=== PATIENT | female | born 1930 | race Caucasian/White ===

== ENCOUNTER 2017-05-19 11:09 | Inpatient (IN) ==
[2017-05-19] MEDS ORDERED: SALINE FLUSH 10ml SYRINGE IVF PRN (11:23)
--- NOTE | 2017-05-19 12:14 | Emergency Department Report ---
General Adult HPI - General Chief complaint: Medical Clearance Stated complaint: evaluation Time Seen by Provider: 05/19/17 11:16 Source: patient, family Mode of arrival: ambulatory Limitations: no limitations - History of Present Illness HPI narrative: 86-year-old female presents to the emergency department for evaluation for treatment by generations. Patient denies any pain or discomfort. Patient has been experiencing paranoia and intermittent episodes of confusion. Patient does not note any exacerbating or remitting factors. She no other complaints or associated symptoms. Patient was [place] healthcare facility here. Patient does not wish to harm herself or anyone else. She denies homicidal/suicidal ideation or plan. No self injury or self- harm. - Related Data Home Medications Medication Instructions Recorded Confirmed Tylenol Regular Strength 325 mg 650 mg PO Q6H PRN cap 05/18/17 05/19/17 capsule Zyloprim (Allopurinol) 100 mg 100 mg PO DAILY 05/18/17 05/19/17 tablet Amitriptyline [Elavil] 10 mg PO HS 05/19/17 05/19/17 Aspirin [Adult Low Dose Aspirin EC] 81 mg PO DAILY 05/19/17 05/19/17 Atorvastatin [Lipitor] 10 mg PO HS 05/19/17 05/19/17 Famotidine [Pepcid AC] 20 mg PO HS 05/19/17 05/19/17 LORazepam [Ativan] 0.5 mg PO BID PRN 05/19/17 05/19/17 Polyethylene Glycol 3350 1 pack PO DAILY PRN 05/19/17 05/19/17 [Polyethylene Glycol 3350] Previous Rx's Medication Instructions Recorded lisinopril 20 mg tablet 20 mg PO DAILY #90 tab 04/20/17 Allergies Allergy/AdvReac Type Severity Reaction Status Date / Time simvastatin [From Zocor] Allergy Intermediate rash Verified 05/19/17 11:30 Review of Systems Constitutional: Denies: fever, chills Eyes: Denies: eye pain, vision change ENT: Denies: ear pain, throat pain Cardiovascular: Denies: chest pain, palpitations Respiratory: Denies: cough, dyspnea Gastrointestinal: Denies: abdominal pain, nausea, vomiting, diarrhea Genitourinary: Denies: urgency, dysuria Musculoskeletal: Denies: back pain, arthralgia Integumentary: Denies: erythema, rash Neurological: Denies: headache, numbness Psychiatric: Denies: anxiety, depression Endocrine: Denies: fatigue, heat or cold intolerance Hematological/Lymphatic: Denies: easy bleeding, easy bruising Allergic/Immunologic: Denies: facial swelling, urticaria PFSH Patient Stated Medical History Post Menopausal Yes Clinic Medical History Alzheimer disease (Chronic Medical) Anxiety (Chronic Medical) CAD (coronary artery disease) (Chronic Medical) COPD (chronic obstructive pulmonary disease) (Chronic Medical) Cataracts, bilateral (Chronic Medical) Depression (Chronic Medical) Dyslipidemia (Chronic Medical) 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 Shoulder replacement and other shoulder surgeries as well. Colon surgery with removal of some of her intestinews. Growth removed from neck Family History: Family History Mother Stroke Father Diabetes - Social History Smoking status: Never smoker Substance use type: does not use Alcohol intake frequency: does not drink Physical Exam - Limitations Limitations: no limitations - General General appearance: alert, in no apparent distress - Normal Exams: Head:: Normocephalic without trauma Eyes:: Pupils are PERRLA w/ EOMI, No scleral icterus, irritation, or foreign bodies noted ENMT:: No facial trauma, nasal exudates, pharyngeal erythema, or exudates are noted Dental: No fractured, loose, or missing teeth noted Neck:: Full range of motion, without adenopathy, JVD, bruits or thyromegaly Chest/Respirations:: Clear all vivas, with good airflow, and symmetry bilaterally Cardiovascular:: Regular rate and rhythm, without murmur or gallop, Pulses 2+ all extremities, capillary refill, <2 seconds all extremities Abdomen:: Bowel sounds positive, soft, non-tender, non-distended, no hepatosplenomegaly, masses or bruits noted Course Vital Signs Temperature 98.7 F 05/19/17 11:10 Temperature 98.7 F 05/19/17 14:29 Pulse Rate 67 05/19/17 14:29 Respiratory Rate 18 05/19/17 14:29 Blood Pressure 141/95 H 05/19/17 14:29 Pulse Oximetry 97 05/19/17 14:29 Medical Decision Making - [facility] Narrative Medical decision making narrative: Labs / imaging were discussed in detail with the patient and family and questions are answered. Patient is screened by [facility]. Patient is accepted to [facility] by Dr. Rizvi. Patient was given 500 mL normal saline bolus intravenously times one. Patient is medically clear for transfer to [facility] at this time. Patient and family are in agreement with the current plan of management. No further orders from accepting physician who is in agreement with the current plan of management. - Differential Diagnosis Metabolic disorder, UTI, dementia, psychosis - Lab Data Result diagrams: 05/19/17 11:47 05/19/17 11:47 Lab Results 05/19/17 05/19/17 05/19/17 Range/Units 11:39 11:47 11:47 WBC 6.3 (4.5-11.0) T/MM3 RBC 4.90 (4.00-5.20) M/MM3 Hgb 14.9 (12-16) GM/DL Hct 45.6 (36-46) % MCV 93.1 (80-100) UM3 MCH 30.4 (26-34) UUG MCHC 32.7 (31-37) GM/DL RDW Std Deviation 45.0 (36.9-50.2) FL Plt Count 131 (130-400) T/MM3 MPV 10.9 (9.4-12.4) UM3 Immature Gran % (Auto) 0.2 (0.0-0.5) % Neut % (Auto) 80.9 H (33-66) % Lymph % (Auto) 12.2 L (23-45) % Banks % (Auto) 6.2 (0-9.0) % Eos % (Auto) 0.3 (0-4) % Baso % (Auto) 0.2 (0-2) % Neut # 5.1 (1.8-7.7) T/MM3 Lymph # 0.8 L (1-4.8) T/MM3 Banks # 0.4 (0-0.8) T/MM3 Eos # 0.0 (0-0.5) T/MM3 Baso # 0.0 (0-0.2) T/MM3 Abs Immat Gran (auto) 0.01 (0.00-0.03) T/MM3 Turbidity < 20 (0-20) Sodium 149 H (134-144) MEQ/L Potassium 3.7 (3.6-5) MEQ/L Chloride 108 H (98-107) MEQ/L Carbon Dioxide 28 (22-30) MEQ/L Anion Gap 13 (5-15) MEQ/L BUN 21.0 H (7-17) MG/DL Creatinine 0.8 (0.7-1.2) MG/DL GFR Calculation 68 BUN/Creatinine Ratio 26 (6-26) RATIO Glucose 97 (65-110) MG/DL Calculated Osmolality 289 H (261-280) MOSM/KG Calcium 9.8 (8.4-10.2) MG/DL Total Bilirubin 1.00 (0.20-1.30) MG/DL Icterus Index < 2 (0-7) AST 19 (14-36) U/L ALT 30 (9-52) U/L Alkaline Phosphatase 61 (38-126) U/L Troponin I 0.013 (0-0.12) ng/ml Total Protein 6.8 (6.3-8.2) G/DL Albumin 4.5 (3.5-5.0) G/DL Globulin 2.3 L (2.4-3.6) G/DL Albumin/Globulin Ratio 2.0 (1.1-2.2) RATIO Specimen Hemolysis < 15 (0-25) Ur Collection Type Urine, clean catch Urine Color Yellow (YELLOW) Urine Clarity Clear Urine pH 6.0 (5.0-8.0) Ur Specific [place] 1.025 (1.015-1.025) Urine Protein 1+ A (NEGATIVE) Urine Glucose (UA) Negative (NEGATIVE) Urine Ketones Negative (NEGATIVE) Urine Occult Blood Trace-lysed (NEGATIVE) Urine Nitrate Negative (NEGATIVE) Urine Bilirubin Negative (NEGATIVE) Urine Urobilinogen 2.0 (NORMAL) EU/DL Ur Leukocyte Esterase Trace A (NEGATIVE) Urine RBC 10-20 H (0-3) /HPF Urine WBC 3-5 (0-5) /HPF Ur Squamous Epith Cells 5-10 Calcium Oxalate Crystal Few Urine Bacteria 1+ H (NEGATIVE) Hyaline Casts 5-10 /LPF Granular Casts 0-1 RBC Casts 0-1 /LPF WBC Casts 0-1 /LPF Urine Mucus Present Ur Culture Indicated? Cult not indicated - Radiology Data CXR - No acute processes. CT Head - No acute processes. - EKG Data EKG #1 EKG results narrative: Sinus rhythm. Right bundle branch block. 62 bpm. No STEMI. Disposition Clinical Impression: Dementia Qualifiers: Dementia type: unspecified type Dementia behavioral disturbance: with behavioral disturbance Qualified Code(s): F03.91 - Unspecified dementia with behavioral disturbance Disposition: 02 To [facility] Acute Care Condition: Improved Prescriptions: No Action Atorvastatin [Lipitor] 10 mg PO HS Polyethylene Glycol 3350 [Polyethylene Glycol 3350] 1 pack PO DAILY PRN PRN Reason: Constipation LORazepam [Ativan] 0.5 mg PO BID PRN PRN Reason: Anxiety Amitriptyline [Elavil] 10 mg PO HS Aspirin [Adult Low Dose Aspirin EC] 81 mg PO DAILY Famotidine [Pepcid AC] 20 mg PO HS lisinopril 20 mg tablet 20 mg PO DAILY #90 tab Tylenol Regular Strength 325 mg capsule 650 mg PO Q6H PRN cap PRN Reason: Pain Zyloprim (Allopurinol) 100 mg tablet 100 mg PO DAILY Referrals: Gage Oquendo DO [Family Provider] - Time of Disposition: 13:40 - Seen By: physician
[2017-05-19] MEDS ORDERED: NS 1,000 ML IV ONE (12:27)
[2017-05-19] MEDS ORDERED: HALOPERIDOL 5 MG/ML INJECTION IM PRN (16:28)
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
--- NOTE | 2017-05-19 17:14 | CT Scan Report ---
Indication: Paranoia PROCEDURE: CT head/brain wo con: Encounter: Initial Comparison: None Findings: Axial noncontrasted images of the brain utilizing radiation dose reduction techniques. There is cerebral and cerebellar atrophy. Dural based partially calcified posterior left parietal convexity meningioma with a bilobed appearance. Hyperdensity in the left frontal deep white matter which is likely a focus of calcification. Chronic microvascular ischemic changes. IMPRESSION: 1. Cerebral and cerebellar atrophy. 2. Chronic microvascular ischemia. 3. Posterior left parietal partially calcified meningioma. .
--- NOTE | 2017-05-19 17:18 | XRay Report ---
Indication: Paranoia - MEd clearance PROCEDURE: XR chest 1V: Encounter: Initial Comparison: None Findings: Frontal chest radiograph is submitted. There is mild cardiomegaly no pulmonary vascular engorgement. Mild hypoventilation. No confluent infiltrate; pleural spaces clear. Degenerative changes of the bony elements including the spine and left shoulder and there is been reverse total shoulder arthroplasty on the right. IMPRESSION: Mild hypoventilation and cardiomegaly but no acute chest disease is identified. .
[2017-05-19 17:52] VITALS: BMI 27.8
[2017-05-19] MEDS: LORazepam 0.5 MG TABLET PO PRN (20:55)
[2017-05-19] MEDS: FAMOTIDINE 20 MG TABLET PO SCH ×2 (20:56→22:31)
[2017-05-19] MEDS: ATORVASTATIN 10 MG TABLET PO SCH ×2 (20:56→22:31)
[2017-05-20] MEDS: LISINOPRIL 20 MG TABLET PO SCH (08:12)
[2017-05-20] MEDS: ASPIRIN *EC* 81 MG TABLET PO SCH (08:12)
[2017-05-20] MEDS: ALLOPURINOL 100 MG TABLET PO SCH (08:12)
[2017-05-20] MEDS: POLYETHYL GLYCOL 3350 17gm PACKET PO PRN (08:12)
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
[2017-05-20] MEDS: DIVALPROEX 250 MG TABLET PO SCH (16:23)
[2017-05-20] MEDS: LORazepam 0.5 MG TABLET PO PRN (19:36)
[2017-05-20] MEDS: FAMOTIDINE 20 MG TABLET PO SCH (19:36)
[2017-05-20] MEDS: ATORVASTATIN 10 MG TABLET PO SCH (19:36)
[2017-05-21] MEDS: ATORVASTATIN 10 MG TABLET PO SCH ×2 (00:01→20:37)
[2017-05-21] MEDS: FAMOTIDINE 20 MG TABLET PO SCH ×2 (00:01→20:37)
[2017-05-21] MEDS: DIVALPROEX 250 MG TABLET PO SCH ×3 (00:03→20:37)
[2017-05-21] MEDS: LISINOPRIL 20 MG TABLET PO SCH (08:09)
[2017-05-21] MEDS: ASPIRIN *EC* 81 MG TABLET PO SCH (08:09)
[2017-05-21] MEDS: ALLOPURINOL 100 MG TABLET PO SCH (08:09)
[2017-05-21] MEDS ORDERED: BENZOCAINE 20% SPRAY 0.5 ML ONE (08:21)
--- NOTE | 2017-05-21 09:36 | Progress Note ---
Subjective: Patient is seen today in her room. She is pleasant and answers questions appropriately. Staff has no concerns with her at present. She has no complaints. She is eating well. Bowels are moving. Objective Vital signs: Temperature 97.8 F 05/20/17 19:26 Pulse Rate 75 05/20/17 19:26 Respiratory Rate 20 05/20/17 19:26 Blood Pressure 169/71 H 05/20/17 19:26 Pulse Oximetry 95 05/20/17 19:26 Oxygen Delivery Method Room Air Height: 1.65 m Weight: 75.7 kg Body Mass Index: 27.8 - Constitutional Present: no acute distress, well nourished, well developed - Routine HEENT Exam Eye: Present: EOMI - Routine Respiratory Exam Present: CTA bilaterally. Absent: wheezes - Routine Cardiovascular Exam Present: RRR, S1, S2, murmur (grade II) - Routine Abdominal Exam Present: soft, normoactive bowel sounds, non distended. Absent: tenderness - Routine Extremities Exam Present: no edema, normal capillary refill - Routine Skin Exam Present: dry, warm - Routine Neurological Exam Present: alert, tremors (resting tremor on right side most notable to the right leg at time of exam) - Routine Lymphatic Exam Lymphatic: Absent: adenopathy - Routine Psychiatric Exam Present: normal affect Results - Labs CBC & Chem 7: 05/19/17 11:47 05/20/17 06:57 Assessment and Plan (1) Dementia Current visit: Yes Status: Chronic (2) Cognitive and behavioral changes Current visit: Yes Status: Acute (3) History of recent fall Current visit: No Status: Acute (4) CAD (coronary artery disease) Current visit: No Status: Chronic (5) HTN (hypertension) Current visit: Yes Status: Chronic (6) Dehydration with hypernatremia Current visit: No Status: Acute Assessment and Plan: Assessment Hypokalemia Alzheimer disease (Chronic Medical) Anxiety (Chronic Medical) CAD (coronary artery disease) (Chronic Medical) COPD (chronic obstructive pulmonary disease) (Chronic Medical) Cataracts, bilateral (Chronic Medical) Depression (Chronic Medical) Dyslipidemia (Chronic Medical) 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 Her home potassium was held, and she was continued on lisinopril for hypertension. Most recent potassium level was slightly low at 3.2. Will check BMP tomorrow, if potassium continues to drop would resume home potassium dose. She has an appointment with Dr. Gamboa scheduled in a few weeks to evaluate her tremors. Blood pressures are running slightly high, but improved over the course of the day yesterday. Will continue to monitor. Sepsis Assessment - Evaluation Sepsis screening result: No Definite Risk Hospital Course Summary Disclaimer: The visit summary below is not to be considered part of the above Progress Note. Hospital Course: 05/19/17 17:00 She does appear a bit dry- she did receive IVF in the ED. Will follow up labs for stability. If she becomes more dry, may need to hold lisinopril due to risk of kidney injury. BP is fairly stable. We will continue to monitor. Safe environment, fall precautions in place. She does have a significant, right sided tremor. I don't see that she has any parkinson's meds in place. We may need to consider adding that in to help with gait stability once we have her stabilized from a mental health perspective. Thank you for the consult- we will follow. 05/21/17 09:47 Her potassium level was normal on admission. Her home potassium was held, and she was continued on lisinopril for hypertension. Most recent potassium level was slightly low at 3.2. Will check BMP tomorrow, if potassium continues to drop would resume home potassium dose. She has an appointment with Dr. Gamboa scheduled in a few weeks to evaluate her tremors. Blood pressures are running slightly high, but improved over the course of the day yesterday. Will continue to monitor.
--- NOTE | 2017-05-21 19:04 | Neuropsych Progress Note ---
[facility] Subjective Date: 05/21/17 - Sujective/Severity of Illness Medications: Allopurinol (Zyloprim) 100 mg PO DAILY [facility] Last Admin: 05/21/17 08:09 Dose: 100 mg Aspirin (Ecotrin) 81 mg PO DAILY [facility] Last Admin: 05/21/17 08:09 Dose: 81 mg Atorvastatin Calcium (Lipitor) 10 mg PO 2100 [facility] Divalproex Sodium (Depakote) 250 mg PO BID [facility] Last Admin: 05/21/17 08:08 Dose: 250 mg Famotidine (Pepcid) 20 mg PO 2100 [facility] Haloperidol (Haldol) 0.5 mg PO Q6H PRN PRN Reason: Extreme agitation Haloperidol Lactate (Haldol) 0.5 mg IM Q6H PRN PRN Reason: Extreme agitation Lisinopril (Prinivil) 20 mg PO DAILY [facility] Last Admin: 05/21/17 08:09 Dose: 20 mg Lorazepam (Ativan Inj) 0.5 mg IM Q6H PRN PRN Reason: Extreme agitation Lorazepam (Ativan) 0.5 mg PO Q6H PRN PRN Reason: Extreme agitation Last Admin: 05/20/17 19:36 Dose: 0.5 mg Polyethylene Glycol (Miralax) 17 gm PO DAILY PRN PRN Reason: Constipation Last Admin: 05/20/17 08:12 Dose: 17 gm Subjective: Pt seen and chart examined. Nursing reports pt is doing well today. Sleeping well and has a good appetite. No behaviors noted. On face to face the pt states she is doing well. She is pleasant but confused. Only oriented to self. Denies any pain. Some paranoia but states she feels safe here. Tolerating meds. Start Time: 17:45 Stop Time: 18:00 Mental Status Exam Vitals: Last Vital Signs Temp 97.8 F 05/21/17 17:00 Pulse 75 05/21/17 17:00 Resp 16 05/21/17 17:00 BP 150/88 H 05/21/17 17:04 Pulse Ox 97 05/21/17 17:00 Height: 1.65 m Weight: 75.7 kg - Mental Status Exam Muscle Strength/Tone: Normal Dressing: Casual Grooming: Good Attitude: Cooperative Motor Activity: Normal Eye Contact: Good Speech: Slowed Volume: Normal Rhythm: Appropriate Rhythm Orientation: Oriented to person Rate of Thoughts: Delayed Thought Organization: [place] Associations: Flight of Ideas Abstract Reasoning: Poor abstract reasoning Thought Content: Normal Perception/Psychotic: Perception Normal Language: Naming Impaired Memory: Poor-immediate, Poor-recent Suicidal Ideation: None Homicidal Ideation: None Insight: Poor Judgement: Poor Impulse Control: Poor - Laboratory Result Diagrams: 05/19/17 11:47 05/20/17 06:57 Assessment and Plan (1) 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 Hospital Course: 05/19/17 17:00 She does appear a bit dry- she did receive IVF in the ED. Will follow up labs for stability. If she becomes more dry, may need to hold lisinopril due to risk of kidney injury. BP is fairly stable. We will continue to monitor. Safe environment, fall precautions in place. She does have a significant, right sided tremor. I don't see that she has any parkinson's meds in place. We may need to consider adding that in to help with gait stability once we have her stabilized from a mental health perspective. Thank you for the consult- we will follow. 05/21/17 09:47 Her potassium level was normal on admission. Her home potassium was held, and she was continued on lisinopril for hypertension. Most recent potassium level was slightly low at 3.2. Will check BMP tomorrow, if potassium continues to drop would resume home potassium dose. She has an appointment with Dr. Gamboa scheduled in a few weeks to evaluate her tremors. Blood pressures are running slightly high, but improved over the course of the day yesterday. Will continue to monitor. 05/21/17 19:04 Continue current care
[2017-05-22] MEDS: DIVALPROEX 250 MG TABLET PO SCH ×2 (09:43→20:18)
[2017-05-22] MEDS: LISINOPRIL 20 MG TABLET PO SCH (09:43)
[2017-05-22] MEDS: ASPIRIN *EC* 81 MG TABLET PO SCH (09:44)
[2017-05-22] MEDS: ALLOPURINOL 100 MG TABLET PO SCH (09:44)
--- NOTE | 2017-05-22 11:34 | Progress Note ---
<Yuni Tesfaye - Last Filed: 05/22/17 11:31> Subjective: Patient was sleeping in the day room when I saw her today. She did awake briefly and reported that she had no complaints other than that she was drowsy. The nurse reported to me this morning that she gave another patient's meds to this patient today. These medications included Depakote 500 mg, Lasix 40 mg, Colace 100 mg, Culturelle, levothyroxine 175 g, Zoloft 100 mg and Seroquel 50 mg. The nurse has reported this med administration error to Dr. Post and the patient's family, and a variance report will be written. Objective Vital signs: Temperature 97.2 F 05/22/17 09:47 Pulse Rate 84 05/22/17 09:47 Respiratory Rate 14 05/22/17 09:47 Blood Pressure 123/62 05/22/17 09:47 Pulse Oximetry 92 05/22/17 09:47 Oxygen Delivery Method Room Air Height: 1.65 m Weight: 75.7 kg Body Mass Index: 27.8 - Constitutional Present: no acute distress, well nourished, well developed - Routine HEENT Exam Head: Present: normocephalic, atraumatic Eye: Present: EOMI - Routine Respiratory Exam Present: CTA bilaterally. Absent: wheezes - Routine Cardiovascular Exam Present: RRR, S1, S2. Absent: murmur - Routine Abdominal Exam Present: soft, normoactive bowel sounds, non distended. Absent: tenderness - Routine Extremities Exam Present: no edema, normal capillary refill - Routine Skin Exam Present: dry, warm - Routine Neurological Exam Sleepy, but on awakening she is oriented to person and place - Routine Lymphatic Exam Lymphatic: Absent: adenopathy - Routine Psychiatric Exam Present: normal affect Results - Labs CBC & Chem 7: 05/19/17 11:47 05/22/17 06:58 Assessment and Plan (1) Dementia Current visit: Yes Status: Chronic (2) Cognitive and behavioral changes Current visit: Yes Status: Acute (3) History of recent fall Current visit: No Status: Acute (4) CAD (coronary artery disease) Current visit: No Status: Chronic (5) HTN (hypertension) Current visit: Yes Status: Chronic (6) Dehydration with hypernatremia Current visit: No Status: Acute Assessment and Plan: Assessment Hypokalemia Alzheimer disease (Chronic Medical) Anxiety (Chronic Medical) CAD (coronary artery disease) (Chronic Medical) COPD (chronic obstructive pulmonary disease) (Chronic Medical) Cataracts, bilateral (Chronic Medical) Depression (Chronic Medical) Dyslipidemia (Chronic Medical) 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 Will monitor her closely today. Other than drowsiness, I don't expect any significant reactions/side effects from the medications she was given. She was given her allopurinol and her aspirin. Will check a BMP in the morning. Her home potassium is still on hold. Sepsis Assessment - Evaluation Sepsis screening result: No Definite Risk Hospital Course Summary Disclaimer: The visit summary below is not to be considered part of the above Progress Note. Hospital Course: 05/19/17 17:00 She does appear a bit dry- she did receive IVF in the ED. Will follow up labs for stability. If she becomes more dry, may need to hold lisinopril due to risk of kidney injury. BP is fairly stable. We will continue to monitor. Safe environment, fall precautions in place. She does have a significant, right sided tremor. I don't see that she has any parkinson's meds in place. We may need to consider adding that in to help with gait stability once we have her stabilized from a mental health perspective. Thank you for the consult- we will follow. 05/21/17 09:47 Her potassium level was normal on admission. Her home potassium was held, and she was continued on lisinopril for hypertension. Most recent potassium level was slightly low at 3.2. Will check BMP tomorrow, if potassium continues to drop would resume home potassium dose. She has an appointment with Dr. Gamboa scheduled in a few weeks to evaluate her tremors. Blood pressures are running slightly high, but improved over the course of the day yesterday. Will continue to monitor. 05/22/17 Patient given another patient's medications today. Patient's lisinopril was held this morning as her blood pressure was 123/62 after getting the Lasix. Will monitor her closely today. Other than drowsiness, I don't expect any significant reactions/side effects from the medications she was given. She was given her allopurinol and her aspirin. Will check a BMP in the morning. Her home potassium is still on hold. <Desirae Beatty - Last Filed: 05/22/17 18:26> Objective Vital signs: Temperature 97.8 F 05/22/17 16:42 Pulse Rate 74 05/22/17 16:42 Respiratory Rate 20 05/22/17 16:42 Blood Pressure 160/92 H 05/22/17 16:42 Pulse Oximetry 96 05/22/17 16:42 Oxygen Delivery Method Room Air Height/Weight/BMI: Height 1.65 m Weight 75.7 kg Body Mass Index 27.8 Results - Labs CBC & Chem 7: 05/19/17 11:47 05/22/17 06:58 Assessment and Plan (1) Dementia Current visit: Yes Status: Chronic (2) Cognitive and behavioral changes Current visit: Yes Status: Acute (3) History of recent fall Current visit: No Status: Acute (4) CAD (coronary artery disease) Current visit: No Status: Chronic (5) HTN (hypertension) Current visit: Yes Status: Chronic (6) Dehydration with hypernatremia Current visit: No Status: Acute Assessment and Plan: I have independently evaluated and examined this patient. I reviewed the chart, the patient's history, and the [employer]/PA's documented findings as above. We discussed and formulated the assessment and plan as above with additions as below: Praveen was reevaluated this evening after medication air this morning. She remains drowsy but is awake enough to eat dinner. Speech is slightly mumbled. She denies pain or dyspnea. When asked about her tremor she reports that sometimes they're on one side and sometimes on the other. Patient is drowsy but able to respond to questions. Respirations nonlabored, poor inspiratory effort. Breath sounds clear Rest tremors present, greatest in the left leg today, increased motor tone. Potassium 3.4-resume daily supplement of 20 mEq KCl and recheck in several days. Remains somnolent but improved from assessment earlier today. Hospital Course Summary Disclaimer: The visit summary below is not to be considered part of the above Progress Note.
[2017-05-22] MEDS: QUETIAPINE 25 MG TABLET PO SCH ×2 (16:42→22:09)
--- NOTE | 2017-05-22 16:59 | Neuropsych Progress Note ---
[facility] Subjective Date: 05/22/17 - Sujective/Severity of Illness Medications: Allopurinol (Zyloprim) 100 mg PO DAILY [facility] Last Admin: 05/22/17 09:44 Dose: 100 mg Aspirin (Ecotrin) 81 mg PO DAILY [facility] Last Admin: 05/22/17 09:44 Dose: 81 mg Atorvastatin Calcium (Lipitor) 10 mg PO 2100 [facility] Last Admin: 05/21/17 20:37 Dose: Not Given Divalproex Sodium (Depakote) 250 mg PO BID [facility] Last Admin: 05/22/17 09:43 Dose: Not Given Famotidine (Pepcid) 20 mg PO 2100 [facility] Last Admin: 05/21/17 20:37 Dose: Not Given Haloperidol (Haldol) 0.5 mg PO Q6H PRN PRN Reason: Extreme agitation Haloperidol Lactate (Haldol) 0.5 mg IM Q6H PRN PRN Reason: Extreme agitation Lisinopril (Prinivil) 20 mg PO DAILY [facility] Last Admin: 05/22/17 09:43 Dose: Not Given Lorazepam (Ativan Inj) 0.5 mg IM Q6H PRN PRN Reason: Extreme agitation Last Admin: 05/21/17 20:02 Dose: 0.5 mg Lorazepam (Ativan) 0.5 mg PO Q6H PRN PRN Reason: Extreme agitation Last Admin: 05/20/17 19:36 Dose: 0.5 mg Polyethylene Glycol (Miralax) 17 gm PO DAILY PRN PRN Reason: Constipation Last Admin: 05/20/17 08:12 Dose: 17 gm Quetiapine Fumarate (Seroquel) 25 mg PO BID [facility] Last Admin: 05/22/17 16:42 Dose: 25 mg Subjective: Pt seen and chart examined. Nursing reports pt remains paranoid at times. She is sleeping well and has a good appetite. Pt received Ativan at 2000 for restlessness and exit seeking. On face to face the pt is pleasant but confused. She is only oriented to self. She states she is worried that a couple of peers are trying to 'take over the unit". She reports her mood is stable. Denies pain. Start Time: 17:00 Stop Time: 17:15 Mental Status Exam Vitals: Last Vital Signs Temp 97.8 F 05/22/17 16:42 Pulse 74 05/22/17 16:42 Resp 20 08/15/17 16:42 BP 160/92 H 05/22/17 16:42 Pulse Ox 96 05/22/17 16:42 Height: 1.65 m Weight: 75.7 kg - Mental Status Exam Muscle Strength/Tone: Normal Dressing: Casual Grooming: Good Attitude: Cooperative Motor Activity: Normal Eye Contact: Good Speech: Slowed Volume: Normal Rhythm: Appropriate Rhythm Orientation: Oriented to person Rate of Thoughts: Delayed Thought Organization: [place] Associations: Flight [employer] Abstract Reasoning: Poor abstract reasoning Thought Content: Delusions Perception/Psychotic: Perception Normal Language: Naming Impaired Memory: Poor-immediate, Poor-recent Suicidal Ideation: None Homicidal Ideation: None Insight: Poor Judgement: Poor Impulse Control: Poor - Laboratory Result Diagrams: 05/19/17 11:47 05/22/17 06:58 Laboratory Results - last 24 hr 05/22/17 06:58 Turbidity < 20 Sodium 146 H Potassium 3.4 L Chloride 108 H Carbon Dioxide 28 Anion Gap 10 BUN 19.0 H Creatinine 0.6 L D GFR Calculation 95 BUN/Creatinine Ratio 32 H Glucose 100 Calculated Osmolality 283 H Calcium 9.4 Icterus Index < 2 Specimen Hemolysis < 15 Assessment and Plan (1) 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 Hospital Course: 05/19/17 17:00 She does appear a bit dry- she did receive IVF in the ED. Will follow up labs for stability. If she becomes more dry, may need to hold lisinopril due to risk of kidney injury. BP is fairly stable. We will continue to monitor. Safe environment, fall precautions in place. She does have a significant, right sided tremor. I don't see that she has any parkinson's meds in place. We may need to consider adding that in to help with gait stability once we have her stabilized from a mental health perspective. Thank you for the consult- we will follow. 05/21/17 09:47 Her potassium level was normal on admission. Her home potassium was held, and she was continued on lisinopril for hypertension. Most recent potassium level was slightly low at 3.2. Will check BMP tomorrow, if potassium continues to drop would resume home potassium dose. She has an appointment with Dr. Gamboa scheduled in a few weeks to evaluate her tremors. Blood pressures are running slightly high, but improved over the course of the day yesterday. Will continue to monitor. 05/22/17 Patient given another patient's medications today. Patient's lisinopril was held this morning as her blood pressure was 123/62 after getting the Lasix. Will monitor her closely today. Other than drowsiness, I don't expect any significant reactions/side effects from the medications she was given. She was given her allopurinol and her aspirin. Will check a BMP in the morning. Her home potassium is still on hold. 05/22/17 16:58 Seroquel 25mg at 0900 and 1800
[2017-05-22] MEDS: ATORVASTATIN 10 MG TABLET PO SCH (20:18)
[2017-05-22] MEDS: FAMOTIDINE 20 MG TABLET PO SCH (20:18)
[2017-05-22] MEDS: LORazepam 0.5 MG TABLET PO PRN (23:41)
[2017-05-23] MEDS: DIVALPROEX 250 MG TABLET PO SCH ×2 (08:59→19:50)
[2017-05-23] MEDS: ALLOPURINOL 100 MG TABLET PO SCH (09:00)
[2017-05-23] MEDS: QUETIAPINE 25 MG TABLET PO SCH ×2 (09:00→17:19)
[2017-05-23] MEDS: ASPIRIN *EC* 81 MG TABLET PO SCH (09:00)
[2017-05-23] MEDS: LISINOPRIL 20 MG TABLET PO SCH (09:00)
--- NOTE | 2017-05-23 18:38 | Neuropsych Progress Note ---
[facility] Subjective Date: 05/23/17 - Sujective/Severity of Illness Medications: Allopurinol (Zyloprim) 100 mg PO DAILY [facility] Last Admin: 05/23/17 09:00 Dose: 100 mg Aspirin (Ecotrin) 81 mg PO DAILY [facility] Last Admin: 05/23/17 09:00 Dose: 81 mg Atorvastatin Calcium (Lipitor) 10 mg PO 2100 [facility] Last Admin: 05/22/17 20:18 Dose: 10 mg Divalproex Sodium (Depakote) 250 mg PO BID [facility] Last Admin: 05/23/17 08:59 Dose: 250 mg Famotidine (Pepcid) 20 mg PO 2100 [facility] Last Admin: 05/22/17 20:18 Dose: 20 mg Haloperidol (Haldol) 0.5 mg PO Q6H PRN PRN Reason: Extreme agitation Haloperidol Lactate (Haldol) 0.5 mg IM Q6H PRN PRN Reason: Extreme agitation Lisinopril (Prinivil) 20 mg PO DAILY [facility] Last Admin: 05/23/17 09:00 Dose: 20 mg Lorazepam (Ativan Inj) 0.5 mg IM Q6H PRN PRN Reason: Extreme agitation Last Admin: 05/21/17 20:02 Dose: 0.5 mg Lorazepam (Ativan) 0.5 mg PO Q6H PRN PRN Reason: Extreme agitation Last Admin: 05/22/17 23:41 Dose: 0.5 mg Polyethylene Glycol (Miralax) 17 gm PO DAILY PRN PRN Reason: Constipation Last Admin: 05/20/17 08:12 Dose: 17 gm Potassium Chloride (K-Dur) 20 meq PO WB [facility] Last Admin: 05/23/17 08:59 Dose: 20 meq Quetiapine Fumarate (Seroquel) 25 mg PO [facility] Last Admin: 05/23/17 17:19 Dose: 25 mg Subjective: Pt seen and chart examined. Nursing reports pt doing a little better today. Remains paranoid at times which is worse at night. Pt received Ativan PRN at 2345. On face to face the pt is pleasant but confused. She is only oriented to self. She remains paranoid but it seems to concern her less. Tolerating meds Start Time: 17:30 Stop Time: 17:45 Mental Status Exam Vitals: Last Vital Signs Temp 97.9 F 05/23/17 16:00 Pulse 74 05/23/17 16:00 Resp 16 05/23/17 16:00 BP 160/88 H 05/23/17 16:00 Pulse Ox 96 05/23/17 16:00 Height: 1.65 m Weight: 75.7 kg - Mental Status Exam Muscle Strength/Tone: Normal Dressing: Casual Grooming: Good Attitude: Cooperative Motor Activity: Normal Eye Contact: Good Speech: Slowed Volume: Normal Rhythm: Appropriate Rhythm Orientation: Oriented to person Rate of Thoughts: Delayed Thought Organization: [employer]: Flight of Ideas Abstract Reasoning: Poor abstract reasoning Thought Content: Delusions Perception/Psychotic: Perception Normal Language: Naming Impaired Memory: Poor-immediate, Poor-recent Suicidal Ideation: None Homicidal Ideation: None Insight: Poor Judgement: Poor Impulse Control: Poor - Laboratory Result Diagrams: 05/19/17 11:47 05/23/17 07:01 Laboratory Results - last 24 hr 05/23/17 07:01 Turbidity < 20 Sodium 147 H Potassium 3.5 L Chloride 105 Carbon Dioxide 31 H Anion Gap 11 BUN 22.0 H Creatinine 0.7 GFR Calculation 80 BUN/Creatinine Ratio 31 H Glucose 87 Calculated Osmolality 284 H Calcium 9.8 Icterus Index < 2 Specimen Hemolysis < 15 Assessment and Plan (1) 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 Hospital Course: 05/19/17 17:00 She does appear a bit dry- she did receive IVF in the ED. Will follow up labs for stability. If she becomes more dry, may need to hold lisinopril due to risk of kidney injury. BP is fairly stable. We will continue to monitor. Safe environment, fall precautions in place. She does have a significant, right sided tremor. I don't see that she has any parkinson's meds in place. We may need to consider adding that in to help with gait stability once we have her stabilized from a mental health perspective. Thank you for the consult- we will follow. 05/21/17 09:47 Her potassium level was normal on admission. Her home potassium was held, and she was continued on lisinopril for hypertension. Most recent potassium level was slightly low at 3.2. Will check BMP tomorrow, if potassium continues to drop would resume home potassium dose. She has an appointment with Dr. Gamboa scheduled in a few weeks to evaluate her tremors. Blood pressures are running slightly high, but improved over the course of the day yesterday. Will continue to monitor. 05/22/17 Patient given another patient's medications today. Patient's lisinopril was held this morning as her blood pressure was 123/62 after getting the Lasix. Will monitor her closely today. Other than drowsiness, I don't expect any significant reactions/side effects from the medications she was given. She was given her allopurinol and her aspirin. Will check a BMP in the morning. Her home potassium is still on hold. 05/22/17 16:58 Seroquel 25mg at 0900 and 1800 05/23/17 18:38 Increase 1800 dose of Seroquel to 50mg to target increased agitation at night
[2017-05-23] MEDS: ATORVASTATIN 10 MG TABLET PO SCH (19:51)
[2017-05-23] MEDS: FAMOTIDINE 20 MG TABLET PO SCH (19:51)
[2017-05-24] MEDS: DIVALPROEX 250 MG TABLET PO SCH ×3 (05:11→21:05)
[2017-05-24] MEDS: ATORVASTATIN 10 MG TABLET PO SCH ×2 (05:11→21:05)
[2017-05-24] MEDS: FAMOTIDINE 20 MG TABLET PO SCH ×2 (05:12→21:05)
[2017-05-24] MEDS: ALLOPURINOL 100 MG TABLET PO SCH (08:48)
[2017-05-24] MEDS: LISINOPRIL 20 MG TABLET PO SCH (08:48)
[2017-05-24] MEDS: ASPIRIN *EC* 81 MG TABLET PO SCH (08:49)
[2017-05-24] MEDS ORDERED: QUETIAPINE 25 MG TABLET PO SCH ×2 (09:00→21:00)
[2017-05-24] MEDS: HALOPERIDOL 0.5 MG TABLET PO PRN (17:06)
[2017-05-24] MEDS: LORazepam 0.5 MG TABLET PO PRN (17:06)
[2017-05-24] MEDS ORDERED: QUETIAPINE 50 MG TABLET PO SCH (18:00)
--- NOTE | 2017-05-24 19:18 | Neuropsych Progress Note ---
[facility] Subjective Date: 05/24/17 - Sujective/Severity of Illness Medications: Allopurinol (Zyloprim) 100 mg PO DAILY [facility] Last Admin: 05/24/17 08:48 Dose: 100 mg Aspirin (Ecotrin) 81 mg PO DAILY [facility] Last Admin: 05/24/17 08:49 Dose: 81 mg Atorvastatin Calcium (Lipitor) 10 mg PO 2100 [facility] Last Admin: 05/24/17 05:11 Dose: Not Given Divalproex Sodium (Depakote) 250 mg PO BID [facility] Last Admin: 05/24/17 08:47 Dose: 250 mg Famotidine (Pepcid) 20 mg PO 2100 [facility] Last Admin: 05/24/17 05:12 Dose: Not Given Haloperidol (Haldol) 0.5 mg PO Q6H PRN PRN Reason: Extreme agitation Last Admin: 05/24/17 17:06 Dose: 0.5 mg Haloperidol Lactate (Haldol) 0.5 mg IM Q6H PRN PRN Reason: Extreme agitation Lisinopril (Prinivil) 20 mg PO DAILY [facility] Last Admin: 05/24/17 08:48 Dose: 20 mg Lorazepam (Ativan Inj) 0.5 mg IM Q6H PRN PRN Reason: Extreme agitation Last Admin: 05/21/17 20:02 Dose: 0.5 mg Lorazepam (Ativan) 0.5 mg PO Q6H PRN PRN Reason: Extreme agitation Last Admin: 05/24/17 17:06 Dose: 0.5 mg Polyethylene Glycol (Miralax) 17 gm PO DAILY PRN PRN Reason: Constipation Last Admin: 05/20/17 08:12 Dose: 17 gm Potassium Chloride (K-Dur) 20 meq PO WB [facility] Last Admin: 05/24/17 08:48 Dose: 20 meq Quetiapine Fumarate (Seroquel) 50 mg PO 1800 [facility] Last Admin: 05/24/17 17:06 Dose: 50 mg Quetiapine Fumarate (Seroquel) 25 mg PO DAILY [facility] Last Admin: 05/24/17 08:48 Dose: 25 mg Subjective: Pt seen and chart examined. Nursing reports pt did well until about 1700 and when she became very paranoid and began to yell out thinking patients were being harmed. Pt was given Haldol and Ativan which was helpful. On face to face the pt is resting quietly. She is sleepy and only oriented to self. She denies pain. Tolerating meds Start Time: 19:00 Stop Time: 19:15 Mental Status Exam Vitals: Last Vital Signs Temp 98.6 F 05/24/17 16:49 Pulse 74 05/24/17 16:49 Resp 18 05/24/17 16:49 BP 163/76 H 05/24/17 16:49 Pulse Ox 95 05/24/17 16:49 Height: 1.65 m Weight: 75.7 kg - Mental Status Exam Muscle Strength/Tone: Normal Dressing: Casual Grooming: Good Attitude: Cooperative Motor Activity: Normal Eye Contact: Good Speech: Slowed Volume: Normal Rhythm: Appropriate Rhythm Orientation: Oriented to person Rate of Thoughts: Delayed Thought Organization: [place] Associations: Flight of Ideas Abstract Reasoning: Poor abstract reasoning Thought Content: Delusions Perception/Psychotic: Perception Normal Language: Naming Impaired Memory: Poor-immediate, Poor-recent Suicidal Ideation: None Homicidal Ideation: None Insight: Poor Judgement: Poor Impulse Control: Poor - Laboratory Result Diagrams: 05/19/17 11:47 05/23/17 07:01 Assessment and Plan (1) 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 Hospital Course: 05/19/17 17:00 She does appear a bit dry- she did receive IVF in the ED. Will follow up labs for stability. If she becomes more dry, may need to hold lisinopril due to risk of kidney injury. BP is fairly stable. We will continue to monitor. Safe environment, fall precautions in place. She does have a significant, right sided tremor. I don't see that she has any parkinson's meds in place. We may need to consider adding that in to help with gait stability once we have her stabilized from a mental health perspective. Thank you for the consult- we will follow. 05/21/17 09:47 Her potassium level was normal on admission. Her home potassium was held, and she was continued on lisinopril for hypertension. Most recent potassium level was slightly low at 3.2. Will check BMP tomorrow, if potassium continues to drop would resume home potassium dose. She has an appointment with Dr. Gamboa scheduled in a few weeks to evaluate her tremors. Blood pressures are running slightly high, but improved over the course of the day yesterday. Will continue to monitor. 05/22/17 Patient given another patient's medications today. Patient's lisinopril was held this morning as her blood pressure was 123/62 after getting the Lasix. Will monitor her closely today. Other than drowsiness, I don't expect any significant reactions/side effects from the medications she was given. She was given her allopurinol and her aspirin. Will check a BMP in the morning. Her home potassium is still on hold. 05/22/17 16:58 Seroquel 25mg at 0900 and 1800 05/23/17 18:38 Increase 1800 dose of Seroquel to 50mg to target increased agitation at night 05/24/17 19:17 Pt had an episode today of some paranoia and anger outburst, Will increase Seroquel to TID dosing.
[2017-05-24] MEDS: QUETIAPINE 50 MG TABLET PO SCH (21:05)
[2017-05-25] MEDS: DIVALPROEX 250 MG TABLET PO SCH ×2 (09:54→20:35)
[2017-05-25] MEDS: ASPIRIN *EC* 81 MG TABLET PO SCH (09:55)
[2017-05-25] MEDS: LISINOPRIL 20 MG TABLET PO SCH (09:55)
[2017-05-25] MEDS: ALLOPURINOL 100 MG TABLET PO SCH (09:56)
[2017-05-25] MEDS: QUETIAPINE 25 MG TABLET PO SCH ×2 (09:56→15:28)
[2017-05-25] MEDS: POLYETHYL GLYCOL 3350 17gm PACKET PO PRN (09:56)
[2017-05-25] MEDS: ACETAMINOPHEN 325 MG TABLET PO PRN (11:04)
--- NOTE | 2017-05-25 11:55 | Progress Note ---
<Lanie Malik - Last Filed: 05/25/17 11:48> Subjective: Adria is seen today in follow up for her dementia with behaviors. She is seen while eating breakfast in the day room and reports that she is doing well. Her only complaint is of her chronic back pain which she states is identical to her bilateral, lower back pain that she has had for "years". She denies any fevers , chills, abdominal pain, dysuria. No chest pain, shortness of breath or diarrhea. Medical records were reviewed and indicate that she was given another patient's medications on 05/22 including Depakote, Lasix, Colace, Culturelle, Synthroid, Zoloft and Seroquel. without residual complications and incident report was reportedly reported. She continues to have episodes of paranoia in the evenings requiring PRN medications but has had improvement with the increase in her Seroquel to TID on 05/24. Her appetite remains stable and her bowels are moving. On exam, she is at the breakfast table and is alert and orientated to person only. Cardiac exam reveals regular rate and rhythm and lungs are clear to auscultation bilaterally, though poor inspiratory effort is noted. Abdomen is soft, nontender with active bowel sounds. Trace edema noted to bilateral lower extremities. Labs from today revealed thrombocytopenia with platelets at 121. Persistent hypernatremia noted with sodium at 147. Hypokalemia resolved with sodium at 3.9. Hyperglycemia noted at 180, though she had just had breakfast at time of blood draw. Objective Vital signs: Temperature 97.8 F 05/24/17 20:47 Pulse Rate 64 05/24/17 20:47 Respiratory Rate 18 05/24/17 20:47 Blood Pressure 158/72 H 05/24/17 20:47 Pulse Oximetry 92 05/24/17 20:47 Oxygen Delivery Method Room Air Height/Weight/BMI: Height 5 ft 5 in Weight 166 lb 14.239 oz Body Mass Index 27.8 - Constitutional Present: no acute distress, well nourished, well developed, cooperative - Routine HEENT Exam Head: Present: normocephalic, atraumatic Eye: Present: PERRL. Absent: conjunctival icterus, scleral injection ENT: Present: mucous membranes moist - Routine Respiratory Exam Present: CTA bilaterally - Routine Cardiovascular Exam Present: RRR, S1, S2 - Routine Abdominal Exam Present: soft, normoactive bowel sounds, non tender - Routine Extremities Exam Present: edema (trace), non tender, pulses intact. Absent: cyanosis, clubbing - Routine Back/Spine/Pelvis Exam Back/Spine: Present: full ROM, paraspinal tenderness (diffuse lower back). Absent: vertebral tenderness - Routine Musculoskeletal Exam Musculoskeletal: Present: no clubbing or cyanosis, moving extremities well - Routine Skin Exam Present: intact, dry, warm. Absent: jaundice - Routine Neurological Exam Present: alert, moving all extremities, normal speech. Absent: oriented X3 (x1 - self only) - Routine Lymphatic Exam Lymphatic: Absent: lymphedema - Routine Psychiatric Exam Present: cooperative Results - Labs CBC & Chem 7: 05/25/17 11:00 05/25/17 11:00 Assessment and Plan (1) Dementia Current visit: Yes Status: Chronic (2) Cognitive and behavioral changes Current visit: Yes Status: Acute (3) History of recent fall Current visit: No Status: Acute (4) CAD (coronary artery disease) Current visit: No Status: Chronic (5) HTN (hypertension) Current visit: Yes Status: Chronic (6) Dehydration with hypernatremia Current visit: No Status: Acute GI Prophylaxis: Pepcid Resuscitation Status: Do Not Resuscitate Assessment and Plan: 05/25 - [place]. Dementia with behavioral disturbance, acute. * Continues to have some paranoia and behaviors, especially in the evenings. Improved with increased Seroquel dosing TID as of 05/24. Continue care per psychiatric team. Continue to provide safe and supportive environment. * Patient incidentally received another patient's medications on 05/22. No apparent residual consequence. Will continue to monitor. Hypernatremia, acute. * Persistent hypernatremia noted with sodium at 147. Continue to encourage oral fluids and will monitor closely. Recheck BMP on 05/28 to monitor electrolytes and renal function. Hypokalemia, RESOLVED. * Potassium 3.5 on 05/23. Improved to 3.9 today. Continue home KCl for supplementation and continue to monitor. Will recheck on 05/28. Hypertension, chronic. * Blood pressure persistently elevated >150's systolic. Will add Norvasc 2.5mg daily for additional blood pressure control. Monitor closely for signs of hypotension and orthostasis. Will ensure patient's diet is sodium 2g. COPD, chronic. * Monitor respiratory function closely. Overall, stable. Fibromyalgia and chronic pain, chronic. * Tylenol as needed for pain control. Hyperlipidemia, chronic. * Continue home Lipitor. Monitor as outpatient. GERD, chronic. * Continue home Pepcid for GI protection and GERD. - Time spent with patient 25 - 35 minutes Sepsis Assessment - Evaluation Sepsis screening result: No Definite Risk Hospital Course Summary Disclaimer: The visit summary below is not to be considered part of the above Progress Note. Hospital Course: 05/19/17 17:00 She does appear a bit dry- she did receive IVF in the ED. Will follow up labs for stability. If she becomes more dry, may need to hold lisinopril due to risk of kidney injury. BP is fairly stable. We will continue to monitor. Safe environment, fall precautions in place. She does have a significant, right sided tremor. I don't see that she has any parkinson's meds in place. We may need to consider adding that in to help with gait stability once we have her stabilized from a mental health perspective. Thank you for the consult- we will follow. 05/21/17 09:47 Her potassium level was normal on admission. Her home potassium was held, and she was continued on lisinopril for hypertension. Most recent potassium level was slightly low at 3.2. Will check BMP tomorrow, if potassium continues to drop would resume home potassium dose. She has an appointment with Dr. Gamboa scheduled in a few weeks to evaluate her tremors. Blood pressures are running slightly high, but improved over the course of the day yesterday. Will continue to monitor. 05/22/17 Patient given another patient's medications today. Patient's lisinopril was held this morning as her blood pressure was 123/62 after getting the Lasix. Will monitor her closely today. Other than drowsiness, I don't expect any significant reactions/side effects from the medications she was given. She was given her allopurinol and her aspirin. Will check a BMP in the morning. Her home potassium is still on hold. 05/22/17 16:58 Seroquel 25mg at 0900 and 1800 05/23/17 18:38 Increase 1800 dose of Seroquel to 50mg to target increased agitation at night 05/24/17 19:17 Pt had an episode today of some paranoia and anger outburst, Will increase Seroquel to TID dosing. 05/25/17 12:09 Dementia with behavioral disturbance, acute. * Continues to have some paranoia and behaviors, especially in the evenings. Improved with increased Seroquel dosing TID as of 05/24. Continue care per psychiatric team. Continue to provide safe and supportive environment. * Patient incidentally received another patient's medications on 05/22. No apparent residual consequence. Will continue to monitor. Hypernatremia, acute. * Persistent hypernatremia noted with sodium at 147. Continue to encourage oral fluids and will monitor closely. Recheck BMP on 05/28 to monitor electrolytes and renal function. Hypokalemia, RESOLVED. * Potassium 3.5 on 05/23. Improved to 3.9 today. Continue home KCl for supplementation and continue to monitor. Will recheck on 05/28. Hypertension, chronic. * Blood pressure persistently elevated >150's systolic. Will add Norvasc 2.5mg daily for additional blood pressure control. Monitor closely for signs of hypotension and orthostasis. Will ensure patient's diet is sodium 2g. COPD, chronic. * Monitor respiratory function closely. Overall, stable. Fibromyalgia and chronic pain, chronic. * Tylenol as needed for pain control. Hyperlipidemia, chronic. * Continue home Lipitor. Monitor as outpatient. GERD, chronic. * Continue home Pepcid for GI protection and GERD. <Emily Jimenes - Last Filed: 05/26/17 16:33> Objective Vital signs: Temperature 97.9 F 05/26/17 16:00 Pulse Rate 70 05/26/17 16:00 Respiratory Rate 15 05/26/17 16:00 Blood Pressure 157/81 H 05/26/17 16:00 Pulse Oximetry 97 05/26/17 16:00 Oxygen Delivery Method Room Air Height/Weight/BMI: Height 1.65 m Weight 75.7 kg Body Mass Index 27.8 Results - Labs CBC & Chem 7: 05/25/17 11:00 05/26/17 07:33 Assessment and Plan (1) Dementia Current visit: Yes Status: Chronic (2) Cognitive and behavioral changes Current visit: Yes Status: Acute (3) History of recent fall Current visit: No Status: Acute (4) CAD (coronary artery disease) Current visit: No Status: Chronic (5) HTN (hypertension) Current visit: Yes Status: Chronic (6) Dehydration with hypernatremia Current visit: No Status: Acute Assessment and Plan: 05/26/2017-I reviewed this chart, the patient history, and the [employer]'s/PA's documented findings as above. We discussed and formulated the assessment and plan as above with the additions below.-Dr. Jimenes The patient was seen in the day room. She walked from her room to a chair in the day room with a walker and 1 person standby assist. She was very slow up walking and took very tiny steps but seemed stable. She did not seem short of breath during her walk. She states that she is feeling stronger today than yesterday. She also states that she was very achy when she would try to get up out of bed or out of a chair but that is much better now. She denies any pain currently. She states she is eating and drinking okay. She has no complaints. She is very pleasant and talkative. On exam she is alert, talkative and in no acute distress. Chest is clear to auscultation. Cardiovascular reveals a regular rate and rhythm. Abdomen is soft and nontender. Extremities are free of edema. Overall, the patient appears to be improving. Continue with current care. Hospital Course Summary Disclaimer: The visit summary below is not to be considered part of the above Progress Note.
[2017-05-25] MEDS: AMLODIPINE 2.5 MG TABLET PO SCH (15:28)
--- NOTE | 2017-05-25 17:45 | Neuropsych Progress Note ---
[facility] Subjective Date: 05/25/17 - Sujective/Severity of Illness Medications: Acetaminophen (Tylenol) 325 - 650 mg PO Q5H PRN PRN Reason: Discomfort Last Admin: 05/25/17 11:04 Dose: 650 mg Allopurinol (Zyloprim) 100 mg PO DAILY [facility] Last Admin: 05/25/17 09:56 Dose: 100 mg Amlodipine Besylate (Norvasc) 2.5 mg PO DAILY [facility] Last Admin: 05/25/17 15:28 Dose: 2.5 mg Aspirin (Ecotrin) 81 mg PO DAILY [facility] Last Admin: 05/25/17 09:55 Dose: 81 mg Atorvastatin Calcium (Lipitor) 10 mg PO 2100 [facility] Last Admin: 05/24/17 21:05 Dose: 10 mg Divalproex Sodium (Depakote) 250 mg PO BID [facility] Last Admin: 05/25/17 09:54 Dose: 250 mg Famotidine (Pepcid) 20 mg PO 2100 [facility] Last Admin: 05/24/17 21:05 Dose: 20 mg Haloperidol (Haldol) 0.5 mg PO Q6H PRN PRN Reason: Extreme agitation Last Admin: 05/24/17 17:06 Dose: 0.5 mg Haloperidol Lactate (Haldol) 0.5 mg IM Q6H PRN PRN Reason: Extreme agitation Lisinopril (Prinivil) 20 mg PO DAILY [facility] Last Admin: 05/25/17 09:55 Dose: 20 mg Lorazepam (Ativan Inj) 0.5 mg IM Q6H PRN PRN Reason: Extreme agitation Last Admin: 05/21/17 20:02 Dose: 0.5 mg Lorazepam (Ativan) 0.5 mg PO Q6H PRN PRN Reason: Extreme agitation Last Admin: 05/24/17 17:06 Dose: 0.5 mg Polyethylene Glycol (Miralax) 17 gm PO DAILY PRN PRN Reason: Constipation Last Admin: 05/25/17 09:56 Dose: 17 gm Potassium Chloride (K-Dur) 20 meq PO WB [facility] Last Admin: 05/25/17 09:54 Dose: 20 meq Quetiapine Fumarate (Seroquel) 50 mg PO HS [facility] Last Admin: 05/24/17 21:05 Dose: 50 mg Quetiapine Fumarate (Seroquel) 25 mg PO 0900,1500 [facility] Last Admin: 05/25/17 15:28 Dose: 25 mg Subjective: Pt seen and chart examined. Nursing reports pt did well today. Sleeping well and has a good appetite. PT continues to become upset with somethings on TV and feels it is real. On face to face the pt states she is doing well. She is pleasant but confused. She denies any pain. Does not appear anxious and denies paranoia. Tolerating meds Start Time: 17:30 Stop Time: 17:45 Mental Status Exam Vitals: Last Vital Signs Temp 98.6 F 05/25/17 16:00 Pulse 76 05/25/17 16:00 Resp 16 05/25/17 16:00 BP 114/50 05/25/17 17:07 Pulse Ox 95 05/25/17 16:00 Height: 1.65 m Weight: 75.7 kg - Mental Status Exam Muscle Strength/Tone: Normal Dressing: Casual Grooming: Good Attitude: Cooperative Motor Activity: Normal Eye Contact: Good Speech: Slowed Volume: Normal Rhythm: Appropriate Rhythm Orientation: Oriented to person Rate of Thoughts: Delayed Thought Organization: [place] Associations: Flight of Ideas Abstract Reasoning: Poor abstract reasoning Thought Content: Delusions Perception/Psychotic: Perception Normal Language: Naming Impaired Memory: Poor-immediate, Poor-recent Suicidal Ideation: None Homicidal Ideation: None Insight: Poor Judgement: Poor Impulse Control: Poor - Laboratory Result Diagrams: 05/25/17 11:00 05/25/17 11:00 Laboratory Results - last 24 hr 05/25/17 05/25/17 11:00 11:00 WBC 5.3 RBC 4.81 Hgb 14.7 Hct 45.4 MCV 94.4 MCH 30.6 MCHC 32.4 RDW Std Deviation 45.1 Plt Count 121 L MPV 11.1 Immature Gran % (Auto) 0.2 Neut % (Auto) 81.6 H Lymph % (Auto) 13.7 L [place] % (Auto) 3.4 Eos % (Auto) 0.9 Baso % (Auto) 0.2 Neut # 4.4 Lymph # 0.7 L [place] # 0.2 Eos # 0.1 Baso # 0.0 Abs Immat Gran (auto) 0.01 Turbidity < 20 Sodium 147 H Potassium 3.9 Chloride 107 Carbon Dioxide 27 Anion Gap 13 BUN 26.0 H Creatinine 0.8 GFR Calculation 68 BUN/Creatinine Ratio 33 H Glucose 180 H Calculated Osmolality 292 H Calcium 9.7 Icterus Index < 2 Specimen Hemolysis < 15 Assessment and Plan (1) 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 Hospital Course: 05/19/17 17:00 She does appear a bit dry- she did receive IVF in the ED. Will follow up labs for stability. If she becomes more dry, may need to hold lisinopril due to risk of kidney injury. BP is fairly stable. We will continue to monitor. Safe environment, fall precautions in place. She does have a significant, right sided tremor. I don't see that she has any parkinson's meds in place. We may need to consider adding that in to help with gait stability once we have her stabilized from a mental health perspective. Thank you for the consult- we will follow. 05/21/17 09:47 Her potassium level was normal on admission. Her home potassium was held, and she was continued on lisinopril for hypertension. Most recent potassium level was slightly low at 3.2. Will check BMP tomorrow, if potassium continues to drop would resume home potassium dose. She has an appointment with Dr. Gamboa scheduled in a few weeks to evaluate her tremors. Blood pressures are running slightly high, but improved over the course of the day yesterday. Will continue to monitor. 05/22/17 Patient given another patient's medications today. Patient's lisinopril was held this morning as her blood pressure was 123/62 after getting the Lasix. Will monitor her closely today. Other than drowsiness, I don't expect any significant reactions/side effects from the medications she was given. She was given her allopurinol and her aspirin. Will check a BMP in the morning. Her home potassium is still on hold. 05/22/17 16:58 Seroquel 25mg at 0900 and 1800 05/23/17 18:38 Increase 1800 dose of Seroquel to 50mg to target increased agitation at night 05/24/17 19:17 Pt had an episode today of some paranoia and anger outburst, Will increase Seroquel to TID dosing. 05/25/17 12:09 Dementia with behavioral disturbance, acute. * Continues to have some paranoia and behaviors, especially in the evenings. Improved with increased Seroquel dosing TID as of 05/24. Continue care per psychiatric team. Continue to provide safe and supportive environment. * Patient incidentally received another patient's medications on 05/22. No apparent residual consequence. Will continue to monitor. Hypernatremia, acute. * Persistent hypernatremia noted with sodium at 147. Continue to encourage oral fluids and will monitor closely. Recheck BMP on 05/28 to monitor electrolytes and renal function. Hypokalemia, RESOLVED. * Potassium 3.5 on 05/23. Improved to 3.9 today. Continue home KCl for supplementation and continue to monitor. Will recheck on 05/28. Hypertension, chronic. * Blood pressure persistently elevated >150's systolic. Will add Norvasc 2.5mg daily for additional blood pressure control. Monitor closely for signs of hypotension and orthostasis. Will ensure patient's diet is sodium 2g. COPD, chronic. * Monitor respiratory function closely. Overall, stable. Fibromyalgia and chronic pain, chronic. * Tylenol as needed for pain control. Hyperlipidemia, chronic. * Continue home Lipitor. Monitor as outpatient. GERD, chronic. * Continue home Pepcid for GI protection and GERD. 05/25/17 17:44 Pt is improving but continues to have some paranoia at times. Will consider increase of Seroquel over the weekend
[2017-05-25] MEDS: FAMOTIDINE 20 MG TABLET PO SCH (20:35)
[2017-05-25] MEDS: ATORVASTATIN 10 MG TABLET PO SCH (20:35)
[2017-05-25] MEDS: QUETIAPINE 50 MG TABLET PO SCH (20:35)
[2017-05-26] MEDS: AMLODIPINE 2.5 MG TABLET PO SCH (08:43)
[2017-05-26] MEDS: LISINOPRIL 20 MG TABLET PO SCH (08:43)
[2017-05-26] MEDS: ALLOPURINOL 100 MG TABLET PO SCH (08:43)
[2017-05-26] MEDS: QUETIAPINE 25 MG TABLET PO SCH ×2 (08:44→15:12)
[2017-05-26] MEDS: DIVALPROEX 250 MG TABLET PO SCH ×2 (08:44→20:41)
[2017-05-26] MEDS: ASPIRIN *EC* 81 MG TABLET PO SCH (08:52)
--- NOTE | 2017-05-26 13:57 | Neuropsych Progress Note ---
[facility] Subjective Date: 05/26/17 - Sujective/Severity of Illness Medications: Acetaminophen (Tylenol) 325 - 650 mg PO Q5H PRN PRN Reason: Discomfort Last Admin: 05/25/17 11:04 Dose: 650 mg Allopurinol (Zyloprim) 100 mg PO DAILY [facility] Last Admin: 05/26/17 08:43 Dose: 100 mg Amlodipine Besylate (Norvasc) 2.5 mg PO DAILY [facility] Last Admin: 05/26/17 08:43 Dose: 2.5 mg Aspirin (Ecotrin) 81 mg PO DAILY [facility] Last Admin: 05/26/17 08:52 Dose: 81 mg Atorvastatin Calcium (Lipitor) 10 mg PO 2100 [facility] Last Admin: 05/25/17 20:35 Dose: 10 mg Divalproex Sodium (Depakote) 250 mg PO BID [facility] Last Admin: 05/26/17 08:44 Dose: 250 mg Famotidine (Pepcid) 20 mg PO 2100 [facility] Last Admin: 05/25/17 20:35 Dose: 20 mg Haloperidol (Haldol) 0.5 mg PO Q6H PRN PRN Reason: Extreme agitation Last Admin: 05/24/17 17:06 Dose: 0.5 mg Haloperidol Lactate (Haldol) 0.5 mg IM Q6H PRN PRN Reason: Extreme agitation Lisinopril (Prinivil) 20 mg PO DAILY [facility] Last Admin: 05/26/17 08:43 Dose: 20 mg Lorazepam (Ativan Inj) 0.5 mg IM Q6H PRN PRN Reason: Extreme agitation Last Admin: 05/21/17 20:02 Dose: 0.5 mg Lorazepam (Ativan) 0.5 mg PO Q6H PRN PRN Reason: Extreme agitation Last Admin: 05/24/17 17:06 Dose: 0.5 mg Polyethylene Glycol (Miralax) 17 gm PO DAILY PRN PRN Reason: Constipation Last Admin: 05/25/17 09:56 Dose: 17 gm Potassium Chloride (K-Dur) 20 meq PO WB [facility] Last Admin: 05/26/17 08:43 Dose: 20 meq Quetiapine Fumarate (Seroquel) 50 mg PO HS [facility] Last Admin: 05/25/17 20:35 Dose: 50 mg Quetiapine Fumarate (Seroquel) 25 mg PO 0900,1500 [facility] Last Admin: 05/26/17 08:44 Dose: 25 mg Subjective: Pt seen and chart examined. Nursing reports pt is doing well. Sleeping well and has a good appetite. No behaviors noted. On face to face the pt states she is doing well. She reports her mood is stable. She is pleasant and cooperative but confused. She denies any paranoia. Tolerating meds Start Time: 11:45 Stop Time: 12:00 Mental Status Exam Vitals: Last Vital Signs Temp 97.2 F 05/26/17 08:18 Pulse 72 05/26/17 08:18 Resp 16 05/26/17 08:18 BP 145/71 H 05/26/17 08:18 Pulse Ox 99 05/26/17 08:18 Height: 1.65 m Weight: 75.7 kg - Mental Status Exam Muscle Strength/Tone: Normal Dressing: Casual Grooming: Good Attitude: Cooperative Motor Activity: Normal Eye Contact: Good Speech: Slowed Volume: Normal Rhythm: Appropriate Rhythm Orientation: Oriented to person Rate of Thoughts: Delayed Thought Organization: [place] Associations: Flight of Ideas Abstract Reasoning: Poor abstract reasoning Thought Content: Delusions Perception/Psychotic: Perception Normal Language: Naming Impaired Memory: Poor-immediate, Poor-recent Suicidal Ideation: None Homicidal Ideation: None Insight: Poor Judgement: Poor Impulse Control: Poor - Laboratory Result Diagrams: 05/25/17 11:00 05/26/17 07:33 Laboratory Results - last 24 hr 05/26/17 07:33 Turbidity < 20 Sodium 148 H Potassium 4.7 D Chloride 107 Carbon Dioxide 27 Anion Gap 14 BUN 22.0 H Creatinine 0.7 GFR Calculation 80 BUN/Creatinine Ratio 31 H Glucose 87 Calculated Osmolality 286 H Calcium 9.6 Icterus Index < 2 Specimen Hemolysis 98 H Assessment and Plan (1) 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 Hospital Course: 05/19/17 17:00 She does appear a bit dry- she did receive IVF in the ED. Will follow up labs for stability. If she becomes more dry, may need to hold lisinopril due to risk of kidney injury. BP is fairly stable. We will continue to monitor. Safe environment, fall precautions in place. She does have a significant, right sided tremor. I don't see that she has any parkinson's meds in place. We may need to consider adding that in to help with gait stability once we have her stabilized from a mental health perspective. Thank you for the consult- we will follow. 05/21/17 09:47 Her potassium level was normal on admission. Her home potassium was held, and she was continued on lisinopril for hypertension. Most recent potassium level was slightly low at 3.2. Will check BMP tomorrow, if potassium continues to drop would resume home potassium dose. She has an appointment with Dr. Gamboa scheduled in a few weeks to evaluate her tremors. Blood pressures are running slightly high, but improved over the course of the day yesterday. Will continue to monitor. 05/22/17 Patient given another patient's medications today. Patient's lisinopril was held this morning as her blood pressure was 123/62 after getting the Lasix. Will monitor her closely today. Other than drowsiness, I don't expect any significant reactions/side effects from the medications she was given. She was given her allopurinol and her aspirin. Will check a BMP in the morning. Her home potassium is still on hold. 05/22/17 16:58 Seroquel 25mg at 0900 and 1800 05/23/17 18:38 Increase 1800 dose of Seroquel to 50mg to target increased agitation at night 05/24/17 19:17 Pt had an episode today of some paranoia and anger outburst, Will increase Seroquel to TID dosing. 05/25/17 12:09 Dementia with behavioral disturbance, acute. * Continues to have some paranoia and behaviors, especially in the evenings. Improved with increased Seroquel dosing TID as of 05/24. Continue care per psychiatric team. Continue to provide safe and supportive environment. * Patient incidentally received another patient's medications on 05/22. No apparent residual consequence. Will continue to monitor. Hypernatremia, acute. * Persistent hypernatremia noted with sodium at 147. Continue to encourage oral fluids and will monitor closely. Recheck BMP on 05/28 to monitor electrolytes and renal function. Hypokalemia, RESOLVED. * Potassium 3.5 on 05/23. Improved to 3.9 today. Continue home KCl for supplementation and continue to monitor. Will recheck on 05/28. Hypertension, chronic. * Blood pressure persistently elevated >150's systolic. Will add Norvasc 2.5mg daily for additional blood pressure control. Monitor closely for signs of hypotension and orthostasis. Will ensure patient's diet is sodium 2g. COPD, chronic. * Monitor respiratory function closely. Overall, stable. Fibromyalgia and chronic pain, chronic. * Tylenol as needed for pain control. Hyperlipidemia, chronic. * Continue home Lipitor. Monitor as outpatient. GERD, chronic. * Continue home Pepcid for GI protection and GERD. 05/25/17 17:44 Pt is improving but continues to have some paranoia at times. Will consider increase of Seroquel over the weekend 05/26/17 13:57 Pt continues to improve. Continue current care
[2017-05-26] MEDS: FAMOTIDINE 20 MG TABLET PO SCH (20:41)
[2017-05-26] MEDS: ATORVASTATIN 10 MG TABLET PO SCH (20:41)
[2017-05-26] MEDS: QUETIAPINE 50 MG TABLET PO SCH (21:07)
[2017-05-27] MEDS: ASPIRIN *EC* 81 MG TABLET PO SCH (08:52)
[2017-05-27] MEDS: DIVALPROEX 250 MG TABLET PO SCH ×3 (08:52→23:28)
[2017-05-27] MEDS: QUETIAPINE 25 MG TABLET PO SCH ×2 (08:52→14:13)
[2017-05-27] MEDS: AMLODIPINE 2.5 MG TABLET PO SCH (08:53)
[2017-05-27] MEDS: LISINOPRIL 20 MG TABLET PO SCH (08:53)
[2017-05-27] MEDS: ALLOPURINOL 100 MG TABLET PO SCH (08:53)
[2017-05-27] MEDS: LORazepam 0.5 MG TABLET PO PRN (14:13)
--- NOTE | 2017-05-27 17:15 | Neuropsych Progress Note ---
[facility] Subjective Date: 05/27/17 - Sujective/Severity of Illness Medications: Acetaminophen (Tylenol) 325 - 650 mg PO Q5H PRN PRN Reason: Discomfort Last Admin: 05/25/17 11:04 Dose: 650 mg Allopurinol (Zyloprim) 100 mg PO DAILY [facility] Last Admin: 05/27/17 08:53 Dose: 100 mg Amlodipine Besylate (Norvasc) 2.5 mg PO DAILY [facility] Last Admin: 05/27/17 08:53 Dose: 2.5 mg Aspirin (Ecotrin) 81 mg PO DAILY [facility] Last Admin: 05/27/17 08:52 Dose: 81 mg Atorvastatin Calcium (Lipitor) 10 mg PO 2100 [facility] Last Admin: 05/26/17 20:41 Dose: 10 mg Divalproex Sodium (Depakote) 250 mg PO BID [facility] Last Admin: 05/27/17 08:52 Dose: 250 mg Famotidine (Pepcid) 20 mg PO 2100 [facility] Last Admin: 05/26/17 20:41 Dose: 20 mg Haloperidol (Haldol) 0.5 mg PO Q6H PRN PRN Reason: Extreme agitation Last Admin: 05/24/17 17:06 Dose: 0.5 mg Haloperidol Lactate (Haldol) 0.5 mg IM Q6H PRN PRN Reason: Extreme agitation Lisinopril (Prinivil) 20 mg PO DAILY [facility] Last Admin: 05/27/17 08:53 Dose: 20 mg Lorazepam (Ativan Inj) 0.5 mg IM Q6H PRN PRN Reason: Extreme agitation Last Admin: 05/21/17 20:02 Dose: 0.5 mg Lorazepam (Ativan) 0.5 mg PO Q6H PRN PRN Reason: Extreme agitation Last Admin: 05/27/17 14:13 Dose: 0.5 mg Polyethylene Glycol (Miralax) 17 gm PO DAILY PRN PRN Reason: Constipation Last Admin: 05/25/17 09:56 Dose: 17 gm Potassium Chloride (K-Dur) 20 meq PO WB [facility] Last Admin: 05/27/17 08:53 Dose: 20 meq Quetiapine Fumarate (Seroquel) 50 mg PO HS [facility] Last Admin: 05/26/17 21:07 Dose: 50 mg Quetiapine Fumarate (Seroquel) 25 mg PO 0900,1500 [facility] Last Admin: 05/27/17 14:13 Dose: 25 mg Subjective: Pt seen and chart examined. Nursing reports pt is doing well. Sleeping well and has a good appetite. Pt was confused last night and tried to kiss a male staff. On face to face the pt is pleasant. She reports her mood is stable. Denies any paranoia. Denies pain. Tolerating meds Start Time: 12:00 Stop Time: 12:15 Mental Status Exam Vitals: Last Vital Signs Temp 98.5 F 05/27/17 16:26 Pulse 75 05/27/17 16:26 Resp 18 05/27/17 16:26 BP 111/63 05/27/17 16:26 Pulse Ox 95 05/27/17 16:26 Height: 1.65 m Weight: 75.7 kg - Mental Status Exam Muscle Strength/Tone: Normal Dressing: Casual Grooming: Good Attitude: Cooperative Motor Activity: Normal Eye Contact: Good Speech: Slowed Volume: Normal Rhythm: Appropriate Rhythm Orientation: Oriented to person Rate of Thoughts: Delayed Thought Organization: [place] Associations: Flight of Ideas Abstract Reasoning: Poor abstract reasoning Thought Content: Delusions Perception/Psychotic: Perception Normal Language: Naming Impaired Memory: Poor-immediate, Poor-recent Suicidal Ideation: None Homicidal Ideation: None Insight: Poor Judgement: Poor Impulse Control: Poor - Laboratory Result Diagrams: 05/25/17 11:00 05/26/17 07:33 Assessment and Plan (1) 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 Hospital Course: 05/19/17 17:00 She does appear a bit dry- she did receive IVF in the ED. Will follow up labs for stability. If she becomes more dry, may need to hold lisinopril due to risk of kidney injury. BP is fairly stable. We will continue to monitor. Safe environment, fall precautions in place. She does have a significant, right sided tremor. I don't see that she has any parkinson's meds in place. We may need to consider adding that in to help with gait stability once we have her stabilized from a mental health perspective. Thank you for the consult- we will follow. 05/21/17 09:47 Her potassium level was normal on admission. Her home potassium was held, and she was continued on lisinopril for hypertension. Most recent potassium level was slightly low at 3.2. Will check BMP tomorrow, if potassium continues to drop would resume home potassium dose. She has an appointment with Dr. Gamboa scheduled in a few weeks to evaluate her tremors. Blood pressures are running slightly high, but improved over the course of the day yesterday. Will continue to monitor. 05/22/17 Patient given another patient's medications today. Patient's lisinopril was held this morning as her blood pressure was 123/62 after getting the Lasix. Will monitor her closely today. Other than drowsiness, I don't expect any significant reactions/side effects from the medications she was given. She was given her allopurinol and her aspirin. Will check a BMP in the morning. Her home potassium is still on hold. 05/22/17 16:58 Seroquel 25mg at 0900 and 1800 05/23/17 18:38 Increase 1800 dose of Seroquel to 50mg to target increased agitation at night 05/24/17 19:17 Pt had an episode today of some paranoia and anger outburst, Will increase Seroquel to TID dosing. 05/25/17 12:09 Dementia with behavioral disturbance, acute. * Continues to have some paranoia and behaviors, especially in the evenings. Improved with increased Seroquel dosing TID as of 05/24. Continue care per psychiatric team. Continue to provide safe and supportive environment. * Patient incidentally received another patient's medications on 05/22. No apparent residual consequence. Will continue to monitor. Hypernatremia, acute. * Persistent hypernatremia noted with sodium at 147. Continue to encourage oral fluids and will monitor closely. Recheck BMP on 05/28 to monitor electrolytes and renal function. Hypokalemia, RESOLVED. * Potassium 3.5 on 05/23. Improved to 3.9 today. Continue home KCl for supplementation and continue to monitor. Will recheck on 05/28. Hypertension, chronic. * Blood pressure persistently elevated >150's systolic. Will add Norvasc 2.5mg daily for additional blood pressure control. Monitor closely for signs of hypotension and orthostasis. Will ensure patient's diet is sodium 2g. COPD, chronic. * Monitor respiratory function closely. Overall, stable. Fibromyalgia and chronic pain, chronic. * Tylenol as needed for pain control. Hyperlipidemia, chronic. * Continue home Lipitor. Monitor as outpatient. GERD, chronic. * Continue home Pepcid for GI protection and GERD. 05/25/17 17:44 Pt is improving but continues to have some paranoia at times. Will consider increase of Seroquel over the weekend 05/26/17 13:57 Pt continues to improve. Continue current care 05/27/17 17:15 Pt improving. Continue current care
[2017-05-27] MEDS: ATORVASTATIN 10 MG TABLET PO SCH ×2 (19:52→23:28)
[2017-05-27] MEDS: QUETIAPINE 50 MG TABLET PO SCH ×2 (19:53→23:29)
[2017-05-27] MEDS: FAMOTIDINE 20 MG TABLET PO SCH ×2 (19:53→23:28)
[2017-05-28] MEDS: DIVALPROEX 250 MG TABLET PO SCH ×2 (09:44→20:01)
[2017-05-28] MEDS: QUETIAPINE 25 MG TABLET PO SCH (09:44)
[2017-05-28] MEDS: LISINOPRIL 20 MG TABLET PO SCH (09:44)
[2017-05-28] MEDS: AMLODIPINE 2.5 MG TABLET PO SCH (09:44)
[2017-05-28] MEDS: ASPIRIN *EC* 81 MG TABLET PO SCH (09:44)
[2017-05-28] MEDS: POLYETHYL GLYCOL 3350 17gm PACKET PO PRN (09:45)
[2017-05-28] MEDS: ALLOPURINOL 100 MG TABLET PO SCH (09:46)
--- NOTE | 2017-05-28 18:19 | Neuropsych Progress Note ---
[facility] Subjective Date: 05/28/17 - Sujective/Severity of Illness Medications: Acetaminophen (Tylenol) 325 - 650 mg PO Q5H PRN PRN Reason: Discomfort Last Admin: 05/25/17 11:04 Dose: 650 mg Allopurinol (Zyloprim) 100 mg PO DAILY [facility] Last Admin: 05/28/17 09:46 Dose: 100 mg Amlodipine Besylate (Norvasc) 2.5 mg PO DAILY [facility] Last Admin: 05/28/17 09:44 Dose: 2.5 mg Aspirin (Ecotrin) 81 mg PO DAILY [facility] Last Admin: 05/28/17 09:44 Dose: 81 mg Atorvastatin Calcium (Lipitor) 10 mg PO 2100 [facility] Last Admin: 05/27/17 23:28 Dose: Not Given Divalproex Sodium (Depakote) 250 mg PO BID [facility] Last Admin: 05/28/17 09:44 Dose: 250 mg Famotidine (Pepcid) 20 mg PO 2100 [facility] Last Admin: 05/27/17 23:28 Dose: Not Given Haloperidol (Haldol) 0.5 mg PO Q6H PRN PRN Reason: Extreme agitation Last Admin: 05/24/17 17:06 Dose: 0.5 mg Haloperidol Lactate (Haldol) 0.5 mg IM Q6H PRN PRN Reason: Extreme agitation Lisinopril (Prinivil) 20 mg PO DAILY [facility] Last Admin: 05/28/17 09:44 Dose: 20 mg Lorazepam (Ativan Inj) 0.5 mg IM Q6H PRN PRN Reason: Extreme agitation Last Admin: 05/21/17 20:02 Dose: 0.5 mg Lorazepam (Ativan) 0.5 mg PO Q6H PRN PRN Reason: Extreme agitation Last Admin: 05/27/17 14:13 Dose: 0.5 mg Polyethylene Glycol (Miralax) 17 gm PO DAILY PRN PRN Reason: Constipation Last Admin: 05/28/17 09:45 Dose: 17 gm Potassium Chloride (K-Dur) 20 meq PO WB [facility] Last Admin: 05/28/17 09:44 Dose: 20 meq Quetiapine Fumarate (Seroquel) 50 mg PO TID [facility] Subjective: Pt seen and chart examined. Nursing reports pt can be paranoid and delusional at times primarily regarding male staff. Sleeping well and has a good appetite. On face to face the pt states she is doing well. She does worry that someone is out to harm her but she can not elaborate. She is pleasant but confused. Only oriented to self. Denies pain. Tolerating meds Start Time: 17:30 Stop Time: 17:45 Mental Status Exam Vitals: Last Vital Signs Temp 96.3 F L 05/28/17 08:00 Pulse 68 05/28/17 08:00 Resp 16 05/27/17 22:18 BP 174/102 H 05/28/17 08:00 Pulse Ox 93 05/28/17 08:00 Height: 1.65 m Weight: 75.7 kg - Mental Status Exam Muscle Strength/Tone: Normal Dressing: Casual Grooming: Good Attitude: Cooperative Motor Activity: Normal Eye Contact: Good Speech: Slowed Volume: Normal Rhythm: Appropriate Rhythm Orientation: Oriented to person Rate of Thoughts: Delayed Thought Organization: [place] Associations: Flight of Ideas Abstract Reasoning: Poor abstract reasoning Thought Content: Delusions Perception/Psychotic: Perception Normal Language: Naming Impaired Memory: Poor-immediate, Poor-recent Suicidal Ideation: None Homicidal Ideation: None Insight: Poor Judgement: Poor Impulse Control: Poor - Laboratory Result Diagrams: 05/28/17 05:19 05/28/17 05:19 Laboratory Results - last 24 hr 05/28/17 05/28/17 05:19 05:19 WBC 4.3 L RBC 4.42 Hgb 13.3 Hct 41.5 MCV 93.9 MCH 30.1 MCHC 32.0 RDW Std Deviation 45.7 Plt Count 95 L MPV 11.5 Immature Gran % (Auto) 0.5 Neut % (Auto) 61.1 Lymph % (Auto) 26.5 Falls % (Auto) 9.6 H Eos % (Auto) 2.1 Baso % (Auto) 0.2 Neut # 2.6 Lymph # 1.1 Falls # 0.4 Eos # 0.1 Baso # 0.0 Abs Immat Gran (auto) 0.02 Turbidity < 20 Sodium 146 H Potassium 4.0 Chloride 106 Carbon Dioxide 30 Anion Gap 10 BUN 21.0 H Creatinine 0.8 GFR Calculation 68 BUN/Creatinine Ratio 26 Glucose 89 Calculated Osmolality 283 H Calcium 9.6 Icterus Index < 2 Specimen Hemolysis 55 H Assessment and Plan (1) 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 Hospital Course: 05/19/17 17:00 She does appear a bit dry- she did receive IVF in the ED. Will follow up labs for stability. If she becomes more dry, may need to hold lisinopril due to risk of kidney injury. BP is fairly stable. We will continue to monitor. Safe environment, fall precautions in place. She does have a significant, right sided tremor. I don't see that she has any parkinson's meds in place. We may need to consider adding that in to help with gait stability once we have her stabilized from a mental health perspective. Thank you for the consult- we will follow. 05/21/17 09:47 Her potassium level was normal on admission. Her home potassium was held, and she was continued on lisinopril for hypertension. Most recent potassium level was slightly low at 3.2. Will check BMP tomorrow, if potassium continues to drop would resume home potassium dose. She has an appointment with Dr. Gamboa scheduled in a few weeks to evaluate her tremors. Blood pressures are running slightly high, but improved over the course of the day yesterday. Will continue to monitor. 05/22/17 Patient given another patient's medications today. Patient's lisinopril was held this morning as her blood pressure was 123/62 after getting the Lasix. Will monitor her closely today. Other than drowsiness, I don't expect any significant reactions/side effects from the medications she was given. She was given her allopurinol and her aspirin. Will check a BMP in the morning. Her home potassium is still on hold. 05/22/17 16:58 Seroquel 25mg at 0900 and 1800 05/23/17 18:38 Increase 1800 dose of Seroquel to 50mg to target increased agitation at night 05/24/17 19:17 Pt had an episode today of some paranoia and anger outburst, Will increase Seroquel to TID dosing. 05/25/17 12:09 Dementia with behavioral disturbance, acute. * Continues to have some paranoia and behaviors, especially in the evenings. Improved with increased Seroquel dosing TID as of 05/24. Continue care per psychiatric team. Continue to provide safe and supportive environment. * Patient incidentally received another patient's medications on 05/22. No apparent residual consequence. Will continue to monitor. Hypernatremia, acute. * Persistent hypernatremia noted with sodium at 147. Continue to encourage oral fluids and will monitor closely. Recheck BMP on 05/28 to monitor electrolytes and renal function. Hypokalemia, RESOLVED. * Potassium 3.5 on 05/23. Improved to 3.9 today. Continue home KCl for supplementation and continue to monitor. Will recheck on 05/28. Hypertension, chronic. * Blood pressure persistently elevated >150's systolic. Will add Norvasc 2.5mg daily for additional blood pressure control. Monitor closely for signs of hypotension and orthostasis. Will ensure patient's diet is sodium 2g. COPD, chronic. * Monitor respiratory function closely. Overall, stable. Fibromyalgia and chronic pain, chronic. * Tylenol as needed for pain control. Hyperlipidemia, chronic. * Continue home Lipitor. Monitor as outpatient. GERD, chronic. * Continue home Pepcid for GI protection and GERD. 05/25/17 17:44 Pt is improving but continues to have some paranoia at times. Will consider increase of Seroquel over the weekend 05/26/17 13:57 Pt continues to improve. Continue current care 05/27/17 17:15 Pt improving. Continue current care 05/28/17 18:19 Increase Seroquel to 50mg PO TID
--- NOTE | 2017-05-28 18:30 | Progress Note ---
<Yuni Tesfaye - Last Filed: 05/28/17 18:27> Subjective: Patient seen sitting in the chair in the day room watching TV. She has no complaints. She is oriented to self. Nurses reported that she had an outburst earlier in the day when housekeeping was changing the trash and she thought they were stealing something. She reports that her bowels are moving and she is sleeping well. Objective Vital signs: Temperature 96.3 F L 05/28/17 08:00 Pulse Rate 68 05/28/17 08:00 Respiratory Rate 16 05/27/17 22:18 Blood Pressure 174/102 H 05/28/17 08:00 Pulse Oximetry 93 05/28/17 08:00 Oxygen Delivery Method Room Air Height/Weight/BMI: Height 1.65 m Weight 75.7 kg Body Mass Index 27.8 - Constitutional Present: no acute distress, well nourished, well developed - Routine Respiratory Exam Present: CTA bilaterally. Absent: wheezes - Routine Cardiovascular Exam Present: RRR, S1, S2. Absent: murmur - Routine Abdominal Exam Present: soft, normoactive bowel sounds, non distended. Absent: tenderness - Routine Extremities Exam Present: no edema, normal capillary refill - Routine Skin Exam Present: dry, warm - Routine Neurological Exam Present: alert Oriented to self and day. - Routine Lymphatic Exam Lymphatic: Absent: adenopathy - Routine Psychiatric Exam Present: normal affect Results - Labs CBC & Chem 7: 05/28/17 05:19 05/28/17 05:19 Labs: Platelets on 05/19/17 were 131. Today platelets are down to 95. Assessment and Plan (1) Dementia Current visit: Yes Status: Chronic (2) Cognitive and behavioral changes Current visit: Yes Status: Acute (3) History of recent fall Current visit: No Status: Acute (4) CAD (coronary artery disease) Current visit: No Status: Chronic (5) HTN (hypertension) Current visit: Yes Status: Chronic (6) Dehydration with hypernatremia Current visit: No Status: Acute Assessment and Plan: Assessment: Hypernatremia Thrombocytopenia Cognitive/behavioral changes Dementia CAD Hypertension COPD Fibromyalgia/chronic pain Hyperlipidemia GERD Plan: Repeat platelets on 05/30/17 to confirm they are not continuing to trend downward Repeat BMP on 05/30/17 to follow hypernatremia. Encourage fluids. Sepsis Assessment - Evaluation Sepsis screening result: No Definite Risk Hospital Course Summary Disclaimer: The visit summary below is not to be considered part of the above Progress Note. Hospital Course: 05/19/17 17:00 She does appear a bit dry- she did receive IVF in the ED. Will follow up labs for stability. If she becomes more dry, may need to hold lisinopril due to risk of kidney injury. BP is fairly stable. We will continue to monitor. Safe environment, fall precautions in place. She does have a significant, right sided tremor. I don't see that she has any parkinson's meds in place. We may need to consider adding that in to help with gait stability once we have her stabilized from a mental health perspective. Thank you for the consult- we will follow. 05/21/17 09:47 Her potassium level was normal on admission. Her home potassium was held, and she was continued on lisinopril for hypertension. Most recent potassium level was slightly low at 3.2. Will check BMP tomorrow, if potassium continues to drop would resume home potassium dose. She has an appointment with Dr. Gamboa scheduled in a few weeks to evaluate her tremors. Blood pressures are running slightly high, but improved over the course of the day yesterday. Will continue to monitor. 05/22/17 Patient given another patient's medications today. Patient's lisinopril was held this morning as her blood pressure was 123/62 after getting the Lasix. Will monitor her closely today. Other than drowsiness, I don't expect any significant reactions/side effects from the medications she was given. She was given her allopurinol and her aspirin. Will check a BMP in the morning. Her home potassium is still on hold. 05/22/17 16:58 Seroquel 25mg at 0900 and 1800 05/23/17 18:38 Increase 1800 dose of Seroquel to 50mg to target increased agitation at night 05/24/17 19:17 Pt had an episode today of some paranoia and anger outburst, Will increase Seroquel to TID dosing. 05/25/17 12:09 Dementia with behavioral disturbance, acute. * Continues to have some paranoia and behaviors, especially in the evenings. Improved with increased Seroquel dosing TID as of 05/24. Continue care per psychiatric team. Continue to provide safe and supportive environment. * Patient incidentally received another patient's medications on 05/22. No apparent residual consequence. Will continue to monitor. Hypernatremia, acute. * Persistent hypernatremia noted with sodium at 147. Continue to encourage oral fluids and will monitor closely. Recheck BMP on 05/28 to monitor electrolytes and renal function. Hypokalemia, RESOLVED. * Potassium 3.5 on 05/23. Improved to 3.9 today. Continue home KCl for supplementation and continue to monitor. Will recheck on 05/28. Hypertension, chronic. * Blood pressure persistently elevated >150's systolic. Will add Norvasc 2.5mg daily for additional blood pressure control. Monitor closely for signs of hypotension and orthostasis. Will ensure patient's diet is sodium 2g. COPD, chronic. * Monitor respiratory function closely. Overall, stable. Fibromyalgia and chronic pain, chronic. * Tylenol as needed for pain control. Hyperlipidemia, chronic. * Continue home Lipitor. Monitor as outpatient. GERD, chronic. * Continue home Pepcid for GI protection and GERD. 05/25/17 17:44 Pt is improving but continues to have some paranoia at times. Will consider increase of Seroquel over the weekend 05/26/17 13:57 Pt continues to improve. Continue current care 05/27/17 17:15 Pt improving. Continue current care 05/28/17 18:19 Increase Seroquel to 50mg PO TID 05/28/17 18:33 Repeat platelets on 05/30/17 to confirm they are not continuing to trend downward Repeat BMP on 05/30/17 to follow hypernatremia. Encourage fluids. <Emily Jimenes - Last Filed: 05/30/17 18:12> Objective Vital signs: Temperature 97.6 F 05/30/17 15:58 Pulse Rate 81 05/30/17 15:58 Respiratory Rate 20 05/30/17 15:58 Blood Pressure 103/61 05/30/17 15:58 Pulse Oximetry 94 05/30/17 15:58 Oxygen Delivery Method Room Air Height/Weight/BMI: Height 1.65 m Weight 74.1 kg Body Mass Index 27.8 Results - Labs CBC & Chem 7: 05/30/17 05:27 05/30/17 05:27 Assessment and Plan (1) Dementia Current visit: Yes Status: Chronic (2) Cognitive and behavioral changes Current visit: Yes Status: Acute (3) History of recent fall Current visit: No Status: Acute (4) CAD (coronary artery disease) Current visit: No Status: Chronic (5) HTN (hypertension) Current visit: Yes Status: Chronic (6) Dehydration with hypernatremia Current visit: No Status: Acute Hospital Course Summary Disclaimer: The visit summary below is not to be considered part of the above Progress Note.
[2017-05-28] MEDS: ATORVASTATIN 10 MG TABLET PO SCH ×2 (20:01→20:13)
[2017-05-28] MEDS: FAMOTIDINE 20 MG TABLET PO SCH ×2 (20:01→20:13)
[2017-05-28] MEDS: QUETIAPINE 50 MG TABLET PO SCH (20:02)
[2017-05-28] MEDS ORDERED: LORazepam INTENSOL 1mg/0.5ml ORAL LIQUID SL PRN (20:52)
[2017-05-29] MEDS: ASPIRIN *EC* 81 MG TABLET PO SCH (09:01)
[2017-05-29] MEDS: ALLOPURINOL 100 MG TABLET PO SCH (09:01)
[2017-05-29] MEDS: AMLODIPINE 2.5 MG TABLET PO SCH (09:02)
[2017-05-29] MEDS: LISINOPRIL 20 MG TABLET PO SCH (09:02)
[2017-05-29] MEDS: QUETIAPINE 50 MG TABLET PO SCH ×2 (09:02→18:27)
[2017-05-29] MEDS: DIVALPROEX 250 MG TABLET PO SCH ×2 (09:04→19:40)
[2017-05-29] MEDS: ACETAMINOPHEN 325 MG TABLET PO PRN (11:38)
[2017-05-29] MEDS: ATORVASTATIN 10 MG TABLET PO SCH (19:39)
[2017-05-29] MEDS: FAMOTIDINE 20 MG TABLET PO SCH (19:40)
--- NOTE | 2017-05-29 20:52 | Neuropsych Progress Note ---
[facility] Subjective Date: 05/29/17 - Sujective/Severity of Illness Medications: Acetaminophen (Tylenol) 325 - 650 mg PO Q5H PRN PRN Reason: Discomfort Last Admin: 05/29/17 11:38 Dose: 650 mg Allopurinol (Zyloprim) 100 mg PO DAILY [facility] Last Admin: 05/29/17 09:01 Dose: 100 mg Amlodipine Besylate (Norvasc) 2.5 mg PO DAILY [facility] Last Admin: 05/29/17 09:02 Dose: 2.5 mg Aspirin (Ecotrin) 81 mg PO DAILY [facility] Last Admin: 05/29/17 09:01 Dose: 81 mg Atorvastatin Calcium (Lipitor) 10 mg PO 2100 [facility] Last Admin: 05/29/17 19:39 Dose: 10 mg Divalproex Sodium (Depakote) 250 mg PO BID [facility] Last Admin: 05/29/17 19:40 Dose: 250 mg Famotidine (Pepcid) 20 mg PO 2100 [facility] Last Admin: 05/29/17 19:40 Dose: 20 mg Haloperidol (Haldol) 0.5 mg PO Q6H PRN PRN Reason: Extreme agitation Last Admin: 05/24/17 17:06 Dose: 0.5 mg Haloperidol Lactate (Haldol) 0.5 mg IM Q6H PRN PRN Reason: Extreme agitation Lisinopril (Prinivil) 20 mg PO DAILY [facility] Last Admin: 05/29/17 09:02 Dose: 20 mg Lorazepam (Ativan Inj) 0.5 mg IM Q6H PRN PRN Reason: Extreme agitation Last Admin: 05/21/17 20:02 Dose: 0.5 mg Lorazepam (Ativan) 0.5 mg PO Q6H PRN PRN Reason: Extreme agitation Last Admin: 05/27/17 14:13 Dose: 0.5 mg Lorazepam (Ativan Intensol) 0.5 mg SL Q6H PRN PRN Reason: Anxiety/Agitation Last Admin: 05/28/17 20:55 Dose: 0.5 mg Polyethylene Glycol (Miralax) 17 gm PO DAILY PRN PRN Reason: Constipation Last Admin: 05/28/17 09:45 Dose: 17 gm Potassium Chloride (K-Dur) 20 meq PO WB [facility] Last Admin: 05/29/17 09:01 Dose: 20 meq Quetiapine Fumarate (Seroquel) 50 mg PO TID [facility] Last Admin: 05/29/17 18:27 Dose: 50 mg Subjective: Pt seen and chart examined. Nursing reports pt continues to be paranoid at times but it seems to concern her less. On face to face the pt states she is doing well. She is pleasant but confused. She is only oriented to self. She denies any pain. Tolerating meds Start Time: 17:30 Stop Time: 17:45 Mental Status Exam Vitals: Last Vital Signs Temp 97.8 F 05/29/17 16:25 Pulse 71 05/29/17 16:25 Resp 16 05/29/17 16:25 BP 131/70 05/29/17 16:25 Pulse Ox 95 05/29/17 16:25 Height: 1.65 m Weight: 74.1 kg - Mental Status Exam Muscle Strength/Tone: Normal Dressing: Casual Grooming: Good Attitude: Cooperative Motor Activity: Normal Eye Contact: Good Speech: Slowed Volume: Normal Rhythm: Appropriate Rhythm Orientation: Oriented to person Rate of Thoughts: Delayed Thought Organization: [place] Associations: Flight of Ideas Abstract Reasoning: Poor abstract reasoning Thought Content: Delusions Perception/Psychotic: Perception Normal Language: Naming Impaired Memory: Poor-immediate, Poor-recent Suicidal Ideation: None Homicidal Ideation: None Insight: Poor Judgement: Poor Impulse Control: Poor - Laboratory Result Diagrams: 05/28/17 05:19 05/28/17 05:19 Assessment and Plan (1) 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 Hospital Course: 05/19/17 17:00 She does appear a bit dry- she did receive IVF in the ED. Will follow up labs for stability. If she becomes more dry, may need to hold lisinopril due to risk of kidney injury. BP is fairly stable. We will continue to monitor. Safe environment, fall precautions in place. She does have a significant, right sided tremor. I don't see that she has any parkinson's meds in place. We may need to consider adding that in to help with gait stability once we have her stabilized from a mental health perspective. Thank you for the consult- we will follow. 05/21/17 09:47 Her potassium level was normal on admission. Her home potassium was held, and she was continued on lisinopril for hypertension. Most recent potassium level was slightly low at 3.2. Will check BMP tomorrow, if potassium continues to drop would resume home potassium dose. She has an appointment with Dr. Gamboa scheduled in a few weeks to evaluate her tremors. Blood pressures are running slightly high, but improved over the course of the day yesterday. Will continue to monitor. 05/22/17 Patient given another patient's medications today. Patient's lisinopril was held this morning as her blood pressure was 123/62 after getting the Lasix. Will monitor her closely today. Other than drowsiness, I don't expect any significant reactions/side effects from the medications she was given. She was given her allopurinol and her aspirin. Will check a BMP in the morning. Her home potassium is still on hold. 05/22/17 16:58 Seroquel 25mg at 0900 and 1800 05/23/17 18:38 Increase 1800 dose of Seroquel to 50mg to target increased agitation at night 05/24/17 19:17 Pt had an episode today of some paranoia and anger outburst, Will increase Seroquel to TID dosing. 05/25/17 12:09 Dementia with behavioral disturbance, acute. * Continues to have some paranoia and behaviors, especially in the evenings. Improved with increased Seroquel dosing TID as of 05/24. Continue care per psychiatric team. Continue to provide safe and supportive environment. * Patient incidentally received another patient's medications on 05/22. No apparent residual consequence. Will continue to monitor. Hypernatremia, acute. * Persistent hypernatremia noted with sodium at 147. Continue to encourage oral fluids and will monitor closely. Recheck BMP on 05/28 to monitor electrolytes and renal function. Hypokalemia, RESOLVED. * Potassium 3.5 on 05/23. Improved to 3.9 today. Continue home KCl for supplementation and continue to monitor. Will recheck on 05/28. Hypertension, chronic. * Blood pressure persistently elevated >150's systolic. Will add Norvasc 2.5mg daily for additional blood pressure control. Monitor closely for signs of hypotension and orthostasis. Will ensure patient's diet is sodium 2g. COPD, chronic. * Monitor respiratory function closely. Overall, stable. Fibromyalgia and chronic pain, chronic. * Tylenol as needed for pain control. Hyperlipidemia, chronic. * Continue home Lipitor. Monitor as outpatient. GERD, chronic. * Continue home Pepcid for GI protection and GERD. 05/25/17 17:44 Pt is improving but continues to have some paranoia at times. Will consider increase of Seroquel over the weekend 05/26/17 13:57 Pt continues to improve. Continue current care 05/27/17 17:15 Pt improving. Continue current care 05/28/17 18:19 Increase Seroquel to 50mg PO TID 05/28/17 18:33 Repeat platelets on 05/30/17 to confirm they are not continuing to trend downward Repeat BMP on 05/30/17 to follow hypernatremia. Encourage fluids. 05/29/17 20:52 Paranoia improving. Continue current care
[2017-05-30] MEDS: QUETIAPINE 50 MG TABLET PO SCH ×5 (03:32→20:33)
[2017-05-30] MEDS: DIVALPROEX 250 MG TABLET PO SCH ×2 (09:18→20:29)
[2017-05-30] MEDS: ALLOPURINOL 100 MG TABLET PO SCH (09:18)
[2017-05-30] MEDS: AMLODIPINE 2.5 MG TABLET PO SCH (09:18)
[2017-05-30] MEDS: LISINOPRIL 20 MG TABLET PO SCH (09:18)
[2017-05-30] MEDS: ASPIRIN *EC* 81 MG TABLET PO SCH (09:19)
[2017-05-30] MEDS: ACETAMINOPHEN 325 MG TABLET PO PRN (17:01)
--- NOTE | 2017-05-30 20:27 | Neuropsych Progress Note ---
[facility] Subjective Date: 05/30/17 - Sujective/Severity of Illness Medications: Acetaminophen (Tylenol) 325 - 650 mg PO Q5H PRN PRN Reason: Discomfort Last Admin: 05/30/17 17:01 Dose: 650 mg Allopurinol (Zyloprim) 100 mg PO DAILY [facility] Last Admin: 05/30/17 09:18 Dose: 100 mg Amlodipine Besylate (Norvasc) 2.5 mg PO DAILY [facility] Last Admin: 05/30/17 09:18 Dose: 2.5 mg Aspirin (Ecotrin) 81 mg PO DAILY [facility] Last Admin: 05/30/17 09:19 Dose: 81 mg Atorvastatin Calcium (Lipitor) 10 mg PO 2100 [facility] Last Admin: 05/29/17 19:39 Dose: 10 mg Divalproex Sodium (Depakote) 250 mg PO BID [facility] Last Admin: 05/30/17 09:18 Dose: 250 mg Famotidine (Pepcid) 20 mg PO 2100 [facility] Last Admin: 05/29/17 19:40 Dose: 20 mg Haloperidol (Haldol) 0.5 mg PO Q6H PRN PRN Reason: Extreme agitation Last Admin: 05/24/17 17:06 Dose: 0.5 mg Haloperidol Lactate (Haldol) 0.5 mg IM Q6H PRN PRN Reason: Extreme agitation Lisinopril (Prinivil) 20 mg PO DAILY [facility] Last Admin: 05/30/17 09:18 Dose: 20 mg Lorazepam (Ativan Inj) 0.5 mg IM Q6H PRN PRN Reason: Extreme agitation Last Admin: 05/21/17 20:02 Dose: 0.5 mg Lorazepam (Ativan) 0.5 mg PO Q6H PRN PRN Reason: Extreme agitation Last Admin: 05/27/17 14:13 Dose: 0.5 mg Lorazepam (Ativan Intensol) 0.5 mg SL Q6H PRN PRN Reason: Anxiety/Agitation Last Admin: 05/28/17 20:55 Dose: 0.5 mg Polyethylene Glycol (Miralax) 17 gm PO DAILY PRN PRN Reason: Constipation Last Admin: 05/28/17 09:45 Dose: 17 gm Potassium Chloride (K-Dur) 20 meq PO WB [facility] Last Admin: 05/30/17 09:18 Dose: 20 meq Quetiapine Fumarate (Seroquel) 50 mg PO TID [facility] Last Admin: 05/30/17 14:29 Dose: 50 mg Subjective: Pt seen and chart examined. Nursing reports pt continues to be paranoid at times but it is not real bothersome to the pt. PT was some what irritable today. On face to face the pt states she is doing well. She is pleasant but confused. She is only oriented to self. She denies any pain. Tolerating meds Start Time: 18:00 Stop Time: 18:15 Mental Status Exam Vitals: Last Vital Signs Temp 97.6 F 05/30/17 15:58 Pulse 81 05/30/17 15:58 Resp 20 05/30/17 15:58 BP 103/61 05/30/17 15:58 Pulse Ox 94 05/30/17 15:58 Height: 1.65 m Weight: 74.1 kg - Mental Status Exam Muscle Strength/Tone: Normal Dressing: Casual Grooming: Good Attitude: Cooperative Motor Activity: Normal Eye Contact: Good Speech: Slowed Volume: Normal Rhythm: Appropriate Rhythm Orientation: Oriented to person Rate of Thoughts: Delayed Thought Organization: [place] Associations: Flight of Ideas Abstract Reasoning: Poor abstract reasoning Thought Content: Delusions Perception/Psychotic: Perception Normal Language: Naming Impaired Memory: Poor-immediate, Poor-recent Suicidal Ideation: None Homicidal Ideation: None Insight: Poor Judgement: Poor Impulse Control: Poor - Laboratory Result Diagrams: 05/30/17 05:27 05/30/17 05:27 Laboratory Results - last 24 hr 05/30/17 05/30/17 05:27 05:27 WBC 4.1 L RBC 4.39 Hgb 13.5 Hct 41.2 MCV 93.8 MCH 30.8 MCHC 32.8 RDW Std Deviation 45.2 Plt Count 110 L MPV 12.1 Immature Gran % (Auto) 0.2 Neut % (Auto) 63.5 Lymph % (Auto) 27.1 [place] % (Auto) 6.8 Eos % (Auto) 2.2 Baso % (Auto) 0.2 Neut # 2.6 Lymph # 1.1 [place] # 0.3 Eos # 0.1 Baso # 0.0 Abs Immat Gran (auto) 0.01 Turbidity < 20 Sodium 145 H Potassium 3.9 Chloride 107 Carbon Dioxide 29 Anion Gap 9 BUN 24.0 H Creatinine 0.7 GFR Calculation 80 BUN/Creatinine Ratio 34 H Glucose 93 Calculated Osmolality 283 H Calcium 9.8 Icterus Index < 2 Specimen Hemolysis 26 H Assessment and Plan (1) 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 Hospital Course: 05/19/17 17:00 She does appear a bit dry- she did receive IVF in the ED. Will follow up labs for stability. If she becomes more dry, may need to hold lisinopril due to risk of kidney injury. BP is fairly stable. We will continue to monitor. Safe environment, fall precautions in place. She does have a significant, right sided tremor. I don't see that she has any parkinson's meds in place. We may need to consider adding that in to help with gait stability once we have her stabilized from a mental health perspective. Thank you for the consult- we will follow. 05/21/17 09:47 Her potassium level was normal on admission. Her home potassium was held, and she was continued on lisinopril for hypertension. Most recent potassium level was slightly low at 3.2. Will check BMP tomorrow, if potassium continues to drop would resume home potassium dose. She has an appointment with Dr. Gamboa scheduled in a few weeks to evaluate her tremors. Blood pressures are running slightly high, but improved over the course of the day yesterday. Will continue to monitor. 05/22/17 Patient given another patient's medications today. Patient's lisinopril was held this morning as her blood pressure was 123/62 after getting the Lasix. Will monitor her closely today. Other than drowsiness, I don't expect any significant reactions/side effects from the medications she was given. She was given her allopurinol and her aspirin. Will check a BMP in the morning. Her home potassium is still on hold. 05/22/17 16:58 Seroquel 25mg at 0900 and 1800 05/23/17 18:38 Increase 1800 dose of Seroquel to 50mg to target increased agitation at night 05/24/17 19:17 Pt had an episode today of some paranoia and anger outburst, Will increase Seroquel to TID dosing. 05/25/17 12:09 Dementia with behavioral disturbance, acute. * Continues to have some paranoia and behaviors, especially in the evenings. Improved with increased Seroquel dosing TID as of 05/24. Continue care per psychiatric team. Continue to provide safe and supportive environment. * Patient incidentally received another patient's medications on 05/22. No apparent residual consequence. Will continue to monitor. Hypernatremia, acute. * Persistent hypernatremia noted with sodium at 147. Continue to encourage oral fluids and will monitor closely. Recheck BMP on 05/28 to monitor electrolytes and renal function. Hypokalemia, RESOLVED. * Potassium 3.5 on 05/23. Improved to 3.9 today. Continue home KCl for supplementation and continue to monitor. Will recheck on 05/28. Hypertension, chronic. * Blood pressure persistently elevated >150's systolic. Will add Norvasc 2.5mg daily for additional blood pressure control. Monitor closely for signs of hypotension and orthostasis. Will ensure patient's diet is sodium 2g. COPD, chronic. * Monitor respiratory function closely. Overall, stable. Fibromyalgia and chronic pain, chronic. * Tylenol as needed for pain control. Hyperlipidemia, chronic. * Continue home Lipitor. Monitor as outpatient. GERD, chronic. * Continue home Pepcid for GI protection and GERD. 05/25/17 17:44 Pt is improving but continues to have some paranoia at times. Will consider increase of Seroquel over the weekend 05/26/17 13:57 Pt continues to improve. Continue current care 05/27/17 17:15 Pt improving. Continue current care 05/28/17 18:19 Increase Seroquel to 50mg PO TID 05/28/17 18:33 Repeat platelets on 05/30/17 to confirm they are not continuing to trend downward Repeat BMP on 05/30/17 to follow hypernatremia. Encourage fluids. 05/29/17 20:52 Paranoia improving. Continue current care 05/30/17 20:26 Increase Seroquel to 75mg PO TID
[2017-05-30] MEDS: ATORVASTATIN 10 MG TABLET PO SCH (20:29)
[2017-05-30] MEDS: FAMOTIDINE 20 MG TABLET PO SCH (20:29)
[2017-05-31] MEDS: ASPIRIN *EC* 81 MG TABLET PO SCH (09:05)
[2017-05-31] MEDS: LISINOPRIL 20 MG TABLET PO SCH (09:05)
[2017-05-31] MEDS: QUETIAPINE 50 MG TABLET PO SCH ×3 (09:06→23:37)
[2017-05-31] MEDS: ALLOPURINOL 100 MG TABLET PO SCH (09:06)
[2017-05-31] MEDS: DIVALPROEX 250 MG TABLET PO SCH ×2 (09:06→23:36)
[2017-05-31] MEDS: AMLODIPINE 2.5 MG TABLET PO SCH (09:06)
[2017-05-31] MEDS: ACETAMINOPHEN 325 MG TABLET PO PRN (11:11)
[2017-05-31] MEDS ORDERED: TRAMADOL 50 MG TABLET PO PRN (14:21)
--- NOTE | 2017-05-31 19:59 | Neuropsych Progress Note ---
[facility] Subjective Date: 05/31/17 - Sujective/Severity of Illness Medications: Acetaminophen (Tylenol) 325 - 650 mg PO Q5H PRN PRN Reason: Discomfort Last Admin: 05/31/17 11:11 Dose: 650 mg Allopurinol (Zyloprim) 100 mg PO DAILY [facility] Last Admin: 05/31/17 09:06 Dose: 100 mg Amlodipine Besylate (Norvasc) 2.5 mg PO DAILY [facility] Last Admin: 05/31/17 09:06 Dose: 2.5 mg Aspirin (Ecotrin) 81 mg PO DAILY [facility] Last Admin: 05/31/17 09:05 Dose: 81 mg Atorvastatin Calcium (Lipitor) 10 mg PO 2100 [facility] Last Admin: 05/30/17 20:29 Dose: 10 mg Divalproex Sodium (Depakote) 250 mg PO BID [facility] Last Admin: 05/31/17 09:06 Dose: 250 mg Famotidine (Pepcid) 20 mg PO 2100 [facility] Last Admin: 05/30/17 20:29 Dose: 20 mg Haloperidol (Haldol) 0.5 mg PO Q6H PRN PRN Reason: Extreme agitation Last Admin: 05/24/17 17:06 Dose: 0.5 mg Haloperidol Lactate (Haldol) 0.5 mg IM Q6H PRN PRN Reason: Extreme agitation Lisinopril (Prinivil) 20 mg PO DAILY [facility] Last Admin: 05/31/17 09:05 Dose: 20 mg Polyethylene Glycol (Miralax) 17 gm PO DAILY PRN PRN Reason: Constipation Last Admin: 05/28/17 09:45 Dose: 17 gm Potassium Chloride (K-Dur) 20 meq PO WB [facility] Last Admin: 05/31/17 09:05 Dose: 20 meq Quetiapine Fumarate (Seroquel) 75 mg PO TID [facility] Last Admin: 05/31/17 14:35 Dose: 75 mg Tramadol HCl (Ultram) 50 mg PO Q6H PRN PRN Reason: Pain Last Admin: 05/31/17 14:34 Dose: 50 mg Subjective: Pt seen and chart examined. Nursing reports pt is doing well. She had some pain today and was given Ultram. This was sedating and the pt was resting quietly when seen. Nursing reports pt has been doing better. She has not voiced paranoia or VH. On face to face the pt states she is doing well. SHe is sleepy but voices no concerns. Start Time: 17:30 Stop Time: 17:45 Mental Status Exam Vitals: Last Vital Signs Temp 98.4 F 05/31/17 15:00 Pulse 64 05/31/17 18:42 Resp 16 05/31/17 18:00 BP 96/51 05/31/17 18:42 Pulse Ox 92 05/31/17 18:42 Height: 1.65 m Weight: 74.1 kg - Mental Status Exam Muscle Strength/Tone: Normal Dressing: Casual Grooming: Good Attitude: Cooperative Motor Activity: Normal Eye Contact: Good Speech: Slowed Volume: Normal Rhythm: Appropriate Rhythm Orientation: Oriented to person Rate of Thoughts: Delayed Thought Organization: [place] Associations: Flight of Ideas Abstract Reasoning: Poor abstract reasoning Thought Content: Delusions Perception/Psychotic: Perception Normal Language: Naming Impaired Memory: Poor-immediate, Poor-recent Suicidal Ideation: None Homicidal Ideation: None Insight: Poor Judgement: Poor Impulse Control: Poor - Laboratory Result Diagrams: 05/30/17 05:27 05/30/17 05:27 Assessment and Plan (1) 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 Hospital Course: 05/19/17 17:00 She does appear a bit dry- she did receive IVF in the ED. Will follow up labs for stability. If she becomes more dry, may need to hold lisinopril due to risk of kidney injury. BP is fairly stable. We will continue to monitor. Safe environment, fall precautions in place. She does have a significant, right sided tremor. I don't see that she has any parkinson's meds in place. We may need to consider adding that in to help with gait stability once we have her stabilized from a mental health perspective. Thank you for the consult- we will follow. 05/21/17 09:47 Her potassium level was normal on admission. Her home potassium was held, and she was continued on lisinopril for hypertension. Most recent potassium level was slightly low at 3.2. Will check BMP tomorrow, if potassium continues to drop would resume home potassium dose. She has an appointment with Dr. Gamboa scheduled in a few weeks to evaluate her tremors. Blood pressures are running slightly high, but improved over the course of the day yesterday. Will continue to monitor. 05/22/17 Patient given another patient's medications today. Patient's lisinopril was held this morning as her blood pressure was 123/62 after getting the Lasix. Will monitor her closely today. Other than drowsiness, I don't expect any significant reactions/side effects from the medications she was given. She was given her allopurinol and her aspirin. Will check a BMP in the morning. Her home potassium is still on hold. 05/22/17 16:58 Seroquel 25mg at 0900 and 1800 05/23/17 18:38 Increase 1800 dose of Seroquel to 50mg to target increased agitation at night 05/24/17 19:17 Pt had an episode today of some paranoia and anger outburst, Will increase Seroquel to TID dosing. 05/25/17 12:09 Dementia with behavioral disturbance, acute. * Continues to have some paranoia and behaviors, especially in the evenings. Improved with increased Seroquel dosing TID as of 05/24. Continue care per psychiatric team. Continue to provide safe and supportive environment. * Patient incidentally received another patient's medications on 05/22. No apparent residual consequence. Will continue to monitor. Hypernatremia, acute. * Persistent hypernatremia noted with sodium at 147. Continue to encourage oral fluids and will monitor closely. Recheck BMP on 05/28 to monitor electrolytes and renal function. Hypokalemia, RESOLVED. * Potassium 3.5 on 05/23. Improved to 3.9 today. Continue home KCl for supplementation and continue to monitor. Will recheck on 05/28. Hypertension, chronic. * Blood pressure persistently elevated >150's systolic. Will add Norvasc 2.5mg daily for additional blood pressure control. Monitor closely for signs of hypotension and orthostasis. Will ensure patient's diet is sodium 2g. COPD, chronic. * Monitor respiratory function closely. Overall, stable. Fibromyalgia and chronic pain, chronic. * Tylenol as needed for pain control. Hyperlipidemia, chronic. * Continue home Lipitor. Monitor as outpatient. GERD, chronic. * Continue home Pepcid for GI protection and GERD. 05/25/17 17:44 Pt is improving but continues to have some paranoia at times. Will consider increase of Seroquel over the weekend 05/26/17 13:57 Pt continues to improve. Continue current care 05/27/17 17:15 Pt improving. Continue current care 05/28/17 18:19 Increase Seroquel to 50mg PO TID 05/28/17 18:33 Repeat platelets on 05/30/17 to confirm they are not continuing to trend downward Repeat BMP on 05/30/17 to follow hypernatremia. Encourage fluids. 05/29/17 20:52 Paranoia improving. Continue current care 05/30/17 20:26 Increase Seroquel to 75mg PO TID 05/31/17 19:59 Improving. Continue current care
[2017-05-31] MEDS: ATORVASTATIN 10 MG TABLET PO SCH (23:36)
[2017-05-31] MEDS: FAMOTIDINE 20 MG TABLET PO SCH (23:37)
[2017-06-01] MEDS: ASPIRIN *EC* 81 MG TABLET PO SCH (08:10)
[2017-06-01] MEDS: LISINOPRIL 20 MG TABLET PO SCH (08:10)
[2017-06-01] MEDS: DIVALPROEX 250 MG TABLET PO SCH ×2 (08:10→21:21)
[2017-06-01] MEDS: AMLODIPINE 2.5 MG TABLET PO SCH (08:10)
[2017-06-01] MEDS: QUETIAPINE 50 MG TABLET PO SCH ×3 (08:11→21:23)
[2017-06-01] MEDS: ALLOPURINOL 100 MG TABLET PO SCH (08:11)
--- NOTE | 2017-06-01 08:35 | Progress Note ---
Subjective: "Cristina" was sitting at the dining table. She stated that she wasn't feeling well earlier, but now is feeling a little better. She reports that she fell the last time she eats, but denies any injury (this was not confirmed by staff - they hadn't heard about a fall in report). She denies any SOA or chest pain. No abdominal pain or nausea. Her abdomen was distended on exam - she had 3 bowel movements on the and then had 1 this am. Objective Vital signs: Temperature 97.7 F 06/01/17 07:49 Pulse Rate 72 06/01/17 07:49 Respiratory Rate 20 06/01/17 07:49 Blood Pressure 147/67 H 06/01/17 07:49 Pulse Oximetry 97 06/01/17 07:49 Oxygen Delivery Method Room Air Height/Weight/BMI: Height 1.65 m Weight 74.1 kg Body Mass Index 27.8 - Constitutional Present: no acute distress, well nourished, well developed - Routine HEENT Exam ENT: Present: mucous membranes moist - Routine Respiratory Exam Present: CTA bilaterally - Routine Cardiovascular Exam Present: RRR, S1, S2 - Routine Abdominal Exam Present: normoactive bowel sounds, non tender, distended - Routine Extremities Exam Present: no edema, pulses intact, normal capillary refill - Routine Musculoskeletal Exam Musculoskeletal: Present: no clubbing or cyanosis - Routine Skin Exam Present: intact, dry, warm - Routine Neurological Exam Present: alert - Routine Psychiatric Exam Present: normal affect, cooperative Results - Labs CBC & Chem 7: 05/30/17 05:27 05/30/17 05:27 Assessment and Plan (1) Dementia Current visit: Yes Status: Chronic (2) Cognitive and behavioral changes Current visit: Yes Status: Acute (3) History of recent fall Current visit: No Status: Acute (4) CAD (coronary artery disease) Current visit: No Status: Chronic (5) HTN (hypertension) Current visit: Yes Status: Chronic (6) Dehydration with hypernatremia Current visit: No Status: Acute Resuscitation Status: Do Not Resuscitate Assessment and Plan: Assessment: Hypernatremia Thrombocytopenia and leukopenia Cognitive/behavioral changes Dementia CAD Hypertension COPD Fibromyalgia/chronic pain Hyperlipidemia GERD Plan: Labs reviewed - platelet count increased to 110. She again has mild leukopenia. Hgb stable at 13.5. Recommend outpt f/u. Mild hypernatremia at 145 which is improving, otherwise chemistry profile is stable. Abdominal distention today - she had a bowel movement this am. Will start MiraLAX daily and add other PRNs. Review of VS show she had hypotension yesterday afternoon with MAPs 60-66. Currently, she is hypertensive. Will hold Norvasc (which was started on 05/25) and add hold parameter to lisinopril to hold if SBP <110. Sepsis Assessment - Evaluation Sepsis screening result: No Definite Risk Hospital Course Summary Disclaimer: The visit summary below is not to be considered part of the above Progress Note. Hospital Course: 05/19/17 17:00 She does appear a bit dry- she did receive IVF in the ED. Will follow up labs for stability. If she becomes more dry, may need to hold lisinopril due to risk of kidney injury. BP is fairly stable. We will continue to monitor. Safe environment, fall precautions in place. She does have a significant, right sided tremor. I don't see that she has any parkinson's meds in place. We may need to consider adding that in to help with gait stability once we have her stabilized from a mental health perspective. Thank you for the consult- we will follow. 05/21/17 09:47 Her potassium level was normal on admission. Her home potassium was held, and she was continued on lisinopril for hypertension. Most recent potassium level was slightly low at 3.2. Will check BMP tomorrow, if potassium continues to drop would resume home potassium dose. She has an appointment with Dr. Gamboa scheduled in a few weeks to evaluate her tremors. Blood pressures are running slightly high, but improved over the course of the day yesterday. Will continue to monitor. 05/22/17 Patient given another patient's medications today. Patient's lisinopril was held this morning as her blood pressure was 123/62 after getting the Lasix. Will monitor her closely today. Other than drowsiness, I don't expect any significant reactions/side effects from the medications she was given. She was given her allopurinol and her aspirin. Will check a BMP in the morning. Her home potassium is still on hold. 05/22/17 16:58 Seroquel 25mg at 0900 and 1800 05/23/17 18:38 Increase 1800 dose of Seroquel to 50mg to target increased agitation at night 05/24/17 19:17 Pt had an episode today of some paranoia and anger outburst, Will increase Seroquel to TID dosing. 05/25/17 12:09 Dementia with behavioral disturbance, acute. * Continues to have some paranoia and behaviors, especially in the evenings. Improved with increased Seroquel dosing TID as of 05/24. Continue care per psychiatric team. Continue to provide safe and supportive environment. * Patient incidentally received another patient's medications on 05/22. No apparent residual consequence. Will continue to monitor. Hypernatremia, acute. * Persistent hypernatremia noted with sodium at 147. Continue to encourage oral fluids and will monitor closely. Recheck BMP on 05/28 to monitor electrolytes and renal function. Hypokalemia, RESOLVED. * Potassium 3.5 on 05/23. Improved to 3.9 today. Continue home KCl for supplementation and continue to monitor. Will recheck on 05/28. Hypertension, chronic. * Blood pressure persistently elevated >150's systolic. Will add Norvasc 2.5mg daily for additional blood pressure control. Monitor closely for signs of hypotension and orthostasis. Will ensure patient's diet is sodium 2g. COPD, chronic. * Monitor respiratory function closely. Overall, stable. Fibromyalgia and chronic pain, chronic. * Tylenol as needed for pain control. Hyperlipidemia, chronic. * Continue home Lipitor. Monitor as outpatient. GERD, chronic. * Continue home Pepcid for GI protection and GERD. 05/25/17 17:44 Pt is improving but continues to have some paranoia at times. Will consider increase of Seroquel over the weekend 05/26/17 13:57 Pt continues to improve. Continue current care 05/27/17 17:15 Pt improving. Continue current care 05/28/17 18:19 Increase Seroquel to 50mg PO TID 05/28/17 18:33 Repeat platelets on 05/30/17 to confirm they are not continuing to trend downward Repeat BMP on 05/30/17 to follow hypernatremia. Encourage fluids. 05/29/17 20:52 Paranoia improving. Continue current care 05/30/17 20:26 Increase Seroquel to 75mg PO TID 05/31/17 19:59 Improving. Continue current care 06/01/17 Labs reviewed - platelet count increased to 110. She again has mild leukopenia. Hgb stable at 13.5. Recommend outpt f/u. Mild hypernatremia at 145 which is improving, otherwise chemistry profile is stable. Abdominal distention today - she had a bowel movement this am. Will start MiraLAX daily and add other PRNs. Review of VS show she had hypotension yesterday afternoon with MAPs 60-66. Currently, she is hypertensive. Will hold Norvasc (which was started on 05/25) and add hold parameter to lisinopril to hold if SBP <110.
[2017-06-01] MEDS ORDERED: SENNA + DOCUSATE TABLET PO PRN (08:38)
[2017-06-01] MEDS ORDERED: BISACODYL 10 MG SUPPOSITORY RECTALLY PRN (08:39)
[2017-06-01] MEDS: POLYETHYL GLYCOL 3350 17gm PACKET PO SCH (10:24)
[2017-06-01] MEDS: ACETAMINOPHEN 325 MG TABLET PO PRN (10:27)
[2017-06-01] MEDS: TRAMADOL 50 MG TABLET PO PRN (14:13)
--- NOTE | 2017-06-01 14:22 | Neuropsych Progress Note ---
[facility] Subjective Date: 06/01/17 - Sujective/Severity of Illness Medications: Acetaminophen (Tylenol) 325 - 650 mg PO Q5H PRN PRN Reason: Discomfort Last Admin: 06/01/17 10:27 Dose: 325 mg Allopurinol (Zyloprim) 100 mg PO DAILY [facility] Last Admin: 06/01/17 08:11 Dose: 100 mg Amlodipine Besylate (Norvasc) 2.5 mg PO DAILY [facility] Last Admin: 06/01/17 08:10 Dose: 2.5 mg Aspirin (Ecotrin) 81 mg PO DAILY [facility] Last Admin: 06/01/17 08:10 Dose: 81 mg Atorvastatin Calcium (Lipitor) 10 mg PO 2100 [facility] Last Admin: 05/31/17 23:36 Dose: Not Given Bisacodyl (Dulcolax) 10 mg RECTALLY DAILY PRN PRN Reason: Constipation Divalproex Sodium (Depakote) 250 mg PO BID [facility] Last Admin: 06/01/17 08:10 Dose: 250 mg Famotidine (Pepcid) 20 mg PO 2100 [facility] Last Admin: 05/31/17 23:37 Dose: Not Given Haloperidol (Haldol) 0.5 mg PO Q6H PRN PRN Reason: Extreme agitation Last Admin: 05/24/17 17:06 Dose: 0.5 mg Haloperidol Lactate (Haldol) 0.5 mg IM Q6H PRN PRN Reason: Extreme agitation Lisinopril (Prinivil) 20 mg PO DAILY [facility] Last Admin: 06/01/17 08:10 Dose: 20 mg Polyethylene Glycol (Miralax) 17 gm PO DAILY [facility] Last Admin: 06/01/17 10:24 Dose: 17 gm Potassium Chloride (K-Dur) 20 meq PO WB [facility] Last Admin: 06/01/17 08:10 Dose: 20 meq Quetiapine Fumarate (Seroquel) 75 mg PO TID [facility] Last Admin: 06/01/17 14:12 Dose: 75 mg Senna/Docusate Sodium (Senna Plus Tablet) 1 tab PO BID PRN PRN Reason: Constipation /Stool softening Tramadol HCl (Ultram) 25 mg PO Q6H PRN PRN Reason: Pain Last Admin: 06/01/17 14:13 Dose: 25 mg Subjective: Pt seen and chart examined. Nursing reports pt is doing well. She had some pain today and was given Ultram. This was sedating and the pt was resting quietly when seen. Nursing reports pt has been doing better. She has not voiced paranoia or VH. On face to face the pt states she is doing well. SHe is sleepy but voices no concerns. Patient seen and chart reviewed. Case discussed with treatment team. On interview, patient says she has felt scared at times due to VH, but nursing staff reported patient did not seem to be experiencing VH last evening. She continues to complain of pain. She received Ultram 50mg yesterday which was effective but significantly decreased BP - will decrease to 25mg today. Patient reports that her mood varies by day, sometimes good and sometimes depressed. She admits to SI in the recent past but is not actively suicidal currently while on the unit. Patient denies any adverse side effects related to psychotropic medications. Nursing staff report patient has been pleasant and cooperative overall. Patient slept well overnight. VSS at this time. Patient is eating well. Psychotropic PRNs required in the past 24 hours: none. Start Time: 11:20 Stop Time: 11:40 Mental Status Exam Vitals: Last Vital Signs Temp 97.7 F 06/01/17 07:49 Pulse 72 06/01/17 07:49 Resp 20 06/01/17 07:49 BP 147/67 H 06/01/17 07:49 Pulse Ox 97 06/01/17 07:49 Height: 1.65 m Weight: 74.1 kg - Mental Status Exam Muscle Strength/Tone: Normal Dressing: Casual Grooming: Good Attitude: Cooperative Motor Activity: Normal Eye Contact: Good Speech: Slowed Volume: Normal Rhythm: Appropriate Rhythm Orientation: Oriented to person Mood: Other ("Scared", Affect restricted) Rate of Thoughts: Delayed Thought Organization: [place] Associations: Flight [employer] Abstract Reasoning: Poor abstract reasoning Thought Content: Delusions Perception/Psychotic: Perception Normal Current Hallucinations: Visual (Intermittent) Language: Naming Impaired Memory: Poor-immediate, Poor-recent Suicidal Ideation: None Homicidal Ideation: None Insight: Poor Judgement: Poor Impulse Control: Poor - Laboratory Result Diagrams: 05/30/17 05:27 05/30/17 05:27 Assessment and Plan (1) Dehydration Current visit: Yes Status: Acute (2) Major neurocognitive disorder Problem details: with behavioral disturbance Current visit: Yes Status: Acute (3) Parkinsons Current visit: Yes Status: Acute Decrease Ultram dose to 25mg; continue to monitor effectiveness for pain control , objective charting of VH to see if patient is currently experiencing them. Continue current care otherwise. Hospital Course Summary Disclaimer: The visit summary below is not to be considered part of the above Progress Note. Hospital Course: 05/19/17 17:00 She does appear a bit dry- she did receive IVF in the ED. Will follow up labs for stability. If she becomes more dry, may need to hold lisinopril due to risk of kidney injury. BP is fairly stable. We will continue to monitor. Safe environment, fall precautions in place. She does have a significant, right sided tremor. I don't see that she has any parkinson's meds in place. We may need to consider adding that in to help with gait stability once we have her stabilized from a mental health perspective. Thank you for the consult- we will follow. 05/21/17 09:47 Her potassium level was normal on admission. Her home potassium was held, and she was continued on lisinopril for hypertension. Most recent potassium level was slightly low at 3.2. Will check BMP tomorrow, if potassium continues to drop would resume home potassium dose. She has an appointment with Dr. Gamboa scheduled in a few weeks to evaluate her tremors. Blood pressures are running slightly high, but improved over the course of the day yesterday. Will continue to monitor. 05/22/17 Patient given another patient's medications today. Patient's lisinopril was held this morning as her blood pressure was 123/62 after getting the Lasix. Will monitor her closely today. Other than drowsiness, I don't expect any significant reactions/side effects from the medications she was given. She was given her allopurinol and her aspirin. Will check a BMP in the morning. Her home potassium is still on hold. 05/22/17 16:58 Seroquel 25mg at 0900 and 1800 05/23/17 18:38 Increase 1800 dose of Seroquel to 50mg to target increased agitation at night 05/24/17 19:17 Pt had an episode today of some paranoia and anger outburst, Will increase Seroquel to TID dosing. 05/25/17 12:09 Dementia with behavioral disturbance, acute. * Continues to have some paranoia and behaviors, especially in the evenings. Improved with increased Seroquel dosing TID as of 05/24. Continue care per psychiatric team. Continue to provide safe and supportive environment. * Patient incidentally received another patient's medications on 05/22. No apparent residual consequence. Will continue to monitor. Hypernatremia, acute. * Persistent hypernatremia noted with sodium at 147. Continue to encourage oral fluids and will monitor closely. Recheck BMP on 05/28 to monitor electrolytes and renal function. Hypokalemia, RESOLVED. * Potassium 3.5 on 05/23. Improved to 3.9 today. Continue home KCl for supplementation and continue to monitor. Will recheck on 05/28. Hypertension, chronic. * Blood pressure persistently elevated >150's systolic. Will add Norvasc 2.5mg daily for additional blood pressure control. Monitor closely for signs of hypotension and orthostasis. Will ensure patient's diet is sodium 2g. COPD, chronic. * Monitor respiratory function closely. Overall, stable. Fibromyalgia and chronic pain, chronic. * Tylenol as needed for pain control. Hyperlipidemia, chronic. * Continue home Lipitor. Monitor as outpatient. GERD, chronic. * Continue home Pepcid for GI protection and GERD. 05/25/17 17:44 Pt is improving but continues to have some paranoia at times. Will consider increase of Seroquel over the weekend 05/26/17 13:57 Pt continues to improve. Continue current care 05/27/17 17:15 Pt improving. Continue current care 05/28/17 18:19 Increase Seroquel to 50mg PO TID 05/28/17 18:33 Repeat platelets on 05/30/17 to confirm they are not continuing to trend downward Repeat BMP on 05/30/17 to follow hypernatremia. Encourage fluids. 05/29/17 20:52 Paranoia improving. Continue current care 05/30/17 20:26 Increase Seroquel to 75mg PO TID 05/31/17 19:59 Improving. Continue current care 06/01/17 Labs reviewed - platelet count increased to 110. She again has mild leukopenia. Hgb stable at 13.5. Recommend outpt f/u. Mild hypernatremia at 145 which is improving, otherwise chemistry profile is stable. Abdominal distention today - she had a bowel movement this am. Will start MiraLAX daily and add other PRNs. Review of VS show she had hypotension yesterday afternoon with MAPs 60-66. Currently, she is hypertensive. Will hold Norvasc (which was started on 05/25) and add hold parameter to lisinopril to hold if SBP <110.
[2017-06-01] MEDS: SILVER SULFADIAZINE 1% CREAM 25 GM TOP SCH ×2 (17:46→21:23)
[2017-06-01] MEDS: FAMOTIDINE 20 MG TABLET PO SCH (21:22)
[2017-06-01] MEDS: ATORVASTATIN 10 MG TABLET PO SCH (21:22)
--- NOTE | 2017-06-02 06:29 | Neuropsych Progress Note ---
[facility] Subjective Date: 06/02/17 - Sujective/Severity of Illness Medications: Acetaminophen (Tylenol) 325 - 650 mg PO Q5H PRN PRN Reason: Discomfort Last Admin: 06/01/17 10:27 Dose: 325 mg Allopurinol (Zyloprim) 100 mg PO DAILY [facility] Last Admin: 06/01/17 08:11 Dose: 100 mg Amlodipine Besylate (Norvasc) 2.5 mg PO DAILY [facility] Last Admin: 06/01/17 08:10 Dose: 2.5 mg Aspirin (Ecotrin) 81 mg PO DAILY [facility] Last Admin: 06/01/17 08:10 Dose: 81 mg Atorvastatin Calcium (Lipitor) 10 mg PO 2100 [facility] Last Admin: 06/01/17 21:22 Dose: 10 mg Bisacodyl (Dulcolax) 10 mg RECTALLY DAILY PRN PRN Reason: Constipation Divalproex Sodium (Depakote) 250 mg PO BID [facility] Last Admin: 06/01/17 21:21 Dose: 250 mg Famotidine (Pepcid) 20 mg PO 2100 [facility] Last Admin: 06/01/17 21:22 Dose: 20 mg Haloperidol (Haldol) 0.5 mg PO Q6H PRN PRN Reason: Extreme agitation Last Admin: 05/24/17 17:06 Dose: 0.5 mg Haloperidol Lactate (Haldol) 0.5 mg IM Q6H PRN PRN Reason: Extreme agitation Lisinopril (Prinivil) 20 mg PO DAILY [facility] Last Admin: 06/01/17 08:10 Dose: 20 mg Polyethylene Glycol (Miralax) 17 gm PO DAILY [facility] Last Admin: 06/01/17 10:24 Dose: 17 gm Potassium Chloride (K-Dur) 20 meq PO WB [facility] Last Admin: 06/01/17 08:10 Dose: 20 meq Quetiapine Fumarate (Seroquel) 75 mg PO TID [facility] Last Admin: 06/01/17 21:23 Dose: 75 mg Senna/Docusate Sodium (Senna Plus Tablet) 1 tab PO BID PRN PRN Reason: Constipation /Stool softening Silver Sulfadiazine (Silvadene) 1 applic TOP BID [facility] Last Admin: 06/01/17 21:23 Dose: 1 applic Tramadol HCl (Ultram) 25 mg PO Q6H PRN PRN Reason: Pain Last Admin: 06/01/17 14:13 Dose: 25 mg Subjective: Patient seen and chart reviewed. Case discussed with treatment team. Patient sleeping at time of AM rounds. Nursing staff report patient has been pleasant and cooperative overall, without voicing any paranoia or SI since previous note. Patient slept well overnight. VSS at this time. Patient is eating well. Psychotropic PRNs required in the past 24 hours: Patient did receive Tramadol 25mg PO yesterday and did not have hypotensive response afterwards as she did with higher dose. Start Time: 06:15 Stop Time: 06:30 Mental Status Exam Vitals: Last Vital Signs Temp 97.0 F 06/01/17 19:35 Pulse 72 06/01/17 19:35 Resp 18 06/01/17 19:35 BP 119/63 06/01/17 19:35 Pulse Ox 91 06/01/17 19:35 Height: 1.65 m Weight: 74.1 kg - Mental Status Exam Muscle Strength/Tone: Normal Dressing: Casual Grooming: Good Attitude: Cooperative Motor Activity: Normal Eye Contact: Good Speech: Slowed Volume: Normal Rhythm: Appropriate Rhythm Orientation: Oriented to person Mood: Other (Patient sleeping during AM rounds) Rate of Thoughts: Delayed Thought Organization: [place] Associations: [employer] Abstract Reasoning: Poor abstract reasoning Thought Content: Delusions Perception/Psychotic: Perception Normal Current Hallucinations: Visual (Intermittent) Language: Naming Impaired Memory: Poor-immediate, Poor-recent Suicidal Ideation: None Homicidal Ideation: None Insight: Poor Judgement: Poor Impulse Control: Poor - Laboratory Result Diagrams: 05/30/17 05:27 05/30/17 05:27 Assessment and Plan (1) Dehydration Current visit: Yes Status: Acute (2) Major neurocognitive disorder Problem details: with behavioral disturbance Current visit: Yes Status: Acute (3) Parkinsons Current visit: Yes Status: Acute Continue current care - monitor pain control, VS, whether effective pain control helps with mood. Hospital Course Summary Disclaimer: The visit summary below is not to be considered part of the above Progress Note. Hospital Course: 05/19/17 17:00 She does appear a bit dry- she did receive IVF in the ED. Will follow up labs for stability. If she becomes more dry, may need to hold lisinopril due to risk of kidney injury. BP is fairly stable. We will continue to monitor. Safe environment, fall precautions in place. She does have a significant, right sided tremor. I don't see that she has any parkinson's meds in place. We may need to consider adding that in to help with gait stability once we have her stabilized from a mental health perspective. Thank you for the consult- we will follow. 05/21/17 09:47 Her potassium level was normal on admission. Her home potassium was held, and she was continued on lisinopril for hypertension. Most recent potassium level was slightly low at 3.2. Will check BMP tomorrow, if potassium continues to drop would resume home potassium dose. She has an appointment with Dr. Gamboa scheduled in a few weeks to evaluate her tremors. Blood pressures are running slightly high, but improved over the course of the day yesterday. Will continue to monitor. 05/22/17 Patient given another patient's medications today. Patient's lisinopril was held this morning as her blood pressure was 123/62 after getting the Lasix. Will monitor her closely today. Other than drowsiness, I don't expect any significant reactions/side effects from the medications she was given. She was given her allopurinol and her aspirin. Will check a BMP in the morning. Her home potassium is still on hold. 05/22/17 16:58 Seroquel 25mg at 0900 and 1800 05/23/17 18:38 Increase 1800 dose of Seroquel to 50mg to target increased agitation at night 05/24/17 19:17 Pt had an episode today of some paranoia and anger outburst, Will increase Seroquel to TID dosing. 05/25/17 12:09 Dementia with behavioral disturbance, acute. * Continues to have some paranoia and behaviors, especially in the evenings. Improved with increased Seroquel dosing TID as of 05/24. Continue care per psychiatric team. Continue to provide safe and supportive environment. * Patient incidentally received another patient's medications on 05/22. No apparent residual consequence. Will continue to monitor. Hypernatremia, acute. * Persistent hypernatremia noted with sodium at 147. Continue to encourage oral fluids and will monitor closely. Recheck BMP on 05/28 to monitor electrolytes and renal function. Hypokalemia, RESOLVED. * Potassium 3.5 on 05/23. Improved to 3.9 today. Continue home KCl for supplementation and continue to monitor. Will recheck on 05/28. Hypertension, chronic. * Blood pressure persistently elevated >150's systolic. Will add Norvasc 2.5mg daily for additional blood pressure control. Monitor closely for signs of hypotension and orthostasis. Will ensure patient's diet is sodium 2g. COPD, chronic. * Monitor respiratory function closely. Overall, stable. Fibromyalgia and chronic pain, chronic. * Tylenol as needed for pain control. Hyperlipidemia, chronic. * Continue home Lipitor. Monitor as outpatient. GERD, chronic. * Continue home Pepcid for GI protection and GERD. 05/25/17 17:44 Pt is improving but continues to have some paranoia at times. Will consider increase of Seroquel over the weekend 05/26/17 13:57 Pt continues to improve. Continue current care 05/27/17 17:15 Pt improving. Continue current care 05/28/17 18:19 Increase Seroquel to 50mg PO TID 05/28/17 18:33 Repeat platelets on 05/30/17 to confirm they are not continuing to trend downward Repeat BMP on 05/30/17 to follow hypernatremia. Encourage fluids. 05/29/17 20:52 Paranoia improving. Continue current care 05/30/17 20:26 Increase Seroquel to 75mg PO TID 05/31/17 19:59 Improving. Continue current care 06/01/17 Labs reviewed - platelet count increased to 110. She again has mild leukopenia. Hgb stable at 13.5. Recommend outpt f/u. Mild hypernatremia at 145 which is improving, otherwise chemistry profile is stable. Abdominal distention today - she had a bowel movement this am. Will start MiraLAX daily and add other PRNs. Review of VS show she had hypotension yesterday afternoon with MAPs 60-66. Currently, she is hypertensive. Will hold Norvasc (which was started on 05/25) and add hold parameter to lisinopril to hold if SBP <110.
[2017-06-02] MEDS: DIVALPROEX 250 MG TABLET PO SCH ×2 (08:01→20:25)
[2017-06-02] MEDS: LISINOPRIL 20 MG TABLET PO SCH (08:02)
[2017-06-02] MEDS: POLYETHYL GLYCOL 3350 17gm PACKET PO SCH (08:02)
[2017-06-02] MEDS: ASPIRIN *EC* 81 MG TABLET PO SCH (08:02)
[2017-06-02] MEDS: ALLOPURINOL 100 MG TABLET PO SCH (08:03)
[2017-06-02] MEDS: QUETIAPINE 50 MG TABLET PO SCH ×3 (08:06→20:25)
[2017-06-02] MEDS: SILVER SULFADIAZINE 1% CREAM 25 GM TOP SCH ×2 (08:07→20:26)
[2017-06-02] MEDS: ACETAMINOPHEN 325 MG TABLET PO PRN (19:57)
[2017-06-02] MEDS: ATORVASTATIN 10 MG TABLET PO SCH (20:25)
[2017-06-02] MEDS: FAMOTIDINE 20 MG TABLET PO SCH (20:26)
[2017-06-03] MEDS: ASPIRIN *EC* 81 MG TABLET PO SCH (08:32)
[2017-06-03] MEDS: QUETIAPINE 50 MG TABLET PO SCH ×4 (08:32→23:19)
[2017-06-03] MEDS: POLYETHYL GLYCOL 3350 17gm PACKET PO SCH (08:33)
[2017-06-03] MEDS: DIVALPROEX 250 MG TABLET PO SCH ×3 (08:33→23:17)
[2017-06-03] MEDS: LISINOPRIL 20 MG TABLET PO SCH (08:33)
[2017-06-03] MEDS: SILVER SULFADIAZINE 1% CREAM 25 GM TOP SCH ×2 (08:34→23:19)
[2017-06-03] MEDS: ALLOPURINOL 100 MG TABLET PO SCH (08:35)
--- NOTE | 2017-06-03 15:11 | Neuropsych Progress Note ---
[facility] Subjective Date: 06/03/17 - Sujective/Severity of Illness Medications: Acetaminophen (Tylenol) 325 - 650 mg PO Q5H PRN PRN Reason: Discomfort Last Admin: 06/02/17 19:57 Dose: 650 mg Allopurinol (Zyloprim) 100 mg PO DAILY [facility] Last Admin: 06/03/17 08:35 Dose: 100 mg Amlodipine Besylate (Norvasc) 2.5 mg PO DAILY [facility] Last Admin: 06/01/17 08:10 Dose: 2.5 mg Aspirin (Ecotrin) 81 mg PO DAILY [facility] Last Admin: 06/03/17 08:32 Dose: 81 mg Atorvastatin Calcium (Lipitor) 10 mg PO 2100 [facility] Last Admin: 06/02/17 20:25 Dose: 10 mg Bisacodyl (Dulcolax) 10 mg RECTALLY DAILY PRN PRN Reason: Constipation Divalproex Sodium (Depakote) 250 mg PO BID [facility] Last Admin: 06/03/17 08:33 Dose: 250 mg Famotidine (Pepcid) 20 mg PO 2100 [facility] Last Admin: 06/02/17 20:26 Dose: 20 mg Haloperidol (Haldol) 0.5 mg PO Q6H PRN PRN Reason: Extreme agitation Last Admin: 05/24/17 17:06 Dose: 0.5 mg Haloperidol Lactate (Haldol) 0.5 mg IM Q6H PRN PRN Reason: Extreme agitation Lisinopril (Prinivil) 20 mg PO DAILY [facility] Last Admin: 06/03/17 08:33 Dose: 20 mg Polyethylene Glycol (Miralax) 17 gm PO DAILY [facility] Last Admin: 06/03/17 08:33 Dose: 17 gm Potassium Chloride (K-Dur) 20 meq PO WB [facility] Last Admin: 06/03/17 08:33 Dose: 20 meq Quetiapine Fumarate (Seroquel) 75 mg PO TID [facility] Last Admin: 06/03/17 08:32 Dose: 75 mg Senna/Docusate Sodium (Senna Plus Tablet) 1 tab PO BID PRN PRN Reason: Constipation /Stool softening Silver Sulfadiazine (Silvadene) 1 applic TOP BID [facility] Last Admin: 06/03/17 08:34 Dose: 1 applic Tramadol HCl (Ultram) 25 mg PO Q6H PRN PRN Reason: Pain Last Admin: 06/01/17 14:13 Dose: 25 mg Subjective: Patient seen and chart reviewed. Case discussed with treatment team. Patient calm and cooperative during interview, but continues to be paranoid in regards to someone wanting to harm her. She seems fairly redirectable and is not particularly distressed when talking about this. Nursing staff report patient was suspicious of male nursing staff overnight but was redirectable, and was observed to be having some VH which were not particularly distressing either. Patient slept well overnight. VSS at this time. Patient is eating well. Psychotropic PRNs required in the past 24 hours: None. Tolerating PRN Tramadol 25mg well for pain. Start Time: 10:20 Stop Time: 10:40 Mental Status Exam Vitals: Last Vital Signs Temp 97.2 F 06/03/17 08:00 Pulse 59 L 06/03/17 08:00 Resp 18 06/03/17 08:00 BP 164/72 H 06/03/17 08:00 Pulse Ox 92 06/03/17 08:00 Height: 1.65 m Weight: 74.1 kg - Mental Status Exam Muscle Strength/Tone: Normal Dressing: Casual Grooming: Good Attitude: Cooperative Motor Activity: Normal Eye Contact: Good Speech: Slowed Volume: Normal Rhythm: Appropriate Rhythm Orientation: Oriented to person Mood: Neutral (Affect calm, appropriate) Rate of Thoughts: Delayed Thought Organization: [place] Associations: Flight [employer] Abstract Reasoning: Poor abstract reasoning Thought Content: Delusions, Paranoia Perception/Psychotic: Perception Normal Current Hallucinations: Visual (Intermittent) Language: Naming Impaired Memory: Poor-immediate, Poor-recent Suicidal Ideation: None Homicidal Ideation: None Insight: Poor Judgement: Poor Impulse Control: Fair - Laboratory Result Diagrams: 05/30/17 05:27 05/30/17 05:27 Assessment and Plan (1) Dehydration Current visit: Yes Status: Acute (2) Major neurocognitive disorder Problem details: with behavioral disturbance Current visit: Yes Status: Acute (3) Parkinsons Current visit: Yes Status: Acute Continue current care after weighing risks/benefits of possible reduction in paranoia/VH with increasing dose vs. risk of AE. Patient fairly redirectable in paranoia at this time, VH not distressing in nature recently. Hospital Course Summary Disclaimer: The visit summary below is not to be considered part of the above Progress Note. Hospital Course: 05/19/17 17:00 She does appear a bit dry- she did receive IVF in the ED. Will follow up labs for stability. If she becomes more dry, may need to hold lisinopril due to risk of kidney injury. BP is fairly stable. We will continue to monitor. Safe environment, fall precautions in place. She does have a significant, right sided tremor. I don't see that she has any parkinson's meds in place. We may need to consider adding that in to help with gait stability once we have her stabilized from a mental health perspective. Thank you for the consult- we will follow. 05/21/17 09:47 Her potassium level was normal on admission. Her home potassium was held, and she was continued on lisinopril for hypertension. Most recent potassium level was slightly low at 3.2. Will check BMP tomorrow, if potassium continues to drop would resume home potassium dose. She has an appointment with Dr. Gamboa scheduled in a few weeks to evaluate her tremors. Blood pressures are running slightly high, but improved over the course of the day yesterday. Will continue to monitor. 05/22/17 Patient given another patient's medications today. Patient's lisinopril was held this morning as her blood pressure was 123/62 after getting the Lasix. Will monitor her closely today. Other than drowsiness, I don't expect any significant reactions/side effects from the medications she was given. She was given her allopurinol and her aspirin. Will check a BMP in the morning. Her home potassium is still on hold. 05/22/17 16:58 Seroquel 25mg at 0900 and 1800 05/23/17 18:38 Increase 1800 dose of Seroquel to 50mg to target increased agitation at night 05/24/17 19:17 Pt had an episode today of some paranoia and anger outburst, Will increase Seroquel to TID dosing. 05/25/17 12:09 Dementia with behavioral disturbance, acute. * Continues to have some paranoia and behaviors, especially in the evenings. Improved with increased Seroquel dosing TID as of 05/24. Continue care per psychiatric team. Continue to provide safe and supportive environment. * Patient incidentally received another patient's medications on 05/22. No apparent residual consequence. Will continue to monitor. Hypernatremia, acute. * Persistent hypernatremia noted with sodium at 147. Continue to encourage oral fluids and will monitor closely. Recheck BMP on 05/28 to monitor electrolytes and renal function. Hypokalemia, RESOLVED. * Potassium 3.5 on 05/23. Improved to 3.9 today. Continue home KCl for supplementation and continue to monitor. Will recheck on 05/28. Hypertension, chronic. * Blood pressure persistently elevated >150's systolic. Will add Norvasc 2.5mg daily for additional blood pressure control. Monitor closely for signs of hypotension and orthostasis. Will ensure patient's diet is sodium 2g. COPD, chronic. * Monitor respiratory function closely. Overall, stable. Fibromyalgia and chronic pain, chronic. * Tylenol as needed for pain control. Hyperlipidemia, chronic. * Continue home Lipitor. Monitor as outpatient. GERD, chronic. * Continue home Pepcid for GI protection and GERD. 05/25/17 17:44 Pt is improving but continues to have some paranoia at times. Will consider increase of Seroquel over the weekend 05/26/17 13:57 Pt continues to improve. Continue current care 05/27/17 17:15 Pt improving. Continue current care 05/28/17 18:19 Increase Seroquel to 50mg PO TID 05/28/17 18:33 Repeat platelets on 05/30/17 to confirm they are not continuing to trend downward Repeat BMP on 05/30/17 to follow hypernatremia. Encourage fluids. 05/29/17 20:52 Paranoia improving. Continue current care 05/30/17 20:26 Increase Seroquel to 75mg PO TID 05/31/17 19:59 Improving. Continue current care 06/01/17 Labs reviewed - platelet count increased to 110. She again has mild leukopenia. Hgb stable at 13.5. Recommend outpt f/u. Mild hypernatremia at 145 which is improving, otherwise chemistry profile is stable. Abdominal distention today - she had a bowel movement this am. Will start MiraLAX daily and add other PRNs. Review of VS show she had hypotension yesterday afternoon with MAPs 60-66. Currently, she is hypertensive. Will hold Norvasc (which was started on 05/25) and add hold parameter to lisinopril to hold if SBP <110.
[2017-06-03] MEDS: FAMOTIDINE 20 MG TABLET PO SCH ×2 (19:33→23:18)
[2017-06-03] MEDS: ATORVASTATIN 10 MG TABLET PO SCH ×2 (19:33→23:18)
[2017-06-03] MEDS: HALOPERIDOL 0.5 MG TABLET PO PRN (19:33)
[2017-06-04] MEDS: DIVALPROEX 250 MG TABLET PO SCH ×2 (08:17→19:38)
[2017-06-04] MEDS: POLYETHYL GLYCOL 3350 17gm PACKET PO SCH (08:18)
[2017-06-04] MEDS: QUETIAPINE 50 MG TABLET PO SCH ×3 (08:18→19:37)
[2017-06-04] MEDS: ALLOPURINOL 100 MG TABLET PO SCH (08:18)
[2017-06-04] MEDS: LISINOPRIL 20 MG TABLET PO SCH (08:18)
[2017-06-04] MEDS: ASPIRIN *EC* 81 MG TABLET PO SCH (08:18)
[2017-06-04] MEDS: SILVER SULFADIAZINE 1% CREAM 25 GM TOP SCH ×2 (08:19→19:41)
[2017-06-04] MEDS: HALOPERIDOL 0.5 MG TABLET PO PRN (10:19)
[2017-06-04] MEDS ORDERED: QUETIAPINE 50 MG TABLET PO SCH (11:30)
[2017-06-04] MEDS: TRAMADOL 50 MG TABLET PO PRN ×2 (11:43→19:37)
[2017-06-04] MEDS: FAMOTIDINE 20 MG TABLET PO SCH (19:38)
[2017-06-04] MEDS: ATORVASTATIN 10 MG TABLET PO SCH (19:39)
--- NOTE | 2017-06-04 20:23 | Neuropsych Progress Note ---
[facility] Subjective Date: 06/04/17 - Sujective/Severity of Illness Medications: Acetaminophen (Tylenol) 325 - 650 mg PO Q5H PRN PRN Reason: Discomfort Last Admin: 06/02/17 19:57 Dose: 650 mg Allopurinol (Zyloprim) 100 mg PO DAILY [facility] Last Admin: 06/04/17 08:18 Dose: 100 mg Amlodipine Besylate (Norvasc) 2.5 mg PO DAILY [facility] Last Admin: 06/01/17 08:10 Dose: 2.5 mg Aspirin (Ecotrin) 81 mg PO DAILY [facility] Last Admin: 06/04/17 08:18 Dose: 81 mg Atorvastatin Calcium (Lipitor) 10 mg PO 2100 [facility] Last Admin: 06/04/17 19:39 Dose: 10 mg Bisacodyl (Dulcolax) 10 mg RECTALLY DAILY PRN PRN Reason: Constipation Divalproex Sodium (Depakote) 250 mg PO BID [facility] Last Admin: 06/04/17 19:38 Dose: 250 mg Famotidine (Pepcid) 20 mg PO 2100 [facility] Last Admin: 06/04/17 19:38 Dose: 20 mg Haloperidol (Haldol) 0.5 mg PO Q6H PRN PRN Reason: Extreme agitation Last Admin: 06/04/17 10:19 Dose: 0.5 mg Haloperidol Lactate (Haldol) 0.5 mg IM Q6H PRN PRN Reason: Extreme agitation Lisinopril (Prinivil) 20 mg PO DAILY [facility] Last Admin: 06/04/17 08:18 Dose: 20 mg Magnesium Hydroxide (Mom) 30 ml PO DAILY PRN PRN Reason: Constipation Last Admin: 06/04/17 18:01 Dose: 30 ml Polyethylene Glycol (Miralax) 17 gm PO DAILY [facility] Last Admin: 06/04/17 08:18 Dose: 17 gm Potassium Chloride (K-Dur) 20 meq PO WB [facility] Last Admin: 06/04/17 08:17 Dose: 20 meq Quetiapine Fumarate (Seroquel) 75 mg PO TID [facility] Last Admin: 06/04/17 19:37 Dose: 75 mg Quetiapine Fumarate (Seroquel) 50 mg PO ONE TIME [facility] Last Admin: 06/04/17 11:43 Dose: 50 mg Senna/Docusate Sodium (Senna Plus Tablet) 1 tab PO BID PRN PRN Reason: Constipation /Stool softening Silver Sulfadiazine (Silvadene) 1 applic TOP BID [facility] Last Admin: 06/04/17 19:41 Dose: 1 applic Tramadol HCl (Ultram) 25 mg PO Q6H PRN PRN Reason: Pain Last Admin: 06/04/17 19:37 Dose: 25 mg Subjective: Pt seen and chart examined. Nursing reports pt slept 4 hours and has a good appetite. Nursing reports pt was angry today and was having VH and paranoia. PT was given Seroquel 50mg PO x 1 which was helpful. On face to face the pt is pleasant but confused. She is only oriented to self. She states she is worried that people are out to harm her. She denies feeling depressed. Tolerating meds Start Time: 17:00 Stop Time: 17:15 Mental Status Exam Vitals: Last Vital Signs Temp 97.2 F 06/04/17 19:09 Pulse 68 06/04/17 19:09 Resp 18 06/04/17 19:09 BP 145/77 H 06/04/17 19:09 Pulse Ox 93 06/04/17 19:09 Height: 1.65 m Weight: 74.1 kg - Mental Status Exam Muscle Strength/Tone: Normal Dressing: Casual Grooming: Good Attitude: Cooperative Motor Activity: Normal Eye Contact: Good Speech: Slowed Volume: Normal Rhythm: Appropriate Rhythm Orientation: Oriented to person Mood: Neutral (Affect calm, appropriate) Rate of Thoughts: Delayed Thought Organization: [place] Associations: [employer] Abstract Reasoning: Poor abstract reasoning Thought Content: Delusions, Paranoia Perception/Psychotic: Perception Normal Current Hallucinations: Visual (Intermittent) Language: Naming Impaired Memory: Poor-immediate, Poor-recent Suicidal Ideation: None Homicidal Ideation: None Insight: Poor Judgement: Poor Impulse Control: Fair - Laboratory Result Diagrams: 06/04/17 04:38 06/04/17 04:38 Laboratory Results - last 24 hr 06/04/17 06/04/17 06/04/17 04:38 04:38 14:47 WBC 3.9 L RBC 4.22 Hgb 12.8 Hct 39.7 MCV 94.1 MCH 30.3 MCHC 32.2 RDW Std Deviation 44.2 Plt Count 98 L MPV 11.5 Immature Gran % (Auto) 0.3 Neut % (Auto) 63.1 Lymph % (Auto) 26.0 [place] % (Auto) 8.8 Eos % (Auto) 1.5 Baso % (Auto) 0.3 Neut # 2.5 Lymph # 1.0 [place] # 0.3 Eos # 0.1 Baso # 0.0 Abs Immat Gran (auto) 0.01 Turbidity < 20 Sodium 148 H Potassium 4.0 Chloride 107 Carbon Dioxide 29 Anion Gap 12 BUN 24.0 H Creatinine 0.9 GFR Calculation 60 BUN/Creatinine Ratio 27 H Glucose 90 Calculated Osmolality 288 H Calcium 9.7 Icterus Index < 2 Specimen Hemolysis < 15 Ur Collection Type Urine, clean catch Urine Color Yellow Urine Clarity Clear Urine pH 6.5 Ur Specific [place] 1.010 L Urine Protein Negative Urine Glucose (UA) Negative Urine Ketones Negative Urine Occult Blood Negative Urine Nitrate Negative Urine Bilirubin Negative Urine Urobilinogen 2.0 Ur Leukocyte Esterase Negative Urine RBC None seen Urine WBC 0-1 Ur Squamous Epith Cells 0-5 Urine Bacteria None seen Ur Culture Indicated? Cult not indicated Assessment and Plan (1) 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 Hospital Course: 05/19/17 17:00 She does appear a bit dry- she did receive IVF in the ED. Will follow up labs for stability. If she becomes more dry, may need to hold lisinopril due to risk of kidney injury. BP is fairly stable. We will continue to monitor. Safe environment, fall precautions in place. She does have a significant, right sided tremor. I don't see that she has any parkinson's meds in place. We may need to consider adding that in to help with gait stability once we have her stabilized from a mental health perspective. Thank you for the consult- we will follow. 05/21/17 09:47 Her potassium level was normal on admission. Her home potassium was held, and she was continued on lisinopril for hypertension. Most recent potassium level was slightly low at 3.2. Will check BMP tomorrow, if potassium continues to drop would resume home potassium dose. She has an appointment with Dr. Gamboa scheduled in a few weeks to evaluate her tremors. Blood pressures are running slightly high, but improved over the course of the day yesterday. Will continue to monitor. 05/22/17 Patient given another patient's medications today. Patient's lisinopril was held this morning as her blood pressure was 123/62 after getting the Lasix. Will monitor her closely today. Other than drowsiness, I don't expect any significant reactions/side effects from the medications she was given. She was given her allopurinol and her aspirin. Will check a BMP in the morning. Her home potassium is still on hold. 05/22/17 16:58 Seroquel 25mg at 0900 and 1800 05/23/17 18:38 Increase 1800 dose of Seroquel to 50mg to target increased agitation at night 05/24/17 19:17 Pt had an episode today of some paranoia and anger outburst, Will increase Seroquel to TID dosing. 05/25/17 12:09 Dementia with behavioral disturbance, acute. * Continues to have some paranoia and behaviors, especially in the evenings. Improved with increased Seroquel dosing TID as of 05/24. Continue care per psychiatric team. Continue to provide safe and supportive environment. * Patient incidentally received another patient's medications on 05/22. No apparent residual consequence. Will continue to monitor. Hypernatremia, acute. * Persistent hypernatremia noted with sodium at 147. Continue to encourage oral fluids and will monitor closely. Recheck BMP on 05/28 to monitor electrolytes and renal function. Hypokalemia, RESOLVED. * Potassium 3.5 on 05/23. Improved to 3.9 today. Continue home KCl for supplementation and continue to monitor. Will recheck on 05/28. Hypertension, chronic. * Blood pressure persistently elevated >150's systolic. Will add Norvasc 2.5mg daily for additional blood pressure control. Monitor closely for signs of hypotension and orthostasis. Will ensure patient's diet is sodium 2g. COPD, chronic. * Monitor respiratory function closely. Overall, stable. Fibromyalgia and chronic pain, chronic. * Tylenol as needed for pain control. Hyperlipidemia, chronic. * Continue home Lipitor. Monitor as outpatient. GERD, chronic. * Continue home Pepcid for GI protection and GERD. 05/25/17 17:44 Pt is improving but continues to have some paranoia at times. Will consider increase of Seroquel over the weekend 05/26/17 13:57 Pt continues to improve. Continue current care 05/27/17 17:15 Pt improving. Continue current care 05/28/17 18:19 Increase Seroquel to 50mg PO TID 05/28/17 18:33 Repeat platelets on 05/30/17 to confirm they are not continuing to trend downward Repeat BMP on 05/30/17 to follow hypernatremia. Encourage fluids. 05/29/17 20:52 Paranoia improving. Continue current care 05/30/17 20:26 Increase Seroquel to 75mg PO TID 05/31/17 19:59 Improving. Continue current care 06/01/17 Labs reviewed - platelet count increased to 110. She again has mild leukopenia. Hgb stable at 13.5. Recommend outpt f/u. Mild hypernatremia at 145 which is improving, otherwise chemistry profile is stable. Abdominal distention today - she had a bowel movement this am. Will start MiraLAX daily and add other PRNs. Review of VS show she had hypotension yesterday afternoon with MAPs 60-66. Currently, she is hypertensive. Will hold Norvasc (which was started on 05/25) and add hold parameter to lisinopril to hold if SBP <110. 06/04/17 20:22 Depakote level in AM.
[2017-06-05] MEDS: DIVALPROEX 250 MG TABLET PO SCH ×4 (00:38→22:59)
[2017-06-05] MEDS: SILVER SULFADIAZINE 1% CREAM 25 GM TOP SCH ×3 (00:38→21:18)
[2017-06-05] MEDS: ATORVASTATIN 10 MG TABLET PO SCH ×3 (00:38→22:59)
[2017-06-05] MEDS: QUETIAPINE 50 MG TABLET PO SCH ×5 (00:38→22:59)
[2017-06-05] MEDS: FAMOTIDINE 20 MG TABLET PO SCH ×3 (00:38→22:59)
[2017-06-05] MEDS: POLYETHYL GLYCOL 3350 17gm PACKET PO SCH (08:33)
[2017-06-05] MEDS: ASPIRIN *EC* 81 MG TABLET PO SCH (08:33)
[2017-06-05] MEDS: LISINOPRIL 20 MG TABLET PO SCH (08:34)
[2017-06-05] MEDS: ALLOPURINOL 100 MG TABLET PO SCH (08:34)
--- NOTE | 2017-06-05 10:41 | Progress Note ---
Subjective: Adria was seen this morning while getting ready for the day. She rested well last night and told me that things feel different today, that she seems "calmer ". She denies any acute complaints - no chest pain, dyspnea, abdominal pain, bloating, or GI complaints. She states that she feels constipated today - no bowel movement yet today but has been going about every day. She has a chronic tremor and uses a walker but her gait is steady nonetheless. Objective Vital signs: Temperature 97.0 F 06/05/17 08:57 Pulse Rate 82 06/05/17 08:57 Respiratory Rate 20 06/05/17 08:57 Blood Pressure 112/58 06/05/17 08:57 Pulse Oximetry 98 06/05/17 08:57 Oxygen Delivery Method Room Air Height/Weight/BMI: Height 1.65 m Weight 73.5 kg Body Mass Index 27.8 - Constitutional Present: no acute distress, well nourished, well developed - Routine HEENT Exam Eye: Present: EOMI ENT: Present: mucous membranes moist. Absent: dentition normal (missing teeth; has partials/dentures) - Routine Respiratory Exam Present: CTA bilaterally - Routine Cardiovascular Exam Present: RRR, S1, S2 - Routine Abdominal Exam Present: soft, normoactive bowel sounds, non tender, distended (mild) - Routine Extremities Exam Present: edema (trace b/l), pulses intact - Routine Musculoskeletal Exam Musculoskeletal: Present: moving extremities well - Routine Skin Exam Present: intact, dry, warm - Routine Neurological Exam Present: alert, tremors (chronic) - Routine Psychiatric Exam Present: normal affect, cooperative Results - Labs CBC & Chem 7: 06/04/17 04:38 06/04/17 04:38 Assessment and Plan (1) Dementia Current visit: Yes Status: Chronic (2) Cognitive and behavioral changes Current visit: Yes Status: Acute (3) History of recent fall Current visit: No Status: Acute (4) CAD (coronary artery disease) Current visit: No Status: Chronic (5) HTN (hypertension) Current visit: Yes Status: Chronic (6) Dehydration with hypernatremia Current visit: No Status: Acute Resuscitation Status: Do Not Resuscitate Assessment and Plan: Assessment: Hypernatremia Thrombocytopenia and leukopenia Cognitive/behavioral changes Dementia CAD Hypertension COPD Fibromyalgia/chronic pain Hyperlipidemia GERD Plan: Labs were repeated yesterday - still has thrombocytopenia and leukopenia. Na has increased again to 148 - encoural oral intake. No more periods of hypotension, though BP has been variable. Will continue to monitor; not resume Norvasc at this time. Tremors could indicate underlying Parkinsonian d/o, and thus increases her risk for orthostasis. Psych notes reviewed. Sepsis Assessment - Evaluation Sepsis screening result: No Definite Risk Hospital Course Summary Disclaimer: The visit summary below is not to be considered part of the above Progress Note. Hospital Course: 05/19/17 17:00 She does appear a bit dry- she did receive IVF in the ED. Will follow up labs for stability. If she becomes more dry, may need to hold lisinopril due to risk of kidney injury. BP is fairly stable. We will continue to monitor. Safe environment, fall precautions in place. She does have a significant, right sided tremor. I don't see that she has any parkinson's meds in place. We may need to consider adding that in to help with gait stability once we have her stabilized from a mental health perspective. Thank you for the consult- we will follow. 05/21/17 09:47 Her potassium level was normal on admission. Her home potassium was held, and she was continued on lisinopril for hypertension. Most recent potassium level was slightly low at 3.2. Will check BMP tomorrow, if potassium continues to drop would resume home potassium dose. She has an appointment with Dr. Gamboa scheduled in a few weeks to evaluate her tremors. Blood pressures are running slightly high, but improved over the course of the day yesterday. Will continue to monitor. 05/22/17 Patient given another patient's medications today. Patient's lisinopril was held this morning as her blood pressure was 123/62 after getting the Lasix. Will monitor her closely today. Other than drowsiness, I don't expect any significant reactions/side effects from the medications she was given. She was given her allopurinol and her aspirin. Will check a BMP in the morning. Her home potassium is still on hold. 05/22/17 16:58 Seroquel 25mg at 0900 and 1800 05/23/17 18:38 Increase 1800 dose of Seroquel to 50mg to target increased agitation at night 05/24/17 19:17 Pt had an episode today of some paranoia and anger outburst, Will increase Seroquel to TID dosing. 05/25/17 12:09 Dementia with behavioral disturbance, acute. * Continues to have some paranoia and behaviors, especially in the evenings. Improved with increased Seroquel dosing TID as of 05/24. Continue care per psychiatric team. Continue to provide safe and supportive environment. * Patient incidentally received another patient's medications on 05/22. No apparent residual consequence. Will continue to monitor. Hypernatremia, acute. * Persistent hypernatremia noted with sodium at 147. Continue to encourage oral fluids and will monitor closely. Recheck BMP on 05/28 to monitor electrolytes and renal function. Hypokalemia, RESOLVED. * Potassium 3.5 on 05/23. Improved to 3.9 today. Continue home KCl for supplementation and continue to monitor. Will recheck on 05/28. Hypertension, chronic. * Blood pressure persistently elevated >150's systolic. Will add Norvasc 2.5mg daily for additional blood pressure control. Monitor closely for signs of hypotension and orthostasis. Will ensure patient's diet is sodium 2g. COPD, chronic. * Monitor respiratory function closely. Overall, stable. Fibromyalgia and chronic pain, chronic. * Tylenol as needed for pain control. Hyperlipidemia, chronic. * Continue home Lipitor. Monitor as outpatient. GERD, chronic. * Continue home Pepcid for GI protection and GERD. 05/25/17 17:44 Pt is improving but continues to have some paranoia at times. Will consider increase of Seroquel over the weekend 05/26/17 13:57 Pt continues to improve. Continue current care 05/27/17 17:15 Pt improving. Continue current care 05/28/17 18:19 Increase Seroquel to 50mg PO TID 05/28/17 18:33 Repeat platelets on 05/30/17 to confirm they are not continuing to trend downward Repeat BMP on 05/30/17 to follow hypernatremia. Encourage fluids. 05/29/17 20:52 Paranoia improving. Continue current care 05/30/17 20:26 Increase Seroquel to 75mg PO TID 05/31/17 19:59 Improving. Continue current care 06/01/17 Labs reviewed - platelet count increased to 110. She again has mild leukopenia. Hgb stable at 13.5. Recommend outpt f/u. Mild hypernatremia at 145 which is improving, otherwise chemistry profile is stable. Abdominal distention today - she had a bowel movement this am. Will start MiraLAX daily and add other PRNs. Review of VS show she had hypotension yesterday afternoon with MAPs 60-66. Currently, she is hypertensive. Will hold Norvasc (which was started on 05/25) and add hold parameter to lisinopril to hold if SBP <110. 06/04/17 20:22 Depakote level in AM. 06/05/17 Labs were repeated yesterday - still has thrombocytopenia and leukopenia. Na has increased again to 148 - encoural oral intake. No more periods of hypotension, though BP has been variable. Will continue to monitor; not resume Norvasc at this time. Tremors could indicate underlying Parkinsonian d/o, and thus increases her risk for orthostasis. Psych notes reviewed.
--- NOTE | 2017-06-05 18:06 | Neuropsych Progress Note ---
[facility] Subjective Date: 06/05/17 - Sujective/Severity of Illness Medications: Acetaminophen (Tylenol) 325 - 650 mg PO Q5H PRN PRN Reason: Discomfort Last Admin: 06/02/17 19:57 Dose: 650 mg Allopurinol (Zyloprim) 100 mg PO DAILY [facility] Last Admin: 06/05/17 08:34 Dose: 100 mg Amlodipine Besylate (Norvasc) 2.5 mg PO DAILY [facility] Last Admin: 06/01/17 08:10 Dose: 2.5 mg Aspirin (Ecotrin) 81 mg PO DAILY [facility] Last Admin: 06/05/17 08:33 Dose: 81 mg Atorvastatin Calcium (Lipitor) 10 mg PO 2100 [facility] Last Admin: 06/05/17 00:38 Dose: Not Given Bisacodyl (Dulcolax) 10 mg RECTALLY DAILY PRN PRN Reason: Constipation Divalproex Sodium (Depakote) 250 mg PO BID [facility] Last Admin: 06/05/17 08:34 Dose: 250 mg Famotidine (Pepcid) 20 mg PO 2100 [facility] Last Admin: 06/05/17 00:38 Dose: Not Given Haloperidol (Haldol) 0.5 mg PO Q6H PRN PRN Reason: Extreme agitation Last Admin: 06/04/17 10:19 Dose: 0.5 mg Haloperidol Lactate (Haldol) 0.5 mg IM Q6H PRN PRN Reason: Extreme agitation Lisinopril (Prinivil) 20 mg PO DAILY [facility] Last Admin: 06/05/17 08:34 Dose: 20 mg Magnesium Hydroxide (Mom) 30 ml PO DAILY PRN PRN Reason: Constipation Last Admin: 06/04/17 18:01 Dose: 30 ml Polyethylene Glycol (Miralax) 17 gm PO DAILY [facility] Last Admin: 06/05/17 08:33 Dose: 17 gm Potassium Chloride (K-Dur) 20 meq PO WB [facility] Last Admin: 06/05/17 08:33 Dose: 20 meq Quetiapine Fumarate (Seroquel) 75 mg PO TID [facility] Last Admin: 06/05/17 15:53 Dose: 75 mg Quetiapine Fumarate (Seroquel) 50 mg PO ONE TIME [facility] Last Admin: 06/04/17 11:43 Dose: 50 mg Senna/Docusate Sodium (Senna Plus Tablet) 1 tab PO BID PRN PRN Reason: Constipation /Stool softening Silver Sulfadiazine (Silvadene) 1 applic TOP BID [facility] Last Admin: 06/05/17 08:33 Dose: 1 applic Tramadol HCl (Ultram) 25 mg PO Q6H PRN PRN Reason: Pain Last Admin: 06/04/17 19:37 Dose: 25 mg Subjective: Pt seen and chart examined. Nursing reports pt was a little tearful today and some paranoia but less agitated than yesterday. Sleeping well and has a good appetite. On face to face the pt is paranoid. She states she sees people in her room and feels that people want to harm her although it does not seem real distressing to the client. She reports her mood is stable and she denies any S/ i. Tolerating meds Start Time: 17:30 Stop Time: 17:45 Mental Status Exam Vitals: Last Vital Signs Temp 98.2 F 06/05/17 15:57 Pulse 73 06/05/17 15:51 Resp 16 06/05/17 15:51 BP 152/74 H 06/05/17 15:51 Pulse Ox 96 06/05/17 15:51 Height: 1.65 m Weight: 73.5 kg - Mental Status Exam Muscle Strength/Tone: Normal Dressing: Casual Grooming: Good Attitude: Cooperative Motor Activity: Normal Eye Contact: Good Speech: Slowed Volume: Normal Rhythm: Appropriate Rhythm Orientation: Oriented to person Mood: Neutral (Affect calm, appropriate) Rate of Thoughts: Delayed Thought Organization: [place] Associations: [employer] Abstract Reasoning: Poor abstract reasoning Thought Content: Delusions, Paranoia Perception/Psychotic: Perception Normal Current Hallucinations: Visual (Intermittent) Language: Naming Impaired Memory: Poor-immediate, Poor-recent Suicidal Ideation: None Homicidal Ideation: None Insight: Poor Judgement: Poor Impulse Control: Fair - Laboratory Result Diagrams: 06/04/17 04:38 06/04/17 04:38 Laboratory Results - last 24 hr 06/05/17 09:10 Valproic Acid 38.6 L Assessment and Plan (1) 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 Hospital Course: 05/19/17 17:00 She does appear a bit dry- she did receive IVF in the ED. Will follow up labs for stability. If she becomes more dry, may need to hold lisinopril due to risk of kidney injury. BP is fairly stable. We will continue to monitor. Safe environment, fall precautions in place. She does have a significant, right sided tremor. I don't see that she has any parkinson's meds in place. We may need to consider adding that in to help with gait stability once we have her stabilized from a mental health perspective. Thank you for the consult- we will follow. 05/21/17 09:47 Her potassium level was normal on admission. Her home potassium was held, and she was continued on lisinopril for hypertension. Most recent potassium level was slightly low at 3.2. Will check BMP tomorrow, if potassium continues to drop would resume home potassium dose. She has an appointment with Dr. Gamboa scheduled in a few weeks to evaluate her tremors. Blood pressures are running slightly high, but improved over the course of the day yesterday. Will continue to monitor. 05/22/17 Patient given another patient's medications today. Patient's lisinopril was held this morning as her blood pressure was 123/62 after getting the Lasix. Will monitor her closely today. Other than drowsiness, I don't expect any significant reactions/side effects from the medications she was given. She was given her allopurinol and her aspirin. Will check a BMP in the morning. Her home potassium is still on hold. 05/22/17 16:58 Seroquel 25mg at 0900 and 1800 05/23/17 18:38 Increase 1800 dose of Seroquel to 50mg to target increased agitation at night 05/24/17 19:17 Pt had an episode today of some paranoia and anger outburst, Will increase Seroquel to TID dosing. 05/25/17 12:09 Dementia with behavioral disturbance, acute. * Continues to have some paranoia and behaviors, especially in the evenings. Improved with increased Seroquel dosing TID as of 05/24. Continue care per psychiatric team. Continue to provide safe and supportive environment. * Patient incidentally received another patient's medications on 05/22. No apparent residual consequence. Will continue to monitor. Hypernatremia, acute. * Persistent hypernatremia noted with sodium at 147. Continue to encourage oral fluids and will monitor closely. Recheck BMP on 05/28 to monitor electrolytes and renal function. Hypokalemia, RESOLVED. * Potassium 3.5 on 05/23. Improved to 3.9 today. Continue home KCl for supplementation and continue to monitor. Will recheck on 05/28. Hypertension, chronic. * Blood pressure persistently elevated >150's systolic. Will add Norvasc 2.5mg daily for additional blood pressure control. Monitor closely for signs of hypotension and orthostasis. Will ensure patient's diet is sodium 2g. COPD, chronic. * Monitor respiratory function closely. Overall, stable. Fibromyalgia and chronic pain, chronic. * Tylenol as needed for pain control. Hyperlipidemia, chronic. * Continue home Lipitor. Monitor as outpatient. GERD, chronic. * Continue home Pepcid for GI protection and GERD. 05/25/17 17:44 Pt is improving but continues to have some paranoia at times. Will consider increase of Seroquel over the weekend 05/26/17 13:57 Pt continues to improve. Continue current care 05/27/17 17:15 Pt improving. Continue current care 05/28/17 18:19 Increase Seroquel to 50mg PO TID 05/28/17 18:33 Repeat platelets on 05/30/17 to confirm they are not continuing to trend downward Repeat BMP on 05/30/17 to follow hypernatremia. Encourage fluids. 05/29/17 20:52 Paranoia improving. Continue current care 05/30/17 20:26 Increase Seroquel to 75mg PO TID 05/31/17 19:59 Improving. Continue current care 06/01/17 Labs reviewed - platelet count increased to 110. She again has mild leukopenia. Hgb stable at 13.5. Recommend outpt f/u. Mild hypernatremia at 145 which is improving, otherwise chemistry profile is stable. Abdominal distention today - she had a bowel movement this am. Will start MiraLAX daily and add other PRNs. Review of VS show she had hypotension yesterday afternoon with MAPs 60-66. Currently, she is hypertensive. Will hold Norvasc (which was started on 05/25) and add hold parameter to lisinopril to hold if SBP <110. 06/04/17 20:22 Depakote level in AM. 06/05/17 Labs were repeated yesterday - still has thrombocytopenia and leukopenia. Na has increased again to 148 - encoural oral intake. No more periods of hypotension, though BP has been variable. Will continue to monitor; not resume Norvasc at this time. Tremors could indicate underlying Parkinsonian d/o, and thus increases her risk for orthostasis. Psych notes reviewed. 06/05/17 18:06 Pt remains paranoid. Will continue current care
[2017-06-06] MEDS: TRAMADOL 50 MG TABLET PO PRN (07:27)
[2017-06-06] MEDS: LISINOPRIL 20 MG TABLET PO SCH (08:45)
[2017-06-06] MEDS: QUETIAPINE 50 MG TABLET PO SCH ×2 (08:45→15:06)
[2017-06-06] MEDS: ALLOPURINOL 100 MG TABLET PO SCH (08:45)
[2017-06-06] MEDS: DIVALPROEX 250 MG TABLET PO SCH (08:45)
[2017-06-06] MEDS: ASPIRIN *EC* 81 MG TABLET PO SCH (08:45)
[2017-06-06] MEDS: SILVER SULFADIAZINE 1% CREAM 25 GM TOP SCH ×2 (08:46→19:20)
[2017-06-06] MEDS: POLYETHYL GLYCOL 3350 17gm PACKET PO SCH (08:46)
--- NOTE | 2017-06-06 16:55 | Neuropsych Progress Note ---
[facility] Subjective Date: 06/06/17 - Sujective/Severity of Illness Medications: Acetaminophen (Tylenol) 325 - 650 mg PO Q5H PRN PRN Reason: Discomfort Last Admin: 06/02/17 19:57 Dose: 650 mg Allopurinol (Zyloprim) 100 mg PO DAILY [facility] Last Admin: 06/06/17 08:45 Dose: 100 mg Amlodipine Besylate (Norvasc) 2.5 mg PO DAILY [facility] Last Admin: 06/01/17 08:10 Dose: 2.5 mg Aspirin (Ecotrin) 81 mg PO DAILY [facility] Last Admin: 06/06/17 08:45 Dose: 81 mg Atorvastatin Calcium (Lipitor) 10 mg PO 2100 [facility] Last Admin: 06/05/17 22:59 Dose: Not Given Bisacodyl (Dulcolax) 10 mg RECTALLY DAILY PRN PRN Reason: Constipation Divalproex Sodium (Depakote) 250 mg PO BID [facility] Last Admin: 06/06/17 08:45 Dose: 250 mg Famotidine (Pepcid) 20 mg PO 2100 [facility] Last Admin: 06/05/17 22:59 Dose: Not Given Haloperidol (Haldol) 0.5 mg PO Q6H PRN PRN Reason: Extreme agitation Last Admin: 06/04/17 10:19 Dose: 0.5 mg Haloperidol Lactate (Haldol) 0.5 mg IM Q6H PRN PRN Reason: Extreme agitation Lisinopril (Prinivil) 20 mg PO DAILY [facility] Last Admin: 06/06/17 08:45 Dose: 20 mg Magnesium Hydroxide (Mom) 30 ml PO DAILY PRN PRN Reason: Constipation Last Admin: 06/04/17 18:01 Dose: 30 ml Polyethylene Glycol (Miralax) 17 gm PO DAILY [facility] Last Admin: 06/06/17 08:46 Dose: 17 gm Potassium Chloride (K-Dur) 20 meq PO WB [facility] Last Admin: 06/06/17 08:46 Dose: 20 meq Quetiapine Fumarate (Seroquel) 75 mg PO TID [facility] Last Admin: 06/06/17 15:06 Dose: 75 mg Quetiapine Fumarate (Seroquel) 50 mg PO ONE TIME [facility] Last Admin: 06/04/17 11:43 Dose: 50 mg Senna/Docusate Sodium (Senna Plus Tablet) 1 tab PO BID PRN PRN Reason: Constipation /Stool softening Silver Sulfadiazine (Silvadene) 1 applic TOP BID [facility] Last Admin: 06/06/17 08:46 Dose: 1 applic Tramadol HCl (Ultram) 25 mg PO Q6H PRN PRN Reason: Pain Last Admin: 06/06/17 07:27 Dose: 25 mg Subjective: Pt seen and chart examined. Nursing reports pt continues to have AH and paranoia. Sleeping and eating well. On face to face the pt is pleasant but confused. She states she continues to see things that others dont see and worries that someone is trying to kill her. She does not appear to be to distressed by this . Tolerating meds. Start Time: 16:45 Stop Time: 17:00 Mental Status Exam Vitals: Last Vital Signs Temp 97.2 F 06/06/17 08:00 Pulse 54 L 06/06/17 08:00 Resp 20 06/06/17 08:00 BP 171/78 H 06/06/17 08:00 Pulse Ox 93 06/06/17 08:00 Height: 1.65 m Weight: 73.5 kg - Mental Status Exam Muscle Strength/Tone: Normal Dressing: Casual Grooming: Good Attitude: Cooperative Motor Activity: Normal Eye Contact: Good Speech: Slowed Volume: Normal Rhythm: Appropriate Rhythm Orientation: Oriented to person Mood: Neutral (Affect calm, appropriate) Rate of Thoughts: Delayed Thought Organization: [place] Associations: [employer] Abstract Reasoning: Poor abstract reasoning Thought Content: Delusions, Paranoia Perception/Psychotic: Perception Normal Current Hallucinations: Visual (Intermittent) Language: Naming Impaired Memory: Poor-immediate, Poor-recent Suicidal Ideation: None Homicidal Ideation: None Insight: Poor Judgement: Poor Impulse Control: Fair - Laboratory Result Diagrams: 06/04/17 04:38 06/04/17 04:38 Assessment and Plan (1) 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 Hospital Course: 05/19/17 17:00 She does appear a bit dry- she did receive IVF in the ED. Will follow up labs for stability. If she becomes more dry, may need to hold lisinopril due to risk of kidney injury. BP is fairly stable. We will continue to monitor. Safe environment, fall precautions in place. She does have a significant, right sided tremor. I don't see that she has any parkinson's meds in place. We may need to consider adding that in to help with gait stability once we have her stabilized from a mental health perspective. Thank you for the consult- we will follow. 05/21/17 09:47 Her potassium level was normal on admission. Her home potassium was held, and she was continued on lisinopril for hypertension. Most recent potassium level was slightly low at 3.2. Will check BMP tomorrow, if potassium continues to drop would resume home potassium dose. She has an appointment with Dr. Gamboa scheduled in a few weeks to evaluate her tremors. Blood pressures are running slightly high, but improved over the course of the day yesterday. Will continue to monitor. 05/22/17 Patient given another patient's medications today. Patient's lisinopril was held this morning as her blood pressure was 123/62 after getting the Lasix. Will monitor her closely today. Other than drowsiness, I don't expect any significant reactions/side effects from the medications she was given. She was given her allopurinol and her aspirin. Will check a BMP in the morning. Her home potassium is still on hold. 05/22/17 16:58 Seroquel 25mg at 0900 and 1800 05/23/17 18:38 Increase 1800 dose of Seroquel to 50mg to target increased agitation at night 05/24/17 19:17 Pt had an episode today of some paranoia and anger outburst, Will increase Seroquel to TID dosing. 05/25/17 12:09 Dementia with behavioral disturbance, acute. * Continues to have some paranoia and behaviors, especially in the evenings. Improved with increased Seroquel dosing TID as of 05/24. Continue care per psychiatric team. Continue to provide safe and supportive environment. * Patient incidentally received another patient's medications on 05/22. No apparent residual consequence. Will continue to monitor. Hypernatremia, acute. * Persistent hypernatremia noted with sodium at 147. Continue to encourage oral fluids and will monitor closely. Recheck BMP on 05/28 to monitor electrolytes and renal function. Hypokalemia, RESOLVED. * Potassium 3.5 on 05/23. Improved to 3.9 today. Continue home KCl for supplementation and continue to monitor. Will recheck on 05/28. Hypertension, chronic. * Blood pressure persistently elevated >150's systolic. Will add Norvasc 2.5mg daily for additional blood pressure control. Monitor closely for signs of hypotension and orthostasis. Will ensure patient's diet is sodium 2g. COPD, chronic. * Monitor respiratory function closely. Overall, stable. Fibromyalgia and chronic pain, chronic. * Tylenol as needed for pain control. Hyperlipidemia, chronic. * Continue home Lipitor. Monitor as outpatient. GERD, chronic. * Continue home Pepcid for GI protection and GERD. 05/25/17 17:44 Pt is improving but continues to have some paranoia at times. Will consider increase of Seroquel over the weekend 05/26/17 13:57 Pt continues to improve. Continue current care 05/27/17 17:15 Pt improving. Continue current care 05/28/17 18:19 Increase Seroquel to 50mg PO TID 05/28/17 18:33 Repeat platelets on 05/30/17 to confirm they are not continuing to trend downward Repeat BMP on 05/30/17 to follow hypernatremia. Encourage fluids. 05/29/17 20:52 Paranoia improving. Continue current care 05/30/17 20:26 Increase Seroquel to 75mg PO TID 05/31/17 19:59 Improving. Continue current care 06/01/17 Labs reviewed - platelet count increased to 110. She again has mild leukopenia. Hgb stable at 13.5. Recommend outpt f/u. Mild hypernatremia at 145 which is improving, otherwise chemistry profile is stable. Abdominal distention today - she had a bowel movement this am. Will start MiraLAX daily and add other PRNs. Review of VS show she had hypotension yesterday afternoon with MAPs 60-66. Currently, she is hypertensive. Will hold Norvasc (which was started on 05/25) and add hold parameter to lisinopril to hold if SBP <110. 06/04/17 20:22 Depakote level in AM. 06/05/17 Labs were repeated yesterday - still has thrombocytopenia and leukopenia. Na has increased again to 148 - encoural oral intake. No more periods of hypotension, though BP has been variable. Will continue to monitor; not resume Norvasc at this time. Tremors could indicate underlying Parkinsonian d/o, and thus increases her risk for orthostasis. Psych notes reviewed. 06/05/17 18:06 Pt remains paranoid. Will continue current care 06/06/17 16:54 Increase Seroquel to 100mg PO TID. Stop Depakote as it may be increasing gate issues and probably has limited benefit
[2017-06-06] MEDS: FAMOTIDINE 20 MG TABLET PO SCH (19:19)
[2017-06-06] MEDS: QUETIAPINE 100 MG TABLET PO SCH (19:19)
[2017-06-06] MEDS: ATORVASTATIN 10 MG TABLET PO SCH (19:19)
--- NOTE | 2017-06-07 07:52 | Progress Note ---
Subjective: Adria was just getting up and ready for the day. She denied any issues but didn' t participate much in conversation. She was in no acute distress. Nursing staff was present and Adria needs encouragement to drink enough fluids. Her urine has been clear. No recent hallucinations. Objective Vital signs: Temperature 96.9 F 06/06/17 18:52 Pulse Rate 71 06/06/17 18:52 Respiratory Rate 16 06/06/17 18:52 Blood Pressure 132/64 06/06/17 18:52 Pulse Oximetry 94 06/06/17 18:52 Height/Weight/BMI: Height 1.65 m Weight 73.5 kg Body Mass Index 27.8 - Constitutional Present: no acute distress, well nourished, well developed, thin - Routine HEENT Exam ENT: Present: oropharynx clear - Routine Respiratory Exam Present: CTA bilaterally - Routine Cardiovascular Exam Present: S1, S2, murmur - Routine Abdominal Exam Present: soft, normoactive bowel sounds, non tender - Routine Extremities Exam Present: no edema, normal capillary refill - Routine Skin Exam Present: intact, dry, warm - Routine Neurological Exam Present: alert - Routine Psychiatric Exam Present: normal affect, cooperative Results - Labs CBC & Chem 7: 06/07/17 04:48 06/07/17 04:48 Assessment and Plan (1) Dementia Current visit: Yes Status: Chronic (2) Cognitive and behavioral changes Current visit: Yes Status: Acute (3) History of recent fall Current visit: No Status: Acute (4) CAD (coronary artery disease) Current visit: No Status: Chronic (5) HTN (hypertension) Current visit: Yes Status: Chronic (6) Dehydration with hypernatremia Current visit: No Status: Acute Resuscitation Status: Do Not Resuscitate Assessment and Plan: Assessment: Hypernatremia Thrombocytopenia and leukopenia Cognitive/behavioral changes Dementia CAD Hypertension COPD Fibromyalgia/chronic pain Hyperlipidemia GERD Plan: Labs this am showed improvement - Na down to 145. Continue encouraging oral fluids. WBC up to 5.1. Plt up to 103. BP - variable. Slightly low yesterday afternoon, improved this am. Psych notes reviewed. Sepsis Assessment - Evaluation Sepsis screening result: No Definite Risk Hospital Course Summary Disclaimer: The visit summary below is not to be considered part of the above Progress Note. Hospital Course: 05/19/17 17:00 She does appear a bit dry- she did receive IVF in the ED. Will follow up labs for stability. If she becomes more dry, may need to hold lisinopril due to risk of kidney injury. BP is fairly stable. We will continue to monitor. Safe environment, fall precautions in place. She does have a significant, right sided tremor. I don't see that she has any parkinson's meds in place. We may need to consider adding that in to help with gait stability once we have her stabilized from a mental health perspective. Thank you for the consult- we will follow. 05/21/17 09:47 Her potassium level was normal on admission. Her home potassium was held, and she was continued on lisinopril for hypertension. Most recent potassium level was slightly low at 3.2. Will check BMP tomorrow, if potassium continues to drop would resume home potassium dose. She has an appointment with Dr. Gamboa scheduled in a few weeks to evaluate her tremors. Blood pressures are running slightly high, but improved over the course of the day yesterday. Will continue to monitor. 05/22/17 Patient given another patient's medications today. Patient's lisinopril was held this morning as her blood pressure was 123/62 after getting the Lasix. Will monitor her closely today. Other than drowsiness, I don't expect any significant reactions/side effects from the medications she was given. She was given her allopurinol and her aspirin. Will check a BMP in the morning. Her home potassium is still on hold. 05/22/17 16:58 Seroquel 25mg at 0900 and 1800 05/23/17 18:38 Increase 1800 dose of Seroquel to 50mg to target increased agitation at night 05/24/17 19:17 Pt had an episode today of some paranoia and anger outburst, Will increase Seroquel to TID dosing. 05/25/17 12:09 Dementia with behavioral disturbance, acute. * Continues to have some paranoia and behaviors, especially in the evenings. Improved with increased Seroquel dosing TID as of 05/24. Continue care per psychiatric team. Continue to provide safe and supportive environment. * Patient incidentally received another patient's medications on 05/22. No apparent residual consequence. Will continue to monitor. Hypernatremia, acute. * Persistent hypernatremia noted with sodium at 147. Continue to encourage oral fluids and will monitor closely. Recheck BMP on 05/28 to monitor electrolytes and renal function. Hypokalemia, RESOLVED. * Potassium 3.5 on 05/23. Improved to 3.9 today. Continue home KCl for supplementation and continue to monitor. Will recheck on 05/28. Hypertension, chronic. * Blood pressure persistently elevated >150's systolic. Will add Norvasc 2.5mg daily for additional blood pressure control. Monitor closely for signs of hypotension and orthostasis. Will ensure patient's diet is sodium 2g. COPD, chronic. * Monitor respiratory function closely. Overall, stable. Fibromyalgia and chronic pain, chronic. * Tylenol as needed for pain control. Hyperlipidemia, chronic. * Continue home Lipitor. Monitor as outpatient. GERD, chronic. * Continue home Pepcid for GI protection and GERD. 05/25/17 17:44 Pt is improving but continues to have some paranoia at times. Will consider increase of Seroquel over the weekend 05/26/17 13:57 Pt continues to improve. Continue current care 05/27/17 17:15 Pt improving. Continue current care 05/28/17 18:19 Increase Seroquel to 50mg PO TID 05/28/17 18:33 Repeat platelets on 05/30/17 to confirm they are not continuing to trend downward Repeat BMP on 05/30/17 to follow hypernatremia. Encourage fluids. 05/29/17 20:52 Paranoia improving. Continue current care 05/30/17 20:26 Increase Seroquel to 75mg PO TID 05/31/17 19:59 Improving. Continue current care 06/01/17 Labs reviewed - platelet count increased to 110. She again has mild leukopenia. Hgb stable at 13.5. Recommend outpt f/u. Mild hypernatremia at 145 which is improving, otherwise chemistry profile is stable. Abdominal distention today - she had a bowel movement this am. Will start MiraLAX daily and add other PRNs. Review of VS show she had hypotension yesterday afternoon with MAPs 60-66. Currently, she is hypertensive. Will hold Norvasc (which was started on 05/25) and add hold parameter to lisinopril to hold if SBP <110. 06/04/17 20:22 Depakote level in AM. 06/05/17 Labs were repeated yesterday - still has thrombocytopenia and leukopenia. Na has increased again to 148 - encoural oral intake. No more periods of hypotension, though BP has been variable. Will continue to monitor; not resume Norvasc at this time. Tremors could indicate underlying Parkinsonian d/o, and thus increases her risk for orthostasis. Psych notes reviewed. 06/05/17 18:06 Pt remains paranoid. Will continue current care 06/06/17 16:54 Increase Seroquel to 100mg PO TID. Stop Depakote as it may be increasing gate issues and probably has limited benefit
[2017-06-07] MEDS: POLYETHYL GLYCOL 3350 17gm PACKET PO SCH (08:41)
[2017-06-07] MEDS: LISINOPRIL 20 MG TABLET PO SCH (08:41)
[2017-06-07] MEDS: QUETIAPINE 100 MG TABLET PO SCH ×3 (08:41→19:29)
[2017-06-07] MEDS: ASPIRIN *EC* 81 MG TABLET PO SCH (08:41)
[2017-06-07] MEDS: TRAMADOL 50 MG TABLET PO PRN ×2 (08:42→16:56)
[2017-06-07] MEDS: ALLOPURINOL 100 MG TABLET PO SCH (08:42)
[2017-06-07] MEDS: SILVER SULFADIAZINE 1% CREAM 25 GM TOP SCH ×2 (08:42→18:54)
--- NOTE | 2017-06-07 17:44 | Neuropsych Progress Note ---
[facility] Subjective Date: 06/07/17 - Sujective/Severity of Illness Medications: Acetaminophen (Tylenol) 325 - 650 mg PO Q5H PRN PRN Reason: Discomfort Last Admin: 06/02/17 19:57 Dose: 650 mg Allopurinol (Zyloprim) 100 mg PO DAILY [facility] Last Admin: 06/07/17 08:42 Dose: 100 mg Amlodipine Besylate (Norvasc) 2.5 mg PO DAILY [facility] Last Admin: 06/01/17 08:10 Dose: 2.5 mg Aspirin (Ecotrin) 81 mg PO DAILY [facility] Last Admin: 06/07/17 08:41 Dose: 81 mg Atorvastatin Calcium (Lipitor) 10 mg PO 2100 [facility] Last Admin: 06/06/17 19:19 Dose: 10 mg Bisacodyl (Dulcolax) 10 mg RECTALLY DAILY PRN PRN Reason: Constipation Famotidine (Pepcid) 20 mg PO 2100 [facility] Last Admin: 06/06/17 19:19 Dose: 20 mg Haloperidol (Haldol) 0.5 mg PO Q6H PRN PRN Reason: Extreme agitation Last Admin: 06/04/17 10:19 Dose: 0.5 mg Haloperidol Lactate (Haldol) 0.5 mg IM Q6H PRN PRN Reason: Extreme agitation Lisinopril (Prinivil) 20 mg PO DAILY [facility] Last Admin: 06/07/17 08:41 Dose: 20 mg Magnesium Hydroxide (Mom) 30 ml PO DAILY PRN PRN Reason: Constipation Last Admin: 06/04/17 18:01 Dose: 30 ml Polyethylene Glycol (Miralax) 17 gm PO DAILY [facility] Last Admin: 06/07/17 08:41 Dose: 17 gm Potassium Chloride (K-Dur) 20 meq PO WB [facility] Last Admin: 06/07/17 08:41 Dose: 20 meq Quetiapine Fumarate (Seroquel) 50 mg PO ONE TIME [facility] Last Admin: 06/04/17 11:43 Dose: 50 mg Quetiapine Fumarate (Seroquel) 100 mg PO TID [facility] Last Admin: 06/07/17 15:12 Dose: 100 mg Senna/Docusate Sodium (Senna Plus Tablet) 1 tab PO BID PRN PRN Reason: Constipation /Stool softening Silver Sulfadiazine (Silvadene) 1 applic TOP BID [facility] Last Admin: 06/06/17 19:20 Dose: 1 applic Tramadol HCl (Ultram) 25 mg PO Q6H PRN PRN Reason: Pain Last Admin: 06/07/17 16:56 Dose: 25 mg Subjective: Pt seen and chart examined. Nursing reports pt is doing a little better today. Sleeping well and has a good appetite. No behaviors noted. Some VH at times but improved and no paranoia. On face to face the pt states she is doing well. She denies any paranoia. Mood is stable. Pleasant but confused. tolerating meds Start Time: 17:00 Stop Time: 17:15 Mental Status Exam Vitals: Last Vital Signs Temp 98.2 F 06/07/17 16:00 Pulse 63 06/07/17 16:00 Resp 16 06/07/17 16:00 BP 130/65 06/07/17 16:00 Pulse Ox 94 06/07/17 16:00 Height: 1.65 m Weight: 73.5 kg - Mental Status Exam Muscle Strength/Tone: Normal Dressing: Casual Grooming: Good Attitude: Cooperative Motor Activity: Normal Eye Contact: Good Speech: Slowed Volume: Normal Rhythm: Appropriate Rhythm Orientation: Oriented to person Mood: Neutral (Affect calm, appropriate) Rate of Thoughts: Delayed Thought Organization: [place] Associations: Flight of Ideas Abstract Reasoning: Poor abstract reasoning Thought Content: Delusions, Paranoia Perception/Psychotic: Perception Normal Current Hallucinations: Visual (Intermittent) Language: Naming Impaired Memory: Poor-immediate, Poor-recent Suicidal Ideation: None Homicidal Ideation: None Insight: Poor Judgement: Poor Impulse Control: Fair - Laboratory Result Diagrams: 06/07/17 04:48 06/07/17 04:48 Laboratory Results - last 24 hr 06/07/17 06/07/17 06/07/17 04:48 04:48 10:33 WBC 5.1 RBC 3.94 L Hgb 11.9 L Hct 37.3 MCV 94.7 MCH 30.2 MCHC 31.9 RDW Std Deviation 44.8 Plt Count 103 L MPV 11.6 Immature Gran % (Auto) 0.4 Neut % (Auto) 67.0 H Lymph % (Auto) 23.6 [place] % (Auto) 7.2 Eos % (Auto) 1.6 Baso % (Auto) 0.2 Neut # 3.4 Lymph # 1.2 [place] # 0.4 Eos # 0.1 Baso # 0.0 Abs Immat Gran (auto) 0.02 Turbidity < 20 Sodium 145 H Potassium 4.0 Chloride 107 Carbon Dioxide 28 Anion Gap 10 BUN 35.0 H Creatinine 0.9 GFR Calculation 60 BUN/Creatinine Ratio 39 H Glucose 86 Calculated Osmolality 286 H Calcium 9.2 Icterus Index < 2 Specimen Hemolysis < 15 Stool Occult Blood Negative 06/07/17 16:02 WBC RBC Hgb Hct MCV MCH MCHC RDW Std Deviation Plt Count MPV Immature Gran % (Auto) Neut % (Auto) Lymph % (Auto) [place] % (Auto) Eos % (Auto) Baso % (Auto) Neut # Lymph # [place] # Eos # Baso # Abs Immat Gran (auto) Turbidity Sodium Potassium Chloride Carbon Dioxide Anion Gap BUN Creatinine GFR Calculation BUN/Creatinine Ratio Glucose Calculated Osmolality Calcium Icterus Index Specimen Hemolysis Stool Occult Blood Negative Assessment and Plan (1) 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 Hospital Course: 05/19/17 17:00 She does appear a bit dry- she did receive IVF in the ED. Will follow up labs for stability. If she becomes more dry, may need to hold lisinopril due to risk of kidney injury. BP is fairly stable. We will continue to monitor. Safe environment, fall precautions in place. She does have a significant, right sided tremor. I don't see that she has any parkinson's meds in place. We may need to consider adding that in to help with gait stability once we have her stabilized from a mental health perspective. Thank you for the consult- we will follow. 05/21/17 09:47 Her potassium level was normal on admission. Her home potassium was held, and she was continued on lisinopril for hypertension. Most recent potassium level was slightly low at 3.2. Will check BMP tomorrow, if potassium continues to drop would resume home potassium dose. She has an appointment with Dr. Gamboa scheduled in a few weeks to evaluate her tremors. Blood pressures are running slightly high, but improved over the course of the day yesterday. Will continue to monitor. 05/22/17 Patient given another patient's medications today. Patient's lisinopril was held this morning as her blood pressure was 123/62 after getting the Lasix. Will monitor her closely today. Other than drowsiness, I don't expect any significant reactions/side effects from the medications she was given. She was given her allopurinol and her aspirin. Will check a BMP in the morning. Her home potassium is still on hold. 05/22/17 16:58 Seroquel 25mg at 0900 and 1800 05/23/17 18:38 Increase 1800 dose of Seroquel to 50mg to target increased agitation at night 05/24/17 19:17 Pt had an episode today of some paranoia and anger outburst, Will increase Seroquel to TID dosing. 05/25/17 12:09 Dementia with behavioral disturbance, acute. * Continues to have some paranoia and behaviors, especially in the evenings. Improved with increased Seroquel dosing TID as of 05/24. Continue care per psychiatric team. Continue to provide safe and supportive environment. * Patient incidentally received another patient's medications on 05/22. No apparent residual consequence. Will continue to monitor. Hypernatremia, acute. * Persistent hypernatremia noted with sodium at 147. Continue to encourage oral fluids and will monitor closely. Recheck BMP on 05/28 to monitor electrolytes and renal function. Hypokalemia, RESOLVED. * Potassium 3.5 on 05/23. Improved to 3.9 today. Continue home KCl for supplementation and continue to monitor. Will recheck on 05/28. Hypertension, chronic. * Blood pressure persistently elevated >150's systolic. Will add Norvasc 2.5mg daily for additional blood pressure control. Monitor closely for signs of hypotension and orthostasis. Will ensure patient's diet is sodium 2g. COPD, chronic. * Monitor respiratory function closely. Overall, stable. Fibromyalgia and chronic pain, chronic. * Tylenol as needed for pain control. Hyperlipidemia, chronic. * Continue home Lipitor. Monitor as outpatient. GERD, chronic. * Continue home Pepcid for GI protection and GERD. 05/25/17 17:44 Pt is improving but continues to have some paranoia at times. Will consider increase of Seroquel over the weekend 05/26/17 13:57 Pt continues to improve. Continue current care 05/27/17 17:15 Pt improving. Continue current care 05/28/17 18:19 Increase Seroquel to 50mg PO TID 05/28/17 18:33 Repeat platelets on 05/30/17 to confirm they are not continuing to trend downward Repeat BMP on 05/30/17 to follow hypernatremia. Encourage fluids. 05/29/17 20:52 Paranoia improving. Continue current care 05/30/17 20:26 Increase Seroquel to 75mg PO TID 05/31/17 19:59 Improving. Continue current care 06/01/17 Labs reviewed - platelet count increased to 110. She again has mild leukopenia. Hgb stable at 13.5. Recommend outpt f/u. Mild hypernatremia at 145 which is improving, otherwise chemistry profile is stable. Abdominal distention today - she had a bowel movement this am. Will start MiraLAX daily and add other PRNs. Review of VS show she had hypotension yesterday afternoon with MAPs 60-66. Currently, she is hypertensive. Will hold Norvasc (which was started on 05/25) and add hold parameter to lisinopril to hold if SBP <110. 06/04/17 20:22 Depakote level in AM. 06/05/17 Labs were repeated yesterday - still has thrombocytopenia and leukopenia. Na has increased again to 148 - encoural oral intake. No more periods of hypotension, though BP has been variable. Will continue to monitor; not resume Norvasc at this time. Tremors could indicate underlying Parkinsonian d/o, and thus increases her risk for orthostasis. Psych notes reviewed. 06/05/17 18:06 Pt remains paranoid. Will continue current care 06/06/17 16:54 Increase Seroquel to 100mg PO TID. Stop Depakote as it may be increasing gate issues and probably has limited benefit 06/07/17 17:43 Improving. Continue current care
[2017-06-07] MEDS: FAMOTIDINE 20 MG TABLET PO SCH (19:29)
[2017-06-07] MEDS: ATORVASTATIN 10 MG TABLET PO SCH (19:29)
[2017-06-08] MEDS: ATORVASTATIN 10 MG TABLET PO SCH ×2 (06:53→19:24)
[2017-06-08] MEDS: SILVER SULFADIAZINE 1% CREAM 25 GM TOP SCH ×2 (06:53→10:14)
[2017-06-08] MEDS: QUETIAPINE 100 MG TABLET PO SCH ×4 (06:53→19:24)
[2017-06-08] MEDS: FAMOTIDINE 20 MG TABLET PO SCH ×2 (06:53→19:24)
[2017-06-08] MEDS: POLYETHYL GLYCOL 3350 17gm PACKET PO SCH (10:13)
[2017-06-08] MEDS: ALLOPURINOL 100 MG TABLET PO SCH (10:16)
[2017-06-08] MEDS: LISINOPRIL 20 MG TABLET PO SCH (10:16)
[2017-06-08] MEDS: ASPIRIN *EC* 81 MG TABLET PO SCH (10:16)
[2017-06-08] MEDS: TRAMADOL 50 MG TABLET PO PRN (19:23)
[2017-06-09] MEDS: SILVER SULFADIAZINE 1% CREAM 25 GM TOP SCH (04:38)
[2017-06-09] MEDS: TRAMADOL 50 MG TABLET PO PRN ×2 (07:25→16:26)
[2017-06-09] MEDS: POLYETHYL GLYCOL 3350 17gm PACKET PO SCH (08:34)
[2017-06-09] MEDS: LISINOPRIL 20 MG TABLET PO SCH (08:34)
[2017-06-09] MEDS: ALLOPURINOL 100 MG TABLET PO SCH (08:34)
[2017-06-09] MEDS: ASPIRIN *EC* 81 MG TABLET PO SCH (08:34)
[2017-06-09] MEDS: QUETIAPINE 100 MG TABLET PO SCH ×3 (08:34→19:28)
[2017-06-09] MEDS ORDERED: SILVER SULFADIAZINE 1% CREAM 25 GM TOP PRN (08:39)
--- NOTE | 2017-06-09 11:05 | Neuropsych Progress Note ---
[facility] Subjective Date: 06/08/17 (Late entry) - Sujective/Severity of Illness Medications: Acetaminophen (Tylenol) 325 - 650 mg PO Q5H PRN PRN Reason: Discomfort Last Admin: 06/02/17 19:57 Dose: 650 mg Allopurinol (Zyloprim) 100 mg PO DAILY [facility] Last Admin: 06/09/17 08:34 Dose: 100 mg Amlodipine Besylate (Norvasc) 2.5 mg PO DAILY [facility] Last Admin: 06/01/17 08:10 Dose: 2.5 mg Aspirin (Ecotrin) 81 mg PO DAILY [facility] Last Admin: 06/09/17 08:34 Dose: 81 mg Atorvastatin Calcium (Lipitor) 10 mg PO 2100 [facility] Last Admin: 06/08/17 19:24 Dose: 10 mg Bisacodyl (Dulcolax) 10 mg RECTALLY DAILY PRN PRN Reason: Constipation Famotidine (Pepcid) 20 mg PO 2100 [facility] Last Admin: 06/08/17 19:24 Dose: 20 mg Haloperidol (Haldol) 0.5 mg PO Q6H PRN PRN Reason: Extreme agitation Last Admin: 06/04/17 10:19 Dose: 0.5 mg Haloperidol Lactate (Haldol) 0.5 mg IM Q6H PRN PRN Reason: Extreme agitation Lisinopril (Prinivil) 20 mg PO DAILY [facility] Last Admin: 06/09/17 08:34 Dose: 20 mg Magnesium Hydroxide (Mom) 30 ml PO DAILY PRN PRN Reason: Constipation Last Admin: 06/04/17 18:01 Dose: 30 ml Polyethylene Glycol (Miralax) 17 gm PO DAILY [facility] Last Admin: 06/09/17 08:34 Dose: 17 gm Potassium Chloride (K-Dur) 20 meq PO WB [facility] Last Admin: 06/09/17 08:34 Dose: 20 meq Quetiapine Fumarate (Seroquel) 50 mg PO ONE TIME [facility] Last Admin: 06/04/17 11:43 Dose: 50 mg Quetiapine Fumarate (Seroquel) 100 mg PO TID [facility] Last Admin: 06/09/17 08:34 Dose: 100 mg Senna/Docusate Sodium (Senna Plus Tablet) 1 tab PO BID PRN PRN Reason: Constipation /Stool softening Silver Sulfadiazine (Silvadene) 1 applic TOP PRN PRN Tramadol HCl (Ultram) 25 mg PO Q6H PRN PRN Reason: Pain Last Admin: 06/09/17 07:25 Dose: 25 mg Subjective: Pt seen and chart examined. Nursing reports pt is doing a little better today. Sleeping well and has a good appetite. No behaviors noted. On face to face the pt states she is a little sleepy today. She reports her mood is stable and denies any paranoia. Some VH at times but improving. Tolerating meds Start Time: 17:00 Stop Time: 17:15 Mental Status Exam Vitals: Last Vital Signs Temp 97.8 F 06/09/17 08:00 Pulse 67 06/09/17 08:00 Resp 16 06/09/17 08:00 BP 145/71 H 06/09/17 08:00 Pulse Ox 96 06/09/17 08:00 Height: 1.65 m Weight: 73.5 kg - Mental Status Exam Muscle Strength/Tone: Normal Dressing: Casual Grooming: Good Attitude: Cooperative Motor Activity: Normal Eye Contact: Good Speech: Slowed Volume: Normal Rhythm: Appropriate Rhythm Orientation: Oriented to person Mood: Neutral (Affect calm, appropriate) Rate of Thoughts: Delayed Thought Organization: [place] Associations: Flight of Ideas Abstract Reasoning: Poor abstract reasoning Thought Content: Delusions, Paranoia Perception/Psychotic: Perception Normal Current Hallucinations: Visual (Intermittent) Language: Naming Impaired Memory: Poor-immediate, Poor-recent Suicidal Ideation: None Homicidal Ideation: None Insight: Poor Judgement: Poor Impulse Control: Fair - Laboratory Result Diagrams: 06/08/17 04:38 06/08/17 04:38 Assessment and Plan (1) 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 Hospital Course: 05/19/17 17:00 She does appear a bit dry- she did receive IVF in the ED. Will follow up labs for stability. If she becomes more dry, may need to hold lisinopril due to risk of kidney injury. BP is fairly stable. We will continue to monitor. Safe environment, fall precautions in place. She does have a significant, right sided tremor. I don't see that she has any parkinson's meds in place. We may need to consider adding that in to help with gait stability once we have her stabilized from a mental health perspective. Thank you for the consult- we will follow. 05/21/17 09:47 Her potassium level was normal on admission. Her home potassium was held, and she was continued on lisinopril for hypertension. Most recent potassium level was slightly low at 3.2. Will check BMP tomorrow, if potassium continues to drop would resume home potassium dose. She has an appointment with Dr. Gamboa scheduled in a few weeks to evaluate her tremors. Blood pressures are running slightly high, but improved over the course of the day yesterday. Will continue to monitor. 05/22/17 Patient given another patient's medications today. Patient's lisinopril was held this morning as her blood pressure was 123/62 after getting the Lasix. Will monitor her closely today. Other than drowsiness, I don't expect any significant reactions/side effects from the medications she was given. She was given her allopurinol and her aspirin. Will check a BMP in the morning. Her home potassium is still on hold. 05/22/17 16:58 Seroquel 25mg at 0900 and 1800 05/23/17 18:38 Increase 1800 dose of Seroquel to 50mg to target increased agitation at night 05/24/17 19:17 Pt had an episode today of some paranoia and anger outburst, Will increase Seroquel to TID dosing. 05/25/17 12:09 Dementia with behavioral disturbance, acute. * Continues to have some paranoia and behaviors, especially in the evenings. Improved with increased Seroquel dosing TID as of 05/24. Continue care per psychiatric team. Continue to provide safe and supportive environment. * Patient incidentally received another patient's medications on 05/22. No apparent residual consequence. Will continue to monitor. Hypernatremia, acute. * Persistent hypernatremia noted with sodium at 147. Continue to encourage oral fluids and will monitor closely. Recheck BMP on 05/28 to monitor electrolytes and renal function. Hypokalemia, RESOLVED. * Potassium 3.5 on 05/23. Improved to 3.9 today. Continue home KCl for supplementation and continue to monitor. Will recheck on 05/28. Hypertension, chronic. * Blood pressure persistently elevated >150's systolic. Will add Norvasc 2.5mg daily for additional blood pressure control. Monitor closely for signs of hypotension and orthostasis. Will ensure patient's diet is sodium 2g. COPD, chronic. * Monitor respiratory function closely. Overall, stable. Fibromyalgia and chronic pain, chronic. * Tylenol as needed for pain control. Hyperlipidemia, chronic. * Continue home Lipitor. Monitor as outpatient. GERD, chronic. * Continue home Pepcid for GI protection and GERD. 05/25/17 17:44 Pt is improving but continues to have some paranoia at times. Will consider increase of Seroquel over the weekend 05/26/17 13:57 Pt continues to improve. Continue current care 05/27/17 17:15 Pt improving. Continue current care 05/28/17 18:19 Increase Seroquel to 50mg PO TID 05/28/17 18:33 Repeat platelets on 05/30/17 to confirm they are not continuing to trend downward Repeat BMP on 05/30/17 to follow hypernatremia. Encourage fluids. 05/29/17 20:52 Paranoia improving. Continue current care 05/30/17 20:26 Increase Seroquel to 75mg PO TID 05/31/17 19:59 Improving. Continue current care 06/01/17 Labs reviewed - platelet count increased to 110. She again has mild leukopenia. Hgb stable at 13.5. Recommend outpt f/u. Mild hypernatremia at 145 which is improving, otherwise chemistry profile is stable. Abdominal distention today - she had a bowel movement this am. Will start MiraLAX daily and add other PRNs. Review of VS show she had hypotension yesterday afternoon with MAPs 60-66. Currently, she is hypertensive. Will hold Norvasc (which was started on 05/25) and add hold parameter to lisinopril to hold if SBP <110. 06/04/17 20:22 Depakote level in AM. 06/05/17 Labs were repeated yesterday - still has thrombocytopenia and leukopenia. Na has increased again to 148 - encoural oral intake. No more periods of hypotension, though BP has been variable. Will continue to monitor; not resume Norvasc at this time. Tremors could indicate underlying Parkinsonian d/o, and thus increases her risk for orthostasis. Psych notes reviewed. 06/05/17 18:06 Pt remains paranoid. Will continue current care 06/06/17 16:54 Increase Seroquel to 100mg PO TID. Stop Depakote as it may be increasing gate issues and probably has limited benefit 06/07/17 17:43 Improving. Continue current care 06/09/17 11:04 Continues to improve. Continue current care
--- NOTE | 2017-06-09 11:44 | Neuropsych Progress Note ---
[facility] Subjective Date: 06/09/17 - Sujective/Severity of Illness Medications: Acetaminophen (Tylenol) 325 - 650 mg PO Q5H PRN PRN Reason: Discomfort Last Admin: 06/02/17 19:57 Dose: 650 mg Allopurinol (Zyloprim) 100 mg PO DAILY [facility] Last Admin: 06/09/17 08:34 Dose: 100 mg Amlodipine Besylate (Norvasc) 2.5 mg PO DAILY [facility] Last Admin: 06/01/17 08:10 Dose: 2.5 mg Aspirin (Ecotrin) 81 mg PO DAILY [facility] Last Admin: 06/09/17 08:34 Dose: 81 mg Atorvastatin Calcium (Lipitor) 10 mg PO 2100 [facility] Last Admin: 06/08/17 19:24 Dose: 10 mg Bisacodyl (Dulcolax) 10 mg RECTALLY DAILY PRN PRN Reason: Constipation Famotidine (Pepcid) 20 mg PO 2100 [facility] Last Admin: 06/08/17 19:24 Dose: 20 mg Haloperidol (Haldol) 0.5 mg PO Q6H PRN PRN Reason: Extreme agitation Last Admin: 06/04/17 10:19 Dose: 0.5 mg Haloperidol Lactate (Haldol) 0.5 mg IM Q6H PRN PRN Reason: Extreme agitation Lisinopril (Prinivil) 20 mg PO DAILY [facility] Last Admin: 06/09/17 08:34 Dose: 20 mg Magnesium Hydroxide (Mom) 30 ml PO DAILY PRN PRN Reason: Constipation Last Admin: 06/04/17 18:01 Dose: 30 ml Polyethylene Glycol (Miralax) 17 gm PO DAILY [facility] Last Admin: 06/09/17 08:34 Dose: 17 gm Potassium Chloride (K-Dur) 20 meq PO WB [facility] Last Admin: 06/09/17 08:34 Dose: 20 meq Quetiapine Fumarate (Seroquel) 50 mg PO ONE TIME [facility] Last Admin: 06/04/17 11:43 Dose: 50 mg Quetiapine Fumarate (Seroquel) 100 mg PO TID [facility] Last Admin: 06/09/17 08:34 Dose: 100 mg Senna/Docusate Sodium (Senna Plus Tablet) 1 tab PO BID PRN PRN Reason: Constipation /Stool softening Silver Sulfadiazine (Silvadene) 1 applic TOP PRN PRN Tramadol HCl (Ultram) 25 mg PO Q6H PRN PRN Reason: Pain Last Admin: 06/09/17 07:25 Dose: 25 mg Subjective: Pt seen and chart examined. Nursing reports pt is doing well. Sleeping well and has a good appetite. No behaviors noted. On face to face the pt states she is a little sleepy but otherwise doing well. She denies any VH or paranoia. Tolerating meds. Some back pain Start Time: 11:00 Stop Time: 11:30 Mental Status Exam Vitals: Last Vital Signs Temp 97.8 F 06/09/17 08:00 Pulse 67 06/09/17 08:00 Resp 16 06/09/17 08:00 BP 145/71 H 06/09/17 08:00 Pulse Ox 96 06/09/17 08:00 Height: 1.65 m Weight: 73.5 kg - Mental Status Exam Muscle Strength/Tone: Normal Dressing: Casual Grooming: Good Attitude: Cooperative Motor Activity: Normal Eye Contact: Good Speech: Slowed Volume: Normal Rhythm: Appropriate Rhythm Orientation: Oriented to person Mood: Neutral (Affect calm, appropriate) Rate of Thoughts: Delayed Thought Organization: [place] Associations: [employer] Abstract Reasoning: Poor abstract reasoning Thought Content: Delusions, Paranoia Perception/Psychotic: Perception Normal Current Hallucinations: Visual (Intermittent) Language: Naming Impaired Memory: Poor-immediate, Poor-recent Suicidal Ideation: None Homicidal Ideation: None Insight: Poor Judgement: Poor Impulse Control: Fair - Laboratory Result Diagrams: 06/08/17 04:38 06/08/17 04:38 Assessment and Plan (1) 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 Hospital Course: 05/19/17 17:00 She does appear a bit dry- she did receive IVF in the ED. Will follow up labs for stability. If she becomes more dry, may need to hold lisinopril due to risk of kidney injury. BP is fairly stable. We will continue to monitor. Safe environment, fall precautions in place. She does have a significant, right sided tremor. I don't see that she has any parkinson's meds in place. We may need to consider adding that in to help with gait stability once we have her stabilized from a mental health perspective. Thank you for the consult- we will follow. 05/21/17 09:47 Her potassium level was normal on admission. Her home potassium was held, and she was continued on lisinopril for hypertension. Most recent potassium level was slightly low at 3.2. Will check BMP tomorrow, if potassium continues to drop would resume home potassium dose. She has an appointment with Dr. Gamoba scheduled in a few weeks to evaluate her tremors. Blood pressures are running slightly high, but improved over the course of the day yesterday. Will continue to monitor. 05/22/17 Patient given another patient's medications today. Patient's lisinopril was held this morning as her blood pressure was 123/62 after getting the Lasix. Will monitor her closely today. Other than drowsiness, I don't expect any significant reactions/side effects from the medications she was given. She was given her allopurinol and her aspirin. Will check a BMP in the morning. Her home potassium is still on hold. 05/22/17 16:58 Seroquel 25mg at 0900 and 1800 05/23/17 18:38 Increase 1800 dose of Seroquel to 50mg to target increased agitation at night 05/24/17 19:17 Pt had an episode today of some paranoia and anger outburst, Will increase Seroquel to TID dosing. 05/25/17 12:09 Dementia with behavioral disturbance, acute. * Continues to have some paranoia and behaviors, especially in the evenings. Improved with increased Seroquel dosing TID as of 05/24. Continue care per psychiatric team. Continue to provide safe and supportive environment. * Patient incidentally received another patient's medications on 05/22. No apparent residual consequence. Will continue to monitor. Hypernatremia, acute. * Persistent hypernatremia noted with sodium at 147. Continue to encourage oral fluids and will monitor closely. Recheck BMP on 05/28 to monitor electrolytes and renal function. Hypokalemia, RESOLVED. * Potassium 3.5 on 05/23. Improved to 3.9 today. Continue home KCl for supplementation and continue to monitor. Will recheck on 05/28. Hypertension, chronic. * Blood pressure persistently elevated >150's systolic. Will add Norvasc 2.5mg daily for additional blood pressure control. Monitor closely for signs of hypotension and orthostasis. Will ensure patient's diet is sodium 2g. COPD, chronic. * Monitor respiratory function closely. Overall, stable. Fibromyalgia and chronic pain, chronic. * Tylenol as needed for pain control. Hyperlipidemia, chronic. * Continue home Lipitor. Monitor as outpatient. GERD, chronic. * Continue home Pepcid for GI protection and GERD. 05/25/17 17:44 Pt is improving but continues to have some paranoia at times. Will consider increase of Seroquel over the weekend 05/26/17 13:57 Pt continues to improve. Continue current care 05/27/17 17:15 Pt improving. Continue current care 05/28/17 18:19 Increase Seroquel to 50mg PO TID 05/28/17 18:33 Repeat platelets on 05/30/17 to confirm they are not continuing to trend downward Repeat BMP on 05/30/17 to follow hypernatremia. Encourage fluids. 05/29/17 20:52 Paranoia improving. Continue current care 05/30/17 20:26 Increase Seroquel to 75mg PO TID 05/31/17 19:59 Improving. Continue current care 06/01/17 Labs reviewed - platelet count increased to 110. She again has mild leukopenia. Hgb stable at 13.5. Recommend outpt f/u. Mild hypernatremia at 145 which is improving, otherwise chemistry profile is stable. Abdominal distention today - she had a bowel movement this am. Will start MiraLAX daily and add other PRNs. Review of VS show she had hypotension yesterday afternoon with MAPs 60-66. Currently, she is hypertensive. Will hold Norvasc (which was started on 05/25) and add hold parameter to lisinopril to hold if SBP <110. 06/04/17 20:22 Depakote level in AM. 06/05/17 Labs were repeated yesterday - still has thrombocytopenia and leukopenia. Na has increased again to 148 - encoural oral intake. No more periods of hypotension, though BP has been variable. Will continue to monitor; not resume Norvasc at this time. Tremors could indicate underlying Parkinsonian d/o, and thus increases her risk for orthostasis. Psych notes reviewed. 06/05/17 18:06 Pt remains paranoid. Will continue current care 06/06/17 16:54 Increase Seroquel to 100mg PO TID. Stop Depakote as it may be increasing gate issues and probably has limited benefit 06/07/17 17:43 Improving. Continue current care 06/09/17 11:04 Continues to improve. Continue current care 06/09/17 11:44 PT improving. Continue current care
[2017-06-09] MEDS: FAMOTIDINE 20 MG TABLET PO SCH (19:28)
[2017-06-09] MEDS: ATORVASTATIN 10 MG TABLET PO SCH (19:28)
[2017-06-10] MEDS: ASPIRIN *EC* 81 MG TABLET PO SCH (08:35)
[2017-06-10] MEDS: LISINOPRIL 20 MG TABLET PO SCH (08:36)
[2017-06-10] MEDS: ALLOPURINOL 100 MG TABLET PO SCH (08:36)
[2017-06-10] MEDS: QUETIAPINE 100 MG TABLET PO SCH ×4 (08:36→20:03)
[2017-06-10] MEDS: POLYETHYL GLYCOL 3350 17gm PACKET PO SCH (08:37)
[2017-06-10] MEDS: ATORVASTATIN 10 MG TABLET PO SCH ×2 (08:51→20:03)
[2017-06-10] MEDS: FAMOTIDINE 20 MG TABLET PO SCH ×2 (08:51→20:03)
--- NOTE | 2017-06-10 10:36 | Neuropsych Progress Note ---
[facility] Subjective Date: 06/10/17 - Sujective/Severity of Illness Medications: Acetaminophen (Tylenol) 325 - 650 mg PO Q5H PRN PRN Reason: Discomfort Last Admin: 06/02/17 19:57 Dose: 650 mg Allopurinol (Zyloprim) 100 mg PO DAILY [facility] Last Admin: 06/10/17 08:36 Dose: 100 mg Amlodipine Besylate (Norvasc) 2.5 mg PO DAILY [facility] Last Admin: 06/01/17 08:10 Dose: 2.5 mg Aspirin (Ecotrin) 81 mg PO DAILY [facility] Last Admin: 06/10/17 08:35 Dose: 81 mg Atorvastatin Calcium (Lipitor) 10 mg PO 2100 [facility] Last Admin: 06/10/17 08:51 Dose: Not Given Bisacodyl (Dulcolax) 10 mg RECTALLY DAILY PRN PRN Reason: Constipation Famotidine (Pepcid) 20 mg PO 2100 [facility] Last Admin: 06/10/17 08:51 Dose: Not Given Haloperidol (Haldol) 0.5 mg PO Q6H PRN PRN Reason: Extreme agitation Last Admin: 06/04/17 10:19 Dose: 0.5 mg Haloperidol Lactate (Haldol) 0.5 mg IM Q6H PRN PRN Reason: Extreme agitation Lisinopril (Prinivil) 20 mg PO DAILY [facility] Last Admin: 06/10/17 08:36 Dose: 20 mg Magnesium Hydroxide (Mom) 30 ml PO DAILY PRN PRN Reason: Constipation Last Admin: 06/04/17 18:01 Dose: 30 ml Polyethylene Glycol (Miralax) 17 gm PO DAILY [facility] Last Admin: 06/10/17 08:37 Dose: 17 gm Potassium Chloride (K-Dur) 20 meq PO WB [facility] Last Admin: 06/10/17 08:35 Dose: 20 meq Quetiapine Fumarate (Seroquel) 50 mg PO ONE TIME [facility] Last Admin: 06/04/17 11:43 Dose: 50 mg Quetiapine Fumarate (Seroquel) 100 mg PO TID [facility] Last Admin: 06/10/17 08:52 Dose: Not Given Senna/Docusate Sodium (Senna Plus Tablet) 1 tab PO BID PRN PRN Reason: Constipation /Stool softening Silver Sulfadiazine (Silvadene) 1 applic TOP PRN PRN Tramadol HCl (Ultram) 25 mg PO Q6H PRN PRN Reason: Pain Last Admin: 06/09/17 16:26 Dose: 25 mg Subjective: Pt seen and chart examined. Nursing reports pt is doing well. Some VH last night but were not concerning to the pt. No behaviors noted. On face to face the pt states she is doing well. She does reports some back pain. She reports her mood is stable. She denies any VH or paranoia this AM. Tolerating meds Start Time: 10:15 Stop Time: 10:30 Mental Status Exam Vitals: Last Vital Signs Temp 97.5 F 06/10/17 08:00 Pulse 54 L 06/10/17 08:00 Resp 16 06/10/17 08:00 BP 147/69 H 06/10/17 08:00 Pulse Ox 92 06/10/17 08:00 Height: 1.65 m Weight: 73.5 kg - Mental Status Exam Muscle Strength/Tone: Normal Dressing: Casual Grooming: Good Attitude: Cooperative Motor Activity: Normal Eye Contact: Good Speech: Slowed Volume: Normal Rhythm: Appropriate Rhythm Orientation: Oriented to person Mood: Neutral (Affect calm, appropriate) Rate of Thoughts: Delayed Thought Organization: [place] Associations: [employer] Abstract Reasoning: Poor abstract reasoning Thought Content: Delusions, Paranoia Perception/Psychotic: Perception Normal Current Hallucinations: Visual (Intermittent) Language: Naming Impaired Memory: Poor-immediate, Poor-recent Suicidal Ideation: None Homicidal Ideation: None Insight: Poor Judgement: Poor Impulse Control: Fair - Laboratory Result Diagrams: 06/08/17 04:38 06/08/17 04:38 Assessment and Plan (1) 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 Hospital Course: 05/19/17 17:00 She does appear a bit dry- she did receive IVF in the ED. Will follow up labs for stability. If she becomes more dry, may need to hold lisinopril due to risk of kidney injury. BP is fairly stable. We will continue to monitor. Safe environment, fall precautions in place. She does have a significant, right sided tremor. I don't see that she has any parkinson's meds in place. We may need to consider adding that in to help with gait stability once we have her stabilized from a mental health perspective. Thank you for the consult- we will follow. 05/21/17 09:47 Her potassium level was normal on admission. Her home potassium was held, and she was continued on lisinopril for hypertension. Most recent potassium level was slightly low at 3.2. Will check BMP tomorrow, if potassium continues to drop would resume home potassium dose. She has an appointment with Dr. Gamboa scheduled in a few weeks to evaluate her tremors. Blood pressures are running slightly high, but improved over the course of the day yesterday. Will continue to monitor. 05/22/17 Patient given another patient's medications today. Patient's lisinopril was held this morning as her blood pressure was 123/62 after getting the Lasix. Will monitor her closely today. Other than drowsiness, I don't expect any significant reactions/side effects from the medications she was given. She was given her allopurinol and her aspirin. Will check a BMP in the morning. Her home potassium is still on hold. 05/22/17 16:58 Seroquel 25mg at 0900 and 1800 05/23/17 18:38 Increase 1800 dose of Seroquel to 50mg to target increased agitation at night 05/24/17 19:17 Pt had an episode today of some paranoia and anger outburst, Will increase Seroquel to TID dosing. 05/25/17 12:09 Dementia with behavioral disturbance, acute. * Continues to have some paranoia and behaviors, especially in the evenings. Improved with increased Seroquel dosing TID as of 05/24. Continue care per psychiatric team. Continue to provide safe and supportive environment. * Patient incidentally received another patient's medications on 05/22. No apparent residual consequence. Will continue to monitor. Hypernatremia, acute. * Persistent hypernatremia noted with sodium at 147. Continue to encourage oral fluids and will monitor closely. Recheck BMP on 05/28 to monitor electrolytes and renal function. Hypokalemia, RESOLVED. * Potassium 3.5 on 05/23. Improved to 3.9 today. Continue home KCl for supplementation and continue to monitor. Will recheck on 05/28. Hypertension, chronic. * Blood pressure persistently elevated >150's systolic. Will add Norvasc 2.5mg daily for additional blood pressure control. Monitor closely for signs of hypotension and orthostasis. Will ensure patient's diet is sodium 2g. COPD, chronic. * Monitor respiratory function closely. Overall, stable. Fibromyalgia and chronic pain, chronic. * Tylenol as needed for pain control. Hyperlipidemia, chronic. * Continue home Lipitor. Monitor as outpatient. GERD, chronic. * Continue home Pepcid for GI protection and GERD. 05/25/17 17:44 Pt is improving but continues to have some paranoia at times. Will consider increase of Seroquel over the weekend 05/26/17 13:57 Pt continues to improve. Continue current care 05/27/17 17:15 Pt improving. Continue current care 05/28/17 18:19 Increase Seroquel to 50mg PO TID 05/28/17 18:33 Repeat platelets on 05/30/17 to confirm they are not continuing to trend downward Repeat BMP on 05/30/17 to follow hypernatremia. Encourage fluids. 05/29/17 20:52 Paranoia improving. Continue current care 05/30/17 20:26 Increase Seroquel to 75mg PO TID 05/31/17 19:59 Improving. Continue current care 06/01/17 Labs reviewed - platelet count increased to 110. She again has mild leukopenia. Hgb stable at 13.5. Recommend outpt f/u. Mild hypernatremia at 145 which is improving, otherwise chemistry profile is stable. Abdominal distention today - she had a bowel movement this am. Will start MiraLAX daily and add other PRNs. Review of VS show she had hypotension yesterday afternoon with MAPs 60-66. Currently, she is hypertensive. Will hold Norvasc (which was started on 05/25) and add hold parameter to lisinopril to hold if SBP <110. 06/04/17 20:22 Depakote level in AM. 06/05/17 Labs were repeated yesterday - still has thrombocytopenia and leukopenia. Na has increased again to 148 - encoural oral intake. No more periods of hypotension, though BP has been variable. Will continue to monitor; not resume Norvasc at this time. Tremors could indicate underlying Parkinsonian d/o, and thus increases her risk for orthostasis. Psych notes reviewed. 06/05/17 18:06 Pt remains paranoid. Will continue current care 06/06/17 16:54 Increase Seroquel to 100mg PO TID. Stop Depakote as it may be increasing gate issues and probably has limited benefit 06/07/17 17:43 Improving. Continue current care 06/09/17 11:04 Continues to improve. Continue current care 06/09/17 11:44 PT improving. Continue current care 06/10/17 10:36 Pt continues to improve. Continue current care
[2017-06-10] MEDS: TRAMADOL 50 MG TABLET PO PRN (10:42)
[2017-06-10] MEDS: ACETAMINOPHEN 325 MG TABLET PO PRN (15:03)
--- NOTE | 2017-06-10 16:08 | Progress Note ---
<Rhiannon Chau - Last Filed: 06/10/17 16:04> Subjective: Praveen is seen today in follow up. She is reporting some intermittent back pain - denies injury. "Happens when I get upset." Is not able to give me much information re: back pain. Abdomen appears distended, but she denies abdominal pain. Bowel movements are documented. Chart is reviewed for collateral information. Objective Vital signs: Temperature 98.2 F 06/10/17 15:59 Pulse Rate 74 06/10/17 15:59 Respiratory Rate 20 06/10/17 15:59 Blood Pressure 108/57 06/10/17 15:59 Pulse Oximetry 95 06/10/17 15:59 Height/Weight/BMI: Height 1.65 m Weight 73.5 kg Body Mass Index 27.8 - Constitutional Present: no acute distress, obese, cooperative - Routine HEENT Exam Head: Present: normocephalic, atraumatic Eye: Present: EOMI, PERRL ENT: Present: mucous membranes moist - Routine Respiratory Exam Present: CTA bilaterally. Absent: rales, rhonchi, wheezes, crackles - Routine Cardiovascular Exam Present: RRR, S1, S2, no murmur - Routine Abdominal Exam Present: soft, normoactive bowel sounds, non tender, distended - Routine Extremities Exam Present: no edema, non tender - Routine Musculoskeletal Exam Musculoskeletal: Present: no clubbing or cyanosis - Routine Skin Exam Present: intact, dry, warm - Routine Neurological Exam Present: alert, moving all extremities - Routine Psychiatric Exam Present: cooperative. Absent: normal affect, normal thought process Comments: Confused. Results - Labs CBC & Chem 7: 06/08/17 04:38 06/08/17 04:38 Assessment and Plan (1) Dementia Current visit: Yes Status: Chronic (2) Cognitive and behavioral changes Current visit: Yes Status: Acute (3) History of recent fall Current visit: No Status: Acute (4) CAD (coronary artery disease) Current visit: No Status: Chronic (5) HTN (hypertension) Current visit: Yes Status: Chronic (6) Dehydration with hypernatremia Current visit: No Status: Acute GI Prophylaxis: Pepcid Resuscitation Status: Do Not Resuscitate Assessment and Plan: Assessment: Hypernatremia Thrombocytopenia and leukopenia Cognitive/behavioral changes Dementia CAD Hypertension COPD Fibromyalgia/chronic pain Hyperlipidemia GERD Plan: 06/10/17 Main c/o is nonspecific pain. Will increase Tramadol to 50mg dose for PRN use. May also use tylenol for breakthrough pain. She does have a hx of chronic pain. She remains chronically dry-continue to push fluids. Follow labs intermittently. BP is fairly well controlled. Holding Norvasc. Change Lisinopril to BID as BP is high in the morning and fairly low in the afternoons. Sepsis Assessment - Evaluation Sepsis screening result: No Definite Risk Hospital Course Summary Disclaimer: The visit summary below is not to be considered part of the above Progress Note. Hospital Course: 05/19/17 17:00 She does appear a bit dry- she did receive IVF in the ED. Will follow up labs for stability. If she becomes more dry, may need to hold lisinopril due to risk of kidney injury. BP is fairly stable. We will continue to monitor. Safe environment, fall precautions in place. She does have a significant, right sided tremor. I don't see that she has any parkinson's meds in place. We may need to consider adding that in to help with gait stability once we have her stabilized from a mental health perspective. Thank you for the consult- we will follow. 05/21/17 09:47 Her potassium level was normal on admission. Her home potassium was held, and she was continued on lisinopril for hypertension. Most recent potassium level was slightly low at 3.2. Will check BMP tomorrow, if potassium continues to drop would resume home potassium dose. She has an appointment with Dr. Gamboa scheduled in a few weeks to evaluate her tremors. Blood pressures are running slightly high, but improved over the course of the day yesterday. Will continue to monitor. 05/22/17 Patient given another patient's medications today. Patient's lisinopril was held this morning as her blood pressure was 123/62 after getting the Lasix. Will monitor her closely today. Other than drowsiness, I don't expect any significant reactions/side effects from the medications she was given. She was given her allopurinol and her aspirin. Will check a BMP in the morning. Her home potassium is still on hold. 05/22/17 16:58 Seroquel 25mg at 0900 and 1800 05/23/17 18:38 Increase 1800 dose of Seroquel to 50mg to target increased agitation at night 05/24/17 19:17 Pt had an episode today of some paranoia and anger outburst, Will increase Seroquel to TID dosing. 05/25/17 12:09 Dementia with behavioral disturbance, acute. * Continues to have some paranoia and behaviors, especially in the evenings. Improved with increased Seroquel dosing TID as of 05/24. Continue care per psychiatric team. Continue to provide safe and supportive environment. * Patient incidentally received another patient's medications on 05/22. No apparent residual consequence. Will continue to monitor. Hypernatremia, acute. * Persistent hypernatremia noted with sodium at 147. Continue to encourage oral fluids and will monitor closely. Recheck BMP on 05/28 to monitor electrolytes and renal function. Hypokalemia, RESOLVED. * Potassium 3.5 on 05/23. Improved to 3.9 today. Continue home KCl for supplementation and continue to monitor. Will recheck on 05/28. Hypertension, chronic. * Blood pressure persistently elevated >150's systolic. Will add Norvasc 2.5mg daily for additional blood pressure control. Monitor closely for signs of hypotension and orthostasis. Will ensure patient's diet is sodium 2g. COPD, chronic. * Monitor respiratory function closely. Overall, stable. Fibromyalgia and chronic pain, chronic. * Tylenol as needed for pain control. Hyperlipidemia, chronic. * Continue home Lipitor. Monitor as outpatient. GERD, chronic. * Continue home Pepcid for GI protection and GERD. 05/25/17 17:44 Pt is improving but continues to have some paranoia at times. Will consider increase of Seroquel over the weekend 05/26/17 13:57 Pt continues to improve. Continue current care 05/27/17 17:15 Pt improving. Continue current care 05/28/17 18:19 Increase Seroquel to 50mg PO TID 05/28/17 18:33 Repeat platelets on 05/30/17 to confirm they are not continuing to trend downward Repeat BMP on 05/30/17 to follow hypernatremia. Encourage fluids. 05/29/17 20:52 Paranoia improving. Continue current care 05/30/17 20:26 Increase Seroquel to 75mg PO TID 05/31/17 19:59 Improving. Continue current care 06/01/17 Labs reviewed - platelet count increased to 110. She again has mild leukopenia. Hgb stable at 13.5. Recommend outpt f/u. Mild hypernatremia at 145 which is improving, otherwise chemistry profile is stable. Abdominal distention today - she had a bowel movement this am. Will start MiraLAX daily and add other PRNs. Review of VS show she had hypotension yesterday afternoon with MAPs 60-66. Currently, she is hypertensive. Will hold Norvasc (which was started on 05/25) and add hold parameter to lisinopril to hold if SBP <110. 06/04/17 20:22 Depakote level in AM. 06/05/17 Labs were repeated yesterday - still has thrombocytopenia and leukopenia. Na has increased again to 148 - encoural oral intake. No more periods of hypotension, though BP has been variable. Will continue to monitor; not resume Norvasc at this time. Tremors could indicate underlying Parkinsonian d/o, and thus increases her risk for orthostasis. Psych notes reviewed. 06/05/17 18:06 Pt remains paranoid. Will continue current care 06/06/17 16:54 Increase Seroquel to 100mg PO TID. Stop Depakote as it may be increasing gate issues and probably has limited benefit 06/07/17 17:43 Improving. Continue current care 06/09/17 11:04 Continues to improve. Continue current care 06/09/17 11:44 PT improving. Continue current care 06/10/17 10:36 Pt continues to improve. Continue current care 06/10/17 16:12 Main c/o is nonspecific pain. Will increase Tramadol to 50mg dose for PRN use. May also use tylenol for breakthrough pain. She does have a hx of chronic pain. She remains chronically dry-continue to push fluids. Follow labs intermittently. BP is fairly well controlled. Holding Norvasc. Change Lisinopril to BID as BP is high in the morning and fairly low in the afternoons. <Emily Jimenes - Last Filed: 06/10/17 17:29> Objective Vital signs: Temperature 98.2 F 06/10/17 15:59 Pulse Rate 74 06/10/17 15:59 Respiratory Rate 20 06/10/17 15:59 Blood Pressure 108/57 06/10/17 15:59 Pulse Oximetry 95 06/10/17 15:59 Height/Weight/BMI: Height 1.65 m Weight 73.5 kg Body Mass Index 27.8 Results - Labs CBC & Chem 7: 06/08/17 04:38 06/08/17 04:38 Assessment and Plan (1) Dementia Current visit: Yes Status: Chronic (2) Cognitive and behavioral changes Current visit: Yes Status: Acute (3) History of recent fall Current visit: No Status: Acute (4) CAD (coronary artery disease) Current visit: No Status: Chronic (5) HTN (hypertension) Current visit: Yes Status: Chronic (6) Dehydration with hypernatremia Current visit: No Status: Acute Assessment and Plan: 06/10/2017-I reviewed this chart, the patient history, and the PRODUCT DESIGN SPECIALIST's/PA's documented findings as above. We discussed and formulated the assessment and plan as above with the additions below.-Jalil Patient is seen in the day room sleeping in a recliner. She awakens easily. She states she had back pain earlier today but it is better now. Back pain is not uncommon for her. She denies any shortness of breath or chest pain. She denies any other complaints. Her nurse has no other concerns. Her nurse did state that she had been on 50 mg of tramadol in the past but the psychiatrist decreased it to 25 mg to see if that would help with her behaviors. On exam the patient is alert and in no acute distress. Chest is clear to auscultation. Cardiovascular reveals a regular rate and rhythm. Abdomen is soft and nontender. Extremity's are free of edema. Agree with impression and plan above, however we'll decrease tramadol back to 25 mg a day since she had worsening behavior on the higher dose in the past. Will try lidocaine patch for her low back. Will order Tylenol to be scheduled for times a day. Hopefully this will help with her low back pain. Hospital Course Summary Disclaimer: The visit summary below is not to be considered part of the above Progress Note.
[2017-06-10] MEDS ORDERED: TRAMADOL 50 MG TABLET PO PRN ×2 (16:13→17:25)
[2017-06-10] MEDS: ACETAMINOPHEN 325 MG TABLET PO SCH (20:04)
[2017-06-11] MEDS ORDERED: MAG-AL + SIM ORAL LIQUID 30ml PO PRN (05:38)
[2017-06-11] MEDS: ASPIRIN *EC* 81 MG TABLET PO SCH (09:24)
[2017-06-11] MEDS: ALLOPURINOL 100 MG TABLET PO SCH (09:24)
[2017-06-11] MEDS: QUETIAPINE 100 MG TABLET PO SCH ×4 (09:24→23:36)
[2017-06-11] MEDS: POLYETHYL GLYCOL 3350 17gm PACKET PO SCH (09:25)
[2017-06-11] MEDS: LISINOPRIL 10 MG TABLET PO SCH ×3 (09:25→23:35)
[2017-06-11] MEDS: LIDOCAINE 5% PATCH TOP SCH (09:25)
[2017-06-11] MEDS: ACETAMINOPHEN 325 MG TABLET PO SCH ×5 (09:32→23:36)
--- NOTE | 2017-06-11 10:17 | Neuropsych Progress Note ---
[facility] Subjective Date: 06/11/17 - Sujective/Severity of Illness Medications: Acetaminophen (Tylenol) 650 mg PO QID [facility] Last Admin: 06/11/17 09:32 Dose: 650 mg Al Hydroxide/Mg Hydroxide (Maalox Plus) 30 ml PO Q4H PRN PRN Reason: Indigestion Last Admin: 06/11/17 05:40 Dose: 30 ml Allopurinol (Zyloprim) 100 mg PO DAILY [facility] Last Admin: 06/11/17 09:24 Dose: 100 mg Amlodipine Besylate (Norvasc) 2.5 mg PO DAILY [facility] Last Admin: 06/01/17 08:10 Dose: 2.5 mg Aspirin (Ecotrin) 81 mg PO DAILY [facility] Last Admin: 06/11/17 09:24 Dose: 81 mg Atorvastatin Calcium (Lipitor) 10 mg PO 2100 [facility] Last Admin: 06/10/17 20:03 Dose: 10 mg Bisacodyl (Dulcolax) 10 mg RECTALLY DAILY PRN PRN Reason: Constipation Famotidine (Pepcid) 20 mg PO 2100 [facility] Last Admin: 06/10/17 20:03 Dose: 20 mg Haloperidol (Haldol) 0.5 mg PO Q6H PRN PRN Reason: Extreme agitation Last Admin: 06/04/17 10:19 Dose: 0.5 mg Haloperidol Lactate (Haldol) 0.5 mg IM Q6H PRN PRN Reason: Extreme agitation Lidocaine (Lidoderm) 1 patch TOP DAILY [facility] Last Admin: 06/11/17 09:25 Dose: 1 patch Lidocaine HCl/Dextrose (Lidoderm Patch Removal) 1 removal TOP 2099 [facility] Lisinopril (Prinivil) 10 mg PO BID [facility] Last Admin: 06/11/17 09:25 Dose: 10 mg Magnesium Hydroxide (Mom) 30 ml PO DAILY PRN PRN Reason: Constipation Last Admin: 06/04/17 18:01 Dose: 30 ml Polyethylene Glycol (Miralax) 17 gm PO DAILY [facility] Last Admin: 06/11/17 09:25 Dose: 17 gm Potassium Chloride (K-Dur) 20 meq PO WB [facility] Last Admin: 06/11/17 09:24 Dose: 20 meq Quetiapine Fumarate (Seroquel) 50 mg PO ONE TIME [facility] Last Admin: 06/04/17 11:43 Dose: 50 mg Quetiapine Fumarate (Seroquel) 100 mg PO TID [facility] Last Admin: 06/11/17 09:24 Dose: 100 mg Senna/Docusate Sodium (Senna Plus Tablet) 1 tab PO BID PRN PRN Reason: Constipation /Stool softening Silver Sulfadiazine (Silvadene) 1 applic TOP PRN PRN Tramadol HCl (Ultram) 25 mg PO Q6H PRN PRN Reason: Pain Subjective: Pt seen and chart examined. Nursing reports pt is doing well. Sleeping well and has a good appetite. No behaviors noted. On face to face the pt states she is doing well. She is pleasant but confused. She denies any VH or paranoia. Tolerating meds Start Time: 10:00 Stop Time: 10:15 Mental Status Exam Vitals: Last Vital Signs Temp 97.4 F 06/11/17 08:00 Pulse 66 06/11/17 08:00 Resp 16 06/11/17 08:00 BP 151/77 H 06/11/17 08:00 Pulse Ox 98 06/11/17 08:00 Height: 1.65 m Weight: 75.2 kg - Mental Status Exam Muscle Strength/Tone: Normal Dressing: Casual Grooming: Good Attitude: Cooperative Motor Activity: Normal Eye Contact: Good Speech: Slowed Volume: Normal Rhythm: Appropriate Rhythm Orientation: Oriented to person Mood: Neutral (Affect calm, appropriate) Rate of Thoughts: Delayed Thought Organization: [employer] Associations: [employer] Abstract Reasoning: Poor abstract reasoning Thought Content: Delusions, Paranoia Perception/Psychotic: Perception Normal Current Hallucinations: Visual (Intermittent) Language: Naming Impaired Memory: Poor-immediate, Poor-recent Suicidal Ideation: None Homicidal Ideation: None Insight: Poor Judgement: Poor Impulse Control: Fair - Laboratory Result Diagrams: 06/08/17 04:38 06/08/17 04:38 Assessment and Plan (1) 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 Hospital Course: 05/19/17 17:00 She does appear a bit dry- she did receive IVF in the ED. Will follow up labs for stability. If she becomes more dry, may need to hold lisinopril due to risk of kidney injury. BP is fairly stable. We will continue to monitor. Safe environment, fall precautions in place. She does have a significant, right sided tremor. I don't see that she has any parkinson's meds in place. We may need to consider adding that in to help with gait stability once we have her stabilized from a mental health perspective. Thank you for the consult- we will follow. 05/21/17 09:47 Her potassium level was normal on admission. Her home potassium was held, and she was continued on lisinopril for hypertension. Most recent potassium level was slightly low at 3.2. Will check BMP tomorrow, if potassium continues to drop would resume home potassium dose. She has an appointment with Dr. Gamboa scheduled in a few weeks to evaluate her tremors. Blood pressures are running slightly high, but improved over the course of the day yesterday. Will continue to monitor. 05/22/17 Patient given another patient's medications today. Patient's lisinopril was held this morning as her blood pressure was 123/62 after getting the Lasix. Will monitor her closely today. Other than drowsiness, I don't expect any significant reactions/side effects from the medications she was given. She was given her allopurinol and her aspirin. Will check a BMP in the morning. Her home potassium is still on hold. 05/22/17 16:58 Seroquel 25mg at 0900 and 1800 05/23/17 18:38 Increase 1800 dose of Seroquel to 50mg to target increased agitation at night 05/24/17 19:17 Pt had an episode today of some paranoia and anger outburst, Will increase Seroquel to TID dosing. 05/25/17 12:09 Dementia with behavioral disturbance, acute. * Continues to have some paranoia and behaviors, especially in the evenings. Improved with increased Seroquel dosing TID as of 05/24. Continue care per psychiatric team. Continue to provide safe and supportive environment. * Patient incidentally received another patient's medications on 05/22. No apparent residual consequence. Will continue to monitor. Hypernatremia, acute. * Persistent hypernatremia noted with sodium at 147. Continue to encourage oral fluids and will monitor closely. Recheck BMP on 05/28 to monitor electrolytes and renal function. Hypokalemia, RESOLVED. * Potassium 3.5 on 05/23. Improved to 3.9 today. Continue home KCl for supplementation and continue to monitor. Will recheck on 05/28. Hypertension, chronic. * Blood pressure persistently elevated >150's systolic. Will add Norvasc 2.5mg daily for additional blood pressure control. Monitor closely for signs of hypotension and orthostasis. Will ensure patient's diet is sodium 2g. COPD, chronic. * Monitor respiratory function closely. Overall, stable. Fibromyalgia and chronic pain, chronic. * Tylenol as needed for pain control. Hyperlipidemia, chronic. * Continue home Lipitor. Monitor as outpatient. GERD, chronic. * Continue home Pepcid for GI protection and GERD. 05/25/17 17:44 Pt is improving but continues to have some paranoia at times. Will consider increase of Seroquel over the weekend 05/26/17 13:57 Pt continues to improve. Continue current care 05/27/17 17:15 Pt improving. Continue current care 05/28/17 18:19 Increase Seroquel to 50mg PO TID 05/28/17 18:33 Repeat platelets on 05/30/17 to confirm they are not continuing to trend downward Repeat BMP on 05/30/17 to follow hypernatremia. Encourage fluids. 05/29/17 20:52 Paranoia improving. Continue current care 05/30/17 20:26 Increase Seroquel to 75mg PO TID 05/31/17 19:59 Improving. Continue current care 06/01/17 Labs reviewed - platelet count increased to 110. She again has mild leukopenia. Hgb stable at 13.5. Recommend outpt f/u. Mild hypernatremia at 145 which is improving, otherwise chemistry profile is stable. Abdominal distention today - she had a bowel movement this am. Will start MiraLAX daily and add other PRNs. Review of VS show she had hypotension yesterday afternoon with MAPs 60-66. Currently, she is hypertensive. Will hold Norvasc (which was started on 05/25) and add hold parameter to lisinopril to hold if SBP <110. 06/04/17 20:22 Depakote level in AM. 06/05/17 Labs were repeated yesterday - still has thrombocytopenia and leukopenia. Na has increased again to 148 - encoural oral intake. No more periods of hypotension, though BP has been variable. Will continue to monitor; not resume Norvasc at this time. Tremors could indicate underlying Parkinsonian d/o, and thus increases her risk for orthostasis. Psych notes reviewed. 06/05/17 18:06 Pt remains paranoid. Will continue current care 06/06/17 16:54 Increase Seroquel to 100mg PO TID. Stop Depakote as it may be increasing gate issues and probably has limited benefit 06/07/17 17:43 Improving. Continue current care 06/09/17 11:04 Continues to improve. Continue current care 06/09/17 11:44 PT improving. Continue current care 06/10/17 10:36 Pt continues to improve. Continue current care 06/10/17 16:12 Main c/o is nonspecific pain. Will increase Tramadol to 50mg dose for PRN use. May also use tylenol for breakthrough pain. She does have a hx of chronic pain. She remains chronically dry-continue to push fluids. Follow labs intermittently. BP is fairly well controlled. Holding Norvasc. Change Lisinopril to BID as BP is high in the morning and fairly low in the afternoons. 06/11/17 10:16 Pt continues to improve. Continue current care
--- NOTE | 2017-06-11 10:48 | Discharge Instructions ---
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 Prescriptions: New Quetiapine [Seroquel] 100 mg PO TID #90 tab Discontinued LORazepam [Ativan] 0.5 mg PO BID PRN PRN Reason: Anxiety Amitriptyline [Elavil] 10 mg PO HS No Action Atorvastatin [Lipitor] 10 mg PO HS Polyethylene Glycol 3350 [Polyethylene Glycol 3350] 1 pack PO DAILY PRN PRN Reason: Constipation Aspirin [Adult Low Dose Aspirin EC] 81 mg PO DAILY Famotidine [Pepcid AC] 20 mg PO HS lisinopril 20 mg tablet 20 mg PO DAILY #90 tab Tylenol Regular Strength 325 mg capsule 650 mg PO Q6H PRN cap PRN Reason: Pain Zyloprim (Allopurinol) 100 mg tablet 100 mg PO DAILY Discharge Instructions/Outpatient Orders: Criteria for Antipsychotic Use Location: Determined By Patient Final Provider Discharge Instructions Location: Determined By Patient - Disposition 04 To [facility] Home/Facility
--- NOTE | 2017-06-11 10:50 | Extended Care Facility Orders ---
Admission Orders Admit to:: Other Allergies/Adverse Reactions: Allergies simvastatin [From Zocor] Allergy (Intermediate, Verified 05/19/17 11:30) rash Admitting Diagnosis: major neurocognitive disorder with behavioral dist Admitting Physician: Speedy Rizvi MD Attending Physician: Speedy Rizvi MD Code Status: Do Not Resuscitate Anticiapted Length of Stay: greater than 30 days Rehab Potential: fair Rehab Prognosis: fair Diet: 05/19/17 Dinner Regular Diet [DIET] Diet Modifications: 05/25/17 Dinner Regular Diet [DIET] Diet Modifications: Sodium Restriction: 2GRAM May use Facility Protocol or Standing Orders: Yes May have flu vaccine: Yes Evaluations/Treatment: as needed Jail Certification: I certify that SNF services are required to be given on an Inpatient basis because of the patients need for retirement care on a continuing basis for the condition(s) for which he/she received inpatient hospital services prior to his/her transfer to the SNF. SNF inpatient care is necessary for the following reasons Indication for Jail: Not Applicable - Additional Information In Event of Arrest: Do Not Start CPR Resident is Aware of Diagnosis: No
[2017-06-11] MEDS: LIDOCAINE PATCH REMOVAL TOP SCH ×2 (19:22→23:35)
[2017-06-11] MEDS: FAMOTIDINE 20 MG TABLET PO SCH ×2 (19:22→23:35)
[2017-06-11] MEDS: ATORVASTATIN 10 MG TABLET PO SCH ×2 (19:23→23:35)
[2017-06-11] MEDS: CYANOCOBALAMIN (B-12) 500mcg TABLET PO SCH (20:09)
[2017-06-12 08:14] VITALS: BP 177/81; PULSE 73; RESP 20; TEMP 96.9; O2SAT 96
[2017-06-12] MEDS: LIDOCAINE 5% PATCH TOP SCH (08:19)
[2017-06-12] MEDS: POLYETHYL GLYCOL 3350 17gm PACKET PO SCH (08:19)
[2017-06-12] MEDS: LISINOPRIL 10 MG TABLET PO SCH (08:20)
[2017-06-12] MEDS: ALLOPURINOL 100 MG TABLET PO SCH (08:20)
[2017-06-12] MEDS: ACETAMINOPHEN 325 MG TABLET PO SCH (08:20)
[2017-06-12] MEDS: QUETIAPINE 100 MG TABLET PO SCH (08:21)
[2017-06-12] MEDS: ASPIRIN *EC* 81 MG TABLET PO SCH (08:21)
[2017-06-12] MEDS: CYANOCOBALAMIN (B-12) 500mcg TABLET PO SCH (08:21)
--- NOTE | 2017-06-12 08:52 | Discharge Instructions ---
Discharge Plan - Med Rec/Dispo Referrals/Follow Up: Gage Oquendo, [Family Provider] - (Dr. Jassi Oquendo will see patient on rounds for Hosp. follow-up. Patient will be see on rounds at the facility for Mental HEalth follow-up.) Additional Instructions: Discharge Diagnosis: Major Neurocognitive Disorder with Behavioral Disturbance Lewy Body Ty IN CASE OF PSYCHIATRIC EMERGENCY, CONTACT [facility] STAFF AT [phone] ( available 24 hrs daily). The hospitalist group was consulted during her [facility] course: 1. Pancytopenia - anemia workup done (iron and vitamin B12 were normal). Stool was negative for occult blood x2. Recommend f/u in outpatient setting. WBC 4.2, hgb 12.2, and plt 98 on 06/08/17. 2. Tremors; Parkinson's - f/u with neurology on 06/15/17 as planned 3. Monitor BP - labile at times. Lisinopril frequency was changed to BID. We trialed low-dose amlodipine but at times her BP was borderline low and we didn' t feel it was safe to continue. 4. Hypernatremia - improved with oral fluids. Still slightly high at 146 on . 5. She complained of back pain: we scheduled Tylenol, added a lidoderm patch for lower back, and offered Tramadol 25 mg QID PRN. Prescriptions: New Lidocaine 5% Patch [Lidoderm] 1 patch TOP DAILY #0 patch Lisinopril [Prinivil] 10 mg PO BID tablet Tramadol [Ultram] 25 mg PO Q6H PRN #20 tab PRN Reason: Pain Quetiapine [Seroquel] 100 mg PO TID #90 tab Acetaminophen [Tylenol] 650 mg PO QID tablet Cholecalciferol [Vit. D-3] 2,000 unit PO DAILY tablet Senna + Docusate [Senna Plus Tablet] 1 tab PO BID PRN tablet PRN Reason: Constipation /Stool Softening Continue Atorvastatin [Lipitor] 10 mg PO HS Polyethylene Glycol 3350 1 pack PO DAILY PRN PRN Reason: Constipation Aspirin [Adult Low Dose Aspirin EC] 81 mg PO DAILY Famotidine [Pepcid AC] 20 mg PO HS Tylenol Regular Strength 325 mg capsule 650 mg PO Q6H PRN cap PRN Reason: Pain Zyloprim (Allopurinol) 100 mg tablet 100 mg PO DAILY Discontinued LORazepam [Ativan] 0.5 mg PO BID PRN PRN Reason: Anxiety Amitriptyline [Elavil] 10 mg PO HS lisinopril 20 mg tablet 20 mg PO DAILY #90 tab Discharge Instructions/Outpatient Orders: Criteria for Antipsychotic Use Location: Determined By Patient Final Provider Discharge Instructions Location: Determined By Patient - Disposition 04 To [facility] Home/Facility
[2017-06-12] MEDS ORDERED: COENZYME Q-10 200mg TABLET PO SCH (09:00)
[2017-06-12] MEDS ORDERED: MULTI-VITAMIN PLAIN TABLET PO SCH (09:00)
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
== END 2017-06-12 11:05 | DRG 57 ==
LOC: ED 11:09 → GEN 14:42
PROVIDERS: ADMIT Psychiatry & Neurology Psychiatry; ATTEND Psychiatry & Neurology Psychiatry

== ENCOUNTER 2017-06-14 18:03 | Inpatient (IN) ==
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
[2017-06-14] MEDS ORDERED: TRAMADOL 50 MG TABLET PO PRN (20:17)
[2017-06-14] MEDS ORDERED: POLYETHYL GLYCOL 3350 17gm PACKET PO PRN (20:17)
[2017-06-14] MEDS ORDERED: QUETIAPINE 50 MG TABLET PO PRN (20:20)
[2017-06-14] MEDS ORDERED: HALOPERIDOL 5 MG/ML INJECTION IM PRN (20:21)
[2017-06-14] MEDS ORDERED: HALOPERIDOL 0.5 MG TABLET PO PRN (20:21)
[2017-06-14] MEDS ORDERED: LORazepam 0.5 MG TABLET PO PRN (20:21)
[2017-06-14] MEDS: ATORVASTATIN 10 MG TABLET PO SCH (21:12)
[2017-06-14] MEDS: QUETIAPINE 50 MG TABLET PO SCH (21:13)
[2017-06-14] MEDS: SENNA + DOCUSATE TABLET PO SCH (21:13)
[2017-06-14 23:32] VITALS: BMI 27.1
[2017-06-15] MEDS: QUETIAPINE 50 MG TABLET PO SCH ×2 (05:25→08:18)
[2017-06-15] MEDS ORDERED: MAG-AL + SIM ORAL LIQUID 30ml PO PRN (05:34)
[2017-06-15] MEDS: ACETAMINOPHEN 325 MG TABLET PO PRN ×2 (06:22→23:31)
--- NOTE | 2017-06-15 07:57 | History & Physical Report ---
<Radha Garrido - Last Filed: 06/15/17 08:34> History of Present Illness Date: 06/15/17 HPI: Cristina Deras was readmitted to [facility] on 06/14/17, after being discharged to [facility] on 06/12/17. She has had increasing agitation and has been irritable. She became so agitated that she has shown physical signs, such as throwing her walker. She has been yelling and exit seeking. Staff contacted Dr. Stauffer and he ordered Ativan and Haldol PRN. He also added Risperdal and decreased Seroquel dose. Pt's DPOA, however, refused Ativan b/c it has made her suicidal in the past. When I saw the patient this morning she was awake, sitting at the dining table waiting on breakfast. She looked at me once, then refused to make eye contact for several minutes. She did not answer any of my questions, so I was unable to capture ROS. When I asked permission to examine her, she asked why because she thought I already did that this morning, but did consent to assessment. Review of Systems ROS unobtainable: due to mental status (refused to answer questions) PFSH Pancytopenia Lewy Body Dementia Tremors Anxiety and Depression CAD, PVD Hypertension COPD Fibromyalgia/chronic pain Hyperlipidemia GERD Gout B/L cataracts Fibromyalgia IBS Osteoporosis Hx UTI Vitamin D deficiency Surgical History: Hysterectomy. Shoulder replacement and other shoulder surgeries as well. Colon surgery with removal of some of her intestines. Growth removed from neck Family History: Mother - Stroke Father - Diabetes - Social History Smoking status: Never smoker Substance use type: does not use Alcohol intake frequency: does not drink Current residence: [facility] Medications Home Medications Medication Instructions Recorded Confirmed Type Tylenol Regular Strength 325 mg 650 mg PO Q6H PRN cap 05/18/17 06/14/17 History capsule Zyloprim (Allopurinol) 100 mg 100 mg PO DAILY 05/18/17 06/14/17 History tablet Aspirin [Adult Low Dose Aspirin EC] 81 mg PO DAILY 05/19/17 06/14/17 History Atorvastatin [Lipitor] 10 mg PO HS 05/19/17 06/14/17 History Famotidine [Pepcid AC] 20 mg PO DAILY 05/19/17 06/14/17 History Polyethylene Glycol 3350 1 pack PO DAILY PRN 05/19/17 06/14/17 History Cholecalciferol [Vit. D-3] 1,000 unit PO DAILY 06/14/17 06/14/17 History Haloperidol Inj [Haldol] 0.5 mg IM Q3-4HR PRN 06/14/17 06/14/17 History Haloperidol [Haldol] 0.5 mg PO Q3-4HR PRN 06/14/17 06/14/17 History Haloperidol [Haldol] 0.5 mg PO Q6HR 06/14/17 06/14/17 History Lidocaine Patch Removal [Lidoderm 1 removal TOP HS 06/14/17 06/14/17 History Patch Removal] Lisinopril [Prinivil] 10 mg PO DAILY 06/14/17 06/14/17 History Quetiapine [Seroquel] 100 mg PO BID 06/14/17 06/14/17 History RisperiDONE [RisperDAL] 0.25 mg PO DAILY 06/14/17 06/14/17 History Senna + Docusate [Senna Plus 1 tab PO BID 06/14/17 06/14/17 History Tablet] Allergies Allergy/AdvReac Type Severity Reaction Status Date / Time simvastatin [From Zocor] Allergy Intermediate rash Verified 05/19/17 11:30 Exam Vital Signs: Temperature 97.4 F 06/14/17 20:42 Pulse Rate 70 06/14/17 20:42 Respiratory Rate 18 06/14/17 20:42 Blood Pressure 164/88 H 06/14/17 20:42 Pulse Oximetry 93 06/14/17 20:42 Height/Weight/BMI: Height 1.65 m Weight 73.7 kg Body Mass Index 27.1 - Constitutional Present: no acute distress, well nourished, well developed - Routine HEENT Exam Head: Present: normocephalic Eye: Present: PERRL. Absent: scleral injection ENT: Present: mucous membranes moist - Routine Neck Exam Present: supple - Routine Respiratory Exam Present: CTA bilaterally - Routine Cardiovascular Exam Present: RRR, S1, S2, murmur (soft systolic murmur) - Routine Abdominal Exam Present: soft, normoactive bowel sounds, non distended, non tender - Routine Extremities Exam Present: no edema, normal capillary refill - Routine Skin Exam Present: intact, dry, warm - Routine Neurological Exam Present: alert, normal speech, tremors (b/l upper ext). Absent: oriented X3 - Routine Psychiatric Exam Absent: normal affect (flat; irritable) Results - Labs CBC & Chem 7: 06/14/17 20:50 06/14/17 20:50 Assessment and Plan (1) Lewy body dementia with behavioral disturbance Current visit: Yes Status: Acute (2) Hypernatremia Current visit: Yes Status: Acute GI Prophylaxis: Pepcid Resuscitation Status: Do Not Resuscitate Assessment and Plan: ASSESSMENT Hypernatremia, azotemia, POA Lewy Body Dementia with behavioral disturbances Pancytopenia Tremors Anxiety and Depression CAD, PVD Hypertension COPD Fibromyalgia/chronic pain Hyperlipidemia GERD Gout B/L cataracts Fibromyalgia IBS Osteoporosis Hx UTI Vitamin D deficiency PLAN Recent admission; pt known to hospitalist service. Elevated BUN and hypernatremia - will encourage oral fluids. Will need to clarify with DPOA if she approves IVF, which would be a temporary solution to her persistent dehydration and hypernatremia. Hx pancytopenia - - anemia workup done during last [facility] stay (iron and vitamin B12 were normal). Stool was negative for occult blood x2. Recommended f/ u in outpatient setting. WBC 4.2, hgb 12.2, and plt 98 on 06/08/17. On admission, counts were improved: WBC 6.4, hgb 12.5, plt 143. Will monitor periodically. Tremors - she saw a neurologist in March and was diagnosed with tremors. She was supposed to have an outpt neuro appt on 06/15 (but she was readmitted to [facility]). BP has been labile at times. Lisinopril frequency was recently changed to BID. During her last visit we trialed low-dose amlodipine but at times her BP was borderline low and we didn't feel it was safe to continue. Complaints of back pain - during last visit, scheduled Tylenol, added a lidoderm patch for lower back, and offered Tramadol 25 mg QID PRN. However with her increasing behaviors, will discontinue Tramadol. Per [facility] record review, DPOA would like us to add Ativan to allergy list, since this medication makes Cristina suicidal. I've discontinued Ativan PRN. Recheck BMP in am to follow up on azotemia and hypernatremia. Code status is listed as full code - last admission she was DNR. Will ask staff to clarify. Sepsis Assessment - Evaluation Sepsis screening result: No Definite Risk Hospital Course Summary Disclaimer: The visit summary below is not to be considered part of the above Progress Note. Hospital Course: 06/15/17 Hospitalist ASSESSMENT Hypernatremia, azotemia, POA Lewy Body Dementia with behavioral disturbances Pancytopenia Tremors Anxiety and Depression CAD, PVD Hypertension COPD Fibromyalgia/chronic pain Hyperlipidemia GERD Gout B/L cataracts Fibromyalgia IBS Osteoporosis Hx UTI Vitamin D deficiency PLAN Recent admission; pt known to hospitalist service. Elevated BUN and hypernatremia - will encourage oral fluids. Will need to clarify with DPOA if she approves IVF, which would be a temporary solution to her persistent dehydration and hypernatremia. Hx pancytopenia - - anemia workup done during last [facility] stay (iron and vitamin B12 were normal). Stool was negative for occult blood x2. Recommended f/ u in outpatient setting. WBC 4.2, hgb 12.2, and plt 98 on 06/08/17. On admission, counts were improved: WBC 6.4, hgb 12.5, plt 143. Will monitor periodically. Tremors - she saw a neurologist in March and was diagnosed with tremors. She was supposed to have an outpt neuro appt on 06/15 (but she was readmitted to [facility]). BP has been labile at times. Lisinopril frequency was recently changed to BID. During her last visit we trialed low-dose amlodipine but at times her BP was borderline low and we didn't feel it was safe to continue. Complaints of back pain - during last visit, scheduled Tylenol, added a lidoderm patch for lower back, and offered Tramadol 25 mg QID PRN. However with her increasing behaviors, will discontinue Tramadol. Per [facility] record review, DPOA would like us to add Ativan to allergy list, since this medication makes Cristina suicidal. I've discontinued Ativan PRN. Recheck BMP in am to follow up on azotemia and hypernatremia. Code status is listed as full code - last admission she was DNR. Will ask staff to clarify. <Desirae Beatty - Last Filed: 06/15/17 20:00> History of Present Illness Date: 06/15/17 [facility] Patient Stated Medical History Alzheimer's Disease Yes Dementia Yes Coronary Artery Disease Yes Hypertension Yes Other Cardiology Yes: Atherosclerotic Heart Disease, PVD Chronic Obstructive Pulmonary Yes Disease (COPD) Gastroesophageal Reflux Yes Disease Hx Urinary Tract Infection Yes Other Musculoskeletal Yes: Gout Depression Yes Post Menopausal Yes Clinic Medical History Alzheimer disease (Chronic Medical) Anxiety (Chronic Medical) CAD (coronary artery disease) (Chronic Medical) COPD (chronic obstructive pulmonary disease) (Chronic Medical) Cataracts, bilateral (Chronic Medical) Depression (Chronic Medical) Dyslipidemia (Chronic Medical) 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 (Chronic Medical) Fibromyalgia (Chronic Medical) GERD (gastroesophageal reflux disease) (Chronic Medical) HTN (hypertension) (Chronic Medical) High cholesterol (Chronic Medical) IBS (irritable bowel syndrome) (Chronic Medical) Osteoporosis (Chronic Medical) Parkinsons disease (Chronic Medical) UTI (urinary tract infection) (Chronic Medical) Vitamin D deficiency (Chronic Medical) Family History: Family History Mother Stroke Father Diabetes Exam Vital Signs: Temperature 97.6 F 06/15/17 16:00 Pulse Rate 95 06/15/17 16:00 Respiratory Rate 20 06/15/17 16:00 Blood Pressure 146/64 H 06/15/17 16:00 Pulse Oximetry 92 06/15/17 16:00 Height/Weight/BMI: Height 1.65 m Weight 73.7 kg Body Mass Index 27.1 Results - Labs CBC & Chem 7: 06/14/17 20:50 06/14/17 20:50 Assessment and Plan (1) Lewy body dementia with behavioral disturbance Current visit: Yes Status: Acute (2) Hypernatremia Current visit: Yes Status: Acute Assessment and Plan: I have independently evaluated and examined this patient. I reviewed the chart, the patient's history, and the DIRECTOR PHARMACY SERVICES/PA's documented findings as above. We discussed and formulated the assessment and plan as above with additions as below: Mrs. Deras complains of diarrhea this evening and abdominal discomfort. Nursing report multiple watery stools today but no emesis. Patient has chronic tremors and outpatient records indicate diagnosis of chronic Parkinson's disease. She has not been febrile since admission. The patient denied dyspnea. Uncomfortable appearing female, respirations nonlabored Mild generalized abdominal tenderness without guarding, diminished bowel sounds Right > left upper extremity rest tremor, cogwheeling present, increased motor tone. Evs Attendant 4/5 bilaterally, dorsiflexion/plantarflexion intact. Minor right nasolabial fold flattening present. No cultures were obtained during recent hospitalization-unclear if patient has been on antibiotics recently at this time. GI panel to be obtained. At risk for dehydration with volume of stools nursing describes. Hospital Course Summary Disclaimer: The visit summary below is not to be considered part of the above Progress Note.
[2017-06-15] MEDS: SENNA + DOCUSATE TABLET PO SCH (08:18)
[2017-06-15] MEDS ORDERED: LIDOCAINE 5% PATCH TOP SCH (09:00)
[2017-06-15] MEDS ORDERED: FAMOTIDINE 20 MG TABLET PO SCH (09:00)
[2017-06-15] MEDS ORDERED: ASPIRIN *EC* 81 MG TABLET PO SCH (09:00)
[2017-06-15] MEDS ORDERED: LISINOPRIL 10 MG TABLET PO SCH (09:00)
[2017-06-15] MEDS ORDERED: ALLOPURINOL 100 MG TABLET PO SCH (09:00)
[2017-06-15] MEDS ORDERED: SENNA + DOCUSATE TABLET PO PRN (10:22)
[2017-06-15] MEDS: LOPERAMIDE 2 MG CAPSULE PO PRN ×2 (18:02→23:31)
--- NOTE | 2017-06-15 19:00 | Neuropsych Progress Note ---
[facility] Subjective Date: 06/15/17 - Sujective/Severity of Illness Medications: Acetaminophen (Tylenol) 325 - 650 mg PO Q5H PRN PRN Reason: Discomfort Last Admin: 06/15/17 06:22 Dose: 650 mg Al Hydroxide/Mg Hydroxide (Maalox Plus) 30 ml PO Q4H PRN PRN Reason: Indigestion Last Admin: 06/15/17 05:41 Dose: 30 ml Allopurinol (Zyloprim) 100 mg PO DAILY [facility] Last Admin: 06/15/17 08:18 Dose: 100 mg Aspirin (Ecotrin) 81 mg PO DAILY [facility] Last Admin: 06/15/17 08:18 Dose: 81 mg Atorvastatin Calcium (Lipitor) 10 mg PO HS [facility] Last Admin: 06/14/17 21:12 Dose: 10 mg Cholecalciferol (Vit. D-3) 1,000 unit PO DAILY [facility] Last Admin: 06/15/17 08:18 Dose: 1,000 unit Famotidine (Pepcid) 20 mg PO DAILY [facility] Last Admin: 06/15/17 08:18 Dose: 20 mg Haloperidol (Haldol) 0.5 mg PO Q6H PRN PRN Reason: Extreme agitation Haloperidol Lactate (Haldol) 0.5 mg IM Q6H PRN PRN Reason: Extreme agitation Lidocaine (Lidoderm) 1 patch TOP DAILY [facility] Last Admin: 06/15/17 08:18 Dose: 1 patch Lidocaine HCl/Dextrose (Lidoderm Patch Removal) 1 removal TOP 2100 [facility] Lisinopril (Prinivil) 10 mg PO DAILY [facility] Last Admin: 06/15/17 08:18 Dose: 10 mg Loperamide HCl (Imodium) 2 mg PO PRN PRN PRN Reason: Protocol Last Admin: 06/15/17 18:02 Dose: 2 mg Polyethylene Glycol (Miralax) 17 gm PO DAILY PRN PRN Reason: Constipation Last Admin: 06/14/17 21:24 Dose: 17 gm Quetiapine Fumarate (Seroquel) 50 mg PO BID [facility] Last Admin: 06/15/17 08:18 Dose: 50 mg Quetiapine Fumarate (Seroquel) 50 mg PO BID PRN PRN Reason: Agitation Senna/Docusate Sodium (Senna Plus Tablet) 1 tab PO BID PRN PRN Reason: Constipation Subjective: Pt seen and chart examined. Nursing reports pt is a little better today. She remains very paranoid and delusional but is able to sit quietly for periods. She slept fairly well and has a good appetite. On face to face the pt remains irritable. She reports she believes people are out to kill her but appears less distressed by it. She continues to have a tremor. Start Time: 17:30 Stop Time: 17:45 Mental Status Exam Vitals: Last Vital Signs Temp 97.6 F 06/15/17 16:00 Pulse 95 06/15/17 16:00 Resp 20 06/15/17 16:00 BP 146/64 H 06/15/17 16:00 Pulse Ox 92 06/15/17 16:00 Height: 1.65 m Weight: 73.7 kg - Mental Status Exam Muscle Strength/Tone: Weak Dressing: Casual Grooming: Fair Attitude: Guarded, Tense Motor Activity: Agitation, Tremors Eye Contact: Fair Speech: Slowed Volume: Soft Rhythm: Appropriate Rhythm Orientation: Oriented to person Mood: Neutral Rate of Thoughts: Delayed Thought Organization: [place] Associations: [employer] Abstract Reasoning: Poor abstract reasoning Thought Content: Paranoia Perception/Psychotic: Hx psychosis, not current Language: Naming Impaired Fund of Knowledge: Poor fund of knowledge Memory: Poor-immediate, Poor-recent Suicidal Ideation: None Homicidal Ideation: None Insight: Poor Judgement: Poor Impulse Control: Poor - Laboratory Result Diagrams: 06/14/17 20:50 06/14/17 20:50 Laboratory Results - last 24 hr 06/14/17 06/14/17 20:50 20:50 WBC 6.4 RBC 4.05 Hgb 12.5 Hct 38.1 MCV 94.1 MCH 30.9 MCHC 32.8 RDW Std Deviation 46.1 Plt Count 143 D MPV 11.0 Immature Gran % (Auto) 0.3 Neut % (Auto) 76.1 H Lymph % (Auto) 16.6 L [place] % (Auto) 6.4 Eos % (Auto) 0.3 Baso % (Auto) 0.3 Neut # 4.9 Lymph # 1.1 [place] # 0.4 Eos # 0.0 Baso # 0.0 Abs Immat Gran (auto) 0.02 Turbidity < 20 Sodium 147 H Potassium 3.8 Chloride 110 H Carbon Dioxide 25 Anion Gap 12 BUN 32.0 H Creatinine 0.9 GFR Calculation 60 BUN/Creatinine Ratio 36 H Glucose 146 H Calculated Osmolality 292 H Calcium 9.6 Total Bilirubin 0.60 Icterus Index < 2 AST 19 ALT 32 Alkaline Phosphatase 62 Total Protein 6.1 L Albumin 4.0 Globulin 2.1 L Albumin/Globulin Ratio 1.9 Specimen Hemolysis < 15 Assessment and Plan (1) Lewy body dementia with behavioral disturbance Current visit: Yes Status: Acute Hospital Course Summary Disclaimer: The visit summary below is not to be considered part of the above Progress Note. Hospital Course: 06/15/17 Hospitalist ASSESSMENT Hypernatremia, azotemia, POA Lewy Body Dementia with behavioral disturbances Pancytopenia Tremors Anxiety and Depression CAD, PVD Hypertension COPD Fibromyalgia/chronic pain Hyperlipidemia GERD Gout B/L cataracts Fibromyalgia IBS Osteoporosis Hx UTI Vitamin D deficiency PLAN Recent admission; pt known to hospitalist service. Elevated BUN and hypernatremia - will encourage oral fluids. Will need to clarify with DPOA if she approves IVF, which would be a temporary solution to her persistent dehydration and hypernatremia. Hx pancytopenia - - anemia workup done during last [facility] stay (iron and vitamin B12 were normal). Stool was negative for occult blood x2. Recommended f/ u in outpatient setting. WBC 4.2, hgb 12.2, and plt 98 on 06/08/17. On admission, counts were improved: WBC 6.4, hgb 12.5, plt 143. Will monitor periodically. Tremors - she saw a neurologist in March and was diagnosed with tremors. She was supposed to have an outpt neuro appt on 06/15 (but she was readmitted to [facility]). BP has been labile at times. Lisinopril frequency was recently changed to BID. During her last visit we trialed low-dose amlodipine but at times her BP was borderline low and we didn't feel it was safe to continue. Complaints of back pain - during last visit, scheduled Tylenol, added a lidoderm patch for lower back, and offered Tramadol 25 mg QID PRN. However with her increasing behaviors, will discontinue Tramadol. Per [facility] home record review, DPOA would like us to add Ativan to allergy list, since this medication makes Cristina suicidal. I've discontinued Ativan PRN. Recheck BMP in am to follow up on azotemia and hypernatremia. Code status is listed as full code - last admission she was DNR. Will ask staff to clarify. 06/15/17 18:59 Pt remains paranoid and delusional. Increase Seroquel to 50mg PO TID
[2017-06-15] MEDS: ATORVASTATIN 10 MG TABLET PO SCH (20:24)
[2017-06-15] MEDS: LIDOCAINE PATCH REMOVAL TOP SCH ×2 (20:24→21:27)
[2017-06-15] MEDS ORDERED: QUETIAPINE 50 MG TABLET PO SCH (21:00)
[2017-06-15 23:58] VITALS: TEMP 99.7
[2017-06-16] MEDS: LOPERAMIDE 2 MG CAPSULE PO PRN ×2 (02:47→05:31)
--- NOTE | 2017-06-16 08:09 | Discharge Instructions ---
Discharge Plan - Med Rec/Dispo Additional Instructions: Discharge diagnosis: Lewy Body Dementia Prescriptions: New Haloperidol [Haldol] 0.5 mg PO Q6H PRN tablet PRN Reason: Extreme Agitation Lidocaine Patch Removal [Lidoderm Patch Removal] 1 removal TOP 2100 patch Quetiapine [Seroquel] 50 mg PO TID tablet Acetaminophen [Tylenol] 325 - 650 mg PO Q5H PRN tablet PRN Reason: Discomfort Haloperidol Inj [Haldol] 0.5 mg IM Q6H PRN vial PRN Reason: Extreme Agitation Quetiapine [Seroquel] 50 mg PO BID PRN tablet PRN Reason: Agitation Continue Atorvastatin [Lipitor] 10 mg PO HS Polyethylene Glycol 3350 1 pack PO DAILY PRN PRN Reason: Constipation Aspirin [Adult Low Dose Aspirin EC] 81 mg PO DAILY Lidocaine 5% Patch [Lidoderm] 1 patch TOP DAILY #0 patch Tramadol [Ultram] 25 mg PO Q6H PRN #20 tab PRN Reason: Pain Haloperidol Inj [Haldol] 0.5 mg IM Q3-4HR PRN PRN Reason: Extreme Agitation Haloperidol [Haldol] 0.5 mg PO Q3-4HR PRN PRN Reason: Agitation Lisinopril [Prinivil] 10 mg PO DAILY Famotidine [Pepcid AC] 20 mg PO DAILY Lidocaine Patch Removal [Lidoderm Patch Removal] 1 removal TOP HS Haloperidol [Haldol] 0.5 mg PO Q6HR Cholecalciferol [Vit. D-3] 1,000 unit PO DAILY Zyloprim (Allopurinol) 100 mg tablet 100 mg PO DAILY Discontinued Senna + Docusate [Senna Plus Tablet] 1 tab PO BID RisperiDONE [RisperDAL] 0.25 mg PO DAILY Quetiapine [Seroquel] 100 mg PO BID Tylenol Regular Strength 325 mg capsule 650 mg PO Q6H PRN cap PRN Reason: Pain Discharge Instructions/Outpatient Orders: Criteria for Antipsychotic Use Location: Determined By Patient Final Provider Discharge Instructions Location: Determined By Patient - Disposition 61 To Any Swing Bed
[2017-06-16 10:05] VITALS: BP 108/61; PULSE 64; RESP 16; O2SAT 93
--- NOTE | 2017-07-16 11:59 | Neuropsychiatric Disch Summary ---
Discharge Information Date of admission: 06/14/17 18:03 Attending Physician: Speedy Rizvi MD Primary care physician: Gage Oquendo DO Consults: 06/14/17 20:21 Case Management Consult [CONS] Routine Reason For Exam: medical management Physician Consult [CONS] Routine Consulting Provider: Desirae Beatty Reason For Exam: medical management Ordering Provider has Notified Home [facility] Family Living Professor: No - Discharge Diagnosis (1) Lewy body dementia with behavioral disturbance Status: Acute - Laboratory Labs: 06/14/17 20:50 06/16/17 06:50 Date of Admission: 06/14/17 18:03 History of Present Illness: HPI: 86 Y/O CF with a hx of Lewy Body Dementia who was recently on our unit sent from a NH for increasing aggression and paranoia. PT reportedly was becoming increasingly aggressive and combative at the residential. Pt was started on Risperdal and Haldol which was not effective. On face to face the pt is extremely agitated and paranoid. She states the staff is trying to harm her and does not feel safe. She is irritable and hard to engage in conversation at this point. STRESSORS: PT states she believes people at her NH are trying to harm her PSYCH ROS: PT denies feeling depressed. She states she feels scared. Some paranoia and delusions. Denies AH. PAST PSYCH: Was recently on our unit and started on Seroquel Hospital Course This is a general summary of the patient's hospital course. For more details refer to the complete medical record. Hospital course: 06/15/17 Hospitalist ASSESSMENT Hypernatremia, azotemia, POA Lewy Body Dementia with behavioral disturbances Pancytopenia Tremors Anxiety and Depression CAD, PVD Hypertension COPD Fibromyalgia/chronic pain Hyperlipidemia GERD Gout B/L cataracts Fibromyalgia IBS Osteoporosis Hx UTI Vitamin D deficiency PLAN Recent admission; pt known to hospitalist service. Elevated BUN and hypernatremia - will encourage oral fluids. Will need to clarify with DPOA if she approves IVF, which would be a temporary solution to her persistent dehydration and hypernatremia. Hx pancytopenia - - anemia workup done during last [facility] stay (iron and vitamin B12 were normal). Stool was negative for occult blood x2. Recommended f/ u in outpatient setting. WBC 4.2, hgb 12.2, and plt 98 on 06/08/17. On admission, counts were improved: WBC 6.4, hgb 12.5, plt 143. Will monitor periodically. Tremors - she saw a neurologist in March and was diagnosed with tremors. She was supposed to have an outpt neuro appt on 06/15 (but she was readmitted to [facility]). BP has been labile at times. Lisinopril frequency was recently changed to BID. During her last visit we trialed low-dose amlodipine but at times her BP was borderline low and we didn't feel it was safe to continue. Complaints of back pain - during last visit, scheduled Tylenol, added a lidoderm patch for lower back, and offered Tramadol 25 mg QID PRN. However with her increasing behaviors, will discontinue Tramadol. Per [facility] record review, DPOA would like us to add Ativan to allergy list, since this medication makes Cristina suicidal. I've discontinued Ativan PRN. Recheck BMP in am to follow up on azotemia and hypernatremia. Code status is listed as full code - last admission she was DNR. Will ask staff to clarify. 06/15/17 18:59 Pt remains paranoid and delusional. Increase Seroquel to 50mg PO TID Time spent with patient: less than 15 minutes Discharge Plan - Med Rec/Dispo Additional Instructions: Discharge diagnosis: Lewy Body Dementia Prescriptions: New Acetaminophen [Tylenol] 325 - 650 mg PO Q5H PRN tablet PRN Reason: Discomfort Quetiapine [Seroquel] 50 mg PO BID PRN tablet PRN Reason: Agitation Continue Lidocaine 5% Patch [Lidoderm] 1 patch TOP DAILY #0 patch Tramadol [Ultram] 25 mg PO Q6H PRN #20 tab PRN Reason: Pain Lidocaine Patch Removal [Lidoderm Patch Removal] 1 removal TOP HS Haloperidol [Haldol] 0.5 mg PO Q6HR PRN PRN Reason: Anxiety/Agitation Discontinued Senna + Docusate [Senna Plus Tablet] 1 tab PO BID RisperiDONE [RisperDAL] 0.25 mg PO DAILY Quetiapine [Seroquel] 100 mg PO BID Tylenol Regular Strength 325 mg capsule 650 mg PO Q6H PRN cap PRN Reason: Pain No Action Quetiapine [Seroquel] 50 mg PO TID Ondansetron Odt [Zofran Po] 4 mg PO Q6H PRN tablet PRN Reason: Nausea &/Or Vomiting Bisacodyl Supp [Dulcolax] 10 mg RECTALLY DAILY PRN supp PRN Reason: Constipation Loperamide [Imodium] 2 mg PO PRN PRN capsule PRN Reason: Diarrhea Discharge Instructions/Outpatient Orders: Criteria for Antipsychotic Use Location: Determined By Patient Final Provider Discharge Instructions Location: Determined By Patient - [place]position 02 [place] [facility] [place] [facility]
== END 2017-06-16 09:23 | disposition short-term general hospital (02) | DRG 57 ==
LOC: GEN 18:03
PROVIDERS: ADMIT Psychiatry & Neurology Psychiatry; ATTEND Psychiatry & Neurology Psychiatry

== ENCOUNTER 2017-06-16 08:23 | Inpatient (IN) ==
[2017-06-16] MEDS ORDERED: NS FLUSH BAG 500ml IV PRN (11:23)
[2017-06-16] MEDS: LIDOCAINE 1% 2ml INJ 10 MG, POTASSIUM CHLORIDE INJ 10 MEQ in NS 100 ML IV SCH ×4 (11:53→15:16)
--- NOTE | 2017-06-16 16:30 | History & Physical Report ---
<Yuni Tesfaye - Last Filed: 06/16/17 17:09> History of Present Illness Date: 06/16/17 Chief complaint: diarrhea HPI: Patient is an 86-year-old female who was [facility] for increasing agitation and irritability. Shortly after admission she developed persistent diarrhea. She first had signs of abdominal pain at 430 yesterday morning. In review of nurse's notes, patient had diarrhea most of the day yesterday and overnight. She's had several doses of PRN Imodium. She tested positive for norovirus. Given that she will need contact precautions, IV fluids , and close medical monitoring, she was transferred to the medical floor. Patient was seen sitting in her chair in her room. Her eyes are closed, but she will respond to some questions. She is a poor historian. Majority of information was taken from nursing notes and previous visits. Her only complaint at this time is pain in her back (chronic). She is unable to tell me if she continues to have loose stools. She tells me they are not giving her anything to eat. Review of Systems ROS unobtainable: due to mental status (patient was sleeping in her chair when I examined her. She was awake enough to respond to some questions appropriately. ) Comprehensive ROS: completed and no additional positive findings except those as stated - Gastrointestinal Gastrointestinal: Present: diarrhea - Musculoskeletal Musculoskeletal: Present: back pain - Psychiatric Psychiatric: Present: as per HPI [facility] Medical History Lake body dementia with behavioral disturbances (Chronic Medical) Anxiety (Chronic Medical) CAD (coronary artery disease)/PVD (peripheral vascular disease) (Chronic Medical ) COPD (chronic obstructive pulmonary disease) (Chronic Medical) Cataracts, bilateral (Chronic Medical) Depression (Chronic Medical) Dyslipidemia (Chronic Medical) Fibromyalgia/chronic pain (Chronic Medical) GERD (gastroesophageal reflux disease) (Chronic Medical) HTN (hypertension) (Chronic Medical) High cholesterol (Chronic Medical) IBS (irritable bowel syndrome) (Chronic Medical) Osteoporosis (Chronic Medical) Parkinsons disease (Chronic Medical) History of UTI (urinary tract infection) (Chronic Medical) Vitamin D deficiency (Chronic Medical) Essential tremors (chronic medical) Gout (chronic medical) Surgical History: Hysterectomy. Shoulder replacement and other shoulder surgeries as well. Colon surgery with removal of some of her intestines. Growth removed from neck Family History: Family History Mother Stroke Father Diabetes - Social History Smoking status: Never smoker Substance use type: does not use Alcohol intake frequency: does not drink Housing: skilled nursing Current occupational status: retired Social history: PCP-Gage Oquendo Medications Home Medications Medication Instructions Recorded Confirmed Type Zyloprim (Allopurinol) 100 mg 100 mg PO DAILY 05/18/17 06/16/17 History tablet Aspirin [Adult Low Dose Aspirin EC] 81 mg PO DAILY 05/19/17 06/16/17 History Atorvastatin [Lipitor] 10 mg PO HS 05/19/17 06/16/17 History Famotidine [Pepcid AC] 20 mg PO DAILY 05/19/17 06/16/17 History Polyethylene Glycol 3350 1 pack PO DAILY PRN 05/19/17 06/16/17 History Cholecalciferol [Vit. D-3] 1,000 unit PO DAILY 06/14/17 06/16/17 History Haloperidol [Haldol] 0.5 mg PO Q6HR PRN 06/14/17 06/16/17 History Lidocaine Patch Removal [Lidoderm 1 removal TOP 06/14/17 06/16/17 History Patch Removal] Lisinopril [Prinivil] 10 mg PO DAILY 06/14/17 06/16/17 History Loperamide [Imodium] 2 mg PO PRN PRN 06/16/17 06/16/17 History Mag-Al + Sim Oral Liq [Maalox Plus] 30 ml PO Q4H PRN 06/16/17 06/16/17 History Polyethylene Glycol 3350 [Miralax] 1 pack PO DAILY PRN 06/16/17 06/16/17 History Quetiapine [Seroquel] 50 mg PO TID 06/16/17 06/16/17 History Allergies Allergy/AdvReac Type Severity Reaction Status Date / Time simvastatin [From Zocor] Allergy Intermediate rash Verified 06/16/17 11:19 Exam Vital Signs: Temperature 98.0 F 06/16/17 15:23 Pulse Rate 73 06/16/17 15:23 Respiratory Rate 18 06/16/17 15:23 Blood Pressure 111/53 06/16/17 15:23 Pulse Oximetry 94 06/16/17 15:23 Height/Weight/BMI: Height 1.65 m Weight 71.5 kg Body Mass Index 26.3 - Constitutional Present: no acute distress, well nourished, well developed - Routine HEENT Exam Head: Present: normocephalic, atraumatic Eye: Present: EOMI ENT: Present: mucous membranes moist, oropharynx clear - Routine Neck Exam Present: supple, full ROM - Routine Respiratory Exam Present: CTA bilaterally. Absent: wheezes - Routine Cardiovascular Exam Present: RRR, murmur (soft systolic murmur) - Routine Abdominal Exam Present: soft, normoactive bowel sounds, non distended. Absent: tenderness - Routine Extremities Exam Present: no edema, normal capillary refill - Routine Skin Exam Present: dry, warm. Absent: normal turgor (poor skin turgor) - Routine Neurological Exam Present: altered mental status, moving all extremities, normal speech, tremors ( bilateral upper extremities (right > left)). Absent: normal tone (weak homemaker companion strength) - Routine Psychiatric Exam Present: normal affect, cooperative Results - Labs Labs: Laboratory Tests 06/16/17 06:50 Turbidity < 20 Sodium 142 Potassium 2.9 L* D Chloride 109 H Carbon Dioxide 22 Anion Gap 11 BUN 32.0 H Creatinine 0.8 GFR Calculation 68 BUN/Creatinine Ratio 40 H Glucose 105 Calculated Osmolality 280 Calcium 8.9 Laboratory Tests 06/16/17 05:20 Stl Norovirus GI/GII PCR Detected A* Assessment and Plan (1) Enteritis due to Norovirus Current visit: Yes Status: Acute DVT Prophylaxis: SCD's Resuscitation Status: Do Not Resuscitate Assessment and Plan: Assessment norovirus enteritis Hypokalemia (POA) Lewy body dementia with behavioral disturbances (Chronic Medical) Anxiety (Chronic Medical) CAD (coronary artery disease)/PVD (peripheral vascular disease) (Chronic Medical ) COPD (chronic obstructive pulmonary disease) (Chronic Medical) Cataracts, bilateral (Chronic Medical) Depression (Chronic Medical) Dyslipidemia (Chronic Medical) Fibromyalgia/chronic pain (Chronic Medical) GERD (gastroesophageal reflux disease) (Chronic Medical) HTN (hypertension) (Chronic Medical) High cholesterol (Chronic Medical) IBS (irritable bowel syndrome) (Chronic Medical) Osteoporosis (Chronic Medical) Parkinsons disease (Chronic Medical) History of UTI (urinary tract infection) (Chronic Medical) Vitamin D deficiency (Chronic Medical) Essential tremors - ? Parkinson's (chronic medical) Gout (chronic medical) Plan Admit to the medical floor under the hospitalist service, Dr. Beatty, attending, for supportive treatment of enteritis caused by norovirus, as well as contact precautions. Given her virus, dehydration, hypokalemia, and other comorbidities, expect her stay will be greater than 2 overnights. SCDs for DVT prophylaxis Imodium PRN diarrhea Contact precautions for norovirus infection 10 mEq potassium 4 IV with IV normal saline with 20 mEq potassium to follow. Repeat potassium later this afternoon. PT/OT eval to evaluate functional ability Haldol prn behavioral disturbance Continue famotidine for GI prophylaxis/GERD Patient's care to return to her PCP, Dr. Gage Oquendo, on discharge, unless, based on behaviors, she is a candidate to return to [facility]. Sepsis Assessment - Evaluation Sepsis screening result: No Definite Risk Hospital Course Summary Disclaimer: The visit summary below is not to be considered part of the above Progress Note. Hospital Course: 06/16/17 Assessment norovirus enteritis Hypokalemia (POA) Lewy body dementia with behavioral disturbances (Chronic Medical) Anxiety (Chronic Medical) CAD (coronary artery disease)/PVD (peripheral vascular disease) (Chronic Medical ) COPD (chronic obstructive pulmonary disease) (Chronic Medical) Cataracts, bilateral (Chronic Medical) Depression (Chronic Medical) Dyslipidemia (Chronic Medical) Fibromyalgia/chronic pain (Chronic Medical) GERD (gastroesophageal reflux disease) (Chronic Medical) HTN (hypertension) (Chronic Medical) High cholesterol (Chronic Medical) IBS (irritable bowel syndrome) (Chronic Medical) Osteoporosis (Chronic Medical) Parkinsons disease (Chronic Medical) History of UTI (urinary tract infection) (Chronic Medical) Vitamin D deficiency (Chronic Medical) Essential tremors - ? Parkinson's (chronic medical) Gout (chronic medical) Plan Admit to the medical floor under the hospitalist service, Dr. Beatty, attending, for supportive treatment of enteritis caused by norovirus, as well as contact precautions. Given her virus, dehydration, hypokalemia, and other comorbidities, expect her stay will be greater than 2 overnights. SCDs for DVT prophylaxis Imodium PRN diarrhea Contact precautions for norovirus infection 10 mEq potassium 4 IV with IV normal saline with 20 mEq potassium to follow. Repeat potassium later this afternoon. PT/OT eval to evaluate functional ability Haldol prn behavioral disturbance Continue famotidine for GI prophylaxis/GERD Patient's care to return to her PCP, Dr. Gage Oquendo, on discharge, unless, based on behaviors, she is a candidate to return [facility]. <Desirae Beatty - Last Filed: 06/16/17 20:03> History of Present Illness Date: 06/16/17 [facility] Family History: Family History Mother Stroke Father Diabetes Exam Vital Signs: Temperature 98.0 F 06/16/17 15:23 Pulse Rate 73 06/16/17 15:23 Respiratory Rate 18 06/16/17 15:23 Blood Pressure 111/53 06/16/17 15:23 Pulse Oximetry 94 06/16/17 15:23 Height/Weight/BMI: Height 1.65 m Weight 71.5 kg Body Mass Index 26.3 Results - Labs CBC & Chem 7: 06/16/17 17:29 Assessment and Plan (1) Enteritis due to Norovirus Current visit: Yes Status: Acute Assessment and Plan: I have independently evaluated and examined this patient. I reviewed the chart, the patient's history, and the HOSPITAL NURSE/PA's documented findings as above. We discussed and formulated the assessment and plan as above with additions as below: Mrs. Deras was seen yesterday in [facility] where she reported that she " had manure" with nursing reported multiple stools. No virus was identified overnight as reported above and morning potassium was 2.9. The patient was pleasant when seen this morning and did not recall having diarrhea. Later today she was quite confused and calling out for help. Renal function was unimpaired with diarrhea yesterday. On examination the patient was cooperative when seen although confused. She acknowledged being in the hospital but was not otherwise oriented. Conjunctiva were clear, sclera anicteric. Respirations nonlabored with clear breath sounds anteriorly Abdomen was soft and moderately distended but there was no tenderness. Bowel sounds were hypoactive. Rest tremor intermittently present-more notable right arm, increased motor tone and cogwheeling present. Continue hydration/electrolyte replacement. Monitor stool frequency. Low-dose Haldol if needed for agitation/delirium per recommendations of psychiatry. Anticipate [facility] to [facility] when GI symptoms permit. Hospital Course Summary Disclaimer: The visit summary below is not to be considered part of the above Progress Note.
[2017-06-16] MEDS ORDERED: ONDANSETRON 4 MG/2 ML INJECTION IVP PRN (16:51)
[2017-06-16] MEDS ORDERED: LOPERAMIDE 2 MG CAPSULE PO PRN (16:52)
[2017-06-16] MEDS ORDERED: HALOPERIDOL 5 MG/ML INJECTION IM PRN (17:04)
[2017-06-16] MEDS ORDERED: TRAMADOL 50 MG TABLET PO PRN (17:04)
[2017-06-16] MEDS ORDERED: POLYETHYL GLYCOL 3350 17gm PACKET PO PRN (17:04)
[2017-06-16] MEDS ORDERED: QUETIAPINE 50 MG TABLET PO PRN (17:04)
[2017-06-16] MEDS ORDERED: ACETAMINOPHEN 325 MG TABLET PO PRN (17:04)
[2017-06-16] MEDS ORDERED: POTASSIUM CHLORIDE INJ 20 MEQ in NS 1,000 ML IV SCH (17:15)
[2017-06-16] MEDS ORDERED: POTASSIUM CHLORIDE IV SCH (17:28)
[2017-06-16] MEDS ORDERED: NS IV SCH (17:28)
[2017-06-16] MEDS: NS IV SCH (17:35)
[2017-06-16] MEDS: POTASSIUM CHLORIDE IV SCH (17:35)
[2017-06-16] MEDS: HALOPERIDOL 0.5 MG TABLET PO PRN (18:47)
[2017-06-16] MEDS: ATORVASTATIN 10 MG TABLET PO SCH (20:55)
[2017-06-16] MEDS: QUETIAPINE 50 MG TABLET PO SCH (20:55)
[2017-06-16] MEDS: LIDOCAINE PATCH REMOVAL TOP SCH (21:04)
[2017-06-16] MEDS ORDERED: FALL RISK - PHARMACY CONSULT MC PRN ×2 (21:35→21:36)
[2017-06-17] MEDS: NS IV SCH ×2 (03:57→10:10)
[2017-06-17] MEDS: POTASSIUM CHLORIDE IV SCH ×2 (03:57→10:10)
[2017-06-17] MEDS: ALLOPURINOL 100 MG TABLET PO SCH (09:02)
[2017-06-17] MEDS: FAMOTIDINE 20 MG TABLET PO SCH (09:02)
[2017-06-17] MEDS: LIDOCAINE 5% PATCH TOP SCH (09:02)
[2017-06-17] MEDS: LISINOPRIL 10 MG TABLET PO SCH (09:02)
[2017-06-17] MEDS: QUETIAPINE 50 MG TABLET PO SCH ×3 (09:02→20:53)
[2017-06-17] MEDS: ASPIRIN *EC* 81 MG TABLET PO SCH (09:02)
--- NOTE | 2017-06-17 09:07 | Progress Note ---
<HemaRadha D - Last Filed: 06/17/17 09:04> Subjective: Cristina was sitting in her chair. She was pleasantly confused and cooperative with assessment. She reports she is feeling better, and doesn't think she has had any abdominal pain, nausea, vomiting or diarrhea recently. She believes that she slept well last night. She denies any shortness of breath or chest pain. She informed me that she is supposed to drink more water to help her kidneys, and then asked appropriate questions about what other kinds of fluids would help her kidneys. Objective Vital signs: Temperature 97.8 F 06/17/17 07:00 Pulse Rate 73 06/17/17 07:00 Respiratory Rate 16 06/17/17 07:00 Blood Pressure 145/68 H 06/17/17 07:00 Pulse Oximetry 93 06/17/17 07:00 Height/Weight/BMI: Height 1.65 m Weight 73.7 kg Body Mass Index 26.3 - Constitutional Present: no acute distress, well nourished, well developed - Routine HEENT Exam ENT: Present: mucous membranes moist - Routine Respiratory Exam Present: CTA bilaterally, diminished air movement (bilateral bases) - Routine Cardiovascular Exam Present: RRR, S1, S2 - Routine Abdominal Exam Present: normoactive bowel sounds, non tender, distended - Routine Extremities Exam Present: no edema - Routine Skin Exam Present: intact, dry, warm - Routine Neurological Exam Present: alert, oriented X3 (oriented to self), CN II-XII intact, normal speech - Routine Psychiatric Exam Present: normal affect, cooperative Results - Labs CBC & Chem 7: 06/17/17 07:40 06/17/17 07:40 Assessment and Plan (1) Enteritis due to Norovirus Current visit: Yes Status: Acute DVT Prophylaxis: SCD's GI Prophylaxis: Pepcid Resuscitation Status: Do Not Resuscitate Assessment and Plan: ASSESSMENT Norovirus enteritis. Hypokalemia, present on admission. Hypernatremia, present on admission. Pancytopenia, suspect chronic Lake body dementia with behavioral disturbances. Anxiety and depression. Coronary artery disease and peripheral vascular disease. COPD Dyslipidemia. Hypertension GERD Fibromyalgia and chronic pain. IBS Osteoporosis. Parkinson's versus tremor PLAN Potassium has improved to 3.7, following replacement. Sodium is still slightly high at 145. Pancytopenia noted, this was also seen during her [facility]. Anemia workup was done. No loose stools overnight. Weight is trending up and her fluid balance is positive. Oral intake is still low, but she did eat 100% of her breakfast this morning. We'll continue with IV fluid, but will change to half normal saline with KCl. She received a dose of Haldol yesterday evening when she became agitated and yelling "help me, help me". Since then she has been pleasantly confused, and cooperative. Regarding tremors, she was evaluated by a neurologist when she was in [place] and diagnosed with Parkinson's, and again in March, at which time reportedly Parkinson's was not confirmed and no medications were recommended. I will stop the tramadol as this was a new medication when she was discharged from [facility] on 06/13/17. Her behaviors worsened while she was on this medication, prompting readmission, and it's possible that the tramadol was contributing to her increasing behaviors. Add Ativan to allergy list. Halley, her niece/DPOA, reports that this causes suicidal ideation. Sepsis Assessment - Evaluation Sepsis screening result: No Definite Risk Hospital Course Summary Disclaimer: The visit summary below is not to be considered part of the above Progress Note. Hospital Course: 06/16/17 Assessment norovirus enteritis Hypokalemia (POA) Lewy body dementia with behavioral disturbances (Chronic Medical) Anxiety (Chronic Medical) CAD (coronary artery disease)/PVD (peripheral vascular disease) (Chronic Medical ) COPD (chronic obstructive pulmonary disease) (Chronic Medical) Cataracts, bilateral (Chronic Medical) Depression (Chronic Medical) Dyslipidemia (Chronic Medical) Fibromyalgia/chronic pain (Chronic Medical) GERD (gastroesophageal reflux disease) (Chronic Medical) HTN (hypertension) (Chronic Medical) High cholesterol (Chronic Medical) IBS (irritable bowel syndrome) (Chronic Medical) Osteoporosis (Chronic Medical) Parkinsons disease (Chronic Medical) History of UTI (urinary tract infection) (Chronic Medical) Vitamin D deficiency (Chronic Medical) Essential tremors - ? Parkinson's (chronic medical) Gout (chronic medical) Plan Admit to the medical floor under the hospitalist service, Dr. Beatty, attending, for supportive treatment of enteritis caused by norovirus, as well as contact precautions. Given her virus, dehydration, hypokalemia, and other comorbidities, expect her stay will be greater than 2 overnights. SCDs for DVT prophylaxis Imodium PRN diarrhea Contact precautions for norovirus infection 10 mEq potassium 4 IV with IV normal saline with 20 mEq potassium to follow. Repeat potassium later this afternoon. PT/OT eval to evaluate functional ability Haldol prn behavioral disturbance Continue famotidine for GI prophylaxis/GERD Patient's care to return to her PCP, Dr. Gage Oquendo, on discharge, unless, based on behaviors, she is a candidate to return to [facility] unit. 06/17/17 Potassium has improved to 3.7, following replacement. Sodium is still slightly high at 145. Pancytopenia noted, this was also seen during her previous [facility] stay. Anemia workup was done. No loose stools overnight. Weight is trending up and her fluid balance is positive. Oral intake is still low, but she did eat 100% of her breakfast this morning. We'll continue with IV fluid, but will change to half normal saline with KCl. She received a dose of Haldol yesterday evening when she became agitated and yelling "help me, help me". Since then she has been pleasantly confused, and cooperative. Regarding tremors, she was evaluated by a neurologist when she was in [place] and diagnosed with Parkinson's, and again in March, at which time reportedly Parkinson's was not confirmed and no medications were recommended. I will stop the tramadol as this was a new medication when she was discharged from [facility] on 06/13/17. Her behaviors worsened while she was on this medication, prompting readmission, and it's possible that the tramadol was contributing to her increasing behaviors. Add Ativan to allergy list. Halley, her niece/DPOA, reports that this causes suicidal ideation. <Desirae Beatty - Last Filed: 06/17/17 11:43> Objective Vital signs: Temperature 97.8 F 06/17/17 07:00 Pulse Rate 73 06/17/17 07:00 Respiratory Rate 16 06/17/17 07:00 Blood Pressure 145/68 H 06/17/17 07:00 Pulse Oximetry 93 06/17/17 07:00 Height/Weight/BMI: Height 1.65 m Weight 73.7 kg Body Mass Index 26.3 Results - Labs CBC & Chem 7: 06/17/17 07:40 06/17/17 07:40 Assessment and Plan (1) Enteritis due to Norovirus Current visit: Yes Status: Acute Assessment and Plan: I have independently evaluated and examined this patient. I reviewed the chart, the patient's history, and the SOFTWARE BUSINESS ANALYST/PA's documented findings as above. We discussed and formulated the assessment and plan as above with additions as below: Mrs. Amaral was up in a chair when seen. She was asking for help but only wanted her water refilled. Yesterday evening she became very agitated and threatening to kick nursing staff, she threw her iced tea and cup of water at the nurse, bit it IV tubing, and tried to titrate the nurse's hands with IV tubing. Eventually required IM Haldol to calm her after she spit out oral medications. Overnight she developed urinary retention requiring placement of Galvin catheter. Currently the patient denies abdominal pain and doesn't recall prior diarrhea. She reports she always has tremors affecting both her arms and legs. NAD, cooperative, alert but confused Respirations nonlabored with diminished/clear breath sounds throughout Abdomen soft with minimal discomfort on palpation in the lower abdomen, no guarding Rest tremors bilateral upper and lower extremities Oral intake limited to 350 mL yesterday; continue IV fluids until po intake improves. Ambulate today with walker. Consult Dr. Rizvi for psychiatric concerns. Hospital Course Summary Disclaimer: The visit summary below is not to be considered part of the above Progress Note.
[2017-06-17] MEDS: 1/2 NS with KCL 20mEq 1,000 ML IV SCH (10:12)
[2017-06-17] MEDS ORDERED: NS with KCL 20 mEq 1,000 ML IV SCH (16:00)
[2017-06-17] MEDS: ATORVASTATIN 10 MG TABLET PO SCH (20:53)
[2017-06-18] MEDS: 1/2 NS with KCL 20mEq 1,000 ML IV SCH (02:31)
[2017-06-18] MEDS: LIDOCAINE PATCH REMOVAL TOP SCH ×2 (02:31→20:50)
[2017-06-18] MEDS: LISINOPRIL 10 MG TABLET PO SCH (09:00)
[2017-06-18] MEDS: ALLOPURINOL 100 MG TABLET PO SCH (09:00)
[2017-06-18] MEDS: LIDOCAINE 5% PATCH TOP SCH (09:00)
[2017-06-18] MEDS: QUETIAPINE 50 MG TABLET PO SCH ×3 (09:00→20:50)
[2017-06-18] MEDS: HALOPERIDOL 0.5 MG TABLET PO PRN (09:00)
[2017-06-18] MEDS: FAMOTIDINE 20 MG TABLET PO SCH (09:00)
[2017-06-18] MEDS: ASPIRIN *EC* 81 MG TABLET PO SCH (09:00)
--- NOTE | 2017-06-18 12:58 | Progress Note ---
<Lanie Malik - Last Filed: 06/18/17 12:53> Subjective: Cristina is seen today in follow up for her norovirus and hypernatremia. She is seen while sitting in her recliner watching TV and reports that she feels "great " today. She denies any complaints including no fevers, chest pain, shortness of breath, abdominal pain, nausea, vomiting or diarrhea. Nursing reports that she has not had any diarrhea since around noon on 06/16/17. Her oral intake is improving with good urinary output via a Gonsalez catheter. No reported behaviors today. Labs today reveal persistent pancytopenia with WBC 3.2, hemoglobin 11.2 and platelets 103. New bandemia noted at 14%. Hypernatremia stable at 145 despite change to 1/2NS with KCl at 60cc/hr. Objective Vital signs: Temperature 96.8 F 06/18/17 08:00 Pulse Rate 56 L 06/18/17 08:00 Respiratory Rate 17 06/18/17 08:00 Blood Pressure 175/71 H 06/18/17 08:00 Pulse Oximetry 95 06/18/17 08:00 Height/Weight/BMI: Height 5 ft 4.9 in Weight 164 lb 3.91 oz Body Mass Index 26.3 - Constitutional Present: no acute distress, well nourished, well developed, thin, cooperative - Routine HEENT Exam Head: Present: normocephalic, atraumatic Eye: Present: PERRL. Absent: conjunctival icterus ENT: Present: mucous membranes moist Comments: patient drinking water on exam and asks for refill of water cup. - Routine Respiratory Exam Present: CTA bilaterally. Absent: rhonchi, stridor, wheezes - Routine Cardiovascular Exam Present: RRR, S1, S2 - Routine Abdominal Exam Present: soft, normoactive bowel sounds, non distended, non tender - Routine Rectal Exam Comments: last BM 06/16 around noon. - Routine Exam Comments: Gonsalez catheter in place, actively draining clear yellow urine. - Routine Extremities Exam Present: no edema, non tender, pulses intact. Absent: calf tenderness - Routine Back/Spine/Pelvis Exam Back/Spine: Present: full ROM. Absent: erythema - Routine Musculoskeletal Exam Musculoskeletal: Present: no tenderness, moving extremities well - Routine Skin Exam Present: intact, dry, warm Comments: afebrile. - Routine Neurological Exam Present: alert, moving all extremities, normal speech. Absent: oriented X3 ( person and place), facial asymmetry - Routine Lymphatic Exam Lymphatic: Absent: lymphedema - Routine Psychiatric Exam Present: normal affect, cooperative Results - Labs CBC & Chem 7: 06/18/17 05:46 06/18/17 05:46 Assessment and Plan (1) Enteritis due to Norovirus Current visit: Yes Status: Acute DVT Prophylaxis: SCD's GI Prophylaxis: Pepcid Resuscitation Status: Do Not Resuscitate Assessment and Plan: ASSESSMENT Norovirus enteritis, acute. Hypernatremia, acute. Hypokalemia (POA), resolved. Lewy body dementia with behavioral disturbances (Chronic Medical) Anxiety (Chronic Medical) CAD (coronary artery disease)/PVD (peripheral vascular disease) (Chronic Medical ) COPD (chronic obstructive pulmonary disease) (Chronic Medical) Cataracts, bilateral (Chronic Medical) Depression (Chronic Medical) Dyslipidemia (Chronic Medical) Fibromyalgia/chronic pain (Chronic Medical) GERD (gastroesophageal reflux disease) (Chronic Medical) HTN (hypertension) (Chronic Medical) High cholesterol (Chronic Medical) IBS (irritable bowel syndrome) (Chronic Medical) Osteoporosis (Chronic Medical) Parkinsons disease (Chronic Medical) History of UTI (urinary tract infection) (Chronic Medical) Vitamin D deficiency (Chronic Medical) Essential tremors - ? Parkinson's (chronic medical) Gout (chronic medical) PLAN Overall, Cristina is doing well. Her last diarrhea bowel movement was 9/9 around noon and her oral intake has improved with adequate urinary output. Will discontinue her IV fluids and potassium supplementation now and continue to monitor her I&Os closely. According to the Guidelines for the Prevention and Control of Norovirus Gastroenteritis Outbreaks in Healthcare Settings as well as guidelines by the CDC, contact precautions are recommended for a minimum of 48 hours AFTER the resolution of the patient's symptoms. As the patient has now been symptom-free without diarrhea for 48 hours, will obtain [facility] screen to evaluation for [facility]mission into [facility]. Labs today showed persistent hypernatremia with sodium at 145. Continue to encourage oral water intake and will recheck BMP in AM to monitor blood counts and electrolytes. Persistent pancytopenia with WBC 3.2, Hgb 11.2 and Plt 103. New bandemia noted at 14%. Will recheck CBC in AM to monitor blood counts. No behaviors today. Haldol as needed for behaviors. Gonsalez catheter placed due to urinary retention. Will attempt discontinue of Gonsalez and monitor closely for signs of retention. Anticipate discharge from acute stay in near future. - Time spent with patient 25 - 35 minutes Sepsis Assessment - Evaluation Sepsis screening result: No Definite Risk Hospital Course Summary Disclaimer: The visit summary below is not to be considered part of the above Progress Note. Hospital Course: 06/16/17 Assessment norovirus enteritis Hypokalemia (POA) Lewy body dementia with behavioral disturbances (Chronic Medical) Anxiety (Chronic Medical) CAD (coronary artery disease)/PVD (peripheral vascular disease) (Chronic Medical ) COPD (chronic obstructive pulmonary disease) (Chronic Medical) Cataracts, bilateral (Chronic Medical) Depression (Chronic Medical) Dyslipidemia (Chronic Medical) Fibromyalgia/chronic pain (Chronic Medical) GERD (gastroesophageal reflux disease) (Chronic Medical) HTN (hypertension) (Chronic Medical) High cholesterol (Chronic Medical) IBS (irritable bowel syndrome) (Chronic Medical) Osteoporosis (Chronic Medical) Parkinsons disease (Chronic Medical) History of UTI (urinary tract infection) (Chronic Medical) Vitamin D deficiency (Chronic Medical) Essential tremors - ? Parkinson's (chronic medical) Gout (chronic medical) Plan Admit to the medical floor under the hospitalist service, Dr. Beatty, attending, for supportive treatment of enteritis caused by norovirus, as well as contact precautions. Given her virus, dehydration, hypokalemia, and other comorbidities, expect her stay will be greater than 2 overnights. SCDs for DVT prophylaxis Imodium PRN diarrhea Contact precautions for norovirus infection 10 mEq potassium 4 IV with IV normal saline with 20 mEq potassium to follow. Repeat potassium later this afternoon. PT/OT eval to evaluate functional ability Haldol prn behavioral disturbance Continue famotidine for GI prophylaxis/GERD Patient's care to return to her PCP, Dr. Gage Oquendo, on discharge, unless, based on behaviors, she is a candidate to return to [facility]. 06/17/17 Potassium has improved to 3.7, following replacement. Sodium is still slightly high at 145. Pancytopenia noted, this was also seen during her previous [facility] stay. Anemia workup was done. No loose stools overnight. Weight is trending up and her fluid balance is positive. Oral intake is still low, but she did eat 100% of her breakfast this morning. We'll continue with IV fluid, but will change to half normal saline with KCl. She received a dose of Haldol yesterday evening when she became agitated and yelling "help me, help me". Since then she has been pleasantly confused, and cooperative. Regarding tremors, she was evaluated by a neurologist when she was in [place] and diagnosed with Parkinson's, and again in March, at which time reportedly Parkinson's was not confirmed and no medications were recommended. I will stop the tramadol as this was a new medication when she was discharged from [facility] on 06/13/17. Her behaviors worsened while she was on this medication, prompting readmission, and it's possible that the tramadol was contributing to her increasing behaviors. Add Ativan to allergy list. Halley, her niece/DPOA, reports that this causes suicidal ideation. 06/18/17 Overall, Cristina is doing well. Her last diarrhea bowel movement was 06/16 around noon and her oral intake has improved with adequate urinary output. Will discontinue her IV fluids and potassium supplementation now and continue to monitor her I&Os closely. According to the Guidelines for the Prevention and Control of Norovirus Gastroenteritis Outbreaks in Healthcare Settings as well as guidelines by the CDC, contact precautions are recommended for a minimum of 48 hours AFTER the resolution of the patient's symptoms. As the patient has now been symptom-free without diarrhea for 48 hours, will obtain [facility] screen to evaluation for readmission into [facility]. Labs today showed persistent hypernatremia with sodium at 145. Continue to encourage oral water intake and will recheck BMP in AM to monitor blood counts and electrolytes. Persistent pancytopenia with WBC 3.2, Hgb 11.2 and Plt 103. New bandemia noted at 14%. Will recheck CBC in AM to monitor blood counts. No behaviors today. Haldol as needed for behaviors. Gonsalez catheter placed due to urinary retention. Will attempt discontinue of Gonsalez and monitor closely for signs of retention. Anticipate discharge from acute stay in near future. <Zoltan Del Rio - Last Filed: 06/18/17 16:00> Objective Vital signs: Temperature 96.8 F 06/18/17 08:00 Pulse Rate 60 06/18/17 15:52 Respiratory Rate 16 06/18/17 15:52 Blood Pressure 175/71 H 06/18/17 08:00 Pulse Oximetry 95 06/18/17 15:52 Height/Weight/BMI: Height 1.65 m Weight 74.5 kg Body Mass Index 26.3 Results - Labs CBC & Chem 7: 06/18/17 05:46 06/18/17 05:46 Assessment and Plan (1) Enteritis due to Norovirus Current visit: Yes Status: Acute Assessment and Plan: ASSESSMENT Norovirus enteritis, acute. Hypernatremia, acute. Hypokalemia (POA), resolved. Lewy body dementia with behavioral disturbances (Chronic Medical) Anxiety (Chronic Medical) CAD (coronary artery disease)/PVD (peripheral vascular disease) (Chronic Medical ) COPD (chronic obstructive pulmonary disease) (Chronic Medical) Cataracts, bilateral (Chronic Medical) Depression (Chronic Medical) Dyslipidemia (Chronic Medical) Fibromyalgia/chronic pain (Chronic Medical) GERD (gastroesophageal reflux disease) (Chronic Medical) HTN (hypertension) (Chronic Medical) High cholesterol (Chronic Medical) IBS (irritable bowel syndrome) (Chronic Medical) Osteoporosis (Chronic Medical) Parkinsons disease (Chronic Medical) History of UTI (urinary tract infection) (Chronic Medical) Vitamin D deficiency (Chronic Medical) Essential tremors - ? Parkinson's (chronic medical) Gout (chronic medical) Have independently interviewed and examined pt. Chart reviewed. Case discussed with CM and my PA. Care plan developed with my supervision; agree with above. Doing okay today. Nursing reports much less stool output. Pt denies ab pain, but noted some nausea and fullness to abdomen earlier. Breathing well. No chest pain. No f/c. Lungs: clear CV: regular AB: soft nt/nd +BS MSE: awake alert Plan: Will stop IVF and monitor how patient does with oral intake. Monitor stools output-encouraging that frequent diarrhea resolved. Remove gonsalez cath. Recheck lab in am. Possible discharge to [facility] tomorrow if patient continues to do well. Hospital Course Summary Disclaimer: The visit summary below is not to be considered part of the above Progress Note.
--- NOTE | 2017-06-18 20:07 | Neuropsychiatric Consult ---
POPRAGEOUS HPI Date: 06/18/17 Reason for Consultation: Confusion Start Time: 18:30 Stop Time: 19:00 History of Present Illness: HPI: 86 Y/O CF with a hx of Lewy Body Dementia well known to this short story writer. Pt was initially admitted to the [facility] Unit for agitation and was transferred to the medical floor for the Norovirus. On face to face the pt is pleasant but confused. She is only oriented to self and does not remember this short story writer. She states she believes I am there to operate on her. She states she is feeling better and voices no concerns at this time. PSYCH ROS: Pt states she is currently doing well. She has a hx of VH and paranoia but does not appear to be responding to internal stimuli at this time PAST PSYCH: Pt has been on the POPRAGEOUS Unit twice recently. SHe has a most likely dx of Lewy Body Dementia. [facility] Patient Stated Medical History Alzheimer's Disease Yes Dementia Yes Parkinson's Disease Yes Coronary Artery Disease Yes Hypertension Yes Other Cardiology Yes: Atherosclerotic Heart Disease, PVD Chronic Obstructive Pulmonary Yes Disease (COPD) Gastroesophageal Reflux Yes Disease Hx Urinary Tract Infection Yes Other Musculoskeletal Yes: Gout Depression Yes Post Menopausal Yes Clinic Medical History Alzheimer disease (Chronic Medical) Anxiety (Chronic Medical) CAD (coronary artery disease) (Chronic Medical) COPD (chronic obstructive pulmonary disease) (Chronic Medical) Cataracts, bilateral (Chronic Medical) Depression (Chronic Medical) Dyslipidemia (Chronic Medical) 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 Shoulder replacement and other shoulder surgeries as well. Colon surgery with removal of some of her intestines. Growth removed from neck Family History: Family History Mother Stroke Father Diabetes - Social History Current residence: Longterm Review of Systems - Psychiatric Psychiatric: Present: behavioral changes Mental Status Exam Vitals: Last Vital Signs Temp 98.0 F 06/18/17 16:00 Pulse 59 L 06/18/17 16:00 Resp 14 06/18/17 16:00 BP 152/79 H 06/18/17 16:00 Pulse Ox 99 06/18/17 16:00 Height: 1.65 m Weight: 74.5 kg - Mental Status Exam Muscle Strength/Tone: Weak Dressing: Casual Grooming: Fair Attitude: Guarded Motor Activity: Retardation Eye Contact: Fair Speech: Slowed Volume: Soft Rhythm: Appropriate Rhythm Orientation: Oriented to person Mood: Neutral Affect: Blunted Rate of Thoughts: Delayed Thought Organization: [employer] Associations: [employer] Abstract Reasoning: Poor abstract reasoning Thought Content: Delusions Perception/Psychotic: Hx psychosis, 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 Language: Naming Impaired Memory: Poor-immediate, Poor-recent Suicidal Ideation: None Homicidal Ideation: None Insight: Poor Judgement: Poor Impulse Control: Poor - Laboratory Result Diagrams: 06/18/17 05:46 06/18/17 05:46 Laboratory Results - last 24 hr 06/18/17 06/18/17 05:46 05:46 WBC 3.2 L RBC 3.69 L Hgb 11.2 L Hct 33.9 L MCV 91.9 MCH 30.4 MCHC 33.0 RDW Std Deviation 46.4 Plt Count 103 L MPV 11.7 Immature Gran % (Auto) Not performed Neut % (Auto) Not performed Lymph % (Auto) Not performed Giles % (Auto) Not performed Eos % (Auto) Not performed Baso % (Auto) Not performed Neut # Not performed Lymph # Not performed Giles # Not performed Eos # Not performed Baso # Not performed Abs Immat Gran (auto) Not performed Neutrophils % (Manual) 66.0 Band Neutrophils % 14.0 H Lymphocytes % (Manual) 18.0 L Eosinophils % (Manual) 2.0 Neutrophils # (Manual) 2.1 Band Neutrophils # 0.4 Lymphocytes # (Manual) 0.6 L Eosinophils # (Manual) 0.1 RBC Morph Comment Normal Turbidity < 20 Sodium 145 H Potassium 4.1 Chloride 117 H Carbon Dioxide 20 L Anion Gap 8 BUN 20.0 H Creatinine 0.7 GFR Calculation 80 BUN/Creatinine Ratio 29 H Glucose 81 Calculated Osmolality 281 H Calcium 8.7 Icterus Index < 2 Specimen Hemolysis 67 H Assessment and Plan (1) Lewy body dementia with behavioral disturbance Current visit: No Status: Acute Continue current care. Will transfer pt back to [facility] tomorrow
[2017-06-18] MEDS: ATORVASTATIN 10 MG TABLET PO SCH (20:50)
[2017-06-19] MEDS: FAMOTIDINE 20 MG TABLET PO SCH (08:23)
[2017-06-19] MEDS: ALLOPURINOL 100 MG TABLET PO SCH (08:23)
[2017-06-19] MEDS: LISINOPRIL 10 MG TABLET PO SCH (08:24)
[2017-06-19] MEDS: LIDOCAINE 5% PATCH TOP SCH (08:24)
[2017-06-19] MEDS: ASPIRIN *EC* 81 MG TABLET PO SCH (08:24)
[2017-06-19] MEDS: QUETIAPINE 50 MG TABLET PO SCH ×2 (08:24→15:57)
--- NOTE | 2017-06-19 14:06 | Discharge Instructions ---
Discharge Plan - Med [facility] Instructions: Dehydration (GEN) Prescriptions: Continue Atorvastatin [Lipitor] 10 mg PO HS Aspirin [Adult Low Dose Aspirin EC] 81 mg PO DAILY Lidocaine 5% Patch [Lidoderm] 1 patch TOP DAILY #0 patch Tramadol [Ultram] 25 mg PO Q6H PRN #20 tab PRN Reason: Pain Lisinopril [Prinivil] 10 mg PO DAILY Quetiapine [Seroquel] 50 mg PO TID Famotidine [Pepcid AC] 20 mg PO DAILY Lidocaine Patch Removal [Lidoderm Patch Removal] 1 removal TOP HS Haloperidol [Haldol] 0.5 mg PO Q6HR PRN PRN Reason: Anxiety/Agitation Cholecalciferol [Vit. D-3] 1,000 unit PO DAILY Acetaminophen [Tylenol] 325 - 650 mg PO Q5H PRN tablet PRN Reason: Discomfort Quetiapine [Seroquel] 50 mg PO BID PRN tablet PRN Reason: Agitation Zyloprim (Allopurinol) 100 mg tablet 100 mg PO DAILY Discontinued Polyethylene Glycol 3350 1 pack PO DAILY PRN PRN Reason: Constipation Loperamide [Imodium] 2 mg PO PRN PRN PRN Reason: Diarrhea Haloperidol Inj [Haldol] 0.5 mg IM Q6H PRN vial PRN Reason: Extreme Agitation Polyethylene Glycol 3350 [Miralax] 1 pack PO DAILY PRN PRN Reason: Constipation Mag-Al + Sim Oral Liq [Maalox Plus] 30 ml PO Q4H PRN PRN Reason: Acid Reflux Discharge Instructions/Outpatient Orders: Final Provider Discharge Instructions Location: Determined By Patient - Disposition 67 To [facility]
--- NOTE | 2017-06-19 15:15 | Discharge Summary ---
<Demi Roman V - Last Filed: 06/19/17 15:08> Discharge Information Date of admission: 06/16/17 09:15 Anticipated date of discharge: 06/19/17 Attending Physician: Zoltan Del Rio MD Primary care physician: Gage Oquendo DO Consults: 06/17/17 11:40 Physician Consult [CONS] Routine Consulting Provider: Speedy Rizvi Reason For Exam: dementia with behavioral disturbances Ordering Provider has Notified Needle Board Repairer: Yes - Discharge Diagnosis (1) Enteritis due to Norovirus Status: Acute - Procedures Procedures: None - Laboratory Labs: 06/19/17 05:09 06/19/17 05:09 - Microbiology None - Radiology Radiology: none - Pathology None History of Present Illness HPI: Patient is an 86-year-old female who was [facility] for increasing agitation and irritability. Shortly after admission she developed persistent diarrhea. She first had signs of abdominal pain at 430 yesterday morning. In review of nurse's notes, patient had diarrhea most of the day yesterday and overnight. She's had several doses of PRN Imodium. She tested positive for norovirus. Given that she will need contact precautions, IV fluids , and close medical monitoring, she was transferred to the medical floor. Patient was seen sitting in her chair in her room. Her eyes are closed, but she will respond to some questions. She is a poor historian. Majority of information was taken from nursing notes and previous visits. Her only complaint at this time is pain in her back (chronic). She is unable to tell me if she continues to have loose stools. She tells me they are not giving her anything to eat. Objective Vital signs: Temperature 97.2 F 06/19/17 07:31 Pulse Rate 74 06/19/17 07:31 Respiratory Rate 18 06/19/17 07:31 Blood Pressure 169/75 H 06/19/17 07:31 Pulse Oximetry 94 06/19/17 07:31 Height/Weight/BMI: Height 1.65 m Weight 73.3 kg Body Mass Index 26.3 - Constitutional Present: no acute distress - Routine HEENT Exam Head: Present: normocephalic Eye: Present: EOMI - Routine Respiratory Exam Present: CTA bilaterally - Routine Cardiovascular Exam Present: RRR, S1, S2 - Routine Abdominal Exam Present: soft, normoactive bowel sounds, non distended. Absent: tenderness - Routine Extremities Exam Present: full ROM - Routine Back/Spine/Pelvis Exam Back/Spine: Present: full ROM - Routine Skin Exam Present: dry, warm - Routine Neurological Exam Present: alert, moving all extremities - Routine Psychiatric Exam Present: cooperative Hospital Course This is a general summary of the patient's hospital course. For more details refer to the complete medical record. Hospital course: 06/16/17 Assessment norovirus enteritis Hypokalemia (POA) Lewy body dementia with behavioral disturbances (Chronic Medical) Anxiety (Chronic Medical) CAD (coronary artery disease)/PVD (peripheral vascular disease) (Chronic Medical ) COPD (chronic obstructive pulmonary disease) (Chronic Medical) Cataracts, bilateral (Chronic Medical) Depression (Chronic Medical) Dyslipidemia (Chronic Medical) Fibromyalgia/chronic pain (Chronic Medical) GERD (gastroesophageal reflux disease) (Chronic Medical) HTN (hypertension) (Chronic Medical) High cholesterol (Chronic Medical) IBS (irritable bowel syndrome) (Chronic Medical) Osteoporosis (Chronic Medical) Parkinsons disease (Chronic Medical) History of UTI (urinary tract infection) (Chronic Medical) Vitamin D deficiency (Chronic Medical) Essential tremors - ? Parkinson's (chronic medical) Gout (chronic medical) 06/16-Plan Admit to the medical floor under the hospitalist service, Dr. Beatty, attending, for supportive treatment of enteritis caused by norovirus, as well as contact precautions. Given her virus, dehydration, hypokalemia, and other comorbidities, expect her stay will be greater than 2 overnights. SCDs for DVT prophylaxis Imodium PRN diarrhea Contact precautions for norovirus infection 10 mEq potassium 4 IV with IV normal saline with 20 mEq potassium to follow. Repeat potassium later this afternoon. PT/OT eval to evaluate functional ability Haldol prn behavioral disturbance Continue famotidine for GI prophylaxis/GERD Patient's care to return to her PCP, Dr. Gage Oquendo, on discharge, unless, based on behaviors, she is a candidate to return [facility]. 06/17/17 Potassium has improved to 3.7, following replacement. Sodium is still slightly high at 145. Pancytopenia noted, this was also seen during her [facility]. Anemia workup was done. No loose stools overnight. Weight is trending up and her fluid balance is positive. Oral intake is still low, but she did eat 100% of her breakfast this morning. We'll continue with IV fluid, but will change to half normal saline with KCl. She received a dose of Haldol yesterday evening when she became agitated and yelling "help me, help me". Since then she has been pleasantly confused, and cooperative. Regarding tremors, she was evaluated by a neurologist when she was in [place] and diagnosed with Parkinson's, and again in March, at which time reportedly Parkinson's was not confirmed and no medications were recommended. I will stop the tramadol as this was a new medication when she was discharged from the [facility] on 06/[facility]17. Her behaviors worsened while she was on this medication, prompting readmission, and it's possible that the tramadol was contributing to her increasing behaviors. Add Ativan to allergy list. Halley, her niece/DPOA, reports that this causes suicidal ideation. 06/18/17 Overall, Cristina is doing well. Her last diarrhea bowel movement was 06/16 around noon and her oral intake has improved with adequate urinary output. Will discontinue her IV fluids and potassium supplementation now and continue to monitor her I&Os closely. According to the Guidelines for the Prevention and Control of Norovirus Gastroenteritis Outbreaks in Healthcare Settings as well as guidelines by the CDC, contact precautions are recommended for a minimum of 48 hours AFTER the resolution of the patient's symptoms. As the patient has now been symptom-free without diarrhea for 48 hours, will obtain the [facility] screen to evaluation for readmission into the [facility]. Labs today showed persistent hypernatremia with sodium at 145. Continue to encourage oral water intake and will recheck BMP in AM to monitor blood counts and electrolytes. Persistent pancytopenia with WBC 3.2, Hgb 11.2 and Plt 103. New bandemia noted at 14%. Will recheck CBC in AM to monitor blood counts. No behaviors today. Haldol as needed for behaviors. Galvin catheter placed due to urinary retention. Will attempt discontinue of Galvin and monitor closely for signs of retention. Anticipate discharge from acute stay in near future. 06/19/17- Discharge Cristina has done well without any further episodes of loose bowel movements. Hypokalemia resolved however she does have persistent Hypernatremia. This is stable and has been chronic. Appetite has been good today as she ate 100% of breakfast and 75% of lunch. She has been accepted to return to the [facility] unit for ongoing treatment of Lewy body dementia. Time spent with patient: greater than 35 minutes Discharge Plan - Med Rec/Dispo Truven Instructions: Dehydration (GEN) Prescriptions: Continue Atorvastatin [Lipitor] 10 mg PO HS Aspirin [Adult Low Dose Aspirin EC] 81 mg PO DAILY Lidocaine 5% Patch [Lidoderm] 1 patch TOP DAILY #0 patch Tramadol [Ultram] 25 mg PO Q6H PRN #20 tab PRN Reason: Pain Lisinopril [Prinivil] 10 mg PO DAILY Quetiapine [Seroquel] 50 mg PO TID Famotidine [Pepcid AC] 20 mg PO DAILY Lidocaine Patch Removal [Lidoderm Patch Removal] 1 removal TOP HS Haloperidol [Haldol] 0.5 mg PO Q6HR PRN PRN Reason: Anxiety/Agitation Cholecalciferol [Vit. D-3] 1,000 unit PO DAILY Acetaminophen [Tylenol] 325 - 650 mg PO Q5H PRN tablet PRN Reason: Discomfort Quetiapine [Seroquel] 50 mg PO BID PRN tablet PRN Reason: Agitation Zyloprim (Allopurinol) 100 mg tablet 100 mg PO DAILY Discontinued Polyethylene Glycol 3350 1 pack PO DAILY PRN PRN Reason: Constipation Loperamide [Imodium] 2 mg PO PRN PRN PRN Reason: Diarrhea Haloperidol Inj [Haldol] 0.5 mg IM Q6H PRN vial PRN Reason: Extreme Agitation Polyethylene Glycol 3350 [Miralax] 1 pack PO DAILY PRN PRN Reason: Constipation Mag-Al + Sim Oral Liq [Maalox Plus] 30 ml PO Q4H PRN PRN Reason: Acid Reflux Discharge Instructions/Outpatient Orders: Final Provider Discharge Instructions Location: Determined By Patient - Disposition 67 To [facility] <Zoltan Del Rio - Last Filed: 06/19/17 16:25> Discharge Information Date of admission: 06/16/17 09:15 Attending Physician: Zoltan Del Rio MD Primary care physician: Gage Oquendo DO Consults: 06/17/17 11:40 Physician Consult [CONS] Routine Consulting Provider: Speedy Rizvi Reason For Exam: dementia with behavioral disturbances Ordering Provider has Notified Needle Board Repairer: Yes - Discharge Diagnosis (1) Enteritis due to Norovirus Status: Acute - Laboratory Labs: 06/19/17 05:09 06/19/17 05:09 Objective Vital signs: Temperature 96.3 F L 06/19/17 15:43 Pulse Rate 65 06/19/17 15:43 Respiratory Rate 20 06/19/17 15:43 Blood Pressure 150/71 H 06/19/17 15:43 Pulse Oximetry 95 06/19/17 15:43 Height/Weight/BMI: Height 1.65 m Weight 73.028 kg Body Mass Index 26.8 Hospital Course This is a general summary of the patient's hospital course. For more details refer to the complete medical record. Discharge Plan - Med Rec/Dispo - Attestation Attestation Narrative: 06/19/17 16:22 I have independently interviewed and examined patient prior to discharge. Chart reviewed. Case discussed with CM and my ASSOCIATE PROGRAMMER ANALYST. Care plan developed with my supervision; agree with above. Doing well today. Eating more. Not have ab pain or loose stool. Breathing well. No f/c. Lab stable. CV: regular Lungs: clear bilaterally, no distress on RA. Ab: soft nt, BS present MSE: awake alert, not agitated or restless Plan: Will discharge to [facility] for continuation of psychiatric care and treatment. Encourage oral intake. See orders for details. Patient medically stable for discharge to [facility].
[2017-06-19 15:28] VITALS: BMI 26.8
[2017-06-19 15:49] VITALS: BP 150/71; PULSE 65; RESP 20; TEMP 96.3; O2SAT 95
[2017-06-19] MEDS ORDERED: HALOPERIDOL 5 MG/ML INJECTION IM PRN (17:05)
[2017-06-19] MEDS ORDERED: HALOPERIDOL 0.5 MG TABLET PO PRN (17:05)
== END 2017-06-19 17:27 | DRG 392 ==
LOC: MED
PROVIDERS: ADMIT Internal Medicine; ATTEND Hospitalist

== ENCOUNTER 2017-06-19 17:05 | Inpatient (IN) ==
[2017-06-19 18:00] VITALS: BMI 26.0
[2017-06-19] MEDS ORDERED: LOPERAMIDE 2 MG CAPSULE PO PRN (18:04)
[2017-06-19] MEDS ORDERED: HALOPERIDOL 0.5 MG TABLET PO PRN ×2 (18:04)
[2017-06-19] MEDS: ATORVASTATIN 10 MG TABLET PO SCH ×2 (19:09→20:40)
[2017-06-19] MEDS: LIDOCAINE PATCH REMOVAL TOP SCH ×2 (19:09→20:40)
--- NOTE | 2017-06-19 19:47 | 24 Hour Neuropsychiatic Eval ---
Date of Admission: 06/19/17 17:05 Chief complaint: "I feel better" History of Present Illness: HPI: 86 Y/O CF well known to our service. She has a hx of Lewy Body Dementia and was recently admitted to our unit from a [facility] for aggression. She was transferred to the [facility] floor as she tested positive for Norovirus, was stabilized, and has now transferred back. On face to face the pt is pleasant but confused. She is only oriented to self. She believes that I am planning to operate on her. She states she is feeling better and voices no concerns at this time. PSYCH ROS: Pt has a hx of paranoia, VH, memory impairment, and Parkinsons symptoms. These symptoms seem to be some what improved. SHe reports her mood is stable. PAST PSYCH: Pt was recently on our unit and started on Seroquel which was titrated to 100mg PO TID. She was doing well and discharged back to the [facility]. She became aggressive there and so was sent back to our unit. She was started on Haldol and Risperdal while at the [facility] which seemed to make her tremors worse. [facility] Patient Stated Medical History Alzheimer's Disease Yes Dementia Yes Parkinson's Disease Yes Coronary Artery Disease Yes Hypertension Yes Other Cardiology Yes: Atherosclerotic Heart Disease, PVD Chronic Obstructive Pulmonary Yes Disease (COPD) Gastroesophageal Reflux Yes Disease Hx Urinary Tract Infection Yes Other Musculoskeletal Yes: Gout Depression Yes Post Menopausal Yes Clinic Medical History Alzheimer disease (Chronic Medical) Anxiety (Chronic Medical) CAD (coronary artery disease) (Chronic Medical) COPD (chronic obstructive pulmonary disease) (Chronic Medical) Cataracts, bilateral (Chronic Medical) Depression (Chronic Medical) Dyslipidemia (Chronic Medical) 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 Shoulder replacement and other shoulder surgeries as well. Colon surgery with removal of some of her intestines. Growth removed from neck Family History: Family History Mother Stroke Father Diabetes - Social History Smoking status: Never smoker Review of Systems ROS unobtainable: due to mental status Mental Status Exam Vitals: Last Vital Signs Temp 97.6 F 06/19/17 17:46 Pulse 78 06/19/17 17:46 Resp 16 06/19/17 17:46 BP 147/80 H 06/19/17 17:46 Pulse Ox 97 06/19/17 17:46 Height: 1.68 m Weight: 73.2 kg - Mental Status Exam Muscle Strength/Tone: Normal Dressing: Casual Grooming: Good Attitude: Cooperative Motor Activity: Retardation Eye Contact: Fair Speech: Slowed Volume: Soft Rhythm: Appropriate Rhythm Orientation: Oriented to person Mood: Neutral Affect: Relaxed Rate of Thoughts: Delayed Thought Organization: [place] Associations: [employer] Abstract Reasoning: Poor abstract reasoning Thought Content: Delusions Perception/Psychotic: Hx psychosis, not current Language: Naming Impaired Fund of Knowledge: Poor fund of knowledge Memory: Poor-immediate, Poor-recent Suicidal Ideation: None Homicidal Ideation: None Insight: Poor Judgement: Poor Impulse Control: Poor Assessment and Plan (1) Major neurocognitive disorder Problem details: with behavioral disturbance (most likely Lewy Body Dementia) Current visit: No Status: Acute Continue to evaluate and stabilize. Will continue Seroquel. Pt had some urinary retention while on the medical unit so will need to monitor as Seroquel may make this worse
[2017-06-19] MEDS: QUETIAPINE 50 MG TABLET PO SCH (20:40)
[2017-06-20] MEDS: ASPIRIN *EC* 81 MG TABLET PO SCH (08:00)
[2017-06-20] MEDS: LIDOCAINE 5% PATCH TOP SCH (08:00)
[2017-06-20] MEDS: FAMOTIDINE 20 MG TABLET PO SCH (08:01)
[2017-06-20] MEDS: LISINOPRIL 10 MG TABLET PO SCH (08:02)
[2017-06-20] MEDS: QUETIAPINE 50 MG TABLET PO SCH ×3 (08:02→20:05)
[2017-06-20] MEDS: ALLOPURINOL 100 MG TABLET PO SCH (08:03)
--- NOTE | 2017-06-20 09:35 | History & Physical Report ---
<Demi Roman V - Last Filed: 06/20/17 09:20> History of Present Illness Date: 06/20/17 Chief complaint: Dementia HPI: Cristina is a 86 yr old female who is well known to the [facility] services as she was [facility] for [facility] with behaviors. Unfortunately, she began having loose stools and was found to have normal virus. She was transferred to the medical unit for acute treatment on 06/16/17. She was hydrated, electrolytes monitored and symptoms continue to improve. She was without incontinence stools for over 48 hours. She was cleared to return to the [facility] yesterday 06/20/17 for continued psychiatric treatment under the care of Dr Rizvi. Cristina is seen this morning in the [facility]. She is alert sitting in the day room. She answers most questions appropriately. She denies having any pain for feeling short of breath. One reported bowel movement over the past 12 hours that is formed. BP slightly elevated this morning at 170/74. Review of Systems ROS unobtainable: due to mental status Review of systems: On exam she denies entire ROS however it is unclear if his if accurate due to her chronic dementia [facility] Patient Stated Medical History Alzheimer disease Anxiety CAD (coronary artery disease) COPD (chronic obstructive pulmonary disease) Cataracts, bilateral Depression Dyslipidemia 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 Fibromyalgia GERD (gastroesophageal reflux disease) HTN (hypertension) PVD High cholesterol IBS (irritable bowel syndrome) Osteoporosis Hx Gout Parkinsons disease Vitamin D deficiency Surgical History: Hysterectomy. Shoulder replacement and other shoulder surgeries as well. Colon surgery with removal of some of her intestines. Growth removed from neck Family History: Family History Mother Stroke Father Diabetes - Social History Smoking status: Never smoker Medications Home Medications Medication Instructions Recorded Confirmed Type Zyloprim (Allopurinol) 100 mg 100 mg PO DAILY 05/18/17 06/16/17 History tablet Aspirin [Adult Low Dose Aspirin EC] 81 mg PO DAILY 05/19/17 06/16/17 History Atorvastatin [Lipitor] 10 mg PO HS 05/19/17 06/16/17 History Famotidine [Pepcid AC] 20 mg PO DAILY 05/19/17 06/16/17 History Cholecalciferol [Vit. D-3] 1,000 unit PO DAILY 06/14/17 06/16/17 History Haloperidol [Haldol] 0.5 mg PO Q6HR PRN 06/14/17 06/16/17 History Lidocaine Patch Removal [Lidoderm 1 removal TOP HS 06/14/17 06/16/17 History Patch Removal] Lisinopril [Prinivil] 10 mg PO DAILY 06/14/17 06/16/17 History Quetiapine [Seroquel] 50 mg PO TID 06/16/17 06/16/17 History Allergies Allergy/AdvReac Type Severity Reaction Status Date / Time simvastatin [From Zocor] Allergy Intermediate rash Verified 06/16/17 11:19 lorazepam [From Ativan] AdvReac Severe Suicidal Verified 06/17/17 09:47 Ideations Exam Vital Signs: Temperature 97.0 F 06/20/17 08:29 Pulse Rate 62 06/20/17 08:29 Respiratory Rate 16 06/20/17 08:29 Blood Pressure 170/74 H 06/20/17 08:29 Pulse Oximetry 96 06/20/17 08:29 Height/Weight/BMI: Height 1.68 m Weight 73.2 kg Body Mass Index 26.0 - Constitutional Present: no acute distress, well nourished, well developed - Routine HEENT Exam Eye: Present: EOMI ENT: Present: mucous membranes moist, dentition normal - Routine Respiratory Exam Present: CTA bilaterally. Absent: wheezes - Routine Cardiovascular Exam Present: RRR, S1, S2. Absent: murmur - Routine Abdominal Exam Present: soft, normoactive bowel sounds, non distended. Absent: tenderness - Routine Extremities Exam Present: edema (trace bilateral lower ext), normal capillary refill - Routine Back/Spine/Pelvis Exam Back/Spine: Present: full ROM - Routine Skin Exam Present: intact, dry, warm - Routine Neurological Exam Present: alert, CN II-XII intact, moving all extremities - Routine Psychiatric Exam Present: normal affect Assessment and Plan (1) Lewy body dementia with behavioral disturbance Current visit: No Status: Acute (2) Cognitive and behavioral changes Current visit: No Status: Acute (3) CAD (coronary artery disease) Current visit: No Status: Chronic (4) HTN (hypertension) Current visit: No Status: Chronic (5) Parkinsons Current visit: No Status: Chronic (6) Hypernatremia Current visit: No Status: Acute Assessment and Plan: Agree with admission to [facility] for ongoing psychiatric evaluation and treatment under the care of Dr. Rizvi Persistent hypernatremia chronically, will encourage oral fluids, and monitor routine BMP. Blood pressure is elevated today. Recently patient was on Norvasc in addition to lisinopril. Will add Norvasc 5 mg daily and continue to monitor carefully Previously underwent pancytopenia and anemia workup in which iron and vitamin B12 were normal. Tylenol as needed for back pain. Check CBC and BMP tomorrow morning to follow blood counts, renal function and electrolytes Hospitalist services will continue to follow patient medically manage existing comorbidities. At time of discharge, care will return to primary care provider, Dr. Oquendo Sepsis Assessment - Evaluation Sepsis screening result: No Definite Risk Hospital Course Summary Disclaimer: The visit summary below is not to be considered part of the above Progress Note. Hospital Course: 06/20/17 Agree with admission to [facility] for ongoing psychiatric evaluation and treatment under the care of Dr. Rizvi Persistent hypernatremia chronically, will encourage oral fluids, and monitor routine BMP. Blood pressure is elevated today. Recently patient was on Norvasc in addition to lisinopril. Will add Norvasc 5 mg daily and continue to monitor carefully Previously underwent pancytopenia and anemia workup in which iron and vitamin B12 were normal. Tylenol as needed for back pain. Check CBC and BMP tomorrow morning to follow blood counts, renal function and electrolytes Hospitalist services will continue to follow patient medically manage existing comorbidities. At time of discharge, care will return to primary care provider, Dr. Oquendo <Seferino Chiu - Last Filed: 06/20/17 19:36> History of Present Illness Date: 06/20/17 [facility] Patient Stated Medical History Alzheimer's Disease Yes Dementia Yes Parkinson's Disease Yes Coronary Artery Disease Yes Hypertension Yes Other Cardiology Yes: Atherosclerotic Heart Disease, PVD Chronic Obstructive Pulmonary Yes Disease (COPD) Gastroesophageal Reflux Yes Disease Hx Urinary Tract Infection Yes Other Musculoskeletal Yes: Gout Depression Yes Post Menopausal Yes Clinic Medical History Alzheimer disease (Chronic Medical) Anxiety (Chronic Medical) CAD (coronary artery disease) (Chronic Medical) COPD (chronic obstructive pulmonary disease) (Chronic Medical) Cataracts, bilateral (Chronic Medical) Depression (Chronic Medical) Dyslipidemia (Chronic Medical) 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 (Chronic Medical) Fibromyalgia (Chronic Medical) GERD (gastroesophageal reflux disease) (Chronic Medical) HTN (hypertension) (Chronic Medical) High cholesterol (Chronic Medical) IBS (irritable bowel syndrome) (Chronic Medical) Osteoporosis (Chronic Medical) Parkinsons disease (Chronic Medical) UTI (urinary tract infection) (Chronic Medical) Vitamin D deficiency (Chronic Medical) Family History: Family History Mother Stroke Father Diabetes Exam Vital Signs: Temperature 97.4 F 06/20/17 16:00 Pulse Rate 62 06/20/17 16:00 Respiratory Rate 16 06/20/17 16:00 Blood Pressure 154/71 H 06/20/17 16:00 Pulse Oximetry 94 06/20/17 16:00 Height/Weight/BMI: Height 5 ft 6 in Weight 73.2 kg Body Mass Index 26.0 Assessment and Plan (1) Cognitive and behavioral changes Current visit: No Status: Acute (2) CAD (coronary artery disease) Current visit: No Status: Chronic (3) HTN (hypertension) Current visit: No Status: Chronic (4) Parkinsons Current visit: No Status: Chronic (5) Lewy body dementia with behavioral disturbance Current visit: No Status: Acute (6) Hypernatremia Current visit: No Status: Acute Assessment and Plan: Above pt has been seen and examined. Was at medical unit for norovirus infection, appears to be doing well. VSS - BP is coming down. WIll monitor IVF and clinical status. - Time spent with patient 25 - 35 minutes Hospital Course Summary Disclaimer: The visit summary below is not to be considered part of the above Progress Note.
[2017-06-20] MEDS: AMLODIPINE 5 MG TABLET PO SCH (11:50)
[2017-06-20] MEDS: ATORVASTATIN 10 MG TABLET PO SCH (20:05)
[2017-06-20] MEDS: LIDOCAINE PATCH REMOVAL TOP SCH (20:06)
--- NOTE | 2017-06-20 20:06 | Neuropsych Progress Note ---
Generations Subjective Date: 06/20/17 - Sujective/Severity of Illness Medications: Acetaminophen (Tylenol) 325 - 650 mg PO Q5H PRN PRN Reason: Discomfort Allopurinol (Zyloprim) 100 mg PO DAILY [facility] Last Admin: 06/20/17 08:03 Dose: 100 mg Amlodipine Besylate (Norvasc) 5 mg PO DAILY [facility] Last Admin: 06/20/17 11:50 Dose: 5 mg Aspirin (Ecotrin) 81 mg PO DAILY [facility] Last Admin: 06/20/17 08:00 Dose: 81 mg Atorvastatin Calcium (Lipitor) 10 mg PO HS [facility] Last Admin: 06/19/17 20:40 Dose: Not Given Cholecalciferol (Vit. D-3) 1,000 unit PO DAILY [facility] Last Admin: 06/20/17 08:02 Dose: 1,000 unit Famotidine (Pepcid) 20 mg PO DAILY [facility] Last Admin: 06/20/17 08:01 Dose: 20 mg Haloperidol (Haldol) 0.5 mg PO Q6H PRN PRN Reason: Extreme agitation Haloperidol (Haldol) 0.5 mg PO Q6HR PRN PRN Reason: Anxiety/Agitation Haloperidol Lactate (Haldol) 0.5 mg IM Q6H PRN PRN Reason: Extreme agitation Lidocaine (Lidoderm) 1 patch TOP DAILY [facility] Last Admin: 06/20/17 08:00 Dose: 1 patch Lidocaine HCl/Dextrose (Lidoderm Patch Removal) [address] [facility] Last Admin: 06/19/17 20:40 Dose: Not Given Lisinopril (Prinivil) 10 mg PO DAILY [facility] Last Admin: 06/20/17 08:02 Dose: 10 mg Loperamide HCl (Imodium) 2 mg PO PRN PRN; Protocol PRN Reason: Diarrhea Quetiapine Fumarate (Seroquel) 50 mg PO BID PRN PRN Reason: Agitation Quetiapine Fumarate (Seroquel) 50 mg PO TID [facility] Last Admin: 06/20/17 16:27 Dose: 50 mg Subjective: Patient seen and chart reviewed. Case discussed with treatment team. On interview, patient is plesaant and cooperative, though she has limited insight into symptoms. She reports her mood is good today as she is not experiencing any pain. She does report that she has had continued VH but now that she understands why, is less frustrated with these. Patient denies any SI or HI. Patient denies any adverse side effects related to psychotropic medications. Nursing staff report patient continues to be paranoid and only whispers at times. She asked one staff member if she had a twin brother because she felt like he was inside of her. She does participate in groups on unit. Patient slept well overnight. VSS. Patient is eating well. Psychotropic PRNs required in the past 24 hours: none. Start Time: 15:40 Stop Time: 16:00 Mental Status Exam Vitals: Last Vital Signs Temp 97.4 F 06/20/17 16:00 Pulse 62 06/20/17 16:00 Resp 16 06/20/17 16:00 BP 154/71 H 06/20/17 16:00 Pulse Ox 94 06/20/17 16:00 Height: 1.68 m Weight: 73.2 kg - Mental Status Exam Muscle Strength/Tone: Normal Dressing: Casual Grooming: Good Attitude: Cooperative Motor Activity: Retardation Eye Contact: Fair Speech: Slowed Volume: Soft Rhythm: Appropriate Rhythm Orientation: Oriented to person Mood: Euthymic (Congruent affect today) Rate of Thoughts: Delayed Thought Organization: [place] Associations: Illogical Abstract Reasoning: Poor abstract reasoning Thought Content: Delusions, Paranoia Perception/Psychotic: Other (Unclear whether patient is currently experiencing VH - not responding to internal stimuli during interview) Language: Naming Impaired Fund of Knowledge: Poor fund of knowledge Memory: Poor-immediate, Poor-recent Suicidal Ideation: Denies Homicidal Ideation: Denies Insight: Poor Judgement: Poor Impulse Control: Poor Assessment and Plan (1) Major neurocognitive disorder Problem details: with behavioral disturbance (most likely Lewy Body Dementia) Current visit: No Status: Acute Hospital Course Summary Disclaimer: The visit summary below is not to be considered part of the above Progress Note. Hospital Course: 06/20/17 Agree with admission to [facility] for ongoing psychiatric evaluation and treatment under the care of Dr. Rizvi Persistent hypernatremia chronically, will encourage oral fluids, and monitor routine BMP. Blood pressure is elevated today. Recently patient was on Norvasc in addition to lisinopril. Will add Norvasc 5 mg daily and continue to monitor carefully Previously underwent pancytopenia and anemia workup in which iron and vitamin B12 were normal. Tylenol as needed for back pain. Check CBC and BMP tomorrow morning to follow blood counts, renal function and electrolytes Hospitalist services will continue to follow patient medically manage existing comorbidities. At time of discharge, care will return to primary care provider, Dr. Oquendo 06/20/17 20:07 Increase Seroquel to 50mg PO BID (AM, afternoon) and 100mg PO q HS as patient continues to exhibit paranoia - monitor for signs of worsening Parkinsonism, weigh risk of AE to clinical benefit with further dose increases.
[2017-06-20] MEDS: QUETIAPINE 50 MG TABLET PO PRN (20:39)
[2017-06-20] MEDS: QUETIAPINE 100 MG TABLET PO SCH (20:40)
[2017-06-21] MEDS: ACETAMINOPHEN 325 MG TABLET PO PRN ×2 (05:44→13:14)
[2017-06-21] MEDS: QUETIAPINE 50 MG TABLET PO SCH ×2 (08:14→13:14)
[2017-06-21] MEDS: ASPIRIN *EC* 81 MG TABLET PO SCH (08:14)
[2017-06-21] MEDS: FAMOTIDINE 20 MG TABLET PO SCH (08:14)
[2017-06-21] MEDS: LIDOCAINE 5% PATCH TOP SCH (08:15)
[2017-06-21] MEDS: ALLOPURINOL 100 MG TABLET PO SCH (08:15)
[2017-06-21] MEDS: AMLODIPINE 5 MG TABLET PO SCH (08:16)
[2017-06-21] MEDS: LISINOPRIL 10 MG TABLET PO SCH (08:16)
--- NOTE | 2017-06-21 08:44 | Progress Note ---
Progress Note: Nurses notes, psych note, labs and vitals reviewed. Psych has made some med changes due to some paranoia. She is no longer having loose stools. Labs are stable for patient. Platelets typically run low and sodium runs a bit high. Will continue to follow.
--- NOTE | 2017-06-21 18:33 | Neuropsych Progress Note ---
Gener[facility] Subjective Date: 06/21/17 - Sujective/Severity of Illness Medications: Acetaminophen (Tylenol) 325 - 650 mg PO Q5H PRN PRN Reason: Discomfort Last Admin: 06/21/17 13:14 Dose: 650 mg Allopurinol (Zyloprim) 100 mg PO DAILY [facility] Last Admin: 06/21/17 08:15 Dose: 100 mg Amlodipine Besylate (Norvasc) 5 mg PO DAILY [facility] Last Admin: 06/21/17 08:16 Dose: 5 mg Aspirin (Ecotrin) 81 mg PO DAILY [facility] Last Admin: 06/21/17 08:14 Dose: 81 mg Atorvastatin Calcium (Lipitor) 10 mg PO HS [facility] Last Admin: 06/20/17 20:05 Dose: 10 mg Cholecalciferol (Vit. D-3) 1,000 unit PO DAILY [facility] Last Admin: 06/21/17 08:14 Dose: 1,000 unit Famotidine (Pepcid) 20 mg PO DAILY [facility] Last Admin: 06/21/17 08:14 Dose: 20 mg Haloperidol (Haldol) 0.5 mg PO Q6H PRN PRN Reason: Extreme agitation Haloperidol (Haldol) 0.5 mg PO Q6HR PRN PRN Reason: Anxiety/Agitation Haloperidol Lactate (Haldol) 0.5 mg IM Q6H PRN PRN Reason: Extreme agitation Lidocaine (Lidoderm) 1 patch TOP DAILY [facility] Last Admin: 06/21/17 08:15 Dose: 1 patch Lidocaine HCl/Dextrose (Lidoderm Patch Removal) 1 removal TOP HS [facility] Last Admin: 06/20/17 20:06 Dose: 1 removal Lisinopril (Prinivil) 10 mg PO DAILY [facility] Last Admin: 06/21/17 08:16 Dose: 10 mg Loperamide HCl (Imodium) 2 mg PO PRN PRN; Protocol PRN Reason: Diarrhea Quetiapine Fumarate (Seroquel) 50 mg PO BID PRN PRN Reason: Agitation Last Admin: 06/20/17 20:39 Dose: 50 mg Quetiapine Fumarate (Seroquel) 100 mg PO HS [facility] Last Admin: 06/20/17 20:40 Dose: Not Given Quetiapine Fumarate (Seroquel) 50 mg PO , [facility] Last Admin: 06/21/17 13:14 Dose: 50 mg Subjective: Patient seen and chart reviewed. Case discussed with treatment team. On interview, patient is pleasant and cooperative, though she has limited insight into symptoms. She states her mood is "terrible" and complains of shoulder pain - but then begins talking about how others used to tease her in grade school and make her cry, and related it to her current situation. I have not heard her complain of depression frequently so will continue to monitor - yesterday she said her mood was very good. Today she said she is worried she will be homeless after discharge. Requires frequent reassurance but is redirectable. Patient denies any SI or HI. Patient denies any adverse side effects related to psychotropic medications. Nursing staff report patient continues to be paranoid and only whispers at times. The evenings seem to be worse. She does participate in groups on unit. Patient slept well overnight. VSS. Patient is eating well. Psychotropic PRNs required in the past 24 hours: none. Start Time: 15:00 Stop Time: 15:20 Mental Status Exam Vitals: Last Vital Signs Temp 98.0 F 06/21/17 16:00 Pulse 70 06/21/17 16:00 Resp 16 06/21/17 16:00 BP 130/69 06/21/17 16:00 Pulse Ox 95 06/21/17 16:00 Height: 1.68 m Weight: 73.2 kg - Mental Status Exam Muscle Strength/Tone: Normal Dressing: Casual Grooming: Good Attitude: Cooperative Motor Activity: Retardation Eye Contact: Fair Speech: Slowed Volume: Soft Rhythm: Appropriate Rhythm Orientation: Oriented to person Mood: Depressed (Reports mood is "depressed," does appear sad on interview) Affect: Sad Rate of Thoughts: Delayed Thought Organization: [place] Associations: Illogical Abstract Reasoning: Poor abstract reasoning Thought Content: Delusions, Ruminations, Paranoia, Somatic Concerns Perception/Psychotic: Other (Unclear whether patient is currently experiencing VH - not responding to internal stimuli during interview) Language: Naming Impaired Fund of Knowledge: Poor fund of knowledge Memory: Poor-immediate, Poor-recent Suicidal Ideation: Denies Homicidal Ideation: Denies Insight: Poor Judgement: Poor Impulse Control: Poor - Laboratory Result Diagrams: 06/21/17 07:06 06/21/17 07:06 Laboratory Results - last 24 hr 06/21/17 06/21/17 07:06 07:06 WBC 4.1 L RBC 3.90 L Hgb 11.7 L Hct 36.1 MCV 92.6 MCH 30.0 MCHC 32.4 RDW Std Deviation 45.1 Plt Count 105 L MPV 11.0 Immature Gran % (Auto) 0.2 Neut % (Auto) 70.7 H Lymph % (Auto) 21.5 L [place] % (Auto) 5.9 Eos % (Auto) 1.5 Baso % (Auto) 0.2 Neut # 2.9 Lymph # 0.9 L [place] # 0.2 Eos # 0.1 Baso # 0.0 Abs Immat Gran (auto) 0.01 Turbidity < 20 Sodium 146 H Potassium 3.6 Chloride 109 H Carbon Dioxide 26 Anion Gap 11 BUN 16.0 Creatinine 0.7 GFR Calculation 80 BUN/Creatinine Ratio 23 Glucose 89 Calculated Osmolality 281 H Calcium 9.0 Icterus Index < 2 Specimen Hemolysis 22 Assessment and Plan (1) Major neurocognitive disorder Problem details: with behavioral disturbance (most likely Lewy Body Dementia) Current visit: No Status: Acute Hospital Course Summary Disclaimer: The visit summary below is not to be considered part of the above Progress Note. Hospital Course: 06/20/17 Agree with admission to [facility] for ongoing psychiatric evaluation and treatment under the care of Dr. Rizvi Persistent hypernatremia chronically, will encourage oral fluids, and monitor routine BMP. Blood pressure is elevated today. Recently patient was on Norvasc in addition to lisinopril. Will add Norvasc 5 mg daily and continue to monitor carefully Previously underwent pancytopenia and anemia workup in which iron and vitamin B12 were normal. Tylenol as needed for back pain. Check CBC and BMP tomorrow morning to follow blood counts, renal function and electrolytes Hospitalist services will continue to follow patient medically manage existing comorbidities. At time of discharge, care will return to primary care provider, Dr. Oquendo 06/20/17 20:07 Psych: Increase Seroquel to 50mg PO BID (AM, afternoon) and 100mg PO q HS as patient continues to exhibit paranoia - monitor for signs of worsening Parkinsonism, weigh risk of AE to clinical benefit with further dose increases. 06/21/17 18:32 Psych: Continue current care - monitor for any further signs of depression, may increase Seroquel dose further if paranoia continues.
[2017-06-21] MEDS: ATORVASTATIN 10 MG TABLET PO SCH (21:02)
[2017-06-21] MEDS: LIDOCAINE PATCH REMOVAL TOP SCH (21:02)
[2017-06-21] MEDS: QUETIAPINE 100 MG TABLET PO SCH (21:02)
[2017-06-22] MEDS: ASPIRIN *EC* 81 MG TABLET PO SCH ×2 (07:53→12:18)
[2017-06-22] MEDS: LIDOCAINE 5% PATCH TOP SCH ×2 (07:53→12:18)
[2017-06-22] MEDS: LISINOPRIL 10 MG TABLET PO SCH ×2 (07:54→12:18)
[2017-06-22] MEDS: AMLODIPINE 5 MG TABLET PO SCH ×2 (07:54→12:18)
[2017-06-22] MEDS: FAMOTIDINE 20 MG TABLET PO SCH ×2 (07:54→12:18)
[2017-06-22] MEDS: ALLOPURINOL 100 MG TABLET PO SCH ×2 (07:56→12:19)
[2017-06-22] MEDS: QUETIAPINE 50 MG TABLET PO SCH ×3 (07:56→13:07)
[2017-06-22] MEDS ORDERED: PROPOFOL 500 MG/50 ML VIAL IV ONE (09:47)
[2017-06-22] MEDS: QUETIAPINE 100 MG TABLET PO SCH (20:15)
[2017-06-22] MEDS: ATORVASTATIN 10 MG TABLET PO SCH (20:15)
[2017-06-22] MEDS: LIDOCAINE PATCH REMOVAL TOP SCH (20:16)
--- NOTE | 2017-06-22 20:33 | Neuropsych Progress Note ---
Gener[facility] Subjective Date: 06/22/17 - Sujective/Severity of Illness Medications: Acetaminophen (Tylenol) 325 - 650 mg PO Q5H PRN PRN Reason: Discomfort Last Admin: 06/21/17 13:14 Dose: 650 mg Allopurinol (Zyloprim) 100 mg PO DAILY [facility] Last Admin: 06/22/17 12:19 Dose: Not Given Amlodipine Besylate (Norvasc) 5 mg PO DAILY [facility] Last Admin: 06/22/17 12:18 Dose: Not Given Aspirin (Ecotrin) 81 mg PO DAILY [facility] Last Admin: 06/22/17 12:18 Dose: Not Given Atorvastatin Calcium (Lipitor) 10 mg PO HS [facility] Last Admin: 06/22/17 20:15 Dose: 10 mg Cholecalciferol (Vit. D-3) 1,000 unit PO DAILY [facility] Last Admin: 06/22/17 12:19 Dose: Not Given Famotidine (Pepcid) 20 mg PO DAILY [facility] Last Admin: 06/22/17 12:18 Dose: Not Given Haloperidol (Haldol) 0.5 mg PO Q6H PRN PRN Reason: Extreme agitation Haloperidol (Haldol) 0.5 mg PO Q6HR PRN PRN Reason: Anxiety/Agitation Haloperidol Lactate (Haldol) 0.5 mg IM Q6H PRN PRN Reason: Extreme agitation Lidocaine (Lidoderm) 1 patch TOP DAILY [facility] Last Admin: 06/22/17 12:18 Dose: Not Given Lidocaine HCl/Dextrose (Lidoderm Patch Removal) 1 removal TOP HS [facility] Last Admin: 06/22/17 20:16 Dose: 1 removal Lisinopril (Prinivil) 10 mg PO DAILY [facility] Last Admin: 06/22/17 12:18 Dose: Not Given Loperamide HCl (Imodium) 2 mg PO PRN PRN; Protocol PRN Reason: Diarrhea Quetiapine Fumarate (Seroquel) 50 mg PO BID PRN PRN Reason: Agitation Last Admin: 06/20/17 20:39 Dose: 50 mg Quetiapine Fumarate (Seroquel) 100 mg PO HS [facility] Last Admin: 06/22/17 20:15 Dose: 100 mg Quetiapine Fumarate (Seroquel) 50 mg PO ,14 [facility] Last Admin: 06/22/17 13:07 Dose: 50 mg Subjective: Patient seen and chart reviewed. Case discussed with treatment team. On interview, patient is pleasant and cooperative, though she has limited insight into symptoms. Slightly more organized than previously. She again states that she feels down and states that she wants to go home "because she is tired of fighting (arguing)" - which does not makes logical sense to me. Requires frequent reassurance but is redirectable. She has now reported depressive symptoms twice to me despite being pleasant with nursing staff and not presenting as dysphoric most of the day. Patient denies any SI or HI. Patient denies any adverse side effects related to psychotropic medications. Nursing staff report patient has been anxious about her stools but this is understandable given situation. She is able to calm if staff walk and talk with her. She is adherent with medications. She does participate in groups on unit. She does have some mild paranoia intermittently but is redirectable and not in significant distress - believe it is manageable with current meds as to not exacerbate Parkinson's further. Patient slept only 4 hours overnight - believed to be due to anxiety about stools. VSS. Appetite improving. Psychotropic PRNs required in the past 24 hours : none. Start Time: 16:20 Stop Time: 16:40 Mental Status Exam Vitals: Last Vital Signs Temp 97.2 F 06/22/17 16:20 Pulse 69 06/22/17 16:20 Resp 16 06/22/17 16:20 BP 150/70 H 06/22/17 16:20 Pulse Ox 96 06/22/17 16:20 Height: 1.68 m Weight: 73.2 kg - Mental Status Exam Muscle Strength/Tone: Normal Dressing: Casual Grooming: Good Attitude: Cooperative Motor Activity: Retardation Eye Contact: Fair Speech: Slowed Volume: Soft Rhythm: Appropriate Rhythm Orientation: Disoriented to time, Disoriented to place, Disoriented to situation , Oriented to person Mood: Depressed (Reports mood is "depressed," does appear sad on interview) Rate of Thoughts: Delayed Thought Organization: [place] Associations: Illogical Abstract Reasoning: Poor abstract reasoning Thought Content: Delusions, Ruminations, Paranoia (improving), Somatic Concerns Perception/Psychotic: Other (Unclear whether patient is currently experiencing VH - not responding to internal stimuli during interview) Language: Naming Impaired Fund of Knowledge: Poor fund of knowledge Memory: Poor-immediate, Poor-recent Suicidal Ideation: Denies Homicidal Ideation: Denies Insight: Poor Judgement: Poor Impulse Control: Other (Improving - still limited) - Laboratory Result Diagrams: 06/21/17 07:06 06/21/17 07:06 Assessment and Plan (1) Major neurocognitive disorder Problem details: with behavioral disturbance (most likely Lewy Body Dementia) Current visit: No Status: Acute Hospital Course Summary Disclaimer: The visit summary below is not to be considered part of the above Progress Note. Hospital Course: 06/20/17 Agree with admission to [facility] for ongoing psychiatric evaluation and treatment under the care of Dr. Rizvi Persistent hypernatremia chronically, will encourage oral fluids, and monitor routine BMP. Blood pressure is elevated today. Recently patient was on Norvasc in addition to lisinopril. Will add Norvasc 5 mg daily and continue to monitor carefully Previously underwent pancytopenia and anemia workup in which iron and vitamin B12 were normal. Tylenol as needed for back pain. Check CBC and BMP tomorrow morning to follow blood counts, renal function and electrolytes Hospitalist services will continue to follow patient medically manage existing comorbidities. At time of discharge, care will return to primary care provider, Dr. Oquendo 06/20/17 20:07 Psych: Increase Seroquel to 50mg PO BID (AM, afternoon) and 100mg PO q HS as patient continues to exhibit paranoia - monitor for signs of worsening Parkinsonism, weigh risk of AE to clinical benefit with further dose increases. 06/21/17 18:32 Psych: Continue current care - monitor for any further signs of depression, may increase Seroquel dose further if paranoia continues. 06/22/17 20:35 Psych: Discuss depressive symptoms and need for antidepressant with staff, patient's family tomorrow. Paranoia is manageable and directable at this point. Would like to use lowest dose of Seroquel possible to control symptoms as to avoid exacerbating movement disorder. Continue current care otherwise; monitor patient's mood, behavior and response to treatment.
[2017-06-23] MEDS: LIDOCAINE 5% PATCH TOP SCH ×2 (07:11→11:58)
[2017-06-23] MEDS: AMLODIPINE 5 MG TABLET PO SCH (08:18)
[2017-06-23] MEDS: FAMOTIDINE 20 MG TABLET PO SCH (08:18)
[2017-06-23] MEDS: ASPIRIN *EC* 81 MG TABLET PO SCH (08:18)
[2017-06-23] MEDS: QUETIAPINE 50 MG TABLET PO SCH ×2 (08:19→13:56)
[2017-06-23] MEDS: LISINOPRIL 10 MG TABLET PO SCH (08:19)
[2017-06-23] MEDS: ALLOPURINOL 100 MG TABLET PO SCH (08:19)
[2017-06-23] MEDS: ACETAMINOPHEN 325 MG TABLET PO PRN (18:52)
[2017-06-23] MEDS: QUETIAPINE 100 MG TABLET PO SCH (20:05)
[2017-06-23] MEDS: ATORVASTATIN 10 MG TABLET PO SCH (20:05)
[2017-06-23] MEDS: LIDOCAINE PATCH REMOVAL TOP SCH (20:05)
--- NOTE | 2017-06-23 21:01 | Neuropsych Progress Note ---
[facility] Subjective Date: 06/23/17 - Sujective/Severity of Illness Medications: Acetaminophen (Tylenol) 325 - 650 mg PO Q5H PRN PRN Reason: Discomfort Last Admin: 06/23/17 18:52 Dose: 650 mg Allopurinol (Zyloprim) 100 mg PO DAILY [facility] Last Admin: 06/23/17 08:19 Dose: 100 mg Amlodipine Besylate (Norvasc) 5 mg PO DAILY [facility] Last Admin: 06/23/17 08:18 Dose: 5 mg Aspirin (Ecotrin) 81 mg PO DAILY [facility] Last Admin: 06/23/17 08:18 Dose: 81 mg Atorvastatin Calcium (Lipitor) 10 mg PO HS [facility] Last Admin: 06/23/17 20:05 Dose: 10 mg Cholecalciferol (Vit. D-3) 1,000 unit PO DAILY [facility] Last Admin: 06/23/17 08:19 Dose: 1,000 unit Famotidine (Pepcid) 20 mg PO DAILY [facility] Last Admin: 06/23/17 08:18 Dose: 20 mg Haloperidol (Haldol) 0.5 mg PO Q6H PRN PRN Reason: Extreme agitation Haloperidol (Haldol) 0.5 mg PO Q6HR PRN PRN Reason: Anxiety/Agitation Haloperidol Lactate (Haldol) 0.5 mg IM Q6H PRN PRN Reason: Extreme agitation Lidocaine (Lidoderm) 1 patch TOP DAILY [facility] Last Admin: 06/23/17 11:58 Dose: Not Given Lidocaine HCl/Dextrose (Lidoderm Patch Removal) 1 removal TOP HS [facility] Last Admin: 06/23/17 20:05 Dose: 1 removal Lisinopril (Prinivil) 10 mg PO DAILY [facility] Last Admin: 06/23/17 08:19 Dose: 10 mg Loperamide HCl (Imodium) 2 mg PO PRN PRN; Protocol PRN Reason: Diarrhea Quetiapine Fumarate (Seroquel) 50 mg PO BID PRN PRN Reason: Agitation Last Admin: 06/20/17 20:39 Dose: 50 mg Quetiapine Fumarate (Seroquel) 100 mg PO HS [facility] Last Admin: 06/23/17 20:05 Dose: 100 mg Quetiapine Fumarate (Seroquel) 50 mg PO 09,14 [facility] Last Admin: 06/23/17 13:56 Dose: 50 mg Subjective: Patient seen and chart reviewed. Case discussed with treatment team. On interview, patient is pleasant and cooperative, though she has limited insight into symptoms. Slightly more organized than previously. She continues to report to me that she feels very sad/depressed. She denies AVH last night or today but does feel those experiences have affected her mood. Patient denies any SI or HI. Patient complains of worsening tremor today and is mildly stiff on exam. Nursing staff report patient has been pleasant and cooperative overall. She is adherent with medications. She does participate in groups on unit. She does have some mild paranoia intermittently but is redirectable and not in significant distress - believe it is manageable with current meds as to not exacerbate Parkinson's further. Patient slept well overnight. VSS. Appetite improving. Psychotropic PRNs required in the past 24 hours: none. Start Time: 12:00 Stop Time: 12:20 Mental Status Exam Vitals: Last Vital Signs Temp 97.6 F 06/23/17 16:58 Pulse 74 06/23/17 16:58 Resp 16 06/23/17 16:58 BP 106/60 06/23/17 16:58 Pulse Ox 93 06/23/17 16:58 Height: 1.68 m Weight: 73.2 kg - Mental Status Exam Muscle Strength/Tone: Normal Dressing: Casual Grooming: Good Attitude: Cooperative Motor Activity: Retardation Eye Contact: Fair Speech: Slowed Volume: Soft Rhythm: Appropriate Rhythm Orientation: Disoriented to time, Disoriented to place, Disoriented to situation , Oriented to person Mood: Depressed (Reports mood is "depressed," does appear sad on interview) Rate of Thoughts: Delayed Thought Organization: [place] Associations: Illogical Abstract Reasoning: Poor abstract reasoning Thought Content: Ruminations, Paranoia (improving - no evidence today), Somatic Concerns Perception/Psychotic: Other (Unclear whether patient is currently experiencing VH - not responding to internal stimuli during interview, she denies) Language: Naming Impaired Fund of Knowledge: Poor fund of knowledge Memory: Poor-immediate, Poor-recent Suicidal Ideation: Denies Homicidal Ideation: Denies Insight: Poor Judgement: Poor Impulse Control: Fair - Laboratory Result Diagrams: 06/21/17 07:06 06/21/17 07:06 Assessment and Plan (1) Lewy body dementia with behavioral disturbance Current visit: No Status: Acute (2) Major neurocognitive disorder Problem details: with behavioral disturbance (most likely Lewy Body Dementia) Current visit: No Status: Acute (3) Depressive disorder Current visit: Yes Status: Acute (4) CAD (coronary artery disease) Current visit: No Status: Chronic (5) HTN (hypertension) Current visit: No Status: Chronic (6) Parkinsons Current visit: No Status: Chronic Hospital Course Summary Disclaimer: The visit summary below is not to be considered part of the above Progress Note. Hospital Course: 06/20/17 Agree with admission to [facility] for ongoing psychiatric evaluation and treatment under the care of Dr. Rizvi Persistent hypernatremia chronically, will encourage oral fluids, and monitor routine BMP. Blood pressure is elevated today. Recently patient was on Norvasc in addition to lisinopril. Will add Norvasc 5 mg daily and continue to monitor carefully Previously underwent pancytopenia and anemia workup in which iron and vitamin B12 were normal. Tylenol as needed for back pain. Check CBC and BMP tomorrow morning to follow blood counts, renal function and electrolytes Hospitalist services will continue to follow patient medically manage existing comorbidities. At time of discharge, care will return to primary care provider, Dr. Oquendo 06/20/17 20:07 Psych: Increase Seroquel to 50mg PO BID (AM, afternoon) and 100mg PO q HS as patient continues to exhibit paranoia - monitor for signs of worsening Parkinsonism, weigh risk of AE to clinical benefit with further dose increases. 06/21/17 18:32 Psych: Continue current care - monitor for any further signs of depression, may increase Seroquel dose further if paranoia continues. 06/22/17 20:35 Psych: Discuss depressive symptoms and need for antidepressant with staff, patient's family tomorrow. Paranoia is manageable and directable at this point. Would like to use lowest dose of Seroquel possible to control symptoms as to avoid exacerbating movement disorder. Continue current care otherwise; monitor patient's mood, behavior and response to treatment. 06/23/17 21:02 Psych: Start mirtazapine 7.5mg PO q HS to target mood, may increase to 15mg fairly quickly if well tolerated. Believe that paranoia is mild in nature when present and she is redirectable and current dose of Seroquel - would like to minimize dose to avoid exacerbating movement disorder.
[2017-06-24] MEDS: QUETIAPINE 50 MG TABLET PO SCH ×2 (08:01→14:41)
[2017-06-24] MEDS: ALLOPURINOL 100 MG TABLET PO SCH (08:01)
[2017-06-24] MEDS: AMLODIPINE 5 MG TABLET PO SCH (08:01)
[2017-06-24] MEDS: ASPIRIN *EC* 81 MG TABLET PO SCH (08:01)
[2017-06-24] MEDS: LISINOPRIL 10 MG TABLET PO SCH (08:01)
[2017-06-24] MEDS: LIDOCAINE 5% PATCH TOP SCH (08:01)
[2017-06-24] MEDS: FAMOTIDINE 20 MG TABLET PO SCH (08:01)
--- NOTE | 2017-06-24 16:32 | Progress Note ---
Subjective: "Cristina" is seen today in follow up. She is pleasant, confused. Nursing reports that it [birth year] birthday- she states that she is 1-3-5. When nursing reminds her that she is 87, she states "Oh, ok. 1-8-5". She denies any pain or other c/o. She tells me that her niece and nephew visited today. Objective Vital signs: Temperature 98.0 F 06/24/17 16:00 Pulse Rate 72 06/24/17 16:00 Respiratory Rate 16 06/24/17 16:00 Blood Pressure 129/69 06/24/17 16:00 Pulse Oximetry 93 06/24/17 16:00 Height/Weight/BMI: Height 1.68 m Weight 73.2 kg Body Mass Index 26.0 - Constitutional Present: no acute distress, well nourished, well developed - Routine HEENT Exam Head: Present: normocephalic, atraumatic Eye: Present: EOMI, PERRL ENT: Present: mucous membranes moist - Routine Respiratory Exam Present: decreased breath sounds, CTA bilaterally. Absent: rhonchi, stridor, crackles - Routine Cardiovascular Exam Present: RRR, S1, S2, no murmur - Routine Abdominal Exam Present: soft, normoactive bowel sounds, non distended, non tender Comments: Last BM documented 06/22 - Routine Extremities Exam Present: no edema, full ROM, normal capillary refill - Routine Back/Spine/Pelvis Exam Back/Spine: Present: full ROM - Routine Musculoskeletal Exam Musculoskeletal: Present: no clubbing or cyanosis, no tenderness - Routine Skin Exam Present: intact, dry, warm - Routine Neurological Exam Present: alert, moving all extremities - Routine Psychiatric Exam Present: cooperative Comments: Confused, pleasant. Childlike. Results - Labs CBC & Chem 7: 06/21/17 07:06 06/21/17 07:06 Assessment and Plan (1) Cognitive and behavioral changes Current visit: No Status: Acute (2) CAD (coronary artery disease) Current visit: No Status: Chronic (3) HTN (hypertension) Current visit: No Status: Chronic (4) Parkinsons Current visit: No Status: Chronic (5) Lewy body dementia with behavioral disturbance Current visit: No Status: Acute (6) Hypernatremia Current visit: No Status: Acute DVT Prophylaxis: other (Ambulatory) GI Prophylaxis: Pepcid Resuscitation Status: Do Not Resuscitate Assessment and Plan: 06/24/17 Patient is slowly improving. Diarrhea stools have resolved. Still confused, it appears from nurses notes that behavior is improving. BP is variable, but overall well controlled. Plan to repeat labs in AM for stability. Chart, documentation, imaging is reviewed during the course of this visit. - Time spent with patient 25 - 35 minutes Sepsis Assessment - Evaluation Sepsis screening result: No Definite Risk Hospital Course Summary Disclaimer: The visit summary below is not to be considered part of the above Progress Note. Hospital Course: 06/20/17 Agree with admission to [facility] for ongoing psychiatric evaluation and treatment under the care of Dr. Rizvi Persistent hypernatremia chronically, will encourage oral fluids, and monitor routine BMP. Blood pressure is elevated today. Recently patient was on Norvasc in addition to lisinopril. Will add Norvasc 5 mg daily and continue to monitor carefully Previously underwent pancytopenia and anemia workup in which iron and vitamin B12 were normal. Tylenol as needed for back pain. Check CBC and BMP tomorrow morning to follow blood counts, renal function and electrolytes Hospitalist services will continue to follow patient medically manage existing comorbidities. At time of discharge, care will return to primary care provider, Dr. Oquendo 06/20/17 20:07 Psych: Increase Seroquel to 50mg PO BID (AM, afternoon) and 100mg PO q HS as patient continues to exhibit paranoia - monitor for signs of worsening Parkinsonism, weigh risk of AE to clinical benefit with further dose increases. 06/21/17 18:32 Psych: Continue current care - monitor for any further signs of depression, may increase Seroquel dose further if paranoia continues. 06/22/17 20:35 Psych: Discuss depressive symptoms and need for antidepressant with staff, patient's family tomorrow. Paranoia is manageable and directable at this point. Would like to use lowest dose of Seroquel possible to control symptoms as to avoid exacerbating movement disorder. Continue current care otherwise; monitor patient's mood, behavior and response to treatment. 06/23/17 21:02 Psych: Start mirtazapine 7.5mg PO q HS to target mood, may increase to 15mg fairly quickly if well tolerated. Believe that paranoia is mild in nature when present and she is redirectable and current dose of Seroquel - would like to minimize dose to avoid exacerbating movement disorder. 06/24/17 16:36 Patient is slowly improving. Diarrhea stools have resolved. Still confused, it appears from nurses notes that behavior is improving. BP is variable, but overall well controlled. Plan to repeat labs in AM for stability. Chart, documentation, imaging is reviewed during the course of this visit.
--- NOTE | 2017-06-24 19:45 | Neuropsych Progress Note ---
[facility] Subjective Date: 06/24/17 - Sujective/Severity of Illness Medications: Acetaminophen (Tylenol) 325 - 650 mg PO Q5H PRN PRN Reason: Discomfort Last Admin: 06/23/17 18:52 Dose: 650 mg Allopurinol (Zyloprim) 100 mg PO DAILY [facility] Last Admin: 06/24/17 08:01 Dose: 100 mg Amlodipine Besylate (Norvasc) 5 mg PO DAILY [facility] Last Admin: 06/24/17 08:01 Dose: 5 mg Aspirin (Ecotrin) 81 mg PO DAILY [facility] Last Admin: 06/24/17 08:01 Dose: 81 mg Atorvastatin Calcium (Lipitor) 10 mg PO HS [facility] Last Admin: 06/23/17 20:05 Dose: 10 mg Cholecalciferol (Vit. D-3) 1,000 unit PO DAILY [facility] Last Admin: 06/24/17 08:01 Dose: 1,000 unit Famotidine (Pepcid) 20 mg PO DAILY [facility] Last Admin: 06/24/17 08:01 Dose: 20 mg Haloperidol (Haldol) 0.5 mg PO Q6H PRN PRN Reason: Extreme agitation Haloperidol (Haldol) 0.5 mg PO Q6HR PRN PRN Reason: Anxiety/Agitation Haloperidol Lactate (Haldol) 0.5 mg IM Q6H PRN PRN Reason: Extreme agitation Lidocaine (Lidoderm) 1 patch TOP DAILY [facility] Last Admin: 06/24/17 08:01 Dose: 1 patch Lidocaine HCl/Dextrose (Lidoderm Patch Removal) 1 removal TOP HS [facility] Last Admin: 06/23/17 20:05 Dose: 1 removal Lisinopril (Prinivil) 10 mg PO DAILY [facility] Last Admin: 06/24/17 08:01 Dose: 10 mg Loperamide HCl (Imodium) 2 mg PO PRN PRN; Protocol PRN Reason: Diarrhea Mirtazapine (Remeron) 7.5 mg PO HS [facility] Quetiapine Fumarate (Seroquel) 50 mg PO BID PRN PRN Reason: Agitation Last Admin: 06/20/17 20:39 Dose: 50 mg Quetiapine Fumarate (Seroquel) 100 mg PO HS [facility] Last Admin: 06/23/17 20:05 Dose: 100 mg Quetiapine Fumarate (Seroquel) 50 mg PO , [facility] Last Admin: 06/24/17 14:41 Dose: 50 mg Subjective: Patient seen and chart reviewed. Case discussed with treatment team. On interview, patient is pleasant and cooperative, though she has limited insight into symptoms. Slightly more organized than previously though does still believe she is still working or has her own apartment at times. She continues to report to me that she feels very sad/depressed. She denies AVH last night or today but does feel those experiences have affected her mood. She has shared this with nursing staff as well. Patient denies any SI or HI. Patient complains of worsening tremor today and is mildly stiff on exam. Nursing staff report patient has been pleasant and cooperative overall. She was tearful last night but calmed after ~10 minutes on her own. She is adherent with medications. She does participate in groups on unit. Patient is redirectable with current meds - I believe it is best to minimize antipsychotic use as to not exacerbate Parkinson's further. Patient slept well overnight. VSS. Appetite improving. Psychotropic PRNs required in the past 24 hours: none. Start Time: 12:00 Stop Time: 12:20 Mental Status Exam Vitals: Last Vital Signs Temp 98.0 F 06/24/17 16:00 Pulse 72 06/24/17 16:00 Resp 16 06/24/17 16:00 BP 129/69 06/24/17 16:00 Pulse Ox 93 06/24/17 16:00 Height: 1.68 m Weight: 73.2 kg - Mental Status Exam Muscle Strength/Tone: Normal Dressing: Casual Grooming: Good Attitude: Cooperative Motor Activity: Retardation Eye Contact: Fair Speech: Slowed Volume: Soft Rhythm: Appropriate Rhythm Orientation: Disoriented to time, Disoriented to place, Disoriented to situation , Oriented to person Mood: Depressed (Reports mood is "depressed," does appear sad on interview) Rate of Thoughts: Delayed Thought Organization: [place] Associations: Illogical Abstract Reasoning: Poor abstract reasoning Thought Content: Ruminations, Paranoia (improving - no evidence today), Somatic Concerns Perception/Psychotic: Other (Unclear whether patient is currently experiencing VH - not responding to internal stimuli during interview, she denies) Language: Naming Impaired Fund of Knowledge: Poor fund of knowledge Memory: Poor-immediate, Poor-recent Suicidal Ideation: Denies Homicidal Ideation: Denies Insight: Limited Judgement: Limited Impulse Control: Fair - Laboratory Result Diagrams: 06/21/17 07:06 06/21/17 07:06 Assessment and Plan (1) Lewy body dementia with behavioral disturbance Current visit: No Status: Acute (2) Major neurocognitive disorder Problem details: with behavioral disturbance (most likely Lewy Body Dementia) Current visit: No Status: Acute (3) Depressive disorder Current visit: Yes Status: Acute (4) CAD (coronary artery disease) Current visit: No Status: Chronic (5) HTN (hypertension) Current visit: No Status: Chronic (6) Parkinsons Current visit: No Status: Chronic Hospital Course Summary Disclaimer: The visit summary below is not to be considered part of the above Progress Note. Hospital Course: 06/20/17 Agree with admission to [facility] for ongoing psychiatric evaluation and treatment under the care of Dr. Rizvi Persistent hypernatremia chronically, will encourage oral fluids, and monitor routine BMP. Blood pressure is elevated today. Recently patient was on Norvasc in addition to lisinopril. Will add Norvasc 5 mg daily and continue to monitor carefully Previously underwent pancytopenia and anemia workup in which iron and vitamin B12 were normal. Tylenol as needed for back pain. Check CBC and BMP tomorrow morning to follow blood counts, renal function and electrolytes Hospitalist services will continue to follow patient medically manage existing comorbidities. At time of discharge, care will return to primary care provider, Dr. Oquendo 06/20/17 20:07 Psych: Increase Seroquel to 50mg PO BID (AM, afternoon) and 100mg PO q HS as patient continues to exhibit paranoia - monitor for signs of worsening Parkinsonism, weigh risk of AE to clinical benefit with further dose increases. 06/21/17 18:32 Psych: Continue current care - monitor for any further signs of depression, may increase Seroquel dose further if paranoia continues. 06/22/17 20:35 Psych: Discuss depressive symptoms and need for antidepressant with staff, patient's family tomorrow. Paranoia is manageable and directable at this point. Would like to use lowest dose of Seroquel possible to control symptoms as to avoid exacerbating movement disorder. Continue current care otherwise; monitor patient's mood, behavior and response to treatment. 06/23/17 21:02 Psych: Start mirtazapine 7.5mg PO q HS to target mood, may increase to 15mg fairly quickly if well tolerated. Believe that paranoia is mild in nature when present and she is redirectable and current dose of Seroquel - would like to minimize dose to avoid exacerbating movement disorder. 06/24/17 16:36 Patient is slowly improving. Diarrhea stools have resolved. Still confused, it appears from nurses notes that behavior is improving. BP is variable, but overall well controlled. Plan to repeat labs in AM for stability. Chart, documentation, imaging is reviewed during the course of this visit. 06/24/17 19:46 Psych: Patient doing well overall - will receive first dose of mirtazapine tonight, monitor to ensure patient tolerates it well and plan to increase to 15mg soon. Continue current care otherwise.
[2017-06-24] MEDS: MIRTAZAPINE 15 MG TABLET PO SCH (20:04)
[2017-06-24] MEDS: ATORVASTATIN 10 MG TABLET PO SCH (20:05)
[2017-06-24] MEDS: QUETIAPINE 100 MG TABLET PO SCH (20:05)
[2017-06-24] MEDS: ACETAMINOPHEN 325 MG TABLET PO PRN (20:06)
[2017-06-24] MEDS: LIDOCAINE PATCH REMOVAL TOP SCH (20:07)
[2017-06-25] MEDS: ASPIRIN *EC* 81 MG TABLET PO SCH (08:48)
[2017-06-25] MEDS: LISINOPRIL 10 MG TABLET PO SCH (08:49)
[2017-06-25] MEDS: QUETIAPINE 50 MG TABLET PO SCH ×2 (08:49→14:25)
[2017-06-25] MEDS: LIDOCAINE 5% PATCH TOP SCH (08:49)
[2017-06-25] MEDS: AMLODIPINE 5 MG TABLET PO SCH (08:49)
[2017-06-25] MEDS: ALLOPURINOL 100 MG TABLET PO SCH (08:49)
[2017-06-25] MEDS: FAMOTIDINE 20 MG TABLET PO SCH (08:49)
[2017-06-25] MEDS: CYANOCOBALAMIN (B-12) 500mcg TABLET PO SCH (20:28)
[2017-06-25] MEDS: MIRTAZAPINE 15 MG TABLET PO SCH (20:29)
[2017-06-25] MEDS: QUETIAPINE 100 MG TABLET PO SCH (20:29)
[2017-06-25] MEDS: ATORVASTATIN 10 MG TABLET PO SCH (20:29)
[2017-06-25] MEDS: LIDOCAINE PATCH REMOVAL TOP SCH (20:32)
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
[2017-06-25] MEDS ORDERED: MIRTAZAPINE 15 MG TABLET PO SCH (20:51)
[2017-06-26] MEDS: LIDOCAINE 5% PATCH TOP SCH (08:04)
[2017-06-26] MEDS: ASPIRIN *EC* 81 MG TABLET PO SCH (08:05)
[2017-06-26] MEDS: FAMOTIDINE 20 MG TABLET PO SCH (08:05)
[2017-06-26] MEDS: ALLOPURINOL 100 MG TABLET PO SCH (08:05)
[2017-06-26] MEDS: AMLODIPINE 5 MG TABLET PO SCH (08:05)
[2017-06-26] MEDS: QUETIAPINE 50 MG TABLET PO SCH ×2 (08:05→14:00)
[2017-06-26] MEDS: LISINOPRIL 10 MG TABLET PO SCH (08:06)
[2017-06-26] MEDS: MULTI-VITAMIN PLAIN TABLET PO SCH (08:08)
[2017-06-26] MEDS: COENZYME Q10 200 MG PO SCH (08:10)
[2017-06-26] MEDS: CYANOCOBALAMIN (B-12) 500mcg TABLET PO SCH ×2 (08:10→20:49)
[2017-06-26] MEDS: ACETAMINOPHEN 325 MG TABLET PO PRN ×2 (08:16→22:05)
--- NOTE | 2017-06-26 14:41 | Progress Note ---
Subjective: Cristina is seen today in follow up for her major neurocognitive disorder with behavioral changes. She is seen while walking down the [place] with her walker. She appears steady on her feet and is only mildly assisted by nursing. She denies any complaints and reports that she is feeling good. No chest pain, shortness of breath, abdominal pain, nausea, vomiting or dysuria. She only stands still briefly before she eagerly walks down the [place]. Her appetite has been good and her bowels are moving. Nursing reports she is doing well. Review of medical records and nursing notes indicates that she has hypernatremia with sodium of 147 and mild hypokalemia with potassium at 3.5. Otherwise, doing well. Objective Vital signs: Temperature 97.6 F 06/26/17 08:00 Pulse Rate 74 06/26/17 08:00 Respiratory Rate 21 06/26/17 08:00 Blood Pressure 150/74 H 06/26/17 08:00 Pulse Oximetry 97 06/26/17 08:00 Height/Weight/BMI: Height 5 ft 6 in Weight 161 lb 6.054 oz Body Mass Index 26.0 - Constitutional Present: no acute distress, well nourished, well developed, cooperative - Routine HEENT Exam Head: Present: normocephalic, atraumatic Eye: Present: PERRL. Absent: conjunctival icterus ENT: Present: mucous membranes moist - Routine Respiratory Exam Present: CTA bilaterally - Routine Cardiovascular Exam Present: RRR, S1, S2 - Routine Abdominal Exam Present: soft, normoactive bowel sounds, non distended, non tender - Routine Extremities Exam Present: edema (trace), full ROM, pulses intact - Routine Back/Spine/Pelvis Exam Back/Spine: Present: full ROM, kyphosis - Routine Musculoskeletal Exam Musculoskeletal: Present: moving extremities well - Routine Neurological Exam Present: alert, moving all extremities, normal speech - Routine Lymphatic Exam Lymphatic: Absent: lymphedema - Routine Psychiatric Exam Present: normal affect, cooperative Results - Labs CBC & Chem 7: 06/25/17 06:40 06/25/17 06:40 Assessment and Plan (1) Cognitive and behavioral changes Current visit: No Status: Acute (2) CAD (coronary artery disease) Current visit: No Status: Chronic (3) HTN (hypertension) Current visit: No Status: Chronic (4) Parkinsons Current visit: No Status: Chronic (5) Lewy body dementia with behavioral disturbance Current visit: No Status: Acute (6) Hypernatremia Current visit: No Status: Acute GI Prophylaxis: Pepcid Resuscitation Status: Do Not Resuscitate Assessment and Plan: 06/26/17 Assessment Alzheimer disease Anxiety CAD (coronary artery disease) COPD (chronic obstructive pulmonary disease) Cataracts, bilateral Depression Dyslipidemia 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 Fibromyalgia GERD (gastroesophageal reflux disease) HTN (hypertension) PVD High cholesterol IBS (irritable bowel syndrome) Osteoporosis Hx Gout Parkinsons disease Vitamin D deficiency Plan Overall, Cristina is doing well and slowly improving. Continue psychiatric care per team. Diarrhea stools have resolved. Hypernatremia noted on labs on 06/25 with sodium at 147. Encourage fluid intake. Hypokalemia noted with potassium at 3.5. Will give KCl 20 mEq po now and and will recheck BMP on 06/29. Continue to provide safe and supportive environment. Anticipate discharge in near future. - Time spent with patient 25 - 35 minutes Sepsis Assessment - Evaluation Sepsis screening result: No Definite Risk Hospital Course Summary Disclaimer: The visit summary below is not to be considered part of the above Progress Note. Hospital Course: 06/20/17 Agree with admission to [facility] for ongoing psychiatric evaluation and treatment under the care of Dr. Rizvi Persistent hypernatremia chronically, will encourage oral fluids, and monitor routine BMP. Blood pressure is elevated today. Recently patient was on Norvasc in addition to lisinopril. Will add Norvasc 5 mg daily and continue to monitor carefully Previously underwent pancytopenia and anemia workup in which iron and vitamin B12 were normal. Tylenol as needed for back pain. Check CBC and BMP tomorrow morning to follow blood counts, renal function and electrolytes Hospitalist services will continue to follow patient medically manage existing comorbidities. At time of discharge, care will return to primary care provider, Dr. Oquendo 06/20/17 20:07 Psych: Increase Seroquel to 50mg PO BID (AM, afternoon) and 100mg PO q HS as patient continues to exhibit paranoia - monitor for signs of worsening Parkinsonism, weigh risk of AE to clinical benefit with further dose increases. 06/21/17 18:32 Psych: Continue current care - monitor for any further signs of depression, may increase Seroquel dose further if paranoia continues. 06/22/17 20:35 Psych: Discuss depressive symptoms and need for antidepressant with staff, patient's family tomorrow. Paranoia is manageable and directable at this point. Would like to use lowest dose of Seroquel possible to control symptoms as to avoid exacerbating movement disorder. Continue current care otherwise; monitor patient's mood, behavior and response to treatment. 06/23/17 21:02 Psych: Start mirtazapine 7.5mg PO q HS to target mood, may increase to 15mg fairly quickly if well tolerated. Believe that paranoia is mild in nature when present and she is redirectable and current dose of Seroquel - would like to minimize dose to avoid exacerbating movement disorder. 06/24/17 16:36 Patient is slowly improving. Diarrhea stools have resolved. Still confused, it appears from nurses notes that behavior is improving. BP is variable, but overall well controlled. Plan to repeat labs in AM for stability. Chart, documentation, imaging is reviewed during the course of this visit. 06/24/17 19:46 Psych: Patient doing well overall - will receive first dose of mirtazapine tonight, monitor to ensure patient tolerates it well and plan to increase to 15mg soon. Continue current care otherwise. 06/26/17 13:43 Psych: Continues to complain of depression - will increase mirtazapine to 15mg PO q HS and monitor behavior/response. 06/26/17 Overall, Cristina is doing well and slowly improving. Continue psychiatric care per team. Diarrhea stools have resolved. Hypernatremia noted on labs on 06/25 with sodium at 147. Encourage fluid intake. Hypokalemia noted with potassium at 3.5. Will give KCl 20 mEq po now and and will recheck BMP on 06/29. Continue to provide safe and supportive environment. Anticipate discharge in near future.
[2017-06-26] MEDS: QUETIAPINE 50 MG TABLET PO PRN (17:18)
[2017-06-26] MEDS: ATORVASTATIN 10 MG TABLET PO SCH (20:49)
[2017-06-26] MEDS: QUETIAPINE 100 MG TABLET PO SCH (20:49)
[2017-06-26] MEDS: LIDOCAINE PATCH REMOVAL TOP SCH (20:50)
--- NOTE | 2017-06-26 20:56 | Neuropsych Progress Note ---
[facility] Subjective Date: 06/26/17 - Sujective/Severity of Illness Medications: Acetaminophen (Tylenol) 325 - 650 mg PO Q5H PRN PRN Reason: Discomfort Last Admin: 06/26/17 08:16 Dose: 650 mg Allopurinol (Zyloprim) 100 mg PO DAILY [facility] Last Admin: 06/26/17 08:05 Dose: 100 mg Amlodipine Besylate (Norvasc) 5 mg PO DAILY [facility] Last Admin: 06/26/17 08:05 Dose: 5 mg Aspirin (Ecotrin) 81 mg PO DAILY [facility] Last Admin: 06/26/17 08:05 Dose: 81 mg Atorvastatin Calcium (Lipitor) 10 mg PO HS [facility] Last Admin: 06/26/17 20:49 Dose: 10 mg Cholecalciferol (Vit. D-3) 1,000 unit PO 2100 [facility] Last Admin: 06/26/17 20:50 Dose: 1,000 unit Cholecalciferol (Vit. D-3) 2,000 unit PO DAILY [facility] Last Admin: 06/26/17 08:09 Dose: 2,000 unit Coenzyme Q10 (Co Q-10) 100 mg PO DAILY [facility] Last Admin: 06/26/17 08:10 Dose: 100 mg Cyanocobalamin (Vit. B-12) 500 mcg PO BID [facility] Last Admin: 06/26/17 20:49 Dose: 500 mcg Famotidine (Pepcid) 20 mg PO DAILY [facility] Last Admin: 06/26/17 08:05 Dose: 20 mg Haloperidol (Haldol) 0.5 mg PO Q6H PRN PRN Reason: Extreme agitation Haloperidol (Haldol) 0.5 mg PO Q6HR PRN PRN Reason: Anxiety/Agitation Haloperidol Lactate (Haldol) 0.5 mg IM Q6H PRN PRN Reason: Extreme agitation Lidocaine (Lidoderm) 1 patch TOP DAILY [facility] Last Admin: 06/26/17 08:04 Dose: 1 patch Lidocaine HCl/Dextrose (Lidoderm Patch Removal) 1 removal TOP [facility] Last Admin: 06/26/17 20:50 Dose: 1 removal Lisinopril (Prinivil) 10 mg PO DAILY [facility] Last Admin: 06/26/17 08:06 Dose: 10 mg Loperamide HCl (Imodium) 2 mg PO PRN PRN; Protocol PRN Reason: Diarrhea Multivitamins (Theragran) 1 tab PO DAILY [facility] Last Admin: 06/26/17 08:08 Dose: 1 tab Quetiapine Fumarate (Seroquel) 50 mg PO BID PRN PRN Reason: Agitation Last Admin: 06/26/17 17:18 Dose: 50 mg Quetiapine Fumarate (Seroquel) 100 mg PO HS [facility] Last Admin: 06/26/17 20:49 Dose: 100 mg Quetiapine Fumarate (Seroquel) 50 mg PO 14 [facility] Last Admin: 06/26/17 14:00 Dose: 50 mg Subjective: Patient seen and chart reviewed. Case discussed with treatment team. On interview, patient is pleasant and cooperative, though she has limited insight into symptoms. Continues to be confused at times. Reports that her mood is better today though cannot say why.She denies AVH last night or today but does feel those experiences have affected her mood. She has shared this with nursing staff as well. Patient denies any SI or HI. Patient complains of worsening tremor today and is mildly stiff on exam. Nursing staff report patient has been pleasant and cooperative overall but easily upset. She calms if allowed time to herself or to vent to staff. Patient did become verbally and physically aggressive last night and was given IM Ativan last night, which was effective in calming her. She then slept well overnight. She is adherent with medications. She does participate in groups on unit. Patient is redirectable with current meds - I believe it is best to minimize antipsychotic use as to not exacerbate Parkinson's further. VSS. Appetite good. Psychotropic PRNs required in the past 24 hours: Ativan 0.5mg IM x1. Start Time: 17:40 Stop Time: 18:00 Mental Status Exam Vitals: Last Vital Signs Temp 97.8 F 06/26/17 20:29 Pulse 63 06/26/17 20:29 Resp 16 06/26/17 20:29 BP 146/76 H 06/26/17 20:29 Pulse Ox 92 06/26/17 20:29 Height: 1.68 m Weight: 73.2 kg - Mental Status Exam Muscle Strength/Tone: Normal Dressing: Casual Grooming: Good Attitude: Cooperative Motor Activity: Retardation Eye Contact: Fair Speech: Slowed Volume: Soft Rhythm: Appropriate Rhythm Orientation: Disoriented to time, Disoriented to place, Disoriented to situation , Oriented to person Mood: Neutral (Neutral affect today, doesn't appear as sad as on previous days) Rate of Thoughts: Delayed Thought Organization: [place] Associations: Illogical Abstract Reasoning: Poor abstract reasoning Thought Content: Paranoia (improved - no evidence today), Somatic Concerns Perception/Psychotic: Other (Unclear whether patient is currently experiencing VH - not responding to internal stimuli during interview, she denies) Language: Naming Impaired Fund of Knowledge: Poor fund of knowledge Memory: Poor-immediate, Poor-recent Suicidal Ideation: Denies Homicidal Ideation: Denies Insight: Limited Judgement: Limited Impulse Control: Poor - Laboratory Result Diagrams: 06/25/17 06:40 06/25/17 06:40 Assessment and Plan (1) Lewy body dementia with behavioral disturbance Current visit: No Status: Acute (2) Major neurocognitive disorder Problem details: with behavioral disturbance (most likely Lewy Body Dementia) Current visit: No Status: Acute (3) Depressive disorder Current visit: Yes Status: Acute (4) CAD (coronary artery disease) Current visit: No Status: Chronic (5) HTN (hypertension) Current visit: No Status: Chronic (6) Parkinsons Current visit: No Status: Chronic Hospital Course Summary Disclaimer: The visit summary below is not to be considered part of the above Progress Note. Hospital Course: 06/20/17 Agree with admission to [facility] for ongoing psychiatric evaluation and treatment under the care of Dr. Rizvi Persistent hypernatremia chronically, will encourage oral fluids, and monitor routine BMP. Blood pressure is elevated today. Recently patient was on Norvasc in addition to lisinopril. Will add Norvasc 5 mg daily and continue to monitor carefully Previously underwent pancytopenia and anemia workup in which iron and vitamin B12 were normal. Tylenol as needed for back pain. Check CBC and BMP tomorrow morning to follow blood counts, renal function and electrolytes Hospitalist services will continue to follow patient medically manage existing comorbidities. At time of discharge, care will return to primary care provider, Dr. Oquendo 06/20/17 20:07 Psych: Increase Seroquel to 50mg PO BID (AM, afternoon) and 100mg PO q HS as patient continues to exhibit paranoia - monitor for signs of worsening Parkinsonism, weigh risk of AE to clinical benefit with further dose increases. 06/21/17 18:32 Psych: Continue current care - monitor for any further signs of depression, may increase Seroquel dose further if paranoia continues. 06/22/17 20:35 Psych: Discuss depressive symptoms and need for antidepressant with staff, patient's family tomorrow. Paranoia is manageable and directable at this point. Would like to use lowest dose of Seroquel possible to control symptoms as to avoid exacerbating movement disorder. Continue current care otherwise; monitor patient's mood, behavior and response to treatment. 06/23/17 21:02 Psych: Start mirtazapine 7.5mg PO q HS to target mood, may increase to 15mg fairly quickly if well tolerated. Believe that paranoia is mild in nature when present and she is redirectable and current dose of Seroquel - would like to minimize dose to avoid exacerbating movement disorder. 06/24/17 16:36 Patient is slowly improving. Diarrhea stools have resolved. Still confused, it appears from nurses notes that behavior is improving. BP is variable, but overall well controlled. Plan to repeat labs in AM for stability. Chart, documentation, imaging is reviewed during the course of this visit. 06/24/17 19:46 Psych: Patient doing well overall - will receive first dose of mirtazapine tonight, monitor to ensure patient tolerates it well and plan to increase to 15mg soon. Continue current care otherwise. 06/26/17 13:43 Psych: Continues to complain of depression - will increase mirtazapine to 15mg PO q HS and monitor behavior/response. 06/26/17 Overall, Cristina is doing well and slowly improving. Continue psychiatric care per team. Diarrhea stools have resolved. Hypernatremia noted on labs on 06/25 with sodium at 147. Encourage fluid intake. Hypokalemia noted with potassium at 3.5. Will give KCl 20 mEq po now and and will recheck BMP on 06/29. Continue to provide safe and supportive environment. Anticipate discharge in near future. 06/26/17 20:56 Psych: Discontinue mirtazapine as patient has become agitated more frequently since starting it - monitor response. Continue current dose of Seroquel. Monitor response.
[2017-06-27] MEDS: ASPIRIN *EC* 81 MG TABLET PO SCH (08:05)
[2017-06-27] MEDS: COENZYME Q10 200 MG PO SCH (08:05)
[2017-06-27] MEDS: MULTI-VITAMIN PLAIN TABLET PO SCH (08:06)
[2017-06-27] MEDS: FAMOTIDINE 20 MG TABLET PO SCH (08:06)
[2017-06-27] MEDS: QUETIAPINE 50 MG TABLET PO SCH ×2 (08:06→14:41)
[2017-06-27] MEDS: LISINOPRIL 10 MG TABLET PO SCH (08:06)
[2017-06-27] MEDS: AMLODIPINE 5 MG TABLET PO SCH (08:06)
[2017-06-27] MEDS: ALLOPURINOL 100 MG TABLET PO SCH (08:07)
[2017-06-27] MEDS: CYANOCOBALAMIN (B-12) 500mcg TABLET PO SCH ×3 (08:07→20:20)
[2017-06-27] MEDS: LIDOCAINE 5% PATCH TOP SCH (12:30)
[2017-06-27] MEDS: ACETAMINOPHEN 325 MG TABLET PO PRN (18:49)
[2017-06-27] MEDS: ATORVASTATIN 10 MG TABLET PO SCH ×2 (18:53→20:20)
[2017-06-27] MEDS: QUETIAPINE 100 MG TABLET PO SCH ×2 (18:54→20:20)
[2017-06-27] MEDS: LIDOCAINE PATCH REMOVAL TOP SCH (20:21)
--- NOTE | 2017-06-27 21:29 | Neuropsych Progress Note ---
[facility] Subjective Date: 06/27/17 - Sujective/Severity of Illness Medications: Acetaminophen (Tylenol) 325 - 650 mg PO Q5H PRN PRN Reason: Discomfort Last Admin: 06/27/17 18:49 Dose: 650 mg Allopurinol (Zyloprim) 100 mg PO DAILY [facility] Last Admin: 06/27/17 08:07 Dose: 100 mg Amlodipine Besylate (Norvasc) 5 mg PO DAILY [facility] Last Admin: 06/27/17 08:06 Dose: 5 mg Aspirin (Ecotrin) 81 mg PO DAILY [facility] Last Admin: 06/27/17 08:05 Dose: 81 mg Atorvastatin Calcium (Lipitor) 10 mg PO HS [facility] Last Admin: 06/27/17 20:20 Dose: Not Given Cholecalciferol (Vit. D-3) 1,000 unit PO 2100 [facility] Last Admin: 06/27/17 20:21 Dose: Not Given Cholecalciferol (Vit. D-3) 2,000 unit PO DAILY [facility] Last Admin: 06/27/17 08:07 Dose: 2,000 unit Coenzyme Q10 (Co Q-10) 100 mg PO DAILY [facility] Last Admin: 06/27/17 08:05 Dose: 100 mg Cyanocobalamin (Vit. B-12) 500 mcg PO BID [facility] Last Admin: 06/27/17 20:20 Dose: Not Given Famotidine (Pepcid) 20 mg PO DAILY [facility] Last Admin: 06/27/17 08:06 Dose: 20 mg Haloperidol (Haldol) 0.5 mg PO Q6H PRN PRN Reason: Extreme agitation Haloperidol (Haldol) 0.5 mg PO Q6HR PRN PRN Reason: Anxiety/Agitation Haloperidol Lactate (Haldol) 0.5 mg IM Q6H PRN PRN Reason: Extreme agitation Lidocaine (Lidoderm) 1 patch TOP DAILY [facility] Last Admin: 06/27/17 12:30 Dose: 1 patch Lidocaine HCl/Dextrose (Lidoderm Patch Removal) 1 removal TOP [facility] Last Admin: 06/27/17 20:21 Dose: 1 removal Lisinopril (Prinivil) 10 mg PO DAILY [facility] Last Admin: 06/27/17 08:06 Dose: 10 mg Loperamide HCl (Imodium) 2 mg PO PRN PRN; Protocol PRN Reason: Diarrhea Multivitamins (Theragran) 1 tab PO DAILY [facility] Last Admin: 06/27/17 08:06 Dose: 1 tab Quetiapine Fumarate (Seroquel) 50 mg PO BID PRN PRN Reason: Agitation Last Admin: 06/26/17 17:18 Dose: 50 mg Quetiapine Fumarate (Seroquel) 100 mg PO HS [facility] Last Admin: 06/27/17 20:20 Dose: Not Given Quetiapine Fumarate (Seroquel) 50 mg PO ,14 [facility] Last Admin: 06/27/17 14:41 Dose: 50 mg Subjective: Patient seen and chart reviewed. Case discussed with nursing. Nursing reports the pt slept 5.75 hours. Pt can be impulsive and angry at times but these periods last for only about 15 minutes on average once per day and she can be redirected. On face to face the pt is pleasant but confused. She is only oriented to self. She reports her mood is stable. Denies paranoia. Tolerating meds Start Time: 17:30 Stop Time: 17:45 Mental Status Exam Vitals: Last Vital Signs Temp 98.2 F 06/27/17 19:45 Pulse 71 06/27/17 19:45 Resp 22 06/27/17 19:45 BP 122/63 06/27/17 19:45 Pulse Ox 92 06/27/17 19:45 Height: 1.68 m Weight: 74.7 kg - Mental Status Exam Muscle Strength/Tone: Normal Dressing: Casual Grooming: Good Attitude: Cooperative Motor Activity: Retardation Eye Contact: Fair Speech: Slowed Volume: Soft Rhythm: Appropriate Rhythm Orientation: Disoriented to time, Disoriented to place, Disoriented to situation , Oriented to person Mood: Neutral (Neutral affect today, doesn't appear as sad as on previous days) Rate of Thoughts: Delayed Thought Organization: [place] Associations: Illogical Abstract Reasoning: Poor abstract reasoning Thought Content: Paranoia (improved - no evidence today), Somatic Concerns Perception/Psychotic: Other (Unclear whether patient is currently experiencing VH - not responding to internal stimuli during interview, she denies) Language: Naming Impaired Fund of Knowledge: Poor fund of knowledge Memory: Poor-immediate, Poor-recent Suicidal Ideation: Denies Homicidal Ideation: Denies Insight: Limited Judgement: Limited Impulse Control: Poor - Laboratory Result Diagrams: 06/27/17 05:14 06/27/17 05:14 Laboratory Results - last 24 hr 06/27/17 06/27/17 05:14 05:14 WBC 3.1 L RBC 3.94 L Hgb 11.8 L Hct 37.1 MCV 94.2 MCH 29.9 MCHC 31.8 RDW Std Deviation 46.9 Plt Count 104 L MPV 11.0 Immature Gran % (Auto) 0.0 Neut % (Auto) 54.4 Lymph % (Auto) 33.7 [place] % (Auto) 8.4 Eos % (Auto) 3.2 Baso % (Auto) 0.3 Neut # 1.7 L Lymph # 1.0 [place] # 0.3 Eos # 0.1 Baso # 0.0 Abs Immat Gran (auto) 0.00 Turbidity < 20 Sodium 146 H Potassium 3.9 Chloride 109 H Carbon Dioxide 29 Anion Gap 8 BUN 22.0 H Creatinine 0.7 GFR Calculation 80 BUN/Creatinine Ratio 31 H Glucose 84 Calculated Osmolality 283 H Calcium 9.5 Icterus Index < 2 Specimen Hemolysis < 15 Assessment and Plan (1) CAD (coronary artery disease) Current visit: No Status: Chronic (2) HTN (hypertension) Current visit: No Status: Chronic (3) Major neurocognitive disorder Problem details: with behavioral disturbance (most likely Lewy Body Dementia) Current visit: No Status: Acute (4) Parkinsons Current visit: No Status: Chronic (5) Lewy body dementia with behavioral disturbance Current visit: No Status: Acute (6) Depressive disorder Current visit: Yes Status: Acute Hospital Course Summary Disclaimer: The visit summary below is not to be considered part of the above Progress Note. Hospital Course: 06/20/17 Agree with admission to [facility] for ongoing psychiatric evaluation and treatment under the care of Dr. Rizvi Persistent hypernatremia chronically, will encourage oral fluids, and monitor routine BMP. Blood pressure is elevated today. Recently patient was on Norvasc in addition to lisinopril. Will add Norvasc 5 mg daily and continue to monitor carefully Previously underwent pancytopenia and anemia workup in which iron and vitamin B12 were normal. Tylenol as needed for back pain. Check CBC and BMP tomorrow morning to follow blood counts, renal function and electrolytes Hospitalist services will continue to follow patient medically manage existing comorbidities. At time of discharge, care will return to primary care provider, Dr. Oquendo 06/20/17 20:07 Psych: Increase Seroquel to 50mg PO BID (AM, afternoon) and 100mg PO q HS as patient continues to exhibit paranoia - monitor for signs of worsening Parkinsonism, weigh risk of AE to clinical benefit with further dose increases. 06/21/17 18:32 Psych: Continue current care - monitor for any further signs of depression, may increase Seroquel dose further if paranoia continues. 06/22/17 20:35 Psych: Discuss depressive symptoms and need for antidepressant with staff, patient's family tomorrow. Paranoia is manageable and directable at this point. Would like to use lowest dose of Seroquel possible to control symptoms as to avoid exacerbating movement disorder. Continue current care otherwise; monitor patient's mood, behavior and response to treatment. 06/23/17 21:02 Psych: Start mirtazapine 7.5mg PO q HS to target mood, may increase to 15mg fairly quickly if well tolerated. Believe that paranoia is mild in nature when present and she is redirectable and current dose of Seroquel - would like to minimize dose to avoid exacerbating movement disorder. 06/24/17 16:36 Patient is slowly improving. Diarrhea stools have resolved. Still confused, it appears from nurses notes that behavior is improving. BP is variable, but overall well controlled. Plan to repeat labs in AM for stability. Chart, documentation, imaging is reviewed during the course of this visit. 06/24/17 19:46 Psych: Patient doing well overall - will receive first dose of mirtazapine tonight, monitor to ensure patient tolerates it well and plan to increase to 15mg soon. Continue current care otherwise. 06/26/17 13:43 Psych: Continues to complain of depression - will increase mirtazapine to 15mg PO q HS and monitor behavior/response. 06/26/17 Overall, Cristina is doing well and slowly improving. Continue psychiatric care per team. Diarrhea stools have resolved. Hypernatremia noted on labs on 06/25 with sodium at 147. Encourage fluid intake. Hypokalemia noted with potassium at 3.5. Will give KCl 20 mEq po now and and will recheck BMP on 06/29. Continue to provide safe and supportive environment. Anticipate discharge in near future. 06/26/17 20:56 Psych: Discontinue mirtazapine as patient has become agitated more frequently since starting it - monitor response. Continue current dose of Seroquel. Monitor response. 06/27/17 21:28 Pt remains irritable at times but is redirectable. Continue current care
[2017-06-28] MEDS: ACETAMINOPHEN 325 MG TABLET PO PRN ×3 (03:15→20:06)
[2017-06-28] MEDS: COENZYME Q10 200 MG PO SCH (08:50)
[2017-06-28] MEDS: ASPIRIN *EC* 81 MG TABLET PO SCH (08:51)
[2017-06-28] MEDS: AMLODIPINE 5 MG TABLET PO SCH (08:51)
[2017-06-28] MEDS: LIDOCAINE 5% PATCH TOP SCH (08:51)
[2017-06-28] MEDS: FAMOTIDINE 20 MG TABLET PO SCH (08:51)
[2017-06-28] MEDS: CYANOCOBALAMIN (B-12) 500mcg TABLET PO SCH ×2 (08:52→20:16)
[2017-06-28] MEDS: QUETIAPINE 50 MG TABLET PO SCH ×2 (08:52→14:38)
[2017-06-28] MEDS: MULTI-VITAMIN PLAIN TABLET PO SCH (08:52)
[2017-06-28] MEDS: LISINOPRIL 10 MG TABLET PO SCH (08:52)
[2017-06-28] MEDS: ALLOPURINOL 100 MG TABLET PO SCH (08:53)
[2017-06-28] MEDS: QUETIAPINE 50 MG TABLET PO PRN (20:06)
[2017-06-28] MEDS: ATORVASTATIN 10 MG TABLET PO SCH (20:16)
[2017-06-28] MEDS: LIDOCAINE PATCH REMOVAL TOP SCH (20:16)
[2017-06-28] MEDS: QUETIAPINE 100 MG TABLET PO SCH (20:16)
--- NOTE | 2017-06-28 20:47 | Neuropsych Progress Note ---
[facility] Subjective Date: 06/28/17 - Sujective/Severity of Illness Medications: Acetaminophen (Tylenol) 325 - 650 mg PO Q5H PRN PRN Reason: Discomfort Last Admin: 06/28/17 20:06 Dose: 650 mg Allopurinol (Zyloprim) 100 mg PO DAILY [facility] Last Admin: 06/28/17 08:53 Dose: 100 mg Amlodipine Besylate (Norvasc) 5 mg PO DAILY [facility] Last Admin: 06/28/17 08:51 Dose: 5 mg Aspirin (Ecotrin) 81 mg PO DAILY [facility] Last Admin: 06/28/17 08:51 Dose: 81 mg Atorvastatin Calcium (Lipitor) 10 mg PO HS [facility] Last Admin: 06/28/17 20:16 Dose: 10 mg Cholecalciferol (Vit. D-3) 1,000 unit PO 2100 [facility] Last Admin: 06/28/17 20:16 Dose: 1,000 unit Cholecalciferol (Vit. D-3) 2,000 unit PO DAILY [facility] Last Admin: 06/28/17 08:52 Dose: 2,000 unit Coenzyme Q10 (Co Q-10) 100 mg PO DAILY [facility] Last Admin: 06/28/17 08:50 Dose: 100 mg Cyanocobalamin (Vit. B-12) 500 mcg PO BID [facility] Last Admin: 06/28/17 20:16 Dose: 500 mcg Famotidine (Pepcid) 20 mg PO DAILY [facility] Last Admin: 06/28/17 08:51 Dose: 20 mg Haloperidol (Haldol) 0.5 mg PO Q6H PRN PRN Reason: Extreme agitation Haloperidol (Haldol) 0.5 mg PO Q6HR PRN PRN Reason: Anxiety/Agitation Haloperidol Lactate (Haldol) 0.5 mg IM Q6H PRN PRN Reason: Extreme agitation Lidocaine (Lidoderm) 1 patch TOP DAILY [facility] Last Admin: 06/28/17 08:51 Dose: 1 patch Lidocaine HCl/Dextrose (Lidoderm Patch Removal) 1 removal TOP [facility] Last Admin: 06/28/17 20:16 Dose: 1 removal Lisinopril (Prinivil) 10 mg PO DAILY [facility] Last Admin: 06/28/17 08:52 Dose: 10 mg Loperamide HCl (Imodium) 2 mg PO PRN PRN; Protocol PRN Reason: Diarrhea Multivitamins (Theragran) 1 tab PO DAILY [facility] Last Admin: 06/28/17 08:52 Dose: 1 tab Quetiapine Fumarate (Seroquel) 50 mg PO BID PRN PRN Reason: Agitation Last Admin: 06/28/17 20:06 Dose: 50 mg Quetiapine Fumarate (Seroquel) 100 mg PO HS [facility] Last Admin: 06/28/17 20:16 Dose: 100 mg Quetiapine Fumarate (Seroquel) 50 mg PO [facility] Last Admin: 06/28/17 14:38 Dose: 50 mg Subjective: Patient seen and chart reviewed. Nursing reports pt doing well. Slept 7 hours but it is some what broken. Has a good appetite. On face to face the pt is smiling and pleasant. She is only oriented to self. She reports doing well and voices no concerns. Denies depression or psychosis. Tolerating meds Start Time: 18:30 Stop Time: 18:45 Mental Status Exam Vitals: Last Vital Signs Temp 98.6 F 06/28/17 16:00 Pulse 74 06/28/17 16:00 Resp 16 06/28/17 16:00 BP 127/67 06/28/17 16:00 Pulse Ox 95 06/28/17 16:00 Height: 1.68 m Weight: 74.7 kg - Mental Status Exam Muscle Strength/Tone: Normal Dressing: Casual Grooming: Good Attitude: Cooperative Motor Activity: Retardation Eye Contact: Fair Speech: Slowed Volume: Soft Rhythm: Appropriate Rhythm Orientation: Disoriented to time, Disoriented to place, Disoriented to situation , Oriented to person Mood: Neutral (Neutral affect today, doesn't appear as sad as on previous days) Rate of Thoughts: Delayed Thought Organization: [place] Associations: Illogical Abstract Reasoning: Poor abstract reasoning Thought Content: Paranoia (improved - no evidence today), Somatic Concerns Perception/Psychotic: Other (Unclear whether patient is currently experiencing VH - not responding to internal stimuli during interview, she denies) Language: Naming Impaired Fund of Knowledge: Poor fund of knowledge Memory: Poor-immediate, Poor-recent Suicidal Ideation: Denies Homicidal Ideation: Denies Insight: Limited Judgement: Limited Impulse Control: Poor - Laboratory Result Diagrams: 06/27/17 05:14 06/27/17 05:14 Assessment and Plan (1) CAD (coronary artery disease) Current visit: No Status: Chronic (2) HTN (hypertension) Current visit: No Status: Chronic (3) Major neurocognitive disorder Problem details: with behavioral disturbance (most likely Lewy Body Dementia) Current visit: No Status: Acute (4) Parkinsons Current visit: No Status: Chronic (5) Lewy body dementia with behavioral disturbance Current visit: No Status: Acute (6) Depressive disorder Current visit: Yes Status: Acute Hospital Course Summary Disclaimer: The visit summary below is not to be considered part of the above Progress Note. Hospital Course: 06/20/17 Agree with admission to [facility] for ongoing psychiatric evaluation and treatment under the care of Dr. Rizvi Persistent hypernatremia chronically, will encourage oral fluids, and monitor routine BMP. Blood pressure is elevated today. Recently patient was on Norvasc in addition to lisinopril. Will add Norvasc 5 mg daily and continue to monitor carefully Previously underwent pancytopenia and anemia workup in which iron and vitamin B12 were normal. Tylenol as needed for back pain. Check CBC and BMP tomorrow morning to follow blood counts, renal function and electrolytes Hospitalist services will continue to follow patient medically manage existing comorbidities. At time of discharge, care will return to primary care provider, Dr. Oquendo 06/20/17 20:07 Psych: Increase Seroquel to 50mg PO BID (AM, afternoon) and 100mg PO q HS as patient continues to exhibit paranoia - monitor for signs of worsening Parkinsonism, weigh risk of AE to clinical benefit with further dose increases. 06/21/17 18:32 Psych: Continue current care - monitor for any further signs of depression, may increase Seroquel dose further if paranoia continues. 06/22/17 20:35 Psych: Discuss depressive symptoms and need for antidepressant with staff, patient's family tomorrow. Paranoia is manageable and directable at this point. Would like to use lowest dose of Seroquel possible to control symptoms as to avoid exacerbating movement disorder. Continue current care otherwise; monitor patient's mood, behavior and response to treatment. 06/23/17 21:02 Psych: Start mirtazapine 7.5mg PO q HS to target mood, may increase to 15mg fairly quickly if well tolerated. Believe that paranoia is mild in nature when present and she is redirectable and current dose of Seroquel - would like to minimize dose to avoid exacerbating movement disorder. 06/24/17 16:36 Patient is slowly improving. Diarrhea stools have resolved. Still confused, it appears from nurses notes that behavior is improving. BP is variable, but overall well controlled. Plan to repeat labs in AM for stability. Chart, documentation, imaging is reviewed during the course of this visit. 06/24/17 19:46 Psych: Patient doing well overall - will receive first dose of mirtazapine tonight, monitor to ensure patient tolerates it well and plan to increase to 15mg soon. Continue current care otherwise. 06/26/17 13:43 Psych: Continues to complain of depression - will increase mirtazapine to 15mg PO q HS and monitor behavior/response. 06/26/17 Overall, Cristina is doing well and slowly improving. Continue psychiatric care per team. Diarrhea stools have resolved. Hypernatremia noted on labs on 06/25 with sodium at 147. Encourage fluid intake. Hypokalemia noted with potassium at 3.5. Will give KCl 20 mEq po now and and will recheck BMP on 06/29. Continue to provide safe and supportive environment. Anticipate discharge in near future. 06/26/17 20:56 Psych: Discontinue mirtazapine as patient has become agitated more frequently since starting it - monitor response. Continue current dose of Seroquel. Monitor response. 06/27/17 21:28 Pt remains irritable at times but is redirectable. Continue current care 06/28/17 20:46 No behaviors today. Continue current care
[2017-06-29] MEDS: COENZYME Q10 200 MG PO SCH (09:09)
[2017-06-29] MEDS: ALLOPURINOL 100 MG TABLET PO SCH (09:09)
[2017-06-29] MEDS: ASPIRIN *EC* 81 MG TABLET PO SCH (09:09)
[2017-06-29] MEDS: FAMOTIDINE 20 MG TABLET PO SCH (09:10)
[2017-06-29] MEDS: QUETIAPINE 50 MG TABLET PO SCH ×2 (09:10→14:59)
[2017-06-29] MEDS: CYANOCOBALAMIN (B-12) 500mcg TABLET PO SCH ×3 (09:10→23:40)
[2017-06-29] MEDS: AMLODIPINE 5 MG TABLET PO SCH (09:10)
[2017-06-29] MEDS: LIDOCAINE 5% PATCH TOP SCH (09:10)
[2017-06-29] MEDS: LISINOPRIL 10 MG TABLET PO SCH (09:10)
[2017-06-29] MEDS: MULTI-VITAMIN PLAIN TABLET PO SCH (09:10)
--- NOTE | 2017-06-29 18:36 | Neuropsych Progress Note ---
[facility] Subjective Date: 06/29/17 - Sujective/Severity of Illness Medications: Acetaminophen (Tylenol) 325 - 650 mg PO Q5H PRN PRN Reason: Discomfort Last Admin: 06/28/17 20:06 Dose: 650 mg Allopurinol (Zyloprim) 100 mg PO DAILY [facility] Last Admin: 06/29/17 09:09 Dose: 100 mg Amlodipine Besylate (Norvasc) 5 mg PO DAILY [facility] Last Admin: 06/29/17 09:10 Dose: 5 mg Aspirin (Ecotrin) 81 mg PO DAILY [facility] Last Admin: 06/29/17 09:09 Dose: 81 mg Atorvastatin Calcium (Lipitor) 10 mg PO HS [facility] Last Admin: 06/28/17 20:16 Dose: 10 mg Cholecalciferol (Vit. D-3) 1,000 unit PO 2100 [facility] Last Admin: 06/28/17 20:16 Dose: 1,000 unit Cholecalciferol (Vit. D-3) 2,000 unit PO DAILY [facility] Last Admin: 06/29/17 09:11 Dose: 2,000 unit Coenzyme Q10 (Co Q-10) 100 mg PO DAILY [facility] Last Admin: 06/29/17 09:09 Dose: 100 mg Cyanocobalamin (Vit. B-12) 500 mcg PO BID [facility] Last Admin: 06/29/17 09:10 Dose: 500 mcg Famotidine (Pepcid) 20 mg PO DAILY [facility] Last Admin: 06/29/17 09:10 Dose: 20 mg Haloperidol (Haldol) 0.5 mg PO Q6H PRN PRN Reason: Extreme agitation Haloperidol (Haldol) 0.5 mg PO Q6HR PRN PRN Reason: Anxiety/Agitation Haloperidol Lactate (Haldol) 0.5 mg IM Q6H PRN PRN Reason: Extreme agitation Lidocaine (Lidoderm) 1 patch TOP DAILY [facility] Last Admin: 06/29/17 09:10 Dose: 1 patch Lidocaine HCl/Dextrose (Lidoderm Patch Removal) 1 removal TOP [facility] Last Admin: 06/28/17 20:16 Dose: 1 removal Lisinopril (Prinivil) 10 mg PO DAILY [facility] Last Admin: 06/29/17 09:10 Dose: 10 mg Loperamide HCl (Imodium) 2 mg PO PRN PRN; Protocol PRN Reason: Diarrhea Multivitamins (Theragran) 1 tab PO DAILY [facility] Last Admin: 06/29/17 09:10 Dose: 1 tab Quetiapine Fumarate (Seroquel) 50 mg PO BID PRN PRN Reason: Agitation Last Admin: 06/28/17 20:06 Dose: 50 mg Quetiapine Fumarate (Seroquel) 100 mg PO HS [facility] Last Admin: 06/28/17 20:16 Dose: 100 mg Quetiapine Fumarate (Seroquel) 50 mg PO 09,14 [facility] Last Admin: 06/29/17 14:59 Dose: 50 mg Subjective: Patient seen and chart reviewed. Nursing reports pt was irritable and paranoid at times and was difficult to redirect. Slept well and has a good appetite. On face to face the pt is pleasant but confused. She is only oriented to self. She has no recollection of her agitation this AM. She reports her mood is stable and denies paranoia at this time. Tolerating meds. Discussed with DPOA about retrying Ativan PRN for agitation and she is in agreement Start Time: 16:00 Stop Time: 16:15 Mental Status Exam Vitals: Last Vital Signs Temp 98.6 F 06/29/17 16:00 Pulse 66 06/29/17 16:00 Resp 16 06/29/17 16:00 BP 135/65 06/29/17 16:00 Pulse Ox 94 06/29/17 16:00 Height: 1.68 m Weight: 74.7 kg - Mental Status Exam Muscle Strength/Tone: Normal Dressing: Casual Grooming: Good Attitude: Cooperative Motor Activity: Retardation Eye Contact: Fair Speech: Slowed Volume: Soft Rhythm: Appropriate Rhythm Orientation: Disoriented to time, Disoriented to place, Disoriented to situation , Oriented to person Mood: Neutral (Neutral affect today, doesn't appear as sad as on previous days) Rate of Thoughts: Delayed Thought Organization: [place] Associations: Illogical Abstract Reasoning: Poor abstract reasoning Thought Content: Paranoia (improved - no evidence today), Somatic Concerns Perception/Psychotic: Other (Unclear whether patient is currently experiencing VH - not responding to internal stimuli during interview, she denies) Language: Naming Impaired Fund of Knowledge: Poor fund of knowledge Memory: Poor-immediate, Poor-recent Suicidal Ideation: Denies Homicidal Ideation: Denies Insight: Limited Judgement: Limited Impulse Control: Poor - Laboratory Result Diagrams: 06/27/17 05:14 06/27/17 05:14 Laboratory Results - last 24 hr 06/29/17 16:31 Ur Collection Type Urine, clean catch Urine Color Yellow Urine Clarity Clear Urine pH 5.5 Ur Specific [place] <=1.005 L Urine Protein Negative Urine Glucose (UA) Negative Urine Ketones Negative Urine Occult Blood Trace-intact Urine Nitrate Negative Urine Bilirubin Negative Urine Urobilinogen 0.2 Ur Leukocyte Esterase 2+ A Urine RBC 0-1 Urine WBC 20-30 H Ur Squamous Epith Cells None seen Urine Bacteria 3+ H Ur Culture Indicated? Cult reflexed &setup Assessment and Plan (1) CAD (coronary artery disease) Current visit: No Status: Chronic (2) HTN (hypertension) Current visit: No Status: Chronic (3) Major neurocognitive disorder Problem details: with behavioral disturbance (most likely Lewy Body Dementia) Current visit: No Status: Acute (4) Parkinsons Current visit: No Status: Chronic (5) Lewy body dementia with behavioral disturbance Current visit: No Status: Acute (6) Depressive disorder Current visit: Yes Status: Acute Hospital Course Summary Disclaimer: The visit summary below is not to be considered part of the above Progress Note. Hospital Course: 06/20/17 Agree with admission to [facility] for ongoing psychiatric evaluation and treatment under the care of Dr. Rizvi Persistent hypernatremia chronically, will encourage oral fluids, and monitor routine BMP. Blood pressure is elevated today. Recently patient was on Norvasc in addition to lisinopril. Will add Norvasc 5 mg daily and continue to monitor carefully Previously underwent pancytopenia and anemia workup in which iron and vitamin B12 were normal. Tylenol as needed for back pain. Check CBC and BMP tomorrow morning to follow blood counts, renal function and electrolytes Hospitalist services will continue to follow patient medically manage existing comorbidities. At time of discharge, care will return to primary care provider, Dr. Oquendo 06/20/17 20:07 Psych: Increase Seroquel to 50mg PO BID (AM, afternoon) and 100mg PO q HS as patient continues to exhibit paranoia - monitor for signs of worsening Parkinsonism, weigh risk of AE to clinical benefit with further dose increases. 06/21/17 18:32 Psych: Continue current care - monitor for any further signs of depression, may increase Seroquel dose further if paranoia continues. 06/22/17 20:35 Psych: Discuss depressive symptoms and need for antidepressant with staff, patient's family tomorrow. Paranoia is manageable and directable at this point. Would like to use lowest dose of Seroquel possible to control symptoms as to avoid exacerbating movement disorder. Continue current care otherwise; monitor patient's mood, behavior and response to treatment. 06/23/17 21:02 Psych: Start mirtazapine 7.5mg PO q HS to target mood, may increase to 15mg fairly quickly if well tolerated. Believe that paranoia is mild in nature when present and she is redirectable and current dose of Seroquel - would like to minimize dose to avoid exacerbating movement disorder. 06/24/17 16:36 Patient is slowly improving. Diarrhea stools have resolved. Still confused, it appears from nurses notes that behavior is improving. BP is variable, but overall well controlled. Plan to repeat labs in AM for stability. Chart, documentation, imaging is reviewed during the course of this visit. 06/24/17 19:46 Psych: Patient doing well overall - will receive first dose of mirtazapine tonight, monitor to ensure patient tolerates it well and plan to increase to 15mg soon. Continue current care otherwise. 06/26/17 13:43 Psych: Continues to complain of depression - will increase mirtazapine to 15mg PO q HS and monitor behavior/response. 06/26/17 Overall, Cristina is doing well and slowly improving. Continue psychiatric care per team. Diarrhea stools have resolved. Hypernatremia noted on labs on 06/25 with sodium at 147. Encourage fluid intake. Hypokalemia noted with potassium at 3.5. Will give KCl 20 mEq po now and and will recheck BMP on 06/29. Continue to provide safe and supportive environment. Anticipate discharge in near future. 06/26/17 20:56 Psych: Discontinue mirtazapine as patient has become agitated more frequently since starting it - monitor response. Continue current dose of Seroquel. Monitor response. 06/27/17 21:28 Pt remains irritable at times but is redirectable. Continue current care 06/28/17 20:46 No behaviors today. Continue current care 06/29/17 18:35 Pt was more agitated and paranoid today with some physical aggression. Will restart Ativan PRN and increased BID dose of Seroquel to 75mg
[2017-06-29] MEDS: QUETIAPINE 100 MG TABLET PO SCH ×2 (19:37→23:40)
[2017-06-29] MEDS: ATORVASTATIN 10 MG TABLET PO SCH ×2 (19:37→23:40)
[2017-06-29] MEDS: ACETAMINOPHEN 325 MG TABLET PO PRN (19:38)
[2017-06-29] MEDS: LORazepam 1 MG TABLET PO PRN (19:38)
[2017-06-29] MEDS ORDERED: MAG-AL + SIM ORAL LIQUID 30ml PO PRN (20:34)
[2017-06-29] MEDS: LIDOCAINE PATCH REMOVAL TOP SCH (23:40)
[2017-06-30] MEDS: MULTI-VITAMIN PLAIN TABLET PO SCH (08:04)
[2017-06-30] MEDS: ASPIRIN *EC* 81 MG TABLET PO SCH (08:04)
[2017-06-30] MEDS: COENZYME Q10 200 MG PO SCH (08:04)
[2017-06-30] MEDS: CYANOCOBALAMIN (B-12) 500mcg TABLET PO SCH ×3 (08:04→22:01)
[2017-06-30] MEDS: ALLOPURINOL 100 MG TABLET PO SCH (08:05)
[2017-06-30] MEDS: FAMOTIDINE 20 MG TABLET PO SCH (08:05)
[2017-06-30] MEDS: LIDOCAINE 5% PATCH TOP SCH (08:05)
[2017-06-30] MEDS: QUETIAPINE 50 MG TABLET PO SCH ×2 (08:06→13:42)
[2017-06-30] MEDS: AMLODIPINE 5 MG TABLET PO SCH (08:06)
[2017-06-30] MEDS: LISINOPRIL 10 MG TABLET PO SCH (08:06)
[2017-06-30] MEDS: LIDOCAINE PATCH REMOVAL TOP SCH ×2 (19:54→22:01)
[2017-06-30] MEDS: ATORVASTATIN 10 MG TABLET PO SCH ×2 (19:54→22:01)
[2017-06-30] MEDS: QUETIAPINE 100 MG TABLET PO SCH ×2 (19:55→22:01)
--- NOTE | 2017-06-30 21:09 | Neuropsych Progress Note ---
[facility] Subjective Date: 06/30/17 - Sujective/Severity of Illness Medications: Acetaminophen (Tylenol) 325 - 650 mg PO Q5H PRN PRN Reason: Discomfort Last Admin: 06/29/17 19:38 Dose: 650 mg Al Hydroxide/Mg Hydroxide (Maalox Plus) 30 ml PO Q4H PRN PRN Reason: Indigestion Last Admin: 06/29/17 20:36 Dose: 30 ml Allopurinol (Zyloprim) 100 mg PO DAILY [facility] Last Admin: 06/30/17 08:05 Dose: 100 mg Amlodipine Besylate (Norvasc) 5 mg PO DAILY [facility] Last Admin: 06/30/17 08:06 Dose: 5 mg Aspirin (Ecotrin) 81 mg PO DAILY [facility] Last Admin: 06/30/17 08:04 Dose: 81 mg Atorvastatin Calcium (Lipitor) 10 mg PO HS [facility] Last Admin: 06/30/17 19:54 Dose: 10 mg Cephalexin HCl (Keflex) 500 mg PO Q8HR [facility] Last Admin: 06/30/17 17:09 Dose: 500 mg Cholecalciferol (Vit. D-3) 1,000 unit PO 2100 [facility] Last Admin: 06/30/17 19:55 Dose: 1,000 unit Cholecalciferol (Vit. D-3) 2,000 unit PO DAILY [facility] Last Admin: 06/30/17 08:05 Dose: 2,000 unit Coenzyme Q10 (Co Q-10) 100 mg PO DAILY [facility] Last Admin: 06/30/17 08:04 Dose: 100 mg Cyanocobalamin (Vit. B-12) 500 mcg PO BID [facility] Last Admin: 06/30/17 19:55 Dose: 500 mcg Famotidine (Pepcid) 20 mg PO DAILY [facility] Last Admin: 06/30/17 08:05 Dose: 20 mg Haloperidol (Haldol) 0.5 mg PO Q6H PRN PRN Reason: Extreme agitation Haloperidol (Haldol) 0.5 mg PO Q6HR PRN PRN Reason: Anxiety/Agitation Haloperidol Lactate (Haldol) 0.5 mg IM Q6H PRN PRN Reason: Extreme agitation Lidocaine (Lidoderm) 1 patch TOP DAILY [facility] Last Admin: 06/30/17 08:05 Dose: 1 patch Lidocaine HCl/Dextrose (Lidoderm Patch Removal) 1 removal TOP [facility] Last Admin: 06/30/17 19:54 Dose: 1 removal Lisinopril (Prinivil) 10 mg PO DAILY [facility] Last Admin: 06/30/17 08:06 Dose: 10 mg Loperamide HCl (Imodium) 2 mg PO PRN PRN; Protocol PRN Reason: Diarrhea Lorazepam (Ativan Inj) 0.5 mg IVP Q6H PRN Lorazepam (Ativan) 0.5 mg PO TID PRN PRN Reason: Agitation Last Admin: 06/29/17 19:38 Dose: 0.5 mg Multivitamins (Theragran) 1 tab PO DAILY [facility] Last Admin: 06/30/17 08:04 Dose: 1 tab Quetiapine Fumarate (Seroquel) 50 mg PO BID PRN PRN Reason: Agitation Last Admin: 06/28/17 20:06 Dose: 50 mg Quetiapine Fumarate (Seroquel) 100 mg PO HS [facility] Last Admin: 06/30/17 19:55 Dose: 100 mg Quetiapine Fumarate (Seroquel) 75 mg PO [facility] Last Admin: 06/30/17 13:42 Dose: 75 mg Subjective: Patient seen and chart reviewed. Nursing reports pt had some paranoia and anxiety last night and was given Ativan around 1930 which was helpful. PT has done well today. On face to face the pt is pleasant. She denies any pain. Mood stable. Denies paranoia. Tolerating meds Start Time: 10:45 Stop Time: 11:00 Mental Status Exam Vitals: Last Vital Signs Temp 98.0 F 06/30/17 15:36 Pulse 75 06/30/17 15:36 Resp 14 06/30/17 15:36 BP 113/75 06/30/17 15:36 Pulse Ox 96 06/30/17 15:36 Height: 1.68 m Weight: 74.7 kg - Mental Status Exam Muscle Strength/Tone: Normal Dressing: Casual Grooming: Good Attitude: Cooperative Motor Activity: Retardation Eye Contact: Fair Speech: Slowed Volume: Soft Rhythm: Appropriate Rhythm Orientation: Disoriented to time, Disoriented to place, Disoriented to situation , Oriented to person Mood: Neutral (Neutral affect today, doesn't appear as sad as on previous days) Rate of Thoughts: Delayed Thought Organization: [place] Associations: Illogical Abstract Reasoning: Poor abstract reasoning Thought Content: Paranoia (improved - no evidence today), Somatic Concerns Perception/Psychotic: Other (Unclear whether patient is currently experiencing VH - not responding to internal stimuli during interview, she denies) Language: Naming Impaired Fund of Knowledge: Poor fund of knowledge Memory: Poor-immediate, Poor-recent Suicidal Ideation: Denies Homicidal Ideation: Denies Insight: Limited Judgement: Limited Impulse Control: Poor - Laboratory Result Diagrams: 06/30/17 06:55 06/30/17 06:55 Laboratory Results - last 24 hr 06/30/17 06/30/17 06:55 06:55 WBC 4.7 RBC 4.28 Hgb 12.9 Hct 40.4 MCV 94.4 MCH 30.1 MCHC 31.9 RDW Std Deviation 47.3 Plt Count 128 L MPV 11.1 Immature Gran % (Auto) 0.4 Neut % (Auto) 66.5 H Lymph % (Auto) 24.7 [place] % (Auto) 6.5 Eos % (Auto) 1.5 Baso % (Auto) 0.4 Neut # 3.2 Lymph # 1.2 [place] # 0.3 Eos # 0.1 Baso # 0.0 Abs Immat Gran (auto) 0.02 Turbidity < 20 Sodium 147 H Potassium 3.8 Chloride 106 Carbon Dioxide 30 Anion Gap 11 BUN 21.0 H Creatinine 0.8 GFR Calculation 68 BUN/Creatinine Ratio 26 Glucose 93 Calculated Osmolality 285 H Calcium 9.7 Icterus Index < 2 Specimen Hemolysis < 15 Assessment and Plan (1) CAD (coronary artery disease) Current visit: No Status: Chronic (2) HTN (hypertension) Current visit: No Status: Chronic (3) Major neurocognitive disorder Problem details: with behavioral disturbance (most likely Lewy Body Dementia) Current visit: No Status: Acute (4) Parkinsons Current visit: No Status: Chronic (5) Lewy body dementia with behavioral disturbance Current visit: No Status: Acute (6) Depressive disorder Current visit: Yes Status: Acute Hospital Course Summary Disclaimer: The visit summary below is not to be considered part of the above Progress Note. Hospital Course: 06/20/17 Agree with admission to [facility] for ongoing psychiatric evaluation and treatment under the care of Dr. Rizvi Persistent hypernatremia chronically, will encourage oral fluids, and monitor routine BMP. Blood pressure is elevated today. Recently patient was on Norvasc in addition to lisinopril. Will add Norvasc 5 mg daily and continue to monitor carefully Previously underwent pancytopenia and anemia workup in which iron and vitamin B12 were normal. Tylenol as needed for back pain. Check CBC and BMP tomorrow morning to follow blood counts, renal function and electrolytes Hospitalist services will continue to follow patient medically manage existing comorbidities. At time of discharge, care will return to primary care provider, Dr. Oquendo 06/20/17 20:07 Psych: Increase Seroquel to 50mg PO BID (AM, afternoon) and 100mg PO q HS as patient continues to exhibit paranoia - monitor for signs of worsening Parkinsonism, weigh risk of AE to clinical benefit with further dose increases. 06/21/17 18:32 Psych: Continue current care - monitor for any further signs of depression, may increase Seroquel dose further if paranoia continues. 06/22/17 20:35 Psych: Discuss depressive symptoms and need for antidepressant with staff, patient's family tomorrow. Paranoia is manageable and directable at this point. Would like to use lowest dose of Seroquel possible to control symptoms as to avoid exacerbating movement disorder. Continue current care otherwise; monitor patient's mood, behavior and response to treatment. 06/23/17 21:02 Psych: Start mirtazapine 7.5mg PO q HS to target mood, may increase to 15mg fairly quickly if well tolerated. Believe that paranoia is mild in nature when present and she is redirectable and current dose of Seroquel - would like to minimize dose to avoid exacerbating movement disorder. 06/24/17 16:36 Patient is slowly improving. Diarrhea stools have resolved. Still confused, it appears from nurses notes that behavior is improving. BP is variable, but overall well controlled. Plan to repeat labs in AM for stability. Chart, documentation, imaging is reviewed during the course of this visit. 06/24/17 19:46 Psych: Patient doing well overall - will receive first dose of mirtazapine tonight, monitor to ensure patient tolerates it well and plan to increase to 15mg soon. Continue current care otherwise. 06/26/17 13:43 Psych: Continues to complain of depression - will increase mirtazapine to 15mg PO q HS and monitor behavior/response. 06/26/17 Overall, Cristina is doing well and slowly improving. Continue psychiatric care per team. Diarrhea stools have resolved. Hypernatremia noted on labs on 06/25 with sodium at 147. Encourage fluid intake. Hypokalemia noted with potassium at 3.5. Will give KCl 20 mEq po now and and will recheck BMP on 06/29. Continue to provide safe and supportive environment. Anticipate discharge in near future. 06/26/17 20:56 Psych: Discontinue mirtazapine as patient has become agitated more frequently since starting it - monitor response. Continue current dose of Seroquel. Monitor response. 06/27/17 21:28 Pt remains irritable at times but is redirectable. Continue current care 06/28/17 20:46 No behaviors today. Continue current care 06/29/17 18:35 Pt was more agitated and paranoid today with some physical aggression. Will restart Ativan PRN and increased BID dose of Seroquel to 75mg 06/30/17 21:04 Pt had some agitation last night and required PRN's. Continue current care
[2017-07-01] MEDS: ACETAMINOPHEN 325 MG TABLET PO PRN (06:57)
[2017-07-01] MEDS ORDERED: ASPIRIN 325 MG TABLET PO ONE (07:56)
--- NOTE | 2017-07-01 08:23 | Progress Note ---
<Lanie Malik - Last Filed: 07/01/17 09:32> Subjective: Cristina was seen first thing this morning in response to her new complaint of chest pain this morning. Nursing reports that Cristina was crying after waking and then began clutching her chest, complaining of central chest pain. Her chest pain resolved quickly but she now complains of epigastric and LUQ abdominal pain as well as back pain. She denies any nausea, vomiting, shortness of breath, diaphoresis, dizziness or syncope. She was given ASA 324mg and EKG was ordered. Vital signs remained stable. On exam, she is seen in her room, resting in bed. She denies any current chest pain and does not recall having chest pain this morning. She does point to her epigastric and LUQ when asked where her pain is. Cardiac exam reveals regular rate and rhythm and lungs sounds are clear bilaterally. She is noted to have RUQ and epigastric abdominal tenderness with palpation and guarding on exam. + Saleh's sign. When asked if she still has her gall bladder, she states that she does and "it doesn't work". No abdominal bruits or palpitations. 1+ pedal edema noted to bilateral lower extremities. She is afebrile and alert and orientated to person and situation only. Labs on 06/30 revealed normal WBC at 4.7 with thrombocytosis at 128. Persistent hypernatremia with sodium 147 and otherwise unremarkable labs. She was found to have an UTI recently and started on Keflex for E. coli. She denies any current urinary symptoms or complaints. Objective Vital signs: Temperature 97.6 F 07/01/17 07:24 Pulse Rate 58 L 07/01/17 07:47 Respiratory Rate 20 07/01/17 07:24 Blood Pressure 153/76 H 07/01/17 07:47 Pulse Oximetry 94 07/01/17 07:47 Height/Weight/BMI: Height 5 ft 6 in Weight 166 lb 0.129 oz Body Mass Index 26.0 - Constitutional Present: no acute distress, well nourished, well developed, cooperative - Routine HEENT Exam Head: Present: normocephalic, atraumatic Eye: Present: PERRL, conjunctival icterus ENT: Present: mucous membranes moist, oropharynx clear - Routine Respiratory Exam Present: CTA bilaterally. Absent: dyspnea, respiratory distress, stridor, wheezes - Routine Cardiovascular Exam Present: RRR, S1, S2 - Routine Abdominal Exam Present: soft, normoactive bowel sounds, tenderness (RUQ and epigastric - + saleh's sign), non distended, guarding. Absent: firm, rigid, bruit - Routine Extremities Exam Present: edema (1+ pedal), full ROM, pulses intact. Absent: cyanosis, clubbing , calf tenderness - Routine Back/Spine/Pelvis Exam Back/Spine: Present: full ROM - Routine Musculoskeletal Exam Musculoskeletal: Present: no clubbing or cyanosis, moving extremities well - Routine Skin Exam Present: intact, dry, warm. Absent: jaundice Comments: afebrile - Routine Neurological Exam Present: alert, moving all extremities, normal speech, tremors orientated to person and situation only. - Routine Lymphatic Exam Lymphatic: Absent: lymphedema - Routine Psychiatric Exam Present: cooperative, anxious Results - Labs CBC & Chem 7: 07/01/17 08:11 07/01/17 08:11 Microbiology Results: Microbiology 06/29/17 16:31 Urine, Voided (Cc/notcc) Urine Culture - Preliminary Escherichia coli Gram Negative [place] Assessment and Plan (1) Cognitive and behavioral changes Current visit: No Status: Acute (2) CAD (coronary artery disease) Current visit: No Status: Chronic (3) HTN (hypertension) Current visit: No Status: Chronic (4) Parkinsons Current visit: No Status: Chronic (5) Lewy body dementia with behavioral disturbance Current visit: No Status: Acute (6) Hypernatremia Current visit: No Status: Acute GI Prophylaxis: Pepcid Resuscitation Status: Do Not Resuscitate Assessment and Plan: 06/30/17 Assessment Alzheimer disease Anxiety CAD (coronary artery disease) COPD (chronic obstructive pulmonary disease) Cataracts, bilateral Depression Dyslipidemia 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 Fibromyalgia GERD (gastroesophageal reflux disease) HTN (hypertension) PVD High cholesterol IBS (irritable bowel syndrome) Osteoporosis Hx Gout Parkinsons disease Vitamin D deficiency Plan 0815: Cristina complained of chest pain this morning which has since resolved and now complains of epigastric and upper abdominal pain. Exam reveals + Saleh's sign. She states her gall bladder "doesn't work". In light of her chest pain, will obtain EKG, portable chest x-ray, CBC, CMP and serial troponins stat - results pending. She was given ASA 324. No nitro was administer as she was chest pain free on exam. Vital signs have remained stable with blood pressure slightly elevated at 153/76. She has not received her morning medications. CXR was reviewed by myself and appeared unchanged from prior imaging in May 2017. As her clinical exam is concerning for gall bladder issues, will discuss with the family their wishes on additional imaging, labs, treatments, etc as Cristina is a DNR. 0930: Review of the labs revealed new leukopenia with WBC at 3.5 and stable thrombopenia with platelets at 120. CMP revealed stable hypernatremia with sodium at 147 and otherwise unremarkable. AST and ALT were unremarkable at 17 and 37 respectively. Troponin was <0.012. Lipase was within normal limits at 38. EKG showed sinus bradycardia at rate of 59 with 1st degree AV block. No STEMI noted. Will continue to encourage oral fluid intake and monitor closely. - Time spent with patient greater than 35 minutes Hospital Course Summary Disclaimer: The visit summary below is not to be considered part of the above Progress Note. Hospital Course: 06/20/17 Agree with admission to [facility] for ongoing psychiatric evaluation and treatment under the care of Dr. Rizvi Persistent hypernatremia chronically, will encourage oral fluids, and monitor routine BMP. Blood pressure is elevated today. Recently patient was on Norvasc in addition to lisinopril. Will add Norvasc 5 mg daily and continue to monitor carefully Previously underwent pancytopenia and anemia workup in which iron and vitamin B12 were normal. Tylenol as needed for back pain. Check CBC and BMP tomorrow morning to follow blood counts, renal function and electrolytes Hospitalist services will continue to follow patient medically manage existing comorbidities. At time of discharge, care will return to primary care provider, Dr. Oquendo 06/20/17 20:07 Psych: Increase Seroquel to 50mg PO BID (AM, afternoon) and 100mg PO q HS as patient continues to exhibit paranoia - monitor for signs of worsening Parkinsonism, weigh risk of AE to clinical benefit with further dose increases. 06/21/17 18:32 Psych: Continue current care - monitor for any further signs of depression, may increase Seroquel dose further if paranoia continues. 06/22/17 20:35 Psych: Discuss depressive symptoms and need for antidepressant with staff, patient's family tomorrow. Paranoia is manageable and directable at this point. Would like to use lowest dose of Seroquel possible to control symptoms as to avoid exacerbating movement disorder. Continue current care otherwise; monitor patient's mood, behavior and response to treatment. 06/23/17 21:02 Psych: Start mirtazapine 7.5mg PO q HS to target mood, may increase to 15mg fairly quickly if well tolerated. Believe that paranoia is mild in nature when present and she is redirectable and current dose of Seroquel - would like to minimize dose to avoid exacerbating movement disorder. 06/24/17 16:36 Patient is slowly improving. Diarrhea stools have resolved. Still confused, it appears from nurses notes that behavior is improving. BP is variable, but overall well controlled. Plan to repeat labs in AM for stability. Chart, documentation, imaging is reviewed during the course of this visit. 06/24/17 19:46 Psych: Patient doing well overall - will receive first dose of mirtazapine tonight, monitor to ensure patient tolerates it well and plan to increase to 15mg soon. Continue current care otherwise. 06/26/17 13:43 Psych: Continues to complain of depression - will increase mirtazapine to 15mg PO q HS and monitor behavior/response. 06/26/17 Overall, Cristina is doing well and slowly improving. Continue psychiatric care per team. Diarrhea stools have resolved. Hypernatremia noted on labs on 06/25 with sodium at 147. Encourage fluid intake. Hypokalemia noted with potassium at 3.5. Will give KCl 20 mEq po now and and will recheck BMP on 06/29. Continue to provide safe and supportive environment. Anticipate discharge in near future. 06/26/17 20:56 Psych: Discontinue mirtazapine as patient has become agitated more frequently since starting it - monitor response. Continue current dose of Seroquel. Monitor response. 06/27/17 21:28 Pt remains irritable at times but is redirectable. Continue current care 06/28/17 20:46 No behaviors today. Continue current care 06/29/17 18:35 Pt was more agitated and paranoid today with some physical aggression. Will restart Ativan PRN and increased BID dose of Seroquel to 75mg 06/30/17 21:04 Pt had some agitation last night and required PRN's. Continue current care 07/01/17 0815: Cristina complained of chest pain this morning which has since resolved and now complains of epigastric and upper abdominal pain. Exam reveals + Saleh's sign. She states her gall bladder "doesn't work". In light of her chest pain, will obtain EKG, portable chest x-ray, CBC, CMP and serial troponins stat - results pending. She was given ASA 324. No nitro was administer as she was chest pain free on exam. Vital signs have remained stable with blood pressure slightly elevated at 153/76. She has not received her morning medications. CXR was reviewed by myself and appeared unchanged from prior imaging in May 2017. As her clinical exam is concerning for gall bladder issues, will discuss with the family their wishes on additional imaging, labs, treatments, etc as Cristina is a DNR. 0930: Review of the labs revealed new leukopenia with WBC at 3.5 and stable thrombopenia with platelets at 120. CMP revealed stable hypernatremia with sodium at 147 and otherwise unremarkable. AST and ALT were unremarkable at 17 and 37 respectively. Troponin was <0.012. Lipase was within normal limits at 38. EKG showed sinus bradycardia at rate of 59 with 1st degree AV block. No STEMI noted. Will continue to encourage oral fluid intake and monitor closely. <Desirae Beatty - Last Filed: 07/01/17 18:53> Objective Vital signs: Temperature 98.3 F 07/01/17 16:05 Pulse Rate 70 07/01/17 16:05 Respiratory Rate 18 07/01/17 16:05 Blood Pressure 117/59 07/01/17 16:05 Pulse Oximetry 94 07/01/17 16:05 Height/Weight/BMI: Height 1.68 m Weight 75.3 kg Body Mass Index 26.0 Results - Labs CBC & Chem 7: 07/01/17 08:11 07/01/17 08:11 Microbiology Results: Microbiology 06/29/17 16:31 Urine, Voided (Cc/notcc) Urine Culture - Final Escherichia coli Gram Negative Frank[place] Assessment and Plan (1) Cognitive and behavioral changes Current visit: No Status: Acute (2) CAD (coronary artery disease) Current visit: No Status: Chronic (3) HTN (hypertension) Current visit: No Status: Chronic (4) Parkinsons Current visit: No Status: Chronic (5) Lewy body dementia with behavioral disturbance Current visit: No Status: Acute (6) Hypernatremia Current visit: No Status: Acute Assessment and Plan: I have independently evaluated and examined this patient. I reviewed the chart, the patient's history, and the DIRECTOR OF GRANTS/PA's documented findings as above. We discussed and formulated the assessment and plan as above with additions as below: Mrs. Deras was seen in the day room late in the afternoon. She reported that her day started off badly but subsequently improved. Abdominal symptoms and pain subsided after she ate a sandwich at lunch; she describes significant pain in her right shoulder yesterday which she attributes to prior shoulder replacements. She also reports some difficulty urinating earlier today although nurses report that she is voided several times. Respirations are nonlabored and breath sounds clear Cardiac rhythm regular Abdomen soft with mild generalized tenderness to deep palpation but no guarding , bowel sounds active Rest tremor present right upper extremity greater than left EKG reviewed by myself demonstrating sinus bradycardia with right bundle branch block but no acute pathology. LVH present. Chest x-ray reviewed by myself-unremarkable other than prior right shoulder arthroplasty. Laboratory data notable for mild persistent hypernatremia, normal liver enzymes , normal troponin twice, and Escherichia coli in urine without associated symptoms of UTI. Continue to monitor, readdress urinary symptoms tomorrow but at present I don't see any indication for treatment of bacteria. Earlier today pain was largely in the epigastrium/right upper quadrant but at present is more generalized. Nursing reports at least daily bowel movements. Hospital Course Summary Disclaimer: The visit summary below is not to be considered part of the above Progress Note. Addendum entered and electronically signed by Lanie Malik PA 07/01/17 11: 53: Hospitalist service was notified of UA sensitivity report now complete. Sensitivities revealed multi-drug resistant ESBL. Results discussed with Dr. Beatty. Currently Cristina is on Keflex which was shown to be resistant. Only available treatments include Zosyn and ertapenem, both requiring IV placement. As the patient has had stable moods, remains afebrile without suprapubic tenderness and no vomiting, leukocytosis or other symptoms, Dr. Beatty recommended holding off on antibiotic treatment at this time and continue to monitor the patient closely. Will discontinue Keflex at this time.
[2017-07-01] MEDS ORDERED: ONDANSETRON ODT 4 MG TABLET PO PRN (09:57)
[2017-07-01] MEDS: COENZYME Q10 200 MG PO SCH (10:31)
[2017-07-01] MEDS: ASPIRIN *EC* 81 MG TABLET PO SCH (10:32)
--- NOTE | 2017-07-01 10:40 | XRay Report ---
Indication: chest pain PROCEDURE: XR chest 1V: Encounter: Initial Comparison: May 19, 2017 Findings: Possible trace effusions. The lungs are otherwise stable in appearance without new focal airspace consolidation. There is no pneumothorax. The heart size, pulmonary vascularity and mediastinal contours are unchanged. IMPRESSION: Possible trace effusions without focal pneumonia. .
[2017-07-01] MEDS: LIDOCAINE 5% PATCH TOP SCH (10:43)
[2017-07-01] MEDS: AMLODIPINE 5 MG TABLET PO SCH (10:44)
[2017-07-01] MEDS: QUETIAPINE 50 MG TABLET PO SCH ×2 (10:44→14:55)
[2017-07-01] MEDS: MULTI-VITAMIN PLAIN TABLET PO SCH (10:44)
[2017-07-01] MEDS: FAMOTIDINE 20 MG TABLET PO SCH (10:45)
[2017-07-01] MEDS: CYANOCOBALAMIN (B-12) 500mcg TABLET PO SCH ×2 (10:45→19:32)
[2017-07-01] MEDS: LISINOPRIL 10 MG TABLET PO SCH (10:45)
[2017-07-01] MEDS: ALLOPURINOL 100 MG TABLET PO SCH (10:47)
[2017-07-01] MEDS: HYDROCODONE/APAP 5mg/325mg TABLET PO PRN (10:59)
--- NOTE | 2017-07-01 12:26 | Neuropsych Progress Note ---
[facility] Subjective Date: 07/01/17 - Sujective/Severity of Illness Medications: Acetaminophen (Tylenol) 325 - 650 mg PO Q5H PRN PRN Reason: Discomfort Last Admin: 07/01/17 06:57 Dose: 650 mg Acetaminophen/Hydrocodone Bitart ([place] 5/325) 1 tab PO Q6H PRN PRN Reason: Pain Last Admin: 07/01/17 10:59 Dose: 1 tab Al Hydroxide/Mg Hydroxide (Maalox Plus) 30 ml PO Q4H PRN PRN Reason: Indigestion Last Admin: 06/29/17 20:36 Dose: 30 ml Allopurinol (Zyloprim) 100 mg PO DAILY [facility] Last Admin: 07/01/17 10:47 Dose: 100 mg Amlodipine Besylate (Norvasc) 5 mg PO DAILY [facility] Last Admin: 07/01/17 10:44 Dose: 5 mg Aspirin (Ecotrin) 81 mg PO DAILY [facility] Last Admin: 07/01/17 10:32 Dose: 81 mg Atorvastatin Calcium (Lipitor) 10 mg PO HS [facility] Last Admin: 06/30/17 22:01 Dose: Not Given Cholecalciferol (Vit. D-3) 1,000 unit PO 2100 [facility] Last Admin: 06/30/17 22:02 Dose: Not Given Cholecalciferol (Vit. D-3) 2,000 unit PO DAILY [facility] Last Admin: 07/01/17 10:46 Dose: 2,000 unit Coenzyme Q10 (Co Q-10) 100 mg PO DAILY [facility] Last Admin: 07/01/17 10:31 Dose: 100 mg Cyanocobalamin (Vit. B-12) 500 mcg PO BID [facility] Last Admin: 07/01/17 10:45 Dose: 500 mcg Famotidine (Pepcid) 20 mg PO DAILY [facility] Last Admin: 07/01/17 10:45 Dose: 20 mg Haloperidol (Haldol) 0.5 mg PO Q6H PRN PRN Reason: Extreme agitation Haloperidol (Haldol) 0.5 mg PO Q6HR PRN PRN Reason: Anxiety/Agitation Haloperidol Lactate (Haldol) 0.5 mg IM Q6H PRN PRN Reason: Extreme agitation Lidocaine (Lidoderm) 1 patch TOP DAILY [facility] Last Admin: 07/01/17 10:43 Dose: 1 patch Lidocaine HCl/Dextrose (Lidoderm Patch Removal) 1 removal TOP [facility] Last Admin: 06/30/17 22:01 Dose: Not Given Lisinopril (Prinivil) 10 mg PO DAILY [facility] Last Admin: 07/01/17 10:45 Dose: 10 mg Loperamide HCl (Imodium) 2 mg PO PRN PRN; Protocol PRN Reason: Diarrhea Lorazepam (Ativan Inj) 0.5 mg IVP Q6H PRN Lorazepam (Ativan) 0.5 mg PO TID PRN PRN Reason: Agitation Last Admin: 06/29/17 19:38 Dose: 0.5 mg Multivitamins (Theragran) 1 tab PO DAILY [facility] Last Admin: 07/01/17 10:44 Dose: 1 tab Ondansetron HCl (Zofran Po) 4 mg PO Q6H PRN PRN Reason: Nausea &/or vomiting Quetiapine Fumarate (Seroquel) 50 mg PO BID PRN PRN Reason: Agitation Last Admin: 06/28/17 20:06 Dose: 50 mg Quetiapine Fumarate (Seroquel) 100 mg PO [facility] Last Admin: 06/30/17 22:01 Dose: Not Given Quetiapine Fumarate (Seroquel) 75 mg PO 0914 [facility] Last Admin: 07/01/17 10:44 Dose: 75 mg Subjective: Patient seen and chart reviewed. Nursing reports pt complained of some CP this AM. It was worked up and so far work up was negative. Nursing reports pt slept well and has a good appetite. no behaviors noted. On face to face the pt is pleasant. She states her pain has resolved. Her mood is stable and she denies any paranoia. Tolerating meds Start Time: 12:00 Stop Time: 12:15 Mental Status Exam Vitals: Last Vital Signs Temp 96.8 F 07/01/17 09:26 Pulse 93 07/01/17 09:26 Resp 18 07/01/17 09:26 BP 154/72 H 07/01/17 09:26 Pulse Ox 94 07/01/17 09:26 Height: 1.68 m Weight: 75.3 kg - Mental Status Exam Muscle Strength/Tone: Normal Dressing: Casual Grooming: Good Attitude: Cooperative Motor Activity: Retardation Eye Contact: Fair Speech: Slowed Volume: Soft Rhythm: Appropriate Rhythm Orientation: Disoriented to time, Disoriented to place, Disoriented to situation , Oriented to person Mood: Neutral (Neutral affect today, doesn't appear as sad as on previous days) Rate of Thoughts: Delayed Thought Organization: [place] Associations: Illogical Abstract Reasoning: Poor abstract reasoning Thought Content: Paranoia (improved - no evidence today), Somatic Concerns Perception/Psychotic: Other (Unclear whether patient is currently experiencing VH - not responding to internal stimuli during interview, she denies) Language: Naming Impaired Fund of Knowledge: Poor fund of knowledge Memory: Poor-immediate, Poor-recent Suicidal Ideation: Denies Homicidal Ideation: Denies Insight: Limited Judgement: Limited Impulse Control: Poor - Laboratory Result Diagrams: 07/01/17 08:11 07/01/17 08:11 Laboratory Results - last 24 hr 07/01/17 07/01/17 07/01/17 08:10 08:11 08:11 WBC 3.5 L RBC 4.06 Hgb 12.4 Hct 38.0 MCV 93.6 MCH 30.5 MCHC 32.6 RDW Std Deviation 46.9 Plt Count 120 L MPV 10.5 Immature Gran % (Auto) 0.3 Neut % (Auto) 66.4 H Lymph % (Auto) 24.6 [place] % (Auto) 6.1 Eos % (Auto) 2.3 Baso % (Auto) 0.3 Neut # 2.3 Lymph # 0.9 L [place] # 0.2 Eos # 0.1 Baso # 0.0 Abs Immat Gran (auto) 0.01 Turbidity < 20 Sodium 146 H Potassium 3.9 Chloride 108 H Carbon Dioxide 29 Anion Gap 9 BUN 21.0 H Creatinine 0.8 GFR Calculation 68 BUN/Creatinine Ratio 26 Glucose 89 Calculated Osmolality 283 H Calcium 9.6 Total Bilirubin Icterus Index < 2 AST ALT Alkaline Phosphatase Troponin I < 0.012 Total Protein Albumin Globulin Albumin/Globulin Ratio Lipase Cancelled Specimen Hemolysis < 15 07/01/17 07/01/17 08:11 08:13 WBC RBC Hgb Hct MCV MCH MCHC RDW Std Deviation Plt Count MPV Immature Gran % (Auto) Neut % (Auto) Lymph % (Auto) [place] % (Auto) Eos % (Auto) Baso % (Auto) Neut # Lymph # [place] # Eos # Baso # Abs Immat Gran (auto) Turbidity < 20 Sodium 147 H Potassium 3.9 Chloride 109 H Carbon Dioxide 29 Anion Gap 9 BUN 20.0 H Creatinine 0.8 GFR Calculation 68 BUN/Creatinine Ratio 25 Glucose 89 Calculated Osmolality 284 H Calcium 9.6 Total Bilirubin 0.60 Icterus Index < 2 AST 17 ALT 37 Alkaline Phosphatase 57 Troponin I Total Protein 6.1 L Albumin 3.5 Globulin 2.6 Albumin/Globulin Ratio 1.3 Lipase 38 Specimen Hemolysis < 15 Assessment and Plan (1) CAD (coronary artery disease) Current visit: No Status: Chronic (2) HTN (hypertension) Current visit: No Status: Chronic (3) Major neurocognitive disorder Problem details: with behavioral disturbance (most likely Lewy Body Dementia) Current visit: No Status: Acute (4) Parkinsons Current visit: No Status: Chronic (5) Lewy body dementia with behavioral disturbance Current visit: No Status: Acute (6) Depressive disorder Current visit: Yes Status: Acute Hospital Course Summary Disclaimer: The visit summary below is not to be considered part of the above Progress Note. Hospital Course: 06/20/17 Agree with admission to [facility] for ongoing psychiatric evaluation and treatment under the care of Dr. Rizvi Persistent hypernatremia chronically, will encourage oral fluids, and monitor routine BMP. Blood pressure is elevated today. Recently patient was on Norvasc in addition to lisinopril. Will add Norvasc 5 mg daily and continue to monitor carefully Previously underwent pancytopenia and anemia workup in which iron and vitamin B12 were normal. Tylenol as needed for back pain. Check CBC and BMP tomorrow morning to follow blood counts, renal function and electrolytes Hospitalist services will continue to follow patient medically manage existing comorbidities. At time of discharge, care will return to primary care provider, Dr. Oquendo 06/20/17 20:07 Psych: Increase Seroquel to 50mg PO BID (AM, afternoon) and 100mg PO q HS as patient continues to exhibit paranoia - monitor for signs of worsening Parkinsonism, weigh risk of AE to clinical benefit with further dose increases. 06/21/17 18:32 Psych: Continue current care - monitor for any further signs of depression, may increase Seroquel dose further if paranoia continues. 06/22/17 20:35 Psych: Discuss depressive symptoms and need for antidepressant with staff, patient's family tomorrow. Paranoia is manageable and directable at this point. Would like to use lowest dose of Seroquel possible to control symptoms as to avoid exacerbating movement disorder. Continue current care otherwise; monitor patient's mood, behavior and response to treatment. 06/23/17 21:02 Psych: Start mirtazapine 7.5mg PO q HS to target mood, may increase to 15mg fairly quickly if well tolerated. Believe that paranoia is mild in nature when present and she is redirectable and current dose of Seroquel - would like to minimize dose to avoid exacerbating movement disorder. 06/24/17 16:36 Patient is slowly improving. Diarrhea stools have resolved. Still confused, it appears from nurses notes that behavior is improving. BP is variable, but overall well controlled. Plan to repeat labs in AM for stability. Chart, documentation, imaging is reviewed during the course of this visit. 06/24/17 19:46 Psych: Patient doing well overall - will receive first dose of mirtazapine tonight, monitor to ensure patient tolerates it well and plan to increase to 15mg soon. Continue current care otherwise. 06/26/17 13:43 Psych: Continues to complain of depression - will increase mirtazapine to 15mg PO q HS and monitor behavior/response. 06/26/17 Overall, Cristina is doing well and slowly improving. Continue psychiatric care per team. Diarrhea stools have resolved. Hypernatremia noted on labs on 06/25 with sodium at 147. Encourage fluid intake. Hypokalemia noted with potassium at 3.5. Will give KCl 20 mEq po now and and will recheck BMP on 06/29. Continue to provide safe and supportive environment. Anticipate discharge in near future. 06/26/17 20:56 Psych: Discontinue mirtazapine as patient has become agitated more frequently since starting it - monitor response. Continue current dose of Seroquel. Monitor response. 06/27/17 21:28 Pt remains irritable at times but is redirectable. Continue current care 06/28/17 20:46 No behaviors today. Continue current care 06/29/17 18:35 Pt was more agitated and paranoid today with some physical aggression. Will restart Ativan PRN and increased BID dose of Seroquel to 75mg 06/30/17 21:04 Pt had some agitation last night and required PRN's. Continue current care 07/01/17 0815: Cristina complained of chest pain this morning which has since resolved and now complains of epigastric and upper abdominal pain. Exam reveals + Saleh's sign. She states her gall bladder "doesn't work". In light of her chest pain, will obtain EKG, portable chest x-ray, CBC, CMP and serial troponins stat - results pending. She was given ASA 324. No nitro was administer as she was chest pain free on exam. Vital signs have remained stable with blood pressure slightly elevated at 153/76. She has not received her morning medications. CXR was reviewed by myself and appeared unchanged from prior imaging in May 2017. As her clinical exam is concerning for gall bladder issues, will discuss with the family their wishes on additional imaging, labs, treatments, etc as Cristina is a DNR. 0930: Review of the labs revealed new leukopenia with WBC at 3.5 and stable thrombopenia with platelets at 120. CMP revealed stable hypernatremia with sodium at 147 and otherwise unremarkable. AST and ALT were unremarkable at 17 and 37 respectively. Troponin was <0.012. Lipase was within normal limits at 38. EKG showed sinus bradycardia at rate of 59 with 1st degree AV block. No STEMI noted. Will continue to encourage oral fluid intake and monitor closely. 07/01/17 12:25 No behaviors noted today. medical team working up RUQ abdominal pain. Continue current care
[2017-07-01] MEDS: ATORVASTATIN 10 MG TABLET PO SCH (19:31)
[2017-07-01] MEDS: QUETIAPINE 100 MG TABLET PO SCH (19:31)
[2017-07-02] MEDS: QUETIAPINE 100 MG TABLET PO SCH ×2 (01:28→19:38)
[2017-07-02] MEDS: LIDOCAINE PATCH REMOVAL TOP SCH ×2 (01:28→19:39)
[2017-07-02] MEDS: ATORVASTATIN 10 MG TABLET PO SCH ×2 (01:28→19:38)
[2017-07-02] MEDS: CYANOCOBALAMIN (B-12) 500mcg TABLET PO SCH ×3 (01:29→19:38)
[2017-07-02] MEDS: HYDROCODONE/APAP 5mg/325mg TABLET PO PRN ×3 (03:03→19:38)
[2017-07-02] MEDS: COENZYME Q10 200 MG PO SCH (08:18)
[2017-07-02] MEDS: ASPIRIN *EC* 81 MG TABLET PO SCH (08:19)
[2017-07-02] MEDS: LIDOCAINE 5% PATCH TOP SCH (08:19)
[2017-07-02] MEDS: AMLODIPINE 5 MG TABLET PO SCH (08:19)
[2017-07-02] MEDS: LISINOPRIL 10 MG TABLET PO SCH (08:20)
[2017-07-02] MEDS: FAMOTIDINE 20 MG TABLET PO SCH (08:20)
[2017-07-02] MEDS: QUETIAPINE 50 MG TABLET PO SCH ×2 (08:20→14:52)
[2017-07-02] MEDS: MULTI-VITAMIN PLAIN TABLET PO SCH (08:21)
[2017-07-02] MEDS: ALLOPURINOL 100 MG TABLET PO SCH (08:22)
--- NOTE | 2017-07-02 14:44 | Progress Note ---
Subjective: Patient is seen today resting in the TV room. She is pleasant upon awakening. She recalls having pain yesterday along with repeated lab draws. She reports she 's had no pain today. She denies fever or chills. She's not had any burning on urination. No urinary frequency. She denies chest pain, shortness of breath, nausea or vomiting. Objective Vital signs: Temperature 96.8 F 07/02/17 07:53 Pulse Rate 65 07/02/17 07:53 Respiratory Rate 16 07/02/17 07:53 Blood Pressure 159/76 H 07/02/17 07:53 Pulse Oximetry 97 07/02/17 07:53 Height/Weight/BMI: Height 1.68 m Weight 74.3 kg Body Mass Index 26.0 - Constitutional Present: well nourished, well developed - Routine HEENT Exam Head: Present: normocephalic - Routine Respiratory Exam Present: CTA bilaterally. Absent: wheezes - Routine Cardiovascular Exam Present: RRR. Absent: murmur - Routine Abdominal Exam Present: soft, normoactive bowel sounds, tenderness (mild right upper quadrant tenderness with palpation.), non distended - Routine Extremities Exam Present: edema (trace), normal capillary refill - Routine Skin Exam Present: dry, warm - Routine Neurological Exam Present: alert, normal speech - Routine Lymphatic Exam Lymphatic: Absent: adenopathy - Routine Psychiatric Exam Present: normal affect, cooperative Results - Labs CBC & Chem 7: 07/01/17 08:11 07/01/17 08:11 Microbiology Results: Microbiology 06/29/17 16:31 urine culture-ESBL. Sensitive only to ertapenem and PIP/TAZO Patient is without urinary symptoms. No fever chills or elevated white blood cell count. No change in behaviors. Antibiotic treatment is not indicated at this time. Assessment and Plan (1) Cognitive and behavioral changes Current visit: No Status: Acute (2) CAD (coronary artery disease) Current visit: No Status: Chronic (3) HTN (hypertension) Current visit: No Status: Chronic (4) Parkinsons Current visit: No Status: Chronic (5) Lewy body dementia with behavioral disturbance Current visit: No Status: Acute (6) Hypernatremia Current visit: No Status: Acute Assessment and Plan: Assessment Alzheimer disease ESBL on urine culture-asymptomatic bacteriuria Anxiety CAD (coronary artery disease) COPD (chronic obstructive pulmonary disease) Cataracts, bilateral Depression Dyslipidemia 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 Fibromyalgia GERD (gastroesophageal reflux disease) HTN (hypertension) PVD High cholesterol IBS (irritable bowel syndrome) Osteoporosis Hx Gout Parkinsons disease Vitamin D deficiency Plan Review vital signs, nurse's notes, psychiatry note, and laboratory. Patient is without fever and chills, has no elevated white count, no suprapubic pain, no urinary symptoms, thus, antibiotic treatment is not indicated with the presence of ESBL on urine culture. Patient still has mild hypernatremia, she has been encouraged to push fluids Hospital Course Summary Disclaimer: The visit summary below is not to be considered part of the above Progress Note. Hospital Course: 06/20/17 Agree with admission to [facility] for ongoing psychiatric evaluation and treatment under the care of Dr. Rizvi Persistent hypernatremia chronically, will encourage oral fluids, and monitor routine BMP. Blood pressure is elevated today. Recently patient was on Norvasc in addition to lisinopril. Will add Norvasc 5 mg daily and continue to monitor carefully Previously underwent pancytopenia and anemia workup in which iron and vitamin B12 were normal. Tylenol as needed for back pain. Check CBC and BMP tomorrow morning to follow blood counts, renal function and electrolytes Hospitalist services will continue to follow patient medically manage existing comorbidities. At time of discharge, care will return to primary care provider, Dr. Oquendo 06/20/17 20:07 Psych: Increase Seroquel to 50mg PO BID (AM, afternoon) and 100mg PO q HS as patient continues to exhibit paranoia - monitor for signs of worsening Parkinsonism, weigh risk of AE to clinical benefit with further dose increases. 06/21/17 18:32 Psych: Continue current care - monitor for any further signs of depression, may increase Seroquel dose further if paranoia continues. 06/22/17 20:35 Psych: Discuss depressive symptoms and need for antidepressant with staff, patient's family tomorrow. Paranoia is manageable and directable at this point. Would like to use lowest dose of Seroquel possible to control symptoms as to avoid exacerbating movement disorder. Continue current care otherwise; monitor patient's mood, behavior and response to treatment. 06/23/17 21:02 Psych: Start mirtazapine 7.5mg PO q HS to target mood, may increase to 15mg fairly quickly if well tolerated. Believe that paranoia is mild in nature when present and she is redirectable and current dose of Seroquel - would like to minimize dose to avoid exacerbating movement disorder. 06/24/17 16:36 Patient is slowly improving. Diarrhea stools have resolved. Still confused, it appears from nurses notes that behavior is improving. BP is variable, but overall well controlled. Plan to repeat labs in AM for stability. Chart, documentation, imaging is reviewed during the course of this visit. 06/24/17 19:46 Psych: Patient doing well overall - will receive first dose of mirtazapine tonight, monitor to ensure patient tolerates it well and plan to increase to 15mg soon. Continue current care otherwise. 06/26/17 13:43 Psych: Continues to complain of depression - will increase mirtazapine to 15mg PO q HS and monitor behavior/response. 06/26/17 Overall, Cristina is doing well and slowly improving. Continue psychiatric care per team. Diarrhea stools have resolved. Hypernatremia noted on labs on 06/25 with sodium at 147. Encourage fluid intake. Hypokalemia noted with potassium at 3.5. Will give KCl 20 mEq po now and and will recheck BMP on 06/29. Continue to provide safe and supportive environment. Anticipate discharge in near future. 06/26/17 20:56 Psych: Discontinue mirtazapine as patient has become agitated more frequently since starting it - monitor response. Continue current dose of Seroquel. Monitor response. 06/27/17 21:28 Pt remains irritable at times but is redirectable. Continue current care 06/28/17 20:46 No behaviors today. Continue current care 06/29/17 18:35 Pt was more agitated and paranoid today with some physical aggression. Will restart Ativan PRN and increased BID dose of Seroquel to 75mg 06/30/17 21:04 Pt had some agitation last night and required PRN's. Continue current care 07/01/17 0815: Cristina complained of chest pain this morning which has since resolved and now complains of epigastric and upper abdominal pain. Exam reveals + Saleh's sign. She states her gall bladder "doesn't work". In light of her chest pain, will obtain EKG, portable chest x-ray, CBC, CMP and serial troponins stat - results pending. She was given ASA 324. No nitro was administer as she was chest pain free on exam. Vital signs have remained stable with blood pressure slightly elevated at 153/76. She has not received her morning medications. CXR was reviewed by myself and appeared unchanged from prior imaging in May 2017. As her clinical exam is concerning for gall bladder issues, will discuss with the family their wishes on additional imaging, labs, treatments, etc as Cristina is a DNR. 0930: Review of the labs revealed new leukopenia with WBC at 3.5 and stable thrombopenia with platelets at 120. CMP revealed stable hypernatremia with sodium at 147 and otherwise unremarkable. AST and ALT were unremarkable at 17 and 37 respectively. Troponin was <0.012. Lipase was within normal limits at 38. EKG showed sinus bradycardia at rate of 59 with 1st degree AV block. No STEMI noted. Will continue to encourage oral fluid intake and monitor closely. 07/01/17 12:25 No behaviors noted today. medical team working up RUQ abdominal pain. Continue current care 07/02/17 14:48 Review vital signs, nurse's notes, psychiatry note, and laboratory. Patient is without fever and chills, has no elevated white count, no suprapubic pain, no urinary symptoms, thus, antibiotic treatment is not indicated with the presence of ESBL on urine culture. Patient still has mild hypernatremia, she has been encouraged to push fluids
--- NOTE | 2017-07-02 21:06 | Neuropsych Progress Note ---
[facility] Subjective Date: 07/02/17 - Sujective/Severity of Illness Medications: Acetaminophen (Tylenol) 325 - 650 mg PO Q5H PRN PRN Reason: Discomfort Last Admin: 07/01/17 06:57 Dose: 650 mg Acetaminophen/Hydrocodone Bitart ([place] 5/325) 1 tab PO Q6H PRN PRN Reason: Pain Last Admin: 07/02/17 19:38 Dose: 1 tab Al Hydroxide/Mg Hydroxide (Maalox Plus) 30 ml PO Q4H PRN PRN Reason: Indigestion Last Admin: 06/29/17 20:36 Dose: 30 ml Allopurinol (Zyloprim) 100 mg PO DAILY [facility] Last Admin: 07/02/17 08:22 Dose: 100 mg Amlodipine Besylate (Norvasc) 5 mg PO DAILY [facility] Last Admin: 07/02/17 08:19 Dose: 5 mg Aspirin (Ecotrin) 81 mg PO DAILY [facility] Last Admin: 07/02/17 08:19 Dose: 81 mg Atorvastatin Calcium (Lipitor) 10 mg PO HS [facility] Last Admin: 07/02/17 19:38 Dose: 10 mg Cholecalciferol (Vit. D-3) 1,000 unit PO 2100 [facility] Last Admin: 07/02/17 19:38 Dose: 1,000 unit Cholecalciferol (Vit. D-3) 2,000 unit PO DAILY [facility] Last Admin: 07/02/17 08:21 Dose: 2,000 unit Coenzyme Q10 (Co Q-10) 100 mg PO DAILY [facility] Last Admin: 07/02/17 08:18 Dose: 100 mg Cyanocobalamin (Vit. B-12) 500 mcg PO BID [facility] Last Admin: 07/02/17 19:38 Dose: 500 mcg Famotidine (Pepcid) 20 mg PO DAILY [facility] Last Admin: 07/02/17 08:20 Dose: 20 mg Haloperidol (Haldol) 0.5 mg PO Q6H PRN PRN Reason: Extreme agitation Haloperidol (Haldol) 0.5 mg PO Q6HR PRN PRN Reason: Anxiety/Agitation Haloperidol Lactate (Haldol) 0.5 mg IM Q6H PRN PRN Reason: Extreme agitation Lidocaine (Lidoderm) 1 patch TOP DAILY [facility] Last Admin: 07/02/17 08:19 Dose: 1 patch Lidocaine HCl/Dextrose (Lidoderm Patch Removal) 1 removal TOP [facility] Last Admin: 07/02/17 19:39 Dose: 1 removal Lisinopril (Prinivil) 10 mg PO DAILY [facility] Last Admin: 07/02/17 08:20 Dose: 10 mg Loperamide HCl (Imodium) 2 mg PO PRN PRN; Protocol PRN Reason: Diarrhea Lorazepam (Ativan Inj) 0.5 mg IVP Q6H PRN Lorazepam (Ativan) 0.5 mg PO TID PRN PRN Reason: Agitation Last Admin: 06/29/17 19:38 Dose: 0.5 mg Multivitamins (Theragran) 1 tab PO DAILY [facility] Last Admin: 07/02/17 08:21 Dose: 1 tab Ondansetron HCl (Zofran Po) 4 mg PO Q6H PRN PRN Reason: Nausea &/or vomiting Quetiapine Fumarate (Seroquel) 50 mg PO BID PRN PRN Reason: Agitation Last Admin: 06/28/17 20:06 Dose: 50 mg Quetiapine Fumarate (Seroquel) 100 mg PO [facility] Last Admin: 07/02/17 19:38 Dose: 100 mg Quetiapine Fumarate (Seroquel) 75 mg PO 0914 [facility] Last Admin: 07/02/17 14:52 Dose: 75 mg Subjective: Patient seen and chart reviewed. Nursing reports pt had one period today where she was paranoid and agitated but it was short lived and she did not require PRN 's. On face to face the pt is pleasant but confused. She believes staff are stealing things from her room. She reports she feels her mood is stable. She denies any A/V [place] and denies pain. Tolerating meds Start Time: 18:00 Stop Time: 18:15 Mental Status Exam Vitals: Last Vital Signs Temp 98.1 F 07/02/17 15:00 Pulse 70 07/02/17 15:00 Resp 16 07/02/17 15:00 BP 130/63 07/02/17 15:00 Pulse Ox 96 07/02/17 15:00 Height: 1.68 m Weight: 74.3 kg - Mental Status Exam Muscle Strength/Tone: Normal Dressing: Casual Grooming: Good Attitude: Cooperative Motor Activity: Retardation Eye Contact: Fair Speech: Slowed Volume: Soft Rhythm: Appropriate Rhythm Orientation: Disoriented to time, Disoriented to place, Disoriented to situation , Oriented to person Mood: Neutral (Neutral affect today, doesn't appear as sad as on previous days) Rate of Thoughts: Delayed Thought Organization: [place] Associations: Illogical Abstract Reasoning: Poor abstract reasoning Thought Content: Paranoia (improved - no evidence today), Somatic Concerns Perception/Psychotic: Other (Unclear whether patient is currently experiencing VH - not responding to internal stimuli during interview, she denies) Language: Naming Impaired Fund of Knowledge: Poor fund of knowledge Memory: Poor-immediate, Poor-recent Suicidal Ideation: Denies Homicidal Ideation: Denies Insight: Limited Judgement: Limited Impulse Control: Poor - Laboratory Result Diagrams: 07/01/17 08:11 07/01/17 08:11 Assessment and Plan (1) CAD (coronary artery disease) Current visit: No Status: Chronic (2) HTN (hypertension) Current visit: No Status: Chronic (3) Major neurocognitive disorder Problem details: with behavioral disturbance (most likely Lewy Body Dementia) Current visit: No Status: Acute (4) Parkinsons Current visit: No Status: Chronic (5) Lewy body dementia with behavioral disturbance Current visit: No Status: Acute (6) Depressive disorder Current visit: Yes Status: Acute Hospital Course Summary Disclaimer: The visit summary below is not to be considered part of the above Progress Note. Hospital Course: 06/20/17 Agree with admission to [facility] for ongoing psychiatric evaluation and treatment under the care of Dr. Rizvi Persistent hypernatremia chronically, will encourage oral fluids, and monitor routine BMP. Blood pressure is elevated today. Recently patient was on Norvasc in addition to lisinopril. Will add Norvasc 5 mg daily and continue to monitor carefully Previously underwent pancytopenia and anemia workup in which iron and vitamin B12 were normal. Tylenol as needed for back pain. Check CBC and BMP tomorrow morning to follow blood counts, renal function and electrolytes Hospitalist services will continue to follow patient medically manage existing comorbidities. At time of discharge, care will return to primary care provider, Dr. Oquendo 06/20/17 20:07 Psych: Increase Seroquel to 50mg PO BID (AM, afternoon) and 100mg PO q HS as patient continues to exhibit paranoia - monitor for signs of worsening Parkinsonism, weigh risk of AE to clinical benefit with further dose increases. 06/21/17 18:32 Psych: Continue current care - monitor for any further signs of depression, may increase Seroquel dose further if paranoia continues. 06/22/17 20:35 Psych: Discuss depressive symptoms and need for antidepressant with staff, patient's family tomorrow. Paranoia is manageable and directable at this point. Would like to use lowest dose of Seroquel possible to control symptoms as to avoid exacerbating movement disorder. Continue current care otherwise; monitor patient's mood, behavior and response to treatment. 06/23/17 21:02 Psych: Start mirtazapine 7.5mg PO q HS to target mood, may increase to 15mg fairly quickly if well tolerated. Believe that paranoia is mild in nature when present and she is redirectable and current dose of Seroquel - would like to minimize dose to avoid exacerbating movement disorder. 06/24/17 16:36 Patient is slowly improving. Diarrhea stools have resolved. Still confused, it appears from nurses notes that behavior is improving. BP is variable, but overall well controlled. Plan to repeat labs in AM for stability. Chart, documentation, imaging is reviewed during the course of this visit. 06/24/17 19:46 Psych: Patient doing well overall - will receive first dose of mirtazapine tonight, monitor to ensure patient tolerates it well and plan to increase to 15mg soon. Continue current care otherwise. 06/26/17 13:43 Psych: Continues to complain of depression - will increase mirtazapine to 15mg PO q HS and monitor behavior/response. 06/26/17 Overall, Cristina is doing well and slowly improving. Continue psychiatric care per team. Diarrhea stools have resolved. Hypernatremia noted on labs on 06/25 with sodium at 147. Encourage fluid intake. Hypokalemia noted with potassium at 3.5. Will give KCl 20 mEq po now and and will recheck BMP on 06/29. Continue to provide safe and supportive environment. Anticipate discharge in near future. 06/26/17 20:56 Psych: Discontinue mirtazapine as patient has become agitated more frequently since starting it - monitor response. Continue current dose of Seroquel. Monitor response. 06/27/17 21:28 Pt remains irritable at times but is redirectable. Continue current care 06/28/17 20:46 No behaviors today. Continue current care 06/29/17 18:35 Pt was more agitated and paranoid today with some physical aggression. Will restart Ativan PRN and increased BID dose of Seroquel to 75mg 06/30/17 21:04 Pt had some agitation last night and required PRN's. Continue current care 07/01/17 0815: Cristina complained of chest pain this morning which has since resolved and now complains of epigastric and upper abdominal pain. Exam reveals + Saleh's sign. She states her gall bladder "doesn't work". In light of her chest pain, will obtain EKG, portable chest x-ray, CBC, CMP and serial troponins stat - results pending. She was given ASA 324. No nitro was administer as she was chest pain free on exam. Vital signs have remained stable with blood pressure slightly elevated at 153/76. She has not received her morning medications. CXR was reviewed by myself and appeared unchanged from prior imaging in May 2017. As her clinical exam is concerning for gall bladder issues, will discuss with the family their wishes on additional imaging, labs, treatments, etc as Cristina is a DNR. 0930: Review of the labs revealed new leukopenia with WBC at 3.5 and stable thrombopenia with platelets at 120. CMP revealed stable hypernatremia with sodium at 147 and otherwise unremarkable. AST and ALT were unremarkable at 17 and 37 respectively. Troponin was <0.012. Lipase was within normal limits at 38. EKG showed sinus bradycardia at rate of 59 with 1st degree AV block. No STEMI noted. Will continue to encourage oral fluid intake and monitor closely. 07/01/17 12:25 No behaviors noted today. medical team working up RUQ abdominal pain. Continue current care 07/02/17 14:48 Review vital signs, nurse's notes, psychiatry note, and laboratory. Patient is without fever and chills, has no elevated white count, no suprapubic pain, no urinary symptoms, thus, antibiotic treatment is not indicated with the presence of ESBL on urine culture. Patient still has mild hypernatremia, she has been encouraged to push fluids 07/02/17 21:05 Some agitation but short lived. Continue current care
[2017-07-03] MEDS: LIDOCAINE PATCH REMOVAL TOP SCH ×2 (04:01→20:09)
[2017-07-03] MEDS: QUETIAPINE 100 MG TABLET PO SCH ×2 (04:01→20:09)
[2017-07-03] MEDS: CYANOCOBALAMIN (B-12) 500mcg TABLET PO SCH ×3 (04:01→20:09)
[2017-07-03] MEDS: ATORVASTATIN 10 MG TABLET PO SCH ×2 (04:01→20:09)
[2017-07-03] MEDS: FAMOTIDINE 20 MG TABLET PO SCH (08:19)
[2017-07-03] MEDS: ALLOPURINOL 100 MG TABLET PO SCH (08:19)
[2017-07-03] MEDS: QUETIAPINE 50 MG TABLET PO SCH ×2 (08:20→15:30)
[2017-07-03] MEDS: LISINOPRIL 10 MG TABLET PO SCH (08:20)
[2017-07-03] MEDS: MULTI-VITAMIN PLAIN TABLET PO SCH (08:21)
[2017-07-03] MEDS: COENZYME Q10 200 MG PO SCH (08:21)
[2017-07-03] MEDS: ASPIRIN *EC* 81 MG TABLET PO SCH (08:23)
[2017-07-03] MEDS: AMLODIPINE 5 MG TABLET PO SCH (08:23)
[2017-07-03] MEDS: LIDOCAINE 5% PATCH TOP SCH (08:25)
[2017-07-03] MEDS: HYDROCODONE/APAP 5mg/325mg TABLET PO PRN ×3 (09:20→20:20)
[2017-07-03] MEDS: HALOPERIDOL 5 MG/ML INJECTION IM PRN (17:00)
--- NOTE | 2017-07-03 22:17 | Neuropsych Progress Note ---
[facility] Subjective Date: 07/03/17 - Sujective/Severity of Illness Medications: Acetaminophen (Tylenol) 325 - 650 mg PO Q5H PRN PRN Reason: Discomfort Last Admin: 07/01/17 06:57 Dose: 650 mg Acetaminophen/Hydrocodone Bitart ([place]ora 5/325) 1 tab PO Q6H PRN PRN Reason: Pain Last Admin: 07/03/17 20:20 Dose: 1 tab Al Hydroxide/Mg Hydroxide (Maalox Plus) 30 ml PO Q4H PRN PRN Reason: Indigestion Last Admin: 06/29/17 20:36 Dose: 30 ml Allopurinol (Zyloprim) 100 mg PO DAILY [facility] Last Admin: 07/03/17 08:19 Dose: 100 mg Amlodipine Besylate (Norvasc) 5 mg PO DAILY [facility] Last Admin: 07/03/17 08:23 Dose: 5 mg Aspirin (Ecotrin) 81 mg PO DAILY [facility] Last Admin: 07/03/17 08:23 Dose: 81 mg Atorvastatin Calcium (Lipitor) 10 mg PO HS [facility] Last Admin: 07/03/17 20:09 Dose: 10 mg Cholecalciferol (Vit. D-3) 1,000 unit PO 2100 [facility] Last Admin: 07/03/17 20:09 Dose: 1,000 unit Cholecalciferol (Vit. D-3) 2,000 unit PO DAILY [facility] Last Admin: 07/03/17 08:19 Dose: 2,000 unit Coenzyme Q10 (Co Q-10) 100 mg PO DAILY [facility] Last Admin: 07/03/17 08:21 Dose: 100 mg Cyanocobalamin (Vit. B-12) 500 mcg PO BID [facility] Last Admin: 07/03/17 20:09 Dose: 500 mcg Famotidine (Pepcid) 20 mg PO DAILY [facility] Last Admin: 07/03/17 08:19 Dose: 20 mg Haloperidol (Haldol) 0.5 mg PO Q6H PRN PRN Reason: Extreme agitation Haloperidol (Haldol) 0.5 mg PO Q6HR PRN PRN Reason: Anxiety/Agitation Haloperidol Lactate (Haldol) 0.5 mg IM Q6H PRN PRN Reason: Extreme agitation Last Admin: 07/03/17 17:00 Dose: 0.5 mg Lidocaine (Lidoderm) 1 patch TOP DAILY [facility] Last Admin: 07/03/17 08:25 Dose: 1 patch Lidocaine HCl/Dextrose (Lidoderm Patch Removal) 1 removal TOP [facility] Last Admin: 07/03/17 20:09 Dose: 1 removal Lisinopril (Prinivil) 10 mg PO DAILY [facility] Last Admin: 07/03/17 08:20 Dose: 10 mg Loperamide HCl (Imodium) 2 mg PO PRN PRN; Protocol PRN Reason: Diarrhea Lorazepam (Ativan) 0.5 mg PO TID PRN PRN Reason: Agitation Last Admin: 06/29/17 19:38 Dose: 0.5 mg Lorazepam (Ativan Inj) 0.5 mg IM Q6H PRN Multivitamins (Theragran) 1 tab PO DAILY [facility] Last Admin: 07/03/17 08:21 Dose: 1 tab Ondansetron HCl (Zofran Po) 4 mg PO Q6H PRN PRN Reason: Nausea &/or vomiting Quetiapine Fumarate (Seroquel) 50 mg PO BID PRN PRN Reason: Agitation Last Admin: 06/28/17 20:06 Dose: 50 mg Quetiapine Fumarate (Seroquel) 100 mg PO [facility] Last Admin: 07/03/17 20:09 Dose: 100 mg Quetiapine Fumarate (Seroquel) 75 mg PO [facility] Last Admin: 07/03/17 15:30 Dose: 75 mg Subjective: Patient seen and chart reviewed. Nursing reports pt can do well most of the day but then can become paranoid and agitated without provocation. On face to face the pt is more confused today and irritable at times. She can be angry and impulsive. She denies pain. tolerating meds Start Time: 18:00 Stop Time: 18:15 Mental Status Exam Vitals: Last Vital Signs Temp 97.0 F 07/03/17 20:15 Pulse 59 L 07/03/17 20:15 Resp 16 07/03/17 20:15 BP 137/67 07/03/17 20:15 Pulse Ox 92 07/03/17 20:15 Height: 1.68 m Weight: 74.3 kg - Mental Status Exam Muscle Strength/Tone: Normal Dressing: Casual Grooming: Good Attitude: Cooperative Motor Activity: Retardation Eye Contact: Fair Speech: Slowed Volume: Soft Rhythm: Appropriate Rhythm Orientation: Disoriented to time, Disoriented to place, Disoriented to situation , Oriented to person Mood: Neutral (Neutral affect today, doesn't appear as sad as on previous days) Rate of Thoughts: Delayed Thought Organization: [place] Associations: Illogical Abstract Reasoning: Poor abstract reasoning Thought Content: Paranoia (improved - no evidence today), Somatic Concerns Perception/Psychotic: Other (Unclear whether patient is currently experiencing VH - not responding to internal stimuli during interview, she denies) Language: Naming Impaired Fund of Knowledge: Poor fund of knowledge Memory: Poor-immediate, Poor-recent Suicidal Ideation: Denies Homicidal Ideation: Denies Insight: Limited Judgement: Limited Impulse Control: Poor - Laboratory Result Diagrams: 07/01/17 08:11 07/01/17 08:11 Assessment and Plan (1) CAD (coronary artery disease) Current visit: No Status: Chronic (2) HTN (hypertension) Current visit: No Status: Chronic (3) Major neurocognitive disorder Problem details: with behavioral disturbance (most likely Lewy Body Dementia) Current visit: No Status: Acute (4) Parkinsons Current visit: No Status: Chronic (5) Lewy body dementia with behavioral disturbance Current visit: No Status: Acute (6) Depressive disorder Current visit: Yes Status: Acute Hospital Course Summary Disclaimer: The visit summary below is not to be considered part of the above Progress Note. Hospital Course: 06/20/17 Agree with admission to [facility] for ongoing psychiatric evaluation and treatment under the care of Dr. Rizvi Persistent hypernatremia chronically, will encourage oral fluids, and monitor routine BMP. Blood pressure is elevated today. Recently patient was on Norvasc in addition to lisinopril. Will add Norvasc 5 mg daily and continue to monitor carefully Previously underwent pancytopenia and anemia workup in which iron and vitamin B12 were normal. Tylenol as needed for back pain. Check CBC and BMP tomorrow morning to follow blood counts, renal function and electrolytes Hospitalist services will continue to follow patient medically manage existing comorbidities. At time of discharge, care will return to primary care provider, Dr. Oquendo 06/20/17 20:07 Psych: Increase Seroquel to 50mg PO BID (AM, afternoon) and 100mg PO q HS as patient continues to exhibit paranoia - monitor for signs of worsening Parkinsonism, weigh risk of AE to clinical benefit with further dose increases. 06/21/17 18:32 Psych: Continue current care - monitor for any further signs of depression, may increase Seroquel dose further if paranoia continues. 06/22/17 20:35 Psych: Discuss depressive symptoms and need for antidepressant with staff, patient's family tomorrow. Paranoia is manageable and directable at this point. Would like to use lowest dose of Seroquel possible to control symptoms as to avoid exacerbating movement disorder. Continue current care otherwise; monitor patient's mood, behavior and response to treatment. 06/23/17 21:02 Psych: Start mirtazapine 7.5mg PO q HS to target mood, may increase to 15mg fairly quickly if well tolerated. Believe that paranoia is mild in nature when present and she is redirectable and current dose of Seroquel - would like to minimize dose to avoid exacerbating movement disorder. 06/24/17 16:36 Patient is slowly improving. Diarrhea stools have resolved. Still confused, it appears from nurses notes that behavior is improving. BP is variable, but overall well controlled. Plan to repeat labs in AM for stability. Chart, documentation, imaging is reviewed during the course of this visit. 06/24/17 19:46 Psych: Patient doing well overall - will receive first dose of mirtazapine tonight, monitor to ensure patient tolerates it well and plan to increase to 15mg soon. Continue current care otherwise. 06/26/17 13:43 Psych: Continues to complain of depression - will increase mirtazapine to 15mg PO q HS and monitor behavior/response. 06/26/17 Overall, Cristina is doing well and slowly improving. Continue psychiatric care per team. Diarrhea stools have resolved. Hypernatremia noted on labs on 06/25 with sodium at 147. Encourage fluid intake. Hypokalemia noted with potassium at 3.5. Will give KCl 20 mEq po now and and will recheck BMP on 06/29. Continue to provide safe and supportive environment. Anticipate discharge in near future. 06/26/17 20:56 Psych: Discontinue mirtazapine as patient has become agitated more frequently since starting it - monitor response. Continue current dose of Seroquel. Monitor response. 06/27/17 21:28 Pt remains irritable at times but is redirectable. Continue current care 06/28/17 20:46 No behaviors today. Continue current care 06/29/17 18:35 Pt was more agitated and paranoid today with some physical aggression. Will restart Ativan PRN and increased BID dose of Seroquel to 75mg 06/30/17 21:04 Pt had some agitation last night and required PRN's. Continue current care 07/01/17 0815: Cristina complained of chest pain this morning which has since resolved and now complains of epigastric and upper abdominal pain. Exam reveals + Saleh's sign. She states her gall bladder "doesn't work". In light of her chest pain, will obtain EKG, portable chest x-ray, CBC, CMP and serial troponins stat - results pending. She was given ASA 324. No nitro was administer as she was chest pain free on exam. Vital signs have remained stable with blood pressure slightly elevated at 153/76. She has not received her morning medications. CXR was reviewed by myself and appeared unchanged from prior imaging in May 2017. As her clinical exam is concerning for gall bladder issues, will discuss with the family their wishes on additional imaging, labs, treatments, etc as Cristina is a DNR. 0930: Review of the labs revealed new leukopenia with WBC at 3.5 and stable thrombopenia with platelets at 120. CMP revealed stable hypernatremia with sodium at 147 and otherwise unremarkable. AST and ALT were unremarkable at 17 and 37 respectively. Troponin was <0.012. Lipase was within normal limits at 38. EKG showed sinus bradycardia at rate of 59 with 1st degree AV block. No STEMI noted. Will continue to encourage oral fluid intake and monitor closely. 07/01/17 12:25 No behaviors noted today. medical team working up RUQ abdominal pain. Continue current care 07/02/17 14:48 Review vital signs, nurse's notes, psychiatry note, and laboratory. Patient is without fever and chills, has no elevated white count, no suprapubic pain, no urinary symptoms, thus, antibiotic treatment is not indicated with the presence of ESBL on urine culture. Patient still has mild hypernatremia, she has been encouraged to push fluids 07/02/17 21:05 Some agitation but short lived. Continue current care 07/03/17 22:17 PT remains paranoid at times. Continue current care
[2017-07-04] MEDS: HYDROCODONE/APAP 5mg/325mg TABLET PO PRN ×2 (04:21→09:40)
[2017-07-04] MEDS: AMLODIPINE 5 MG TABLET PO SCH (08:52)
[2017-07-04] MEDS: ASPIRIN *EC* 81 MG TABLET PO SCH (08:52)
[2017-07-04] MEDS: COENZYME Q10 200 MG PO SCH (08:52)
[2017-07-04] MEDS: LISINOPRIL 10 MG TABLET PO SCH (08:53)
[2017-07-04] MEDS: FAMOTIDINE 20 MG TABLET PO SCH (08:53)
[2017-07-04] MEDS: QUETIAPINE 50 MG TABLET PO SCH ×2 (08:53→14:12)
[2017-07-04] MEDS: MULTI-VITAMIN PLAIN TABLET PO SCH (08:54)
[2017-07-04] MEDS: ALLOPURINOL 100 MG TABLET PO SCH (08:56)
[2017-07-04] MEDS: LIDOCAINE 5% PATCH TOP SCH (08:58)
[2017-07-04] MEDS: CYANOCOBALAMIN (B-12) 500mcg TABLET PO SCH ×2 (09:02→20:03)
--- NOTE | 2017-07-04 09:13 | Progress Note ---
Subjective: Patient seen today sitting in the day room. She is resting in a wheelchair. She is pleasant in conversation. She has no complaints. No chest pain or shortness of breath. She reports she did have a bowel movement yesterday, but had not had a bowel movement for at least 4 days prior to that. In review of her chart, it appears that she did go 2 days without a bowel movement. She previously complained of right upper quadrant pain. She makes no mention of this today. Nurses have no concerns at the present time. Objective Vital signs: Temperature 97.0 F 07/03/17 20:15 Pulse Rate 59 L 07/03/17 20:15 Respiratory Rate 16 07/03/17 20:15 Blood Pressure 137/67 07/03/17 20:15 Pulse Oximetry 92 07/03/17 20:15 Height/Weight/BMI: Height 1.68 m Weight 74.3 kg Body Mass Index 26.0 - Constitutional Present: well nourished, well developed - Routine Respiratory Exam Present: CTA bilaterally. Absent: wheezes - Routine Cardiovascular Exam Present: RRR, S1, S2. Absent: murmur - Routine Abdominal Exam Present: soft, normoactive bowel sounds, non distended. Absent: tenderness - Routine Extremities Exam Present: no edema, normal capillary refill - Routine Skin Exam Present: dry, warm - Routine Neurological Exam Present: alert, normal speech, tremors (mild tremor to lips and hands) - Routine Lymphatic Exam Lymphatic: Absent: adenopathy - Routine Psychiatric Exam Present: normal affect, cooperative Results - Labs CBC & Chem 7: 07/01/17 08:11 07/04/17 05:12 Microbiology Results: Microbiology 06/29/17 16:31 Urine, Voided (Cc/notcc) Urine Culture - Final Escherichia coli Gram Negative [place] Assessment and Plan (1) Cognitive and behavioral changes Current visit: No Status: Acute (2) CAD (coronary artery disease) Current visit: No Status: Chronic (3) HTN (hypertension) Current visit: No Status: Chronic (4) Parkinsons Current visit: No Status: Chronic (5) Lewy body dementia with behavioral disturbance Current visit: No Status: Acute (6) Hypernatremia Current visit: No Status: Acute Assessment and Plan: Assessment Alzheimer disease with behavioral changes ESBL on urine culture-asymptomatic bacteriuria (no treatment indicated) Anxiety CAD (coronary artery disease) COPD (chronic obstructive pulmonary disease) Cataracts, bilateral Depression Dyslipidemia 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 Fibromyalgia GERD (gastroesophageal reflux disease) HTN (hypertension) PVD High cholesterol IBS (irritable bowel syndrome) Osteoporosis Hx Gout Parkinsons disease Vitamin D deficiency Plan Patient appears medically stable. No concerns. Reviewed vital signs, nurse's notes, psychiatry note, and laboratory. Add routine senna for bowel motivation. Hospital Course Summary Disclaimer: The visit summary below is not to be considered part of the above Progress Note. Hospital Course: 06/20/[address] [facility] for ongoing psychiatric evaluation and treatment under the care of Dr. Rizvi Persistent hypernatremia chronically, will encourage oral fluids, and monitor routine BMP. Blood pressure is elevated today. Recently patient was on Norvasc in addition to lisinopril. Will add Norvasc 5 mg daily and continue to monitor carefully Previously underwent pancytopenia and anemia workup in which iron and vitamin B12 were normal. Tylenol as needed for back pain. Check CBC and BMP tomorrow morning to follow blood counts, renal function and electrolytes Hospitalist services will continue to follow patient medically manage existing comorbidities. At time of discharge, care will return to primary care provider, Dr. Oquendo 06/20/17 20:07 Psych: Increase Seroquel to 50mg PO BID (AM, afternoon) and 100mg PO q HS as patient continues to exhibit paranoia - monitor for signs of worsening Parkinsonism, weigh risk of AE to clinical benefit with further dose increases. 06/21/17 18:32 Psych: Continue current care - monitor for any further signs of depression, may increase Seroquel dose further if paranoia continues. 06/22/17 20:35 Psych: Discuss depressive symptoms and need for antidepressant with staff, patient's family tomorrow. Paranoia is manageable and directable at this point. Would like to use lowest dose of Seroquel possible to control symptoms as to avoid exacerbating movement disorder. Continue current care otherwise; monitor patient's mood, behavior and response to treatment. 06/23/17 21:02 Psych: Start mirtazapine 7.5mg PO q HS to target mood, may increase to 15mg fairly quickly if well tolerated. Believe that paranoia is mild in nature when present and she is redirectable and current dose of Seroquel - would like to minimize dose to avoid exacerbating movement disorder. 06/24/17 16:36 Patient is slowly improving. Diarrhea stools have resolved. Still confused, it appears from nurses notes that behavior is improving. BP is variable, but overall well controlled. Plan to repeat labs in AM for stability. Chart, documentation, imaging is reviewed during the course of this visit. 06/24/17 19:46 Psych: Patient doing well overall - will receive first dose of mirtazapine tonight, monitor to ensure patient tolerates it well and plan to increase to 15mg soon. Continue current care otherwise. 06/26/17 13:43 Psych: Continues to complain of depression - will increase mirtazapine to 15mg PO q HS and monitor behavior/response. 06/26/17 Overall, Cristina is doing well and slowly improving. Continue psychiatric care per team. Diarrhea stools have resolved. Hypernatremia noted on labs on 06/25 with sodium at 147. Encourage fluid intake. Hypokalemia noted with potassium at 3.5. Will give KCl 20 mEq po now and and will recheck BMP on 06/29. Continue to provide safe and supportive environment. Anticipate discharge in near future. 06/26/17 20:56 Psych: Discontinue mirtazapine as patient has become agitated more frequently since starting it - monitor response. Continue current dose of Seroquel. Monitor response. 06/27/17 21:28 Pt remains irritable at times but is redirectable. Continue current care 06/28/17 20:46 No behaviors today. Continue current care 06/29/17 18:35 Pt was more agitated and paranoid today with some physical aggression. Will restart Ativan PRN and increased BID dose of Seroquel to 75mg 06/30/17 21:04 Pt had some agitation last night and required PRN's. Continue current care 07/01/17 0815: Cristina complained of chest pain this morning which has since resolved and now complains of epigastric and upper abdominal pain. Exam reveals + Saleh's sign. She states her gall bladder "doesn't work". In light of her chest pain, will obtain EKG, portable chest x-ray, CBC, CMP and serial troponins stat - results pending. She was given ASA 324. No nitro was administer as she was chest pain free on exam. Vital signs have remained stable with blood pressure slightly elevated at 153/76. She has not received her morning medications. CXR was reviewed by myself and appeared unchanged from prior imaging in May 2017. As her clinical exam is concerning for gall bladder issues, will discuss with the family their wishes on additional imaging, labs, treatments, etc as Cristina is a DNR. 0930: Review of the labs revealed new leukopenia with WBC at 3.5 and stable thrombopenia with platelets at 120. CMP revealed stable hypernatremia with sodium at 147 and otherwise unremarkable. AST and ALT were unremarkable at 17 and 37 respectively. Troponin was <0.012. Lipase was within normal limits at 38. EKG showed sinus bradycardia at rate of 59 with 1st degree AV block. No STEMI noted. Will continue to encourage oral fluid intake and monitor closely. 07/01/17 12:25 No behaviors noted today. medical team working up RUQ abdominal pain. Continue current care 07/02/17 14:48 Review vital signs, nurse's notes, psychiatry note, and laboratory. Patient is without fever and chills, has no elevated white count, no suprapubic pain, no urinary symptoms, thus, antibiotic treatment is not indicated with the presence of ESBL on urine culture. Patient still has mild hypernatremia, she has been encouraged to push fluids 07/02/17 21:05 Some agitation but short lived. Continue current care 07/03/17 22:17 PT remains paranoid at times. Continue current care 07/04/17 09:15 Add routine senna for bowel motivation.
[2017-07-04] MEDS: LORazepam 1 MG TABLET PO PRN (12:54)
[2017-07-04] MEDS ORDERED: PIPERACILLIN/TAZOBACTAM 3.375 GM in NS 100 ML IV SCH (16:00)
[2017-07-04] MEDS: SALINE FLUSH 10ml SYRINGE IV PRN (18:15)
--- NOTE | 2017-07-04 18:20 | Neuropsych Progress Note ---
[facility] Subjective Date: 07/04/17 - Sujective/Severity of Illness Medications: Acetaminophen (Tylenol) 325 - 650 mg PO Q5H PRN PRN Reason: Discomfort Last Admin: 07/01/17 06:57 Dose: 650 mg Acetaminophen/Hydrocodone Bitart (Mobile 5/325) 1 tab PO Q6H PRN PRN Reason: Pain Last Admin: 07/04/17 09:40 Dose: 1 tab Al Hydroxide/Mg Hydroxide (Maalox Plus) 30 ml PO Q4H PRN PRN Reason: Indigestion Last Admin: 06/29/17 20:36 Dose: 30 ml Allopurinol (Zyloprim) 100 mg PO DAILY [facility] Last Admin: 07/04/17 08:56 Dose: 100 mg Amlodipine Besylate (Norvasc) 5 mg PO DAILY [facility] Last Admin: 07/04/17 08:52 Dose: 5 mg Aspirin (Ecotrin) 81 mg PO DAILY [facility] Last Admin: 07/04/17 08:52 Dose: 81 mg Atorvastatin Calcium (Lipitor) 10 mg PO HS [facility] Last Admin: 07/03/17 20:09 Dose: 10 mg Cholecalciferol (Vit. D-3) 1,000 unit PO 2100 [facility] Last Admin: 07/03/17 20:09 Dose: 1,000 unit Cholecalciferol (Vit. D-3) 2,000 unit PO DAILY [facility] Last Admin: 07/04/17 08:56 Dose: 2,000 unit Coenzyme Q10 (Co Q-10) 100 mg PO DAILY [facility] Last Admin: 07/04/17 08:52 Dose: 100 mg Cyanocobalamin (Vit. B-12) 500 mcg PO BID [facility] Last Admin: 07/04/17 09:02 Dose: 500 mcg Famotidine (Pepcid) 20 mg PO DAILY [facility] Last Admin: 07/04/17 08:53 Dose: 20 mg Haloperidol (Haldol) 0.5 mg PO Q6H PRN PRN Reason: Extreme agitation Haloperidol (Haldol) 0.5 mg PO Q6HR PRN PRN Reason: Anxiety/Agitation Haloperidol Lactate (Haldol) 0.5 mg IM Q6H PRN PRN Reason: Extreme agitation Last Admin: 07/03/17 17:00 Dose: 0.5 mg Meropenem 500 mg/ Sodium (Chloride) 50 mls @ 100 mls/hr IV Q8HR [facility] Stop: 07/11/17 16:00 Lidocaine (Lidoderm) 1 patch TOP DAILY [facility] Last Admin: 07/04/17 08:58 Dose: 1 patch Lidocaine HCl/Dextrose (Lidoderm Patch Removal) 1 removal TOP HS [facility] Last Admin: 07/03/17 20:09 Dose: 1 removal Lisinopril (Prinivil) 10 mg PO DAILY [facility] Last Admin: 07/04/17 08:53 Dose: 10 mg Loperamide HCl (Imodium) 2 mg PO PRN PRN; Protocol PRN Reason: Diarrhea Lorazepam (Ativan) 0.5 mg PO TID PRN PRN Reason: Agitation Last Admin: 07/04/17 12:54 Dose: 0.5 mg Lorazepam (Ativan Inj) 0.5 mg IM Q6H PRN Multivitamins (Theragran) 1 tab PO DAILY [facility] Last Admin: 07/04/17 08:54 Dose: 1 tab Ondansetron HCl (Zofran Po) 4 mg PO Q6H PRN PRN Reason: Nausea &/or vomiting Quetiapine Fumarate (Seroquel) 50 mg PO BID PRN PRN Reason: Agitation Last Admin: 06/28/17 20:06 Dose: 50 mg Quetiapine Fumarate (Seroquel) 100 mg PO [facility] Last Admin: 07/03/17 20:09 Dose: 100 mg Quetiapine Fumarate (Seroquel) 75 mg PO 0914 [facility] Last Admin: 07/04/17 14:12 Dose: 75 mg Senna (Senna Lax) 8.6 mg PO BID [facility] Subjective: Patient seen and chart reviewed. Nursing reports pt has been labile today and tearful at times. Was seen carrying on a conversation when no one was there. Sleeping and eating well. On face to face the pt is tearful. She states she learned she would need IV antibiotics and does not want the IV. She denies any pain. Tolerating meds. Start Time: 18:15 Stop Time: 18:30 Mental Status Exam Vitals: Last Vital Signs Temp 98.2 F 07/04/17 16:00 Pulse 74 07/04/17 16:00 Resp 20 07/04/17 16:00 BP 97/53 07/04/17 16:00 Pulse Ox 92 07/04/17 16:00 Height: 1.68 m Weight: 74.3 kg - Mental Status Exam Muscle Strength/Tone: Normal Dressing: Casual Grooming: Good Attitude: Cooperative Motor Activity: Retardation Eye Contact: Fair Speech: Slowed Volume: Soft Rhythm: Appropriate Rhythm Orientation: Disoriented to time, Disoriented to place, Disoriented to situation , Oriented to person Mood: Neutral (Neutral affect today, doesn't appear as sad as on previous days) Rate of Thoughts: Delayed Thought Organization: [place] Associations: Illogical Abstract Reasoning: Poor abstract reasoning Thought Content: Paranoia (improved - no evidence today), Somatic Concerns Perception/Psychotic: Other (Unclear whether patient is currently experiencing VH - not responding to internal stimuli during interview, she denies) Language: Naming Impaired Fund of Knowledge: Poor fund of knowledge Memory: Poor-immediate, Poor-recent Suicidal Ideation: Denies Homicidal Ideation: Denies Insight: Limited Judgement: Limited Impulse Control: Poor - Laboratory Result Diagrams: 07/01/17 08:11 07/04/17 05:12 Laboratory Results - last 24 hr 07/04/17 05:12 Turbidity < 20 Sodium 145 H Potassium 3.6 Chloride 109 H Carbon Dioxide 28 Anion Gap 8 BUN 19.0 H Creatinine 0.7 GFR Calculation 80 BUN/Creatinine Ratio 27 H Glucose 78 Calculated Osmolality 280 Calcium 9.4 Icterus Index < 2 Specimen Hemolysis < 15 Assessment and Plan (1) CAD (coronary artery disease) Current visit: No Status: Chronic (2) HTN (hypertension) Current visit: No Status: Chronic (3) Major neurocognitive disorder Problem details: with behavioral disturbance (most likely Lewy Body Dementia) Current visit: No Status: Acute (4) Parkinsons Current visit: No Status: Chronic (5) Lewy body dementia with behavioral disturbance Current visit: No Status: Acute (6) Depressive disorder Current visit: Yes Status: Acute Hospital Course Summary Disclaimer: The visit summary below is not to be considered part of the above Progress Note. Hospital Course: 06/20/17 Agree with admission to [facility] for ongoing psychiatric evaluation and treatment under the care of Dr. Rizvi Persistent hypernatremia chronically, will encourage oral fluids, and monitor routine BMP. Blood pressure is elevated today. Recently patient was on Norvasc in addition to lisinopril. Will add Norvasc 5 mg daily and continue to monitor carefully Previously underwent pancytopenia and anemia workup in which iron and vitamin B12 were normal. Tylenol as needed for back pain. Check CBC and BMP tomorrow morning to follow blood counts, renal function and electrolytes Hospitalist services will continue to follow patient medically manage existing comorbidities. At time of discharge, care will return to primary care provider, Dr. Oquendo 06/20/17 20:07 Psych: Increase Seroquel to 50mg PO BID (AM, afternoon) and 100mg PO q HS as patient continues to exhibit paranoia - monitor for signs of worsening Parkinsonism, weigh risk of AE to clinical benefit with further dose increases. 06/21/17 18:32 Psych: Continue current care - monitor for any further signs of depression, may increase Seroquel dose further if paranoia continues. 06/22/17 20:35 Psych: Discuss depressive symptoms and need for antidepressant with staff, patient's family tomorrow. Paranoia is manageable and directable at this point. Would like to use lowest dose of Seroquel possible to control symptoms as to avoid exacerbating movement disorder. Continue current care otherwise; monitor patient's mood, behavior and response to treatment. 06/23/17 21:02 Psych: Start mirtazapine 7.5mg PO q HS to target mood, may increase to 15mg fairly quickly if well tolerated. Believe that paranoia is mild in nature when present and she is redirectable and current dose of Seroquel - would like to minimize dose to avoid exacerbating movement disorder. 06/24/17 16:36 Patient is slowly improving. Diarrhea stools have resolved. Still confused, it appears from nurses notes that behavior is improving. BP is variable, but overall well controlled. Plan to repeat labs in AM for stability. Chart, documentation, imaging is reviewed during the course of this visit. 06/24/17 19:46 Psych: Patient doing well overall - will receive first dose of mirtazapine tonight, monitor to ensure patient tolerates it well and plan to increase to 15mg soon. Continue current care otherwise. 06/26/17 13:43 Psych: Continues to complain of depression - will increase mirtazapine to 15mg PO q HS and monitor behavior/response. 06/26/17 Overall, Cristina is doing well and slowly improving. Continue psychiatric care per team. Diarrhea stools have resolved. Hypernatremia noted on labs on 06/25 with sodium at 147. Encourage fluid intake. Hypokalemia noted with potassium at 3.5. Will give KCl 20 mEq po now and and will recheck BMP on 06/29. Continue to provide safe and supportive environment. Anticipate discharge in near future. 06/26/17 20:56 Psych: Discontinue mirtazapine as patient has become agitated more frequently since starting it - monitor response. Continue current dose of Seroquel. Monitor response. 06/27/17 21:28 Pt remains irritable at times but is redirectable. Continue current care 06/28/17 20:46 No behaviors today. Continue current care 06/29/17 18:35 Pt was more agitated and paranoid today with some physical aggression. Will restart Ativan PRN and increased BID dose of Seroquel to 75mg 06/30/17 21:04 Pt had some agitation last night and required PRN's. Continue current care 07/01/17 0815: Cristina complained of chest pain this morning which has since resolved and now complains of epigastric and upper abdominal pain. Exam reveals + Saleh's sign. She states her gall bladder "doesn't work". In light of her chest pain, will obtain EKG, portable chest x-ray, CBC, CMP and serial troponins stat - results pending. She was given ASA 324. No nitro was administer as she was chest pain free on exam. Vital signs have remained stable with blood pressure slightly elevated at 153/76. She has not received her morning medications. CXR was reviewed by myself and appeared unchanged from prior imaging in May 2017. As her clinical exam is concerning for gall bladder issues, will discuss with the family their wishes on additional imaging, labs, treatments, etc as Cristina is a DNR. 0930: Review of the labs revealed new leukopenia with WBC at 3.5 and stable thrombopenia with platelets at 120. CMP revealed stable hypernatremia with sodium at 147 and otherwise unremarkable. AST and ALT were unremarkable at 17 and 37 respectively. Troponin was <0.012. Lipase was within normal limits at 38. EKG showed sinus bradycardia at rate of 59 with 1st degree AV block. No STEMI noted. Will continue to encourage oral fluid intake and monitor closely. 07/01/17 12:25 No behaviors noted today. medical team working up RUQ abdominal pain. Continue current care 07/02/17 14:48 Review vital signs, nurse's notes, psychiatry note, and laboratory. Patient is without fever and chills, has no elevated white count, no suprapubic pain, no urinary symptoms, thus, antibiotic treatment is not indicated with the presence of ESBL on urine culture. Patient still has mild hypernatremia, she has been encouraged to push fluids 07/02/17 21:05 Some agitation but short lived. Continue current care 07/03/17 22:17 PT remains paranoid at times. Continue current care 07/04/17 09:15 Add routine senna for bowel motivation. 07/04/17 18:19 PT will start IV antibiotics for UTI
[2017-07-04] MEDS ORDERED: NS FLUSH BAG 500ml IV PRN (18:38)
[2017-07-04] MEDS: NS FLUSH BAG 500ml IV PRN (18:41)
[2017-07-04] MEDS: MEROPENEM 500 MG in NS 50 ML IV SCH (18:42)
[2017-07-04] MEDS: ATORVASTATIN 10 MG TABLET PO SCH (20:03)
[2017-07-04] MEDS: QUETIAPINE 100 MG TABLET PO SCH (20:03)
[2017-07-04] MEDS: LIDOCAINE PATCH REMOVAL TOP SCH (20:03)
[2017-07-04] MEDS: SENNOSIDES 8.6 MG TABLET PO SCH (20:04)
[2017-07-05] MEDS: MEROPENEM 500 MG in NS 50 ML IV SCH ×3 (00:44→16:38)
[2017-07-05] MEDS: HYDROCODONE/APAP 5mg/325mg TABLET PO PRN ×2 (05:25→16:38)
[2017-07-05] MEDS ORDERED: BISACODYL 10 MG SUPPOSITORY RECTALLY PRN (07:54)
[2017-07-05] MEDS: COENZYME Q10 200 MG PO SCH (09:00)
[2017-07-05] MEDS: ASPIRIN *EC* 81 MG TABLET PO SCH (09:01)
[2017-07-05] MEDS: MULTI-VITAMIN PLAIN TABLET PO SCH (09:01)
[2017-07-05] MEDS: SENNOSIDES 8.6 MG TABLET PO SCH ×2 (09:02→20:02)
[2017-07-05] MEDS: QUETIAPINE 50 MG TABLET PO SCH ×2 (09:02→14:10)
[2017-07-05] MEDS: LISINOPRIL 10 MG TABLET PO SCH (09:03)
[2017-07-05] MEDS: CYANOCOBALAMIN (B-12) 500mcg TABLET PO SCH ×2 (09:04→20:02)
[2017-07-05] MEDS: FAMOTIDINE 20 MG TABLET PO SCH (09:04)
[2017-07-05] MEDS: ALLOPURINOL 100 MG TABLET PO SCH (09:04)
[2017-07-05] MEDS: AMLODIPINE 5 MG TABLET PO SCH (09:04)
[2017-07-05] MEDS: LIDOCAINE 5% PATCH TOP SCH (09:05)
--- NOTE | 2017-07-05 18:40 | Neuropsych Progress Note ---
[facility] Subjective Date: 07/05/17 - Sujective/Severity of Illness Medications: Acetaminophen (Tylenol) 325 - 650 mg PO Q5H PRN PRN Reason: Discomfort Last Admin: 07/01/17 06:57 Dose: 650 mg Acetaminophen/Hydrocodone Bitart ([place] 5/325) 1 tab PO Q6H PRN PRN Reason: Pain Last Admin: 07/05/17 16:38 Dose: 1 tab Al Hydroxide/Mg Hydroxide (Maalox Plus) 30 ml PO Q4H PRN PRN Reason: Indigestion Last Admin: 06/29/17 20:36 Dose: 30 ml Allopurinol (Zyloprim) 100 mg PO DAILY [facility] Last Admin: 07/05/17 09:04 Dose: 100 mg Amlodipine Besylate (Norvasc) 5 mg PO DAILY [facility] Last Admin: 07/05/17 09:04 Dose: 5 mg Aspirin (Ecotrin) 81 mg PO DAILY [facility] Last Admin: 07/05/17 09:01 Dose: 81 mg Atorvastatin Calcium (Lipitor) 10 mg PO HS [facility] Last Admin: 07/04/17 20:03 Dose: 10 mg Bisacodyl (Dulcolax) 10 mg RECTALLY DAILY PRN PRN Reason: Constipation Cholecalciferol (Vit. D-3) 1,000 unit PO 2100 [facility] Last Admin: 07/04/17 20:04 Dose: 1,000 unit Cholecalciferol (Vit. D-3) 2,000 unit PO DAILY [facility] Last Admin: 07/05/17 09:03 Dose: 2,000 unit Coenzyme Q10 (Co Q-10) 100 mg PO DAILY [facility] Last Admin: 07/05/17 09:00 Dose: 100 mg Cyanocobalamin (Vit. B-12) 500 mcg PO BID [facility] Last Admin: 07/05/17 09:04 Dose: 500 mcg Famotidine (Pepcid) 20 mg PO DAILY [facility] Last Admin: 07/05/17 09:04 Dose: 20 mg Haloperidol (Haldol) 0.5 mg PO Q6H PRN PRN Reason: Extreme agitation Haloperidol (Haldol) 0.5 mg PO Q6HR PRN PRN Reason: Anxiety/Agitation Haloperidol Lactate (Haldol) 0.5 mg IM Q6H PRN PRN Reason: Extreme agitation Last Admin: 07/03/17 17:00 Dose: 0.5 mg Meropenem 500 mg/ Sodium (Chloride) 50 mls @ 100 mls/hr IV Q8HR [facility] Stop: 07/11/17 16:00 Last Admin: 07/05/17 16:38 Dose: 100 mls/hr Lidocaine (Lidoderm) 1 patch TOP DAILY [facility] Last Admin: 07/05/17 09:05 Dose: 1 patch Lidocaine HCl/Dextrose (Lidoderm Patch Removal) 1 removal TOP HS [facility] Last Admin: 07/04/17 20:03 Dose: 1 removal Lisinopril (Prinivil) 10 mg PO DAILY [facility] Last Admin: 07/05/17 09:03 Dose: 10 mg Loperamide HCl (Imodium) 2 mg PO PRN PRN; Protocol PRN Reason: Diarrhea Lorazepam (Ativan) 0.5 mg PO TID PRN PRN Reason: Agitation Last Admin: 07/04/17 12:54 Dose: 0.5 mg Lorazepam (Ativan Inj) 0.5 mg IM Q6H PRN Multivitamins (Theragran) 1 tab PO DAILY [facility] Last Admin: 07/05/17 09:01 Dose: 1 tab Ondansetron HCl (Zofran Po) 4 mg PO Q6H PRN PRN Reason: Nausea &/or vomiting Quetiapine Fumarate (Seroquel) 50 mg PO BID PRN PRN Reason: Agitation Last Admin: 06/28/17 20:06 Dose: 50 mg Quetiapine Fumarate (Seroquel) 100 mg PO HS [facility] Last Admin: 07/04/17 20:03 Dose: 100 mg Quetiapine Fumarate (Seroquel) 75 mg PO 09,14 [facility] Last Admin: 07/05/17 14:10 Dose: 75 mg Senna (Senna Lax) 8.6 mg PO BID [facility] Last Admin: 07/05/17 09:02 Dose: 8.6 mg Sodium Chloride (Normal Saline) 500 ml IV PRN PRN Last Admin: 07/04/17 18:41 Dose: 500 ml Sodium Chloride (Normal Saline) 500 ml IV PRN PRN Sodium Chloride (Iv Flush) 10 ml IV PRN PRN PRN Reason: Flushing Last Admin: 07/04/17 18:15 Dose: 10 ml Subjective: Patient seen and chart reviewed. Nursing reports pt slept well and has a good appetite. Did much better until this evening when she became paranoid that someone was trying to kill a patient. The patient became quite agitated and was given Ativan IM. On face to face the pt stated she was doing well and voiced no concerns but this interaction was before her outburst. Start Time: 17:30 Stop Time: 17:45 Mental Status Exam Vitals: Last Vital Signs Temp 98.0 F 07/05/17 16:00 Pulse 76 07/05/17 16:00 Resp 18 07/05/17 16:00 BP 85/53 07/05/17 16:00 Pulse Ox 96 07/05/17 16:00 Height: 1.68 m Weight: 74.3 kg - Mental Status Exam Muscle Strength/Tone: Normal Dressing: Casual Grooming: Good Attitude: Cooperative Motor Activity: Retardation Eye Contact: Fair Speech: Slowed Volume: Soft Rhythm: Appropriate Rhythm Orientation: Disoriented to time, Disoriented to place, Disoriented to situation , Oriented to person Mood: Neutral (Neutral affect today, doesn't appear as sad as on previous days) Rate of Thoughts: Delayed Thought Organization: [place] Associations: Illogical Abstract Reasoning: Poor abstract reasoning Thought Content: Paranoia (improved - no evidence today), Somatic Concerns Perception/Psychotic: Other (Unclear whether patient is currently experiencing VH - not responding to internal stimuli during interview, she denies) Language: Naming Impaired Fund of Knowledge: Poor fund of knowledge Memory: Poor-immediate, Poor-recent Suicidal Ideation: Denies Homicidal Ideation: Denies Insight: Limited Judgement: Limited Impulse Control: Poor - Laboratory Result Diagrams: 07/01/17 08:11 07/04/17 05:12 Assessment and Plan (1) CAD (coronary artery disease) Current visit: No Status: Chronic (2) HTN (hypertension) Current visit: No Status: Chronic (3) Major neurocognitive disorder Problem details: with behavioral disturbance (most likely Lewy Body Dementia) Current visit: No Status: Acute (4) Parkinsons Current visit: No Status: Chronic (5) Lewy body dementia with behavioral disturbance Current visit: No Status: Acute (6) Depressive disorder Current visit: Yes Status: Acute Hospital Course Summary Disclaimer: The visit summary below is not to be considered part of the above Progress Note. Hospital Course: 06/20/17 Agree with admission to [facility] for ongoing psychiatric evaluation and treatment under the care of Dr. Rizvi Persistent hypernatremia chronically, will encourage oral fluids, and monitor routine BMP. Blood pressure is elevated today. Recently patient was on Norvasc in addition to lisinopril. Will add Norvasc 5 mg daily and continue to monitor carefully Previously underwent pancytopenia and anemia workup in which iron and vitamin B12 were normal. Tylenol as needed for back pain. Check CBC and BMP tomorrow morning to follow blood counts, renal function and electrolytes Hospitalist services will continue to follow patient medically manage existing comorbidities. At time of discharge, care will return to primary care provider, Dr. Oquendo 06/20/17 20:07 Psych: Increase Seroquel to 50mg PO BID (AM, afternoon) and 100mg PO q HS as patient continues to exhibit paranoia - monitor for signs of worsening Parkinsonism, weigh risk of AE to clinical benefit with further dose increases. 06/21/17 18:32 Psych: Continue current care - monitor for any further signs of depression, may increase Seroquel dose further if paranoia continues. 06/22/17 20:35 Psych: Discuss depressive symptoms and need for antidepressant with staff, patient's family tomorrow. Paranoia is manageable and directable at this point. Would like to use lowest dose of Seroquel possible to control symptoms as to avoid exacerbating movement disorder. Continue current care otherwise; monitor patient's mood, behavior and response to treatment. 06/23/17 21:02 Psych: Start mirtazapine 7.5mg PO q HS to target mood, may increase to 15mg fairly quickly if well tolerated. Believe that paranoia is mild in nature when present and she is redirectable and current dose of Seroquel - would like to minimize dose to avoid exacerbating movement disorder. 06/24/17 16:36 Patient is slowly improving. Diarrhea stools have resolved. Still confused, it appears from nurses notes that behavior is improving. BP is variable, but overall well controlled. Plan to repeat labs in AM for stability. Chart, documentation, imaging is reviewed during the course of this visit. 06/24/17 19:46 Psych: Patient doing well overall - will receive first dose of mirtazapine tonight, monitor to ensure patient tolerates it well and plan to increase to 15mg soon. Continue current care otherwise. 06/26/17 13:43 Psych: Continues to complain of depression - will increase mirtazapine to 15mg PO q HS and monitor behavior/response. 06/26/17 Overall, Cristina is doing well and slowly improving. Continue psychiatric care per team. Diarrhea stools have resolved. Hypernatremia noted on labs on 06/25 with sodium at 147. Encourage fluid intake. Hypokalemia noted with potassium at 3.5. Will give KCl 20 mEq po now and and will recheck BMP on 06/29. Continue to provide safe and supportive environment. Anticipate discharge in near future. 06/26/17 20:56 Psych: Discontinue mirtazapine as patient has become agitated more frequently since starting it - monitor response. Continue current dose of Seroquel. Monitor response. 06/27/17 21:28 Pt remains irritable at times but is redirectable. Continue current care 06/28/17 20:46 No behaviors today. Continue current care 06/29/17 18:35 Pt was more agitated and paranoid today with some physical aggression. Will restart Ativan PRN and increased BID dose of Seroquel to 75mg 06/30/17 21:04 Pt had some agitation last night and required PRN's. Continue current care 07/01/17 0815: Cristina complained of chest pain this morning which has since resolved and now complains of epigastric and upper abdominal pain. Exam reveals + Saleh's sign. She states her gall bladder "doesn't work". In light of her chest pain, will obtain EKG, portable chest x-ray, CBC, CMP and serial troponins stat - results pending. She was given ASA 324. No nitro was administer as she was chest pain free on exam. Vital signs have remained stable with blood pressure slightly elevated at 153/76. She has not received her morning medications. CXR was reviewed by myself and appeared unchanged from prior imaging in May 2017. As her clinical exam is concerning for gall bladder issues, will discuss with the family their wishes on additional imaging, labs, treatments, etc as Cristina is a DNR. 0930: Review of the labs revealed new leukopenia with WBC at 3.5 and stable thrombopenia with platelets at 120. CMP revealed stable hypernatremia with sodium at 147 and otherwise unremarkable. AST and ALT were unremarkable at 17 and 37 respectively. Troponin was <0.012. Lipase was within normal limits at 38. EKG showed sinus bradycardia at rate of 59 with 1st degree AV block. No STEMI noted. Will continue to encourage oral fluid intake and monitor closely. 07/01/17 12:25 No behaviors noted today. medical team working up RUQ abdominal pain. Continue current care 07/02/17 14:48 Review vital signs, nurse's notes, psychiatry note, and laboratory. Patient is without fever and chills, has no elevated white count, no suprapubic pain, no urinary symptoms, thus, antibiotic treatment is not indicated with the presence of ESBL on urine culture. Patient still has mild hypernatremia, she has been encouraged to push fluids 07/02/17 21:05 Some agitation but short lived. Continue current care 07/03/17 22:17 PT remains paranoid at times. Continue current care 07/04/17 09:15 Add routine senna for bowel motivation. 07/04/17 18:19 PT will start IV antibiotics for UTI 07/05/17 18:39 Agitation and paranoia this evening. Continue current care
[2017-07-05] MEDS: ATORVASTATIN 10 MG TABLET PO SCH (20:02)
[2017-07-05] MEDS: QUETIAPINE 100 MG TABLET PO SCH (20:02)
[2017-07-05] MEDS: LIDOCAINE PATCH REMOVAL TOP SCH (20:03)
[2017-07-06] MEDS: MEROPENEM 500 MG in NS 50 ML IV SCH ×3 (00:51→17:11)
[2017-07-06] MEDS: NS FLUSH BAG 500ml IV PRN (00:56)
[2017-07-06] MEDS: SALINE FLUSH 10ml SYRINGE IV PRN (00:56)
[2017-07-06] MEDS: HYDROCODONE/APAP 5mg/325mg TABLET PO PRN ×2 (03:15→19:46)
[2017-07-06] MEDS: SENNOSIDES 8.6 MG TABLET PO SCH ×3 (08:02→21:41)
[2017-07-06] MEDS: QUETIAPINE 50 MG TABLET PO SCH ×2 (08:02→13:57)
[2017-07-06] MEDS: COENZYME Q10 200 MG PO SCH (08:02)
[2017-07-06] MEDS: ASPIRIN *EC* 81 MG TABLET PO SCH (08:03)
[2017-07-06] MEDS: MULTI-VITAMIN PLAIN TABLET PO SCH (08:03)
[2017-07-06] MEDS: FAMOTIDINE 20 MG TABLET PO SCH (08:03)
[2017-07-06] MEDS: ALLOPURINOL 100 MG TABLET PO SCH (08:03)
[2017-07-06] MEDS: AMLODIPINE 5 MG TABLET PO SCH (08:03)
[2017-07-06] MEDS: LISINOPRIL 10 MG TABLET PO SCH (08:03)
[2017-07-06] MEDS: CYANOCOBALAMIN (B-12) 500mcg TABLET PO SCH ×3 (09:17→21:42)
[2017-07-06] MEDS: LIDOCAINE 5% PATCH TOP SCH (09:17)
--- NOTE | 2017-07-06 16:55 | Neuropsych Progress Note ---
[facility] Subjective Date: 07/06/17 - Sujective/Severity of Illness Medications: Acetaminophen (Tylenol) 325 - 650 mg PO Q5H PRN PRN Reason: Discomfort Last Admin: 07/01/17 06:57 Dose: 650 mg Acetaminophen/Hydrocodone Bitart ([place] 5/325) 1 tab PO Q6H PRN PRN Reason: Pain Last Admin: 07/06/17 03:15 Dose: 1 tab Al Hydroxide/Mg Hydroxide (Maalox Plus) 30 ml PO Q4H PRN PRN Reason: Indigestion Last Admin: 06/29/17 20:36 Dose: 30 ml Allopurinol (Zyloprim) 100 mg PO DAILY [facility] Last Admin: 07/06/17 08:03 Dose: 100 mg Amlodipine Besylate (Norvasc) 5 mg PO DAILY [facility] Last Admin: 07/06/17 08:03 Dose: 5 mg Aspirin (Ecotrin) 81 mg PO DAILY [facility] Last Admin: 07/06/17 08:03 Dose: 81 mg Atorvastatin Calcium (Lipitor) 10 mg PO HS [facility] Last Admin: 07/05/17 20:02 Dose: 10 mg Bisacodyl (Dulcolax) 10 mg RECTALLY DAILY PRN PRN Reason: Constipation Cholecalciferol (Vit. D-3) 1,000 unit PO 2100 [facility] Last Admin: 07/05/17 20:04 Dose: 1,000 unit Cholecalciferol (Vit. D-3) 2,000 unit PO DAILY [facility] Last Admin: 07/06/17 08:01 Dose: 2,000 unit Coenzyme Q10 (Co Q-10) 100 mg PO DAILY [facility] Last Admin: 07/06/17 08:02 Dose: 100 mg Cyanocobalamin (Vit. B-12) 500 mcg PO BID [facility] Last Admin: 07/06/17 09:17 Dose: 500 mcg Famotidine (Pepcid) 20 mg PO DAILY [facility] Last Admin: 07/06/17 08:03 Dose: 20 mg Haloperidol (Haldol) 0.5 mg PO Q6H PRN PRN Reason: Extreme agitation Haloperidol (Haldol) 0.5 mg PO Q6HR PRN PRN Reason: Anxiety/Agitation Haloperidol Lactate (Haldol) 0.5 mg IM Q6H PRN PRN Reason: Extreme agitation Last Admin: 07/03/17 17:00 Dose: 0.5 mg Meropenem 500 mg/ Sodium (Chloride) 50 mls @ 100 mls/hr IV Q8HR [facility] Stop: 07/11/17 16:00 Last Admin: 07/06/17 08:36 Dose: 100 mls/hr Lidocaine (Lidoderm) 1 patch TOP DAILY [facility] Last Admin: 07/06/17 09:17 Dose: 1 patch Lidocaine HCl/Dextrose (Lidoderm Patch Removal) 1 removal TOP HS [facility] Last Admin: 07/05/17 20:03 Dose: 1 removal Lisinopril (Prinivil) 10 mg PO DAILY [facility] Last Admin: 07/06/17 08:03 Dose: 10 mg Loperamide HCl (Imodium) 2 mg PO PRN PRN; Protocol PRN Reason: Diarrhea Lorazepam (Ativan) 0.5 mg PO TID PRN PRN Reason: Agitation Last Admin: 07/04/17 12:54 Dose: 0.5 mg Lorazepam (Ativan Inj) 0.5 mg IM Q6H PRN Last Admin: 07/05/17 18:38 Dose: 0.5 mg Multivitamins (Theragran) 1 tab PO DAILY [facility] Last Admin: 07/06/17 08:03 Dose: 1 tab Ondansetron HCl (Zofran Po) 4 mg PO Q6H PRN PRN Reason: Nausea &/or vomiting Quetiapine Fumarate (Seroquel) 50 mg PO BID PRN PRN Reason: Agitation Last Admin: 06/28/17 20:06 Dose: 50 mg Quetiapine Fumarate (Seroquel) 100 mg PO HS [facility] Last Admin: 07/05/17 20:02 Dose: 100 mg Quetiapine Fumarate (Seroquel) 75 mg PO 09,14 [facility] Last Admin: 07/06/17 13:57 Dose: 75 mg Senna (Senna Lax) 8.6 mg PO BID [facility] Last Admin: 07/06/17 08:02 Dose: 8.6 mg Sodium Chloride (Normal Saline) 500 ml IV PRN PRN Last Admin: 07/06/17 00:56 Dose: 500 ml Sodium Chloride (Normal Saline) 500 ml IV PRN PRN Sodium Chloride (Iv Flush) 10 ml IV PRN PRN PRN Reason: Flushing Last Admin: 07/06/17 00:56 Dose: 10 ml Subjective: Patient seen and chart reviewed. Nursing reports pt is doing better today. Sleeping well and having a good appetite. On face to face the pt was pleasant but confused. She states she is worried as "they are closing this place down tonight". She reports she is depressed because she wants to leave. She denies any S/I. Tolerating meds. Denies pain Start Time: 17:00 Stop Time: 17:15 Mental Status Exam Vitals: Last Vital Signs Temp 98.7 F 07/06/17 16:32 Pulse 77 07/06/17 16:32 Resp 16 07/06/17 16:32 BP 137/67 07/06/17 16:32 Pulse Ox 96 07/06/17 16:32 Height: 1.68 m Weight: 74.3 kg - Mental Status Exam Muscle Strength/Tone: Normal Dressing: Casual Grooming: Good Attitude: Cooperative Motor Activity: Retardation Eye Contact: Fair Speech: Slowed Volume: Soft Rhythm: Appropriate Rhythm Orientation: Disoriented to time, Disoriented to place, Disoriented to situation , Oriented to person Mood: Neutral (Neutral affect today, doesn't appear as sad as on previous days) Rate of Thoughts: Delayed Thought Organization: [place] Associations: Illogical Abstract Reasoning: Poor abstract reasoning Thought Content: Paranoia (improved - no evidence today), Somatic Concerns Perception/Psychotic: Other (Unclear whether patient is currently experiencing VH - not responding to internal stimuli during interview, she denies) Language: Naming Impaired Fund of Knowledge: Poor fund of knowledge Memory: Poor-immediate, Poor-recent Suicidal Ideation: Denies Homicidal Ideation: Denies Insight: Limited Judgement: Limited Impulse Control: Poor - Laboratory Result Diagrams: 07/01/17 08:11 07/04/17 05:12 Assessment and Plan (1) CAD (coronary artery disease) Current visit: No Status: Chronic (2) HTN (hypertension) Current visit: No Status: Chronic (3) Major neurocognitive disorder Problem details: with behavioral disturbance (most likely Lewy Body Dementia) Current visit: No Status: Acute (4) Parkinsons Current visit: No Status: Chronic (5) Lewy body dementia with behavioral disturbance Current visit: No Status: Acute (6) Depressive disorder Current visit: Yes Status: Acute Hospital Course Summary Disclaimer: The visit summary below is not to be considered part of the above Progress Note. Hospital Course: 06/20/17 Agree with admission to [facility] for ongoing psychiatric evaluation and treatment under the care of Dr. Rizvi Persistent hypernatremia chronically, will encourage oral fluids, and monitor routine BMP. Blood pressure is elevated today. Recently patient was on Norvasc in addition to lisinopril. Will add Norvasc 5 mg daily and continue to monitor carefully Previously underwent pancytopenia and anemia workup in which iron and vitamin B12 were normal. Tylenol as needed for back pain. Check CBC and BMP tomorrow morning to follow blood counts, renal function and electrolytes Hospitalist services will continue to follow patient medically manage existing comorbidities. At time of discharge, care will return to primary care provider, Dr. Oquendo 06/20/17 20:07 Psych: Increase Seroquel to 50mg PO BID (AM, afternoon) and 100mg PO q HS as patient continues to exhibit paranoia - monitor for signs of worsening Parkinsonism, weigh risk of AE to clinical benefit with further dose increases. 06/21/17 18:32 Psych: Continue current care - monitor for any further signs of depression, may increase Seroquel dose further if paranoia continues. 06/22/17 20:35 Psych: Discuss depressive symptoms and need for antidepressant with staff, patient's family tomorrow. Paranoia is manageable and directable at this point. Would like to use lowest dose of Seroquel possible to control symptoms as to avoid exacerbating movement disorder. Continue current care otherwise; monitor patient's mood, behavior and response to treatment. 06/23/17 21:02 Psych: Start mirtazapine 7.5mg PO q HS to target mood, may increase to 15mg fairly quickly if well tolerated. Believe that paranoia is mild in nature when present and she is redirectable and current dose of Seroquel - would like to minimize dose to avoid exacerbating movement disorder. 06/24/17 16:36 Patient is slowly improving. Diarrhea stools have resolved. Still confused, it appears from nurses notes that behavior is improving. BP is variable, but overall well controlled. Plan to repeat labs in AM for stability. Chart, documentation, imaging is reviewed during the course of this visit. 06/24/17 19:46 Psych: Patient doing well overall - will receive first dose of mirtazapine tonight, monitor to ensure patient tolerates it well and plan to increase to 15mg soon. Continue current care otherwise. 06/26/17 13:43 Psych: Continues to complain of depression - will increase mirtazapine to 15mg PO q HS and monitor behavior/response. 06/26/17 Overall, Cristina is doing well and slowly improving. Continue psychiatric care per team. Diarrhea stools have resolved. Hypernatremia noted on labs on 06/25 with sodium at 147. Encourage fluid intake. Hypokalemia noted with potassium at 3.5. Will give KCl 20 mEq po now and and will recheck BMP on 06/29. Continue to provide safe and supportive environment. Anticipate discharge in near future. 06/26/17 20:56 Psych: Discontinue mirtazapine as patient has become agitated more frequently since starting it - monitor response. Continue current dose of Seroquel. Monitor response. 06/27/17 21:28 Pt remains irritable at times but is redirectable. Continue current care 06/28/17 20:46 No behaviors today. Continue current care 06/29/17 18:35 Pt was more agitated and paranoid today with some physical aggression. Will restart Ativan PRN and increased BID dose of Seroquel to 75mg 06/30/17 21:04 Pt had some agitation last night and required PRN's. Continue current care 07/01/17 0815: Cristina complained of chest pain this morning which has since resolved and now complains of epigastric and upper abdominal pain. Exam reveals + Saleh's sign. She states her gall bladder "doesn't work". In light of her chest pain, will obtain EKG, portable chest x-ray, CBC, CMP and serial troponins stat - results pending. She was given ASA 324. No nitro was administer as she was chest pain free on exam. Vital signs have remained stable with blood pressure slightly elevated at 153/76. She has not received her morning medications. CXR was reviewed by myself and appeared unchanged from prior imaging in May 2017. As her clinical exam is concerning for gall bladder issues, will discuss with the family their wishes on additional imaging, labs, treatments, etc as Cristina is a DNR. 0930: Review of the labs revealed new leukopenia with WBC at 3.5 and stable thrombopenia with platelets at 120. CMP revealed stable hypernatremia with sodium at 147 and otherwise unremarkable. AST and ALT were unremarkable at 17 and 37 respectively. Troponin was <0.012. Lipase was within normal limits at 38. EKG showed sinus bradycardia at rate of 59 with 1st degree AV block. No STEMI noted. Will continue to encourage oral fluid intake and monitor closely. 07/01/17 12:25 No behaviors noted today. medical team working up RUQ abdominal pain. Continue current care 07/02/17 14:48 Review vital signs, nurse's notes, psychiatry note, and laboratory. Patient is without fever and chills, has no elevated white count, no suprapubic pain, no urinary symptoms, thus, antibiotic treatment is not indicated with the presence of ESBL on urine culture. Patient still has mild hypernatremia, she has been encouraged to push fluids 07/02/17 21:05 Some agitation but short lived. Continue current care 07/03/17 22:17 PT remains paranoid at times. Continue current care 07/04/17 09:15 Add routine senna for bowel motivation. 07/04/17 18:19 PT will start IV antibiotics for UTI 07/05/17 18:39 Agitation and paranoia this evening. Continue current care 07/06/17 16:54 Improving. Continue current care
[2017-07-06] MEDS: QUETIAPINE 100 MG TABLET PO SCH ×2 (19:47→21:42)
[2017-07-06] MEDS: ATORVASTATIN 10 MG TABLET PO SCH ×2 (19:50→21:41)
[2017-07-06] MEDS: LIDOCAINE PATCH REMOVAL TOP SCH (20:52)
[2017-07-07] MEDS: MEROPENEM 500 MG in NS 50 ML IV SCH ×3 (00:17→16:30)
[2017-07-07] MEDS: HYDROCODONE/APAP 5mg/325mg TABLET PO PRN ×3 (05:15→19:21)
[2017-07-07] MEDS: COENZYME Q10 200 MG PO SCH (08:05)
[2017-07-07] MEDS: ASPIRIN *EC* 81 MG TABLET PO SCH (08:06)
[2017-07-07] MEDS: LIDOCAINE 5% PATCH TOP SCH (08:06)
[2017-07-07] MEDS: AMLODIPINE 5 MG TABLET PO SCH (08:07)
[2017-07-07] MEDS: LISINOPRIL 10 MG TABLET PO SCH (08:07)
[2017-07-07] MEDS: SENNOSIDES 8.6 MG TABLET PO SCH ×3 (08:07→21:43)
[2017-07-07] MEDS: FAMOTIDINE 20 MG TABLET PO SCH (08:07)
[2017-07-07] MEDS: QUETIAPINE 50 MG TABLET PO SCH ×2 (08:08→13:55)
[2017-07-07] MEDS: MULTI-VITAMIN PLAIN TABLET PO SCH (08:10)
[2017-07-07] MEDS: CYANOCOBALAMIN (B-12) 500mcg TABLET PO SCH ×3 (08:10→21:43)
[2017-07-07] MEDS: ALLOPURINOL 100 MG TABLET PO SCH (08:12)
[2017-07-07] MEDS: QUETIAPINE 50 MG TABLET PO PRN (10:07)
--- NOTE | 2017-07-07 11:22 | Progress Note ---
<Rhiannon Chau - Last Filed: 07/07/17 11:17> Subjective: Cristina is seen today in follow up. Nursing reports that she has been constipated. Did have results from a Dulcolax UT a few days ago. I did review the chart- daily BM has been ordered. Pt denies abdominal pain, but does endorse constipation. Her main concern is not liking the saline lock in right FA. Nursing notes reviewed- still occasional episodes of behaviors, but does appear to be improving. Objective Vital signs: Temperature 97.3 F 07/07/17 07:48 Pulse Rate 63 07/07/17 07:48 Respiratory Rate 16 07/07/17 07:48 Blood Pressure 159/72 H 07/07/17 07:48 Pulse Oximetry 95 07/07/17 07:48 Height/Weight/BMI: Height 1.68 m Weight 74.3 kg Body Mass Index 26.0 - Constitutional Present: no acute distress, well nourished, cooperative - Routine HEENT Exam Head: Present: normocephalic, atraumatic Eye: Present: EOMI, PERRL - Routine Respiratory Exam Present: CTA bilaterally. Absent: rhonchi, wheezes, crackles - Routine Cardiovascular Exam Present: RRR, S1, S2, no murmur - Routine Abdominal Exam Present: soft, distended. Absent: normoactive bowel sounds Comments: Abdomen is distended, but soft. Not tender. BS are quiet x 4 quad. - Routine Extremities Exam Present: no edema Comments: Saline lock Right FA, intact. - Routine Musculoskeletal Exam Musculoskeletal: Present: no clubbing or cyanosis, moving extremities well - Routine Skin Exam Present: intact, dry, warm - Routine Neurological Exam Present: alert, moving all extremities, normal speech - Routine Psychiatric Exam Present: cooperative. Absent: normal thought process Comments: Memory impaired. Alert. Currently cooperative. Results - Labs CBC & Chem 7: 07/01/17 08:11 07/04/17 05:12 Microbiology Results: Microbiology 06/29/17 16:31 Urine, Voided (Cc/notcc) Urine Culture - Final Escherichia coli Gram Negative [place] Assessment and Plan (1) Cognitive and behavioral changes Current visit: No Status: Acute (2) CAD (coronary artery disease) Current visit: No Status: Chronic (3) HTN (hypertension) Current visit: No Status: Chronic (4) Parkinsons Current visit: No Status: Chronic (5) Lewy body dementia with behavioral disturbance Current visit: No Status: Acute (6) Hypernatremia Current visit: No Status: Acute DVT Prophylaxis: other (ambulatory) Resuscitation Status: Do Not Resuscitate Assessment and Plan: Assessment Alzheimer disease with behavioral changes/Lewy body dementia? ESBL on urine culture-asymptomatic bacteriuria (no treatment indicated) with conversion to active UTI. Anxiety CAD (coronary artery disease) COPD (chronic obstructive pulmonary disease) Cataracts, bilateral Depression Dyslipidemia Fibromyalgia GERD (gastroesophageal reflux disease) HTN (hypertension) PVD High cholesterol IBS (irritable bowel syndrome) with constipation Osteoporosis Hx Gout Parkinsons disease Vitamin D deficiency Plan 07/07/17- Cristina continues to c/o constipation. She is frequently requiring [place] for chronic pain. Increase Senna to 2 tabs PO BID. Continue PRN laxatives as indicated. Add lowest dose Movantik for constipation assoc w/ narcotics x 3 days. If significant improvement, can consider terminal gauger supervisor. Due to ongoing behavioural changes, decision to treat ESBL was made. Started Meropenem to run through 07/11. If the TID dosing is distressing to pt, could change to daily Ertapenem. Continue remainder of supportive meds. Repeat labs in AM. If she remains dry, we could consider augmenting with IVF while IV is in, but will try to avoid if possible. Mental health management per primary team. - Time spent with patient Time with patient PN: 30 minutes Hospital Course Summary Disclaimer: The visit summary below is not to be considered part of the above Progress Note. Hospital Course: 06/20/17 Agree with admission to [facility] for ongoing psychiatric evaluation and treatment under the care of Dr. Rizvi Persistent hypernatremia chronically, will encourage oral fluids, and monitor routine BMP. Blood pressure is elevated today. Recently patient was on Norvasc in addition to lisinopril. Will add Norvasc 5 mg daily and continue to monitor carefully Previously underwent pancytopenia and anemia workup in which iron and vitamin B12 were normal. Tylenol as needed for back pain. Check CBC and BMP tomorrow morning to follow blood counts, renal function and electrolytes Hospitalist services will continue to follow patient medically manage existing comorbidities. At time of discharge, care will return to primary care provider, Dr. Oquendo 06/20/17 20:07 Psych: Increase Seroquel to 50mg PO BID (AM, afternoon) and 100mg PO q HS as patient continues to exhibit paranoia - monitor for signs of worsening Parkinsonism, weigh risk of AE to clinical benefit with further dose increases. 06/21/17 18:32 Psych: Continue current care - monitor for any further signs of depression, may increase Seroquel dose further if paranoia continues. 06/22/17 20:35 Psych: Discuss depressive symptoms and need for antidepressant with staff, patient's family tomorrow. Paranoia is manageable and directable at this point. Would like to use lowest dose of Seroquel possible to control symptoms as to avoid exacerbating movement disorder. Continue current care otherwise; monitor patient's mood, behavior and response to treatment. 06/23/17 21:02 Psych: Start mirtazapine 7.5mg PO q HS to target mood, may increase to 15mg fairly quickly if well tolerated. Believe that paranoia is mild in nature when present and she is redirectable and current dose of Seroquel - would like to minimize dose to avoid exacerbating movement disorder. 06/24/17 16:36 Patient is slowly improving. Diarrhea stools have resolved. Still confused, it appears from nurses notes that behavior is improving. BP is variable, but overall well controlled. Plan to repeat labs in AM for stability. Chart, documentation, imaging is reviewed during the course of this visit. 06/24/17 19:46 Psych: Patient doing well overall - will receive first dose of mirtazapine tonight, monitor to ensure patient tolerates it well and plan to increase to 15mg soon. Continue current care otherwise. 06/26/17 13:43 Psych: Continues to complain of depression - will increase mirtazapine to 15mg PO q HS and monitor behavior/response. 06/26/17 Overall, Cristina is doing well and slowly improving. Continue psychiatric care per team. Diarrhea stools have resolved. Hypernatremia noted on labs on 06/25 with sodium at 147. Encourage fluid intake. Hypokalemia noted with potassium at 3.5. Will give KCl 20 mEq po now and and will recheck BMP on 06/29. Continue to provide safe and supportive environment. Anticipate discharge in near future. 06/26/17 20:56 Psych: Discontinue mirtazapine as patient has become agitated more frequently since starting it - monitor response. Continue current dose of Seroquel. Monitor response. 06/27/17 21:28 Pt remains irritable at times but is redirectable. Continue current care 06/28/17 20:46 No behaviors today. Continue current care 06/29/17 18:35 Pt was more agitated and paranoid today with some physical aggression. Will restart Ativan PRN and increased BID dose of Seroquel to 75mg 06/30/17 21:04 Pt had some agitation last night and required PRN's. Continue current care 07/01/17 0815: Cristina complained of chest pain this morning which has since resolved and now complains of epigastric and upper abdominal pain. Exam reveals + Saleh's sign. She states her gall bladder "doesn't work". In light of her chest pain, will obtain EKG, portable chest x-ray, CBC, CMP and serial troponins stat - results pending. She was given ASA 324. No nitro was administer as she was chest pain free on exam. Vital signs have remained stable with blood pressure slightly elevated at 153/76. She has not received her morning medications. CXR was reviewed by myself and appeared unchanged from prior imaging in May 2017. As her clinical exam is concerning for gall bladder issues, will discuss with the family their wishes on additional imaging, labs, treatments, etc as Cristina is a DNR. 0930: Review of the labs revealed new leukopenia with WBC at 3.5 and stable thrombopenia with platelets at 120. CMP revealed stable hypernatremia with sodium at 147 and otherwise unremarkable. AST and ALT were unremarkable at 17 and 37 respectively. Troponin was <0.012. Lipase was within normal limits at 38. EKG showed sinus bradycardia at rate of 59 with 1st degree AV block. No STEMI noted. Will continue to encourage oral fluid intake and monitor closely. 07/01/17 12:25 No behaviors noted today. medical team working up RUQ abdominal pain. Continue current care 07/02/17 14:48 Review vital signs, nurse's notes, psychiatry note, and laboratory. Patient is without fever and chills, has no elevated white count, no suprapubic pain, no urinary symptoms, thus, antibiotic treatment is not indicated with the presence of ESBL on urine culture. Patient still has mild hypernatremia, she has been encouraged to push fluids 07/02/17 21:05 Some agitation but short lived. Continue current care 07/03/17 22:17 PT remains paranoid at times. Continue current care 07/04/17 09:15 Add routine senna for bowel motivation. 07/04/17 18:19 PT will start IV antibiotics for UTI 07/05/17 18:39 Agitation and paranoia this evening. Continue current care 07/06/17 16:54 Improving. Continue current care 07/07/17 11:29 Cristina continues to c/o constipation. She is frequently requiring [place] for chronic pain. Increase Senna to 2 tabs PO BID. Continue PRN laxatives as indicated. Add lowest dose Movantik for constipation assoc w/ narcotics x 3 days. If significant improvement, can consider jail. Due to ongoing behavioural changes, decision to treat ESBL was made. Started Meropenem to run through 07/11. If the TID dosing is distressing to pt, could change to daily Ertapenem. Continue remainder of supportive meds. Repeat labs in AM. If she remains dry, we could consider augmenting with IVF while IV is in, but will try to avoid if possible. Mental health management per primary team. <Desirae Beatty - Last Filed: 07/07/17 16:56> Objective Vital signs: Temperature 97.3 F 07/07/17 07:48 Pulse Rate 63 07/07/17 07:48 Respiratory Rate 16 07/07/17 07:48 Blood Pressure 159/72 H 07/07/17 07:48 Pulse Oximetry 95 07/07/17 07:48 Height/Weight/BMI: Height 1.68 m Weight 74.3 kg Body Mass Index 26.0 Results - Labs CBC & Chem 7: 07/01/17 08:11 07/04/17 05:12 Microbiology Results: Microbiology 06/29/17 16:31 Urine, Voided (Cc/notcc) Urine Culture - Final Escherichia coli Gram Negative [place] Assessment and Plan (1) Cognitive and behavioral changes Current visit: No Status: Acute (2) CAD (coronary artery disease) Current visit: No Status: Chronic (3) HTN (hypertension) Current visit: No Status: Chronic (4) Parkinsons Current visit: No Status: Chronic (5) Lewy body dementia with behavioral disturbance Current visit: No Status: Acute (6) Hypernatremia Current visit: No Status: Acute Assessment and Plan: I have independently evaluated and examined this patient. I reviewed the chart, the patient's history, and the CUSTOMER SERVICE REPRESENTATIVE TELLER/PA's documented findings as above. We discussed and formulated the assessment and plan as above with additions as below: Cristina reports success with a small bowel movement shortly before I arrived. She asks "what next" referring to recent infectious diarrhea followed by current constipation. She denied urinary symptoms. Nursing reports she continues to be emotionally labile intermittently without clear provocation. NAD, pleasant, talkative. Respirations nonlabored Abdomen benign, no suprapubic tenderness. Continue bowel regimen, prune juice planned with evening meal. Hospital Course Summary Disclaimer: The visit summary below is not to be considered part of the above Progress Note.
--- NOTE | 2017-07-07 12:24 | Neuropsych Progress Note ---
[facility] Subjective Date: 07/07/17 - Sujective/Severity of Illness Medications: Acetaminophen (Tylenol) 325 - 650 mg PO Q5H PRN PRN Reason: Discomfort Last Admin: 07/01/17 06:57 Dose: 650 mg Acetaminophen/Hydrocodone Bitart ([place] 5/325) 1 tab PO Q6H PRN PRN Reason: Pain Last Admin: 07/07/17 10:07 Dose: 1 tab Al Hydroxide/Mg Hydroxide (Maalox Plus) 30 ml PO Q4H PRN PRN Reason: Indigestion Last Admin: 06/29/17 20:36 Dose: 30 ml Allopurinol (Zyloprim) 100 mg PO DAILY [facility] Last Admin: 07/07/17 08:12 Dose: 100 mg Amlodipine Besylate (Norvasc) 5 mg PO DAILY [facility] Last Admin: 07/07/17 08:07 Dose: 5 mg Aspirin (Ecotrin) 81 mg PO DAILY [facility] Last Admin: 07/07/17 08:06 Dose: 81 mg Atorvastatin Calcium (Lipitor) 10 mg PO HS [facility] Last Admin: 07/06/17 21:41 Dose: Not Given Bisacodyl (Dulcolax) 10 mg RECTALLY DAILY PRN PRN Reason: Constipation Cholecalciferol (Vit. D-3) 1,000 unit PO 2100 [facility] Last Admin: 07/06/17 21:42 Dose: Not Given Cholecalciferol (Vit. D-3) 2,000 unit PO DAILY [facility] Last Admin: 07/07/17 08:11 Dose: 2,000 unit Coenzyme Q10 (Co Q-10) 100 mg PO DAILY [facility] Last Admin: 07/07/17 08:05 Dose: 100 mg Cyanocobalamin (Vit. B-12) 500 mcg PO BID [facility] Last Admin: 07/07/17 08:10 Dose: 500 mcg Famotidine (Pepcid) 20 mg PO DAILY [facility] Last Admin: 07/07/17 08:07 Dose: 20 mg Haloperidol (Haldol) 0.5 mg PO Q6H PRN PRN Reason: Extreme agitation Haloperidol (Haldol) 0.5 mg PO Q6HR PRN PRN Reason: Anxiety/Agitation Haloperidol Lactate (Haldol) 0.5 mg IM Q6H PRN PRN Reason: Extreme agitation Last Admin: 07/03/17 17:00 Dose: 0.5 mg Meropenem 500 mg/ Sodium (Chloride) 50 mls @ 100 mls/hr IV Q8HR [facility] Stop: 07/11/17 16:00 Last Admin: 07/07/17 08:39 Dose: 100 mls/hr Lidocaine (Lidoderm) 1 patch TOP DAILY [facility] Last Admin: 07/07/17 08:06 Dose: 1 patch Lidocaine HCl/Dextrose (Lidoderm Patch Removal) 1 removal TOP HS [facility] Last Admin: 07/06/17 20:52 Dose: 1 removal Lisinopril (Prinivil) 10 mg PO DAILY [facility] Last Admin: 07/07/17 08:07 Dose: 10 mg Loperamide HCl (Imodium) 2 mg PO PRN PRN; Protocol PRN Reason: Diarrhea Lorazepam (Ativan) 0.5 mg PO TID PRN PRN Reason: Agitation Last Admin: 07/04/17 12:54 Dose: 0.5 mg Lorazepam (Ativan Inj) 0.5 mg IM Q6H PRN Last Admin: 07/05/17 18:38 Dose: 0.5 mg Multivitamins (Theragran) 1 tab PO DAILY [facility] Last Admin: 07/07/17 08:10 Dose: 1 tab Naloxegol (Movantik) 12.5 mg PO ACB [facility] Stop: 07/10/17 11:14 Ondansetron HCl (Zofran Po) 4 mg PO Q6H PRN PRN Reason: Nausea &/or vomiting Quetiapine Fumarate (Seroquel) 50 mg PO BID PRN PRN Reason: Agitation Last Admin: 07/07/17 10:07 Dose: 50 mg Quetiapine Fumarate (Seroquel) 100 mg PO [facility] Last Admin: 07/06/17 21:42 Dose: Not Given Quetiapine Fumarate (Seroquel) 75 mg PO 09,14 [facility] Last Admin: 07/07/17 08:08 Dose: 75 mg Senna (Senna Lax) 17.2 mg PO BID [facility] Sodium Chloride (Normal Saline) 500 ml IV PRN PRN Last Admin: 07/06/17 00:56 Dose: 500 ml Sodium Chloride (Normal Saline) 500 ml IV PRN PRN Sodium Chloride (Iv Flush) 10 ml IV PRN PRN PRN Reason: Flushing Last Admin: 07/06/17 00:56 Dose: 10 ml Subjective: Patient seen and chart reviewed. Nursing reports pt slept well and has a good appetite. Some confusion, paranoia and agitation today and was given Seroquel PRN. On face to face the pt is pleasant but confused. She talks about people owing her money. She reports her mood is stable although she has been tearful at times today. Denies A/V [place]. Tolerating meds Start Time: 10:15 Stop Time: 10:30 Mental Status Exam Vitals: Last Vital Signs Temp 97.3 F 07/07/17 07:48 Pulse 63 07/07/17 07:48 Resp 16 07/07/17 07:48 BP 159/72 H 07/07/17 07:48 Pulse Ox 95 07/07/17 07:48 Height: 1.68 m Weight: 74.3 kg - Mental Status Exam Muscle Strength/Tone: Normal Dressing: Casual Grooming: Good Attitude: Cooperative Motor Activity: Retardation Eye Contact: Fair Speech: Slowed Volume: Soft Rhythm: Appropriate Rhythm Orientation: Disoriented to time, Disoriented to place, Disoriented to situation , Oriented to person Mood: Neutral (Neutral affect today, doesn't appear as sad as on previous days) Rate of Thoughts: Delayed Thought Organization: [place] Associations: Illogical Abstract Reasoning: Poor abstract reasoning Thought Content: Paranoia (improved - no evidence today), Somatic Concerns Perception/Psychotic: Other (Unclear whether patient is currently experiencing VH - not responding to internal stimuli during interview, she denies) Language: Naming Impaired Fund of Knowledge: Poor fund of knowledge Memory: Poor-immediate, Poor-recent Suicidal Ideation: Denies Homicidal Ideation: Denies Insight: Limited Judgement: Limited Impulse Control: Poor - Laboratory Result Diagrams: 07/01/17 08:11 07/04/17 05:12 Assessment and Plan (1) CAD (coronary artery disease) Current visit: No Status: Chronic (2) HTN (hypertension) Current visit: No Status: Chronic (3) Major neurocognitive disorder Problem details: with behavioral disturbance (most likely Lewy Body Dementia) Current visit: No Status: Acute (4) Parkinsons Current visit: No Status: Chronic (5) Lewy body dementia with behavioral disturbance Current visit: No Status: Acute (6) Depressive disorder Current visit: Yes Status: Acute Hospital Course Summary Disclaimer: The visit summary below is not to be considered part of the above Progress Note. Hospital Course: 06/20/17 Agree with admission to [facility] for ongoing psychiatric evaluation and treatment under the care of Dr. Rizvi Persistent hypernatremia chronically, will encourage oral fluids, and monitor routine BMP. Blood pressure is elevated today. Recently patient was on Norvasc in addition to lisinopril. Will add Norvasc 5 mg daily and continue to monitor carefully Previously underwent pancytopenia and anemia workup in which iron and vitamin B12 were normal. Tylenol as needed for back pain. Check CBC and BMP tomorrow morning to follow blood counts, renal function and electrolytes Hospitalist services will continue to follow patient medically manage existing comorbidities. At time of discharge, care will return to primary care provider, Dr. Oquendo 06/20/17 20:07 Psych: Increase Seroquel to 50mg PO BID (AM, afternoon) and 100mg PO q HS as patient continues to exhibit paranoia - monitor for signs of worsening Parkinsonism, weigh risk of AE to clinical benefit with further dose increases. 06/21/17 18:32 Psych: Continue current care - monitor for any further signs of depression, may increase Seroquel dose further if paranoia continues. 06/22/17 20:35 Psych: Discuss depressive symptoms and need for antidepressant with staff, patient's family tomorrow. Paranoia is manageable and directable at this point. Would like to use lowest dose of Seroquel possible to control symptoms as to avoid exacerbating movement disorder. Continue current care otherwise; monitor patient's mood, behavior and response to treatment. 06/23/17 21:02 Psych: Start mirtazapine 7.5mg PO q HS to target mood, may increase to 15mg fairly quickly if well tolerated. Believe that paranoia is mild in nature when present and she is redirectable and current dose of Seroquel - would like to minimize dose to avoid exacerbating movement disorder. 06/24/17 16:36 Patient is slowly improving. Diarrhea stools have resolved. Still confused, it appears from nurses notes that behavior is improving. BP is variable, but overall well controlled. Plan to repeat labs in AM for stability. Chart, documentation, imaging is reviewed during the course of this visit. 06/24/17 19:46 Psych: Patient doing well overall - will receive first dose of mirtazapine tonight, monitor to ensure patient tolerates it well and plan to increase to 15mg soon. Continue current care otherwise. 06/26/17 13:43 Psych: Continues to complain of depression - will increase mirtazapine to 15mg PO q HS and monitor behavior/response. 06/26/17 Overall, Cristina is doing well and slowly improving. Continue psychiatric care per team. Diarrhea stools have resolved. Hypernatremia noted on labs on 06/25 with sodium at 147. Encourage fluid intake. Hypokalemia noted with potassium at 3.5. Will give KCl 20 mEq po now and and will recheck BMP on 06/29. Continue to provide safe and supportive environment. Anticipate discharge in near future. 06/26/17 20:56 Psych: Discontinue mirtazapine as patient has become agitated more frequently since starting it - monitor response. Continue current dose of Seroquel. Monitor response. 06/27/17 21:28 Pt remains irritable at times but is redirectable. Continue current care 06/28/17 20:46 No behaviors today. Continue current care 06/29/17 18:35 Pt was more agitated and paranoid today with some physical aggression. Will restart Ativan PRN and increased BID dose of Seroquel to 75mg 06/30/17 21:04 Pt had some agitation last night and required PRN's. Continue current care 07/01/17 0815: Cristina complained of chest pain this morning which has since resolved and now complains of epigastric and upper abdominal pain. Exam reveals + Saleh's sign. She states her gall bladder "doesn't work". In light of her chest pain, will obtain EKG, portable chest x-ray, CBC, CMP and serial troponins stat - results pending. She was given ASA 324. No nitro was administer as she was chest pain free on exam. Vital signs have remained stable with blood pressure slightly elevated at 153/76. She has not received her morning medications. CXR was reviewed by myself and appeared unchanged from prior imaging in May 2017. As her clinical exam is concerning for gall bladder issues, will discuss with the family their wishes on additional imaging, labs, treatments, etc as Cristina is a DNR. 0930: Review of the labs revealed new leukopenia with WBC at 3.5 and stable thrombopenia with platelets at 120. CMP revealed stable hypernatremia with sodium at 147 and otherwise unremarkable. AST and ALT were unremarkable at 17 and 37 respectively. Troponin was <0.012. Lipase was within normal limits at 38. EKG showed sinus bradycardia at rate of 59 with 1st degree AV block. No STEMI noted. Will continue to encourage oral fluid intake and monitor closely. 07/01/17 12:25 No behaviors noted today. medical team working up RUQ abdominal pain. Continue current care 07/02/17 14:48 Review vital signs, nurse's notes, psychiatry note, and laboratory. Patient is without fever and chills, has no elevated white count, no suprapubic pain, no urinary symptoms, thus, antibiotic treatment is not indicated with the presence of ESBL on urine culture. Patient still has mild hypernatremia, she has been encouraged to push fluids 07/02/17 21:05 Some agitation but short lived. Continue current care 07/03/17 22:17 PT remains paranoid at times. Continue current care 07/04/17 09:15 Add routine senna for bowel motivation. 07/04/17 18:19 PT will start IV antibiotics for UTI 07/05/17 18:39 Agitation and paranoia this evening. Continue current care 07/06/17 16:54 Improving. Continue current care 07/07/17 11:29 Cristina continues to c/o constipation. She is frequently requiring [place] for chronic pain. Increase Senna to 2 tabs PO BID. Continue PRN laxatives as indicated. Add lowest dose Movantik for constipation assoc w/ narcotics x 3 days. If significant improvement, can consider local company intermodal truck driver. Due to ongoing behavioural changes, decision to treat ESBL was made. Started Meropenem to run through 07/11. If the TID dosing is distressing to pt, could change to daily Ertapenem. Continue remainder of supportive meds. Repeat labs in AM. If she remains dry, we could consider augmenting with IVF while IV is in, but will try to avoid if possible. Mental health management per primary team. 07/07/17 12:24 Some agitation at times. Continue current care
[2017-07-07] MEDS: NALOXEGOL 12.5 MG TABLET PO SCH (16:27)
[2017-07-07] MEDS: ATORVASTATIN 10 MG TABLET PO SCH ×2 (19:18→21:43)
[2017-07-07] MEDS: QUETIAPINE 100 MG TABLET PO SCH ×2 (19:18→21:45)
[2017-07-07] MEDS: LIDOCAINE PATCH REMOVAL TOP SCH (21:43)
[2017-07-08] MEDS: MEROPENEM 500 MG in NS 50 ML IV SCH ×3 (01:10→16:56)
[2017-07-08] MEDS: FAMOTIDINE 20 MG TABLET PO SCH (08:23)
[2017-07-08] MEDS: ALLOPURINOL 100 MG TABLET PO SCH (08:23)
[2017-07-08] MEDS: CYANOCOBALAMIN (B-12) 500mcg TABLET PO SCH ×3 (08:23→22:16)
[2017-07-08] MEDS: NALOXEGOL 12.5 MG TABLET PO SCH (08:23)
[2017-07-08] MEDS: QUETIAPINE 50 MG TABLET PO SCH ×2 (08:24→13:45)
[2017-07-08] MEDS: MULTI-VITAMIN PLAIN TABLET PO SCH (08:24)
[2017-07-08] MEDS: ASPIRIN *EC* 81 MG TABLET PO SCH (08:25)
[2017-07-08] MEDS: SENNOSIDES 8.6 MG TABLET PO SCH (08:25)
[2017-07-08] MEDS: COENZYME Q10 200 MG PO SCH (08:25)
[2017-07-08] MEDS: AMLODIPINE 5 MG TABLET PO SCH (08:25)
[2017-07-08] MEDS: LIDOCAINE 5% PATCH TOP SCH (08:26)
[2017-07-08] MEDS: LISINOPRIL 10 MG TABLET PO SCH (08:26)
[2017-07-08] MEDS: HYDROCODONE/APAP 5mg/325mg TABLET PO PRN ×3 (09:37→21:06)
--- NOTE | 2017-07-08 11:42 | Neuropsych Progress Note ---
[facility] Subjective Date: 07/08/17 - Sujective/Severity of Illness Medications: Acetaminophen (Tylenol) 325 - 650 mg PO Q5H PRN PRN Reason: Discomfort Last Admin: 07/01/17 06:57 Dose: 650 mg Acetaminophen/Hydrocodone Bitart (Allison 5/325) 1 tab PO Q6H PRN PRN Reason: Pain Last Admin: 07/08/17 09:37 Dose: 1 tab Al Hydroxide/Mg Hydroxide (Maalox Plus) 30 ml PO Q4H PRN PRN Reason: Indigestion Last Admin: 06/29/17 20:36 Dose: 30 ml Allopurinol (Zyloprim) 100 mg PO DAILY [facility] Last Admin: 07/08/17 08:23 Dose: 100 mg Amlodipine Besylate (Norvasc) 5 mg PO DAILY [facility] Last Admin: 07/08/17 08:25 Dose: 5 mg Aspirin (Ecotrin) 81 mg PO DAILY [facility] Last Admin: 07/08/17 08:25 Dose: 81 mg Atorvastatin Calcium (Lipitor) 10 mg PO HS [facility] Last Admin: 07/07/17 21:43 Dose: Not Given Bisacodyl (Dulcolax) 10 mg RECTALLY DAILY PRN PRN Reason: Constipation Cholecalciferol (Vit. D-3) 1,000 unit PO 2100 [facility] Last Admin: 07/07/17 21:44 Dose: Not Given Cholecalciferol (Vit. D-3) 2,000 unit PO DAILY [facility] Last Admin: 07/08/17 08:27 Dose: 2,000 unit Coenzyme Q10 (Co Q-10) 100 mg PO DAILY [facility] Last Admin: 07/08/17 08:25 Dose: 100 mg Cyanocobalamin (Vit. B-12) 500 mcg PO BID [facility] Last Admin: 07/08/17 08:23 Dose: 500 mcg Famotidine (Pepcid) 20 mg PO DAILY [facility] Last Admin: 07/08/17 08:23 Dose: 20 mg Haloperidol (Haldol) 0.5 mg PO Q6H PRN PRN Reason: Extreme agitation Haloperidol (Haldol) 0.5 mg PO Q6HR PRN PRN Reason: Anxiety/Agitation Haloperidol Lactate (Haldol) 0.5 mg IM Q6H PRN PRN Reason: Extreme agitation Last Admin: 07/03/17 17:00 Dose: 0.5 mg Meropenem 500 mg/ Sodium (Chloride) 50 mls @ 100 mls/hr IV Q8HR [facility] Stop: 07/11/17 16:00 Last Admin: 07/08/17 09:53 Dose: 100 mls/hr Sodium Chloride (Normal Saline) 1,000 mls @ 100 mls/hr IV .Q10H [facility] Stop: 07/09/17 06:59 Lidocaine (Lidoderm) 1 patch TOP DAILY [facility] Last Admin: 07/08/17 08:26 Dose: 1 patch Lidocaine HCl/Dextrose (Lidoderm Patch Removal) 1 removal TOP HS [facility] Last Admin: 07/07/17 21:43 Dose: 1 removal Lisinopril (Prinivil) 20 mg PO DAILY [facility] Loperamide HCl (Imodium) 2 mg PO PRN PRN; Protocol PRN Reason: Diarrhea Lorazepam (Ativan) 0.5 mg PO TID PRN PRN Reason: Agitation Last Admin: 07/04/17 12:54 Dose: 0.5 mg Lorazepam (Ativan Inj) 0.5 mg IM Q6H PRN Last Admin: 07/05/17 18:38 Dose: 0.5 mg Multivitamins (Theragran) 1 tab PO DAILY [facility] Last Admin: 07/08/17 08:24 Dose: 1 tab Naloxegol (Movantik) 12.5 mg PO ACB [facility] Stop: 07/10/17 11:14 Last Admin: 07/08/17 08:23 Dose: 12.5 mg Ondansetron HCl (Zofran Po) 4 mg PO Q6H PRN PRN Reason: Nausea &/or vomiting Quetiapine Fumarate (Seroquel) 50 mg PO BID PRN PRN Reason: Agitation Last Admin: 07/07/17 10:07 Dose: 50 mg Quetiapine Fumarate (Seroquel) 100 mg PO HS [facility] Last Admin: 07/07/17 21:45 Dose: Not Given Quetiapine Fumarate (Seroquel) 75 mg PO 09,14 [facility] Last Admin: 07/08/17 08:24 Dose: 75 mg Senna (Senna Lax) 17.2 mg PO BID [facility] Last Admin: 07/08/17 08:25 Dose: 17.2 mg Sodium Chloride (Normal Saline) 500 ml IV PRN PRN Last Admin: 07/06/17 00:56 Dose: 500 ml Sodium Chloride (Normal Saline) 500 ml IV PRN PRN Sodium Chloride (Iv Flush) 10 ml IV PRN PRN PRN Reason: Flushing Last Admin: 07/06/17 00:56 Dose: 10 ml Subjective: Patient seen and chart reviewed. Nursing reports pt has done well. Sleeping well and no behaviors noted. Has developed diarrhea. On face to face the pt is pleasant but confused. She is only oriented to self. Denies pain. Tolerating meds. Voices no concerns at this time Start Time: 11:00 Stop Time: 11:15 Mental Status Exam Vitals: Last Vital Signs Temp 98.4 F 07/08/17 08:28 Pulse 72 07/08/17 08:28 Resp 16 07/08/17 08:28 BP 152/76 H 07/08/17 08:28 Pulse Ox 95 07/08/17 08:28 Height: 1.68 m Weight: 74.3 kg - Mental Status Exam Muscle Strength/Tone: Normal Dressing: Casual Grooming: Good Attitude: Cooperative Motor Activity: Retardation Eye Contact: Fair Speech: Slowed Volume: Soft Rhythm: Appropriate Rhythm Orientation: Disoriented to time, Disoriented to place, Disoriented to situation , Oriented to person Mood: Neutral (Neutral affect today, doesn't appear as sad as on previous days) Rate of Thoughts: Delayed Thought Organization: Hope Associations: Illogical Abstract Reasoning: Poor abstract reasoning Thought Content: Paranoia (improved - no evidence today), Somatic Concerns Perception/Psychotic: Other (Unclear whether patient is currently experiencing VH - not responding to internal stimuli during interview, she denies) Language: Naming Impaired Fund of Knowledge: Poor fund of knowledge Memory: Poor-immediate, Poor-recent Suicidal Ideation: Denies Homicidal Ideation: Denies Insight: Limited Judgement: Limited Impulse Control: Poor - Laboratory Result Diagrams: 07/08/17 07:40 07/08/17 07:40 Laboratory Results - last 24 hr 07/08/17 07/08/17 07:40 07:40 WBC 3.2 L RBC 3.96 L Hgb 11.9 L Hct 36.9 MCV 93.2 MCH 30.1 MCHC 32.2 RDW Std Deviation 46.7 Plt Count 113 L MPV 10.2 Immature Gran % (Auto) 0.3 Neut % (Auto) 59.2 Lymph % (Auto) 31.8 [place] % (Auto) 6.8 Eos % (Auto) 1.9 Baso % (Auto) 0.0 Neut # (Auto) 1.9 Lymph # (Auto) 1.0 [place] # (Auto) 0.2 Eos # (Auto) 0.1 Baso # (Auto) 0.0 Abs Immat Gran (auto) 0.01 Turbidity < 20 Sodium 148 H Potassium 3.9 Chloride 109 H Carbon Dioxide 28 Anion Gap 11 BUN 18.0 H Creatinine 0.7 GFR Calculation 80 BUN/Creatinine Ratio 26 Glucose 85 Calculated Osmolality 285 H Calcium 9.7 Total Bilirubin 0.70 Icterus Index < 2 AST 16 ALT 28 Alkaline Phosphatase 57 Total Protein 5.7 L Albumin 3.1 L Globulin 2.6 Albumin/Globulin Ratio 1.2 Specimen Hemolysis < 15 Assessment and Plan (1) CAD (coronary artery disease) Current visit: No Status: Chronic (2) HTN (hypertension) Current visit: No Status: Chronic (3) Major neurocognitive disorder Problem details: with behavioral disturbance (most likely Lewy Body Dementia) Current visit: No Status: Acute (4) Parkinsons Current visit: No Status: Chronic (5) Lewy body dementia with behavioral disturbance Current visit: No Status: Acute (6) Depressive disorder Current visit: Yes Status: Acute Hospital Course Summary Disclaimer: The visit summary below is not to be considered part of the above Progress Note. Hospital Course: 06/20/17 Agree with admission to [facility] for ongoing psychiatric evaluation and treatment under the care of Dr. Rizvi Persistent hypernatremia chronically, will encourage oral fluids, and monitor routine BMP. Blood pressure is elevated today. Recently patient was on Norvasc in addition to lisinopril. Will add Norvasc 5 mg daily and continue to monitor carefully Previously underwent pancytopenia and anemia workup in which iron and vitamin B12 were normal. Tylenol as needed for back pain. Check CBC and BMP tomorrow morning to follow blood counts, renal function and electrolytes Hospitalist services will continue to follow patient medically manage existing comorbidities. At time of discharge, care will return to primary care provider, Dr. Oquendo 06/20/17 20:07 Psych: Increase Seroquel to 50mg PO BID (AM, afternoon) and 100mg PO q HS as patient continues to exhibit paranoia - monitor for signs of worsening Parkinsonism, weigh risk of AE to clinical benefit with further dose increases. 06/21/17 18:32 Psych: Continue current care - monitor for any further signs of depression, may increase Seroquel dose further if paranoia continues. 06/22/17 20:35 Psych: Discuss depressive symptoms and need for antidepressant with staff, patient's family tomorrow. Paranoia is manageable and directable at this point. Would like to use lowest dose of Seroquel possible to control symptoms as to avoid exacerbating movement disorder. Continue current care otherwise; monitor patient's mood, behavior and response to treatment. 06/23/17 21:02 Psych: Start mirtazapine 7.5mg PO q HS to target mood, may increase to 15mg fairly quickly if well tolerated. Believe that paranoia is mild in nature when present and she is redirectable and current dose of Seroquel - would like to minimize dose to avoid exacerbating movement disorder. 06/24/17 16:36 Patient is slowly improving. Diarrhea stools have resolved. Still confused, it appears from nurses notes that behavior is improving. BP is variable, but overall well controlled. Plan to repeat labs in AM for stability. Chart, documentation, imaging is reviewed during the course of this visit. 06/24/17 19:46 Psych: Patient doing well overall - will receive first dose of mirtazapine tonight, monitor to ensure patient tolerates it well and plan to increase to 15mg soon. Continue current care otherwise. 06/26/17 13:43 Psych: Continues to complain of depression - will increase mirtazapine to 15mg PO q HS and monitor behavior/response. 06/26/17 Overall, Cristina is doing well and slowly improving. Continue psychiatric care per team. Diarrhea stools have resolved. Hypernatremia noted on labs on 06/25 with sodium at 147. Encourage fluid intake. Hypokalemia noted with potassium at 3.5. Will give KCl 20 mEq po now and and will recheck BMP on 06/29. Continue to provide safe and supportive environment. Anticipate discharge in near future. 06/26/17 20:56 Psych: Discontinue mirtazapine as patient has become agitated more frequently since starting it - monitor response. Continue current dose of Seroquel. Monitor response. 06/27/17 21:28 Pt remains irritable at times but is redirectable. Continue current care 06/28/17 20:46 No behaviors today. Continue current care 06/29/17 18:35 Pt was more agitated and paranoid today with some physical aggression. Will restart Ativan PRN and increased BID dose of Seroquel to 75mg 06/30/17 21:04 Pt had some agitation last night and required PRN's. Continue current care 07/01/17 0815: Cristina complained of chest pain this morning which has since resolved and now complains of epigastric and upper abdominal pain. Exam reveals + Saleh's sign. She states her gall bladder "doesn't work". In light of her chest pain, will obtain EKG, portable chest x-ray, CBC, CMP and serial troponins stat - results pending. She was given ASA 324. No nitro was administer as she was chest pain free on exam. Vital signs have remained stable with blood pressure slightly elevated at 153/76. She has not received her morning medications. CXR was reviewed by myself and appeared unchanged from prior imaging in May 2017. As her clinical exam is concerning for gall bladder issues, will discuss with the family their wishes on additional imaging, labs, treatments, etc as Cristina is a DNR. 0930: Review of the labs revealed new leukopenia with WBC at 3.5 and stable thrombopenia with platelets at 120. CMP revealed stable hypernatremia with sodium at 147 and otherwise unremarkable. AST and ALT were unremarkable at 17 and 37 respectively. Troponin was <0.012. Lipase was within normal limits at 38. EKG showed sinus bradycardia at rate of 59 with 1st degree AV block. No STEMI noted. Will continue to encourage oral fluid intake and monitor closely. 07/01/17 12:25 No behaviors noted today. medical team working up RUQ abdominal pain. Continue current care 07/02/17 14:48 Review vital signs, nurse's notes, psychiatry note, and laboratory. Patient is without fever and chills, has no elevated white count, no suprapubic pain, no urinary symptoms, thus, antibiotic treatment is not indicated with the presence of ESBL on urine culture. Patient still has mild hypernatremia, she has been encouraged to push fluids 07/02/17 21:05 Some agitation but short lived. Continue current care 07/03/17 22:17 PT remains paranoid at times. Continue current care 07/04/17 09:15 Add routine senna for bowel motivation. 07/04/17 18:19 PT will start IV antibiotics for UTI 07/05/17 18:39 Agitation and paranoia this evening. Continue current care 07/06/17 16:54 Improving. Continue current care 07/07/17 11:29 Cristina continues to c/o constipation. She is frequently requiring Allison for chronic pain. Increase Senna to 2 tabs PO BID. Continue PRN laxatives as indicated. Add lowest dose Movantik for constipation assoc w/ narcotics x 3 days. If significant improvement, can consider half-way. Due to ongoing behavioural changes, decision to treat ESBL was made. Started Meropenem to run through 07/11. If the TID dosing is distressing to pt, could change to daily Ertapenem. Continue remainder of supportive meds. Repeat labs in AM. If she remains dry, we could consider augmenting with IVF while IV is in, but will try to avoid if possible. Mental health management per primary team. 07/07/17 12:24 Some agitation at times. Continue current care 07/08/17 11:41 Better today. Continue current care
[2017-07-08] MEDS ORDERED: SENNOSIDES 8.6 MG TABLET PO PRN (11:54)
[2017-07-08] MEDS: LIDOCAINE PATCH REMOVAL TOP SCH ×2 (19:31→22:15)
[2017-07-08] MEDS: ATORVASTATIN 10 MG TABLET PO SCH ×2 (19:31→22:15)
[2017-07-08] MEDS: QUETIAPINE 100 MG TABLET PO SCH ×2 (19:31→22:16)
[2017-07-08] MEDS ORDERED: NS 1,000 ML IV SCH (21:00)
[2017-07-08] MEDS: QUETIAPINE 50 MG TABLET PO PRN (21:06)
[2017-07-08] MEDS: SALINE FLUSH 10ml SYRINGE IV PRN (22:27)
[2017-07-09] MEDS: MEROPENEM 500 MG in NS 50 ML IV SCH ×3 (00:29→17:57)
[2017-07-09] MEDS: HYDROCODONE/APAP 5mg/325mg TABLET PO PRN ×3 (03:23→19:21)
[2017-07-09] MEDS: NALOXEGOL 12.5 MG TABLET PO SCH (06:25)
[2017-07-09] MEDS: ASPIRIN *EC* 81 MG TABLET PO SCH (08:00)
[2017-07-09] MEDS: COENZYME Q10 200 MG PO SCH (08:00)
[2017-07-09] MEDS: LIDOCAINE 5% PATCH TOP SCH (08:01)
[2017-07-09] MEDS: FAMOTIDINE 20 MG TABLET PO SCH (08:01)
[2017-07-09] MEDS: AMLODIPINE 5 MG TABLET PO SCH (08:01)
[2017-07-09] MEDS: ALLOPURINOL 100 MG TABLET PO SCH (08:02)
[2017-07-09] MEDS: QUETIAPINE 50 MG TABLET PO SCH ×2 (08:02→14:12)
[2017-07-09] MEDS: LISINOPRIL 10 MG TABLET PO SCH (08:02)
[2017-07-09] MEDS: CYANOCOBALAMIN (B-12) 500mcg TABLET PO SCH ×3 (08:03→22:03)
[2017-07-09] MEDS: MULTI-VITAMIN PLAIN TABLET PO SCH (08:04)
[2017-07-09] MEDS: QUETIAPINE 50 MG TABLET PO PRN (19:21)
[2017-07-09] MEDS: QUETIAPINE 100 MG TABLET PO SCH ×2 (19:21→22:03)
[2017-07-09] MEDS: ATORVASTATIN 10 MG TABLET PO SCH ×2 (19:22→22:03)
[2017-07-09] MEDS: LIDOCAINE PATCH REMOVAL TOP SCH (22:03)
--- NOTE | 2017-07-09 22:54 | Neuropsych Progress Note ---
[facility] Subjective Date: 07/09/17 - Sujective/Severity of Illness Medications: Acetaminophen (Tylenol) 325 - 650 mg PO Q5H PRN PRN Reason: Discomfort Last Admin: 07/01/17 06:57 Dose: 650 mg Acetaminophen/Hydrocodone Bitart ([place] 5/325) 1 tab PO Q6H PRN PRN Reason: Pain Last Admin: 07/09/17 19:21 Dose: 1 tab Al Hydroxide/Mg Hydroxide (Maalox Plus) 30 ml PO Q4H PRN PRN Reason: Indigestion Last Admin: 06/29/17 20:36 Dose: 30 ml Allopurinol (Zyloprim) 100 mg PO DAILY [facility] Last Admin: 07/09/17 08:02 Dose: 100 mg Amlodipine Besylate (Norvasc) 5 mg PO DAILY [facility] Last Admin: 07/09/17 08:01 Dose: 5 mg Aspirin (Ecotrin) 81 mg PO DAILY [facility] Last Admin: 07/09/17 08:00 Dose: 81 mg Atorvastatin Calcium (Lipitor) 10 mg PO HS [facility] Last Admin: 07/09/17 22:03 Dose: Not Given Bisacodyl (Dulcolax) 10 mg RECTALLY DAILY PRN PRN Reason: Constipation Cholecalciferol (Vit. D-3) 1,000 unit PO 2100 [facility] Last Admin: 07/09/17 22:03 Dose: Not Given Cholecalciferol (Vit. D-3) 2,000 unit PO DAILY [facility] Last Admin: 07/09/17 08:03 Dose: 2,000 unit Coenzyme Q10 (Co Q-10) 100 mg PO DAILY [facility] Last Admin: 07/09/17 08:00 Dose: 100 mg Cyanocobalamin (Vit. B-12) 500 mcg PO BID [facility] Last Admin: 07/09/17 22:03 Dose: Not Given Famotidine (Pepcid) 20 mg PO DAILY [facility] Last Admin: 07/09/17 08:01 Dose: 20 mg Haloperidol (Haldol) 0.5 mg PO Q6H PRN PRN Reason: Extreme agitation Haloperidol (Haldol) 0.5 mg PO Q6HR PRN PRN Reason: Anxiety/Agitation Haloperidol Lactate (Haldol) 0.5 mg IM Q6H PRN PRN Reason: Extreme agitation Last Admin: 07/03/17 17:00 Dose: 0.5 mg Meropenem 500 mg/ Sodium (Chloride) 50 mls @ 100 mls/hr IV Q8HR [facility] Stop: 07/11/17 16:00 Last Infusion: 07/09/17 18:30 Dose: Infused Lidocaine (Lidoderm) 1 patch TOP DAILY [facility] Last Admin: 07/09/17 08:01 Dose: 1 patch Lidocaine HCl/Dextrose (Lidoderm Patch Removal) 1 removal TOP HS [facility] Last Admin: 07/09/17 22:03 Dose: 1 removal Lisinopril (Prinivil) 20 mg PO DAILY [facility] Last Admin: 07/09/17 08:02 Dose: 10 mg Loperamide HCl (Imodium) 2 mg PO PRN PRN; Protocol PRN Reason: Diarrhea Lorazepam (Ativan) 0.5 mg PO TID PRN PRN Reason: Agitation Last Admin: 07/04/17 12:54 Dose: 0.5 mg Lorazepam (Ativan Inj) 0.5 mg IM Q6H PRN Last Admin: 07/05/17 18:38 Dose: 0.5 mg Multivitamins (Theragran) 1 tab PO DAILY [facility] Last Admin: 07/09/17 08:04 Dose: 1 tab Naloxegol (Movantik) 12.5 mg PO ACB [facility] Stop: 07/10/17 11:14 Last Admin: 07/09/17 06:25 Dose: 12.5 mg Ondansetron HCl (Zofran Po) 4 mg PO Q6H PRN PRN Reason: Nausea &/or vomiting Quetiapine Fumarate (Seroquel) 50 mg PO BID PRN PRN Reason: Agitation Last Admin: 07/09/17 19:21 Dose: 50 mg Quetiapine Fumarate (Seroquel) 100 mg PO HS [facility] Last Admin: 07/09/17 22:03 Dose: Not Given Quetiapine Fumarate (Seroquel) 75 mg PO 09,14 [facility] Last Admin: 07/09/17 14:12 Dose: 75 mg Senna (Senna Lax) 17.2 mg PO BID PRN Sodium Chloride (Normal Saline) 500 ml IV PRN PRN Last Admin: 07/06/17 00:56 Dose: 500 ml Sodium Chloride (Normal Saline) 500 ml IV PRN PRN Sodium Chloride (Iv Flush) 10 ml IV PRN PRN PRN Reason: Flushing Last Admin: 07/08/17 22:27 Dose: 10 ml Subjective: Patient seen and chart reviewed. Case discussed with treatment team. On interview, patient is calm and cooperative, though she complains of IV sites. I don't believe she has a clear understanding of why she is getting IV fluids. Patient reports that she feels depressed at times and "scared," but she has more insight into psychotic symptoms and is often able to dismiss symptoms as her brain playing tricks on her. Patient denies any SI or HI. VH seem to have decreased in frequency/intensity. Patient does have significant bilateral tremor, which is exacerbated by antipsychotics. Nursing staff report patient has been more cooperative overall but became more anxious this afternoon. However, her PRN Salem seemed to help calm her leading me to believe some of her restlessness may in fact be due to pain - will ask nursing to monitor this. Patient does make minor psychotic comments - such as telling the SW that her hair was on fire. However, overall significantly improved and must weigh risks/benefits of increasing meds further given AE on movement. Patient slept 6.5 hours overnight. VSS. Patient is eating well. Psychotropic PRNs required in the past 24 hours: none. Start Time: 17:00 Stop Time: 17:20 Mental Status Exam Vitals: Last Vital Signs Temp 97.1 F 07/09/17 20:36 Pulse 75 07/09/17 20:36 Resp 16 07/09/17 20:36 BP 147/84 H 07/09/17 20:36 Pulse Ox 96 07/09/17 20:36 Height: 1.68 m Weight: 74.3 kg - Mental Status Exam Muscle Strength/Tone: Normal Dressing: Casual Grooming: Good Attitude: Cooperative Motor Activity: Retardation Eye Contact: Fair Speech: Slowed Volume: Soft Rhythm: Appropriate Rhythm Orientation: Disoriented to time, Disoriented to place, Disoriented to situation , Oriented to person Mood: Neutral (Neutral affect today, doesn't appear as sad as on previous days) Rate of Thoughts: Delayed Thought Organization: [place] Associations: Illogical Abstract Reasoning: Poor abstract reasoning Thought Content: Paranoia (improved - no evidence today), Somatic Concerns Perception/Psychotic: Other (Unclear whether patient is currently experiencing VH - not responding to internal stimuli during interview, she denies) Language: Naming Impaired Fund of Knowledge: Poor fund of knowledge Memory: Poor-immediate, Poor-recent Suicidal Ideation: Denies Homicidal Ideation: Denies Insight: Limited Judgement: Limited Impulse Control: Fair - Laboratory Result Diagrams: 07/09/17 06:48 07/09/17 06:48 Laboratory Results - last 24 hr 07/09/17 07/09/17 06:48 06:48 WBC 3.3 L RBC 3.94 L Hgb 12.0 Hct 37.2 MCV 94.4 MCH 30.5 MCHC 32.3 RDW Std Deviation 46.7 Plt Count 119 L MPV 10.5 Immature Gran % (Auto) 0.3 Neut % (Auto) 54.6 Lymph % (Auto) 35.6 [place] % (Auto) 7.1 Eos % (Auto) 2.1 Baso % (Auto) 0.3 Neut # (Auto) 1.8 Lymph # (Auto) 1.2 [place] # (Auto) 0.2 Eos # (Auto) 0.1 Baso # (Auto) 0.0 Abs Immat Gran (auto) 0.01 Turbidity < 20 Sodium 146 H Potassium 3.8 Chloride 109 H Carbon Dioxide 29 Anion Gap 8 BUN 18.0 H Creatinine 0.7 GFR Calculation 80 BUN/Creatinine Ratio 26 Glucose 81 Calculated Osmolality 282 H Calcium 9.4 Icterus Index < 2 Specimen Hemolysis 23 Assessment and Plan (1) Lewy body dementia with behavioral disturbance Current visit: No Status: Acute (2) Major neurocognitive disorder Problem details: with behavioral disturbance (most likely Lewy Body Dementia) Current visit: No Status: Acute (3) Depressive disorder Current visit: Yes Status: Acute (4) CAD (coronary artery disease) Current visit: No Status: Chronic (5) HTN (hypertension) Current visit: No Status: Chronic (6) Parkinsons Current visit: No Status: Chronic Hospital Course Summary Disclaimer: The visit summary below is not to be considered part of the above Progress Note. Hospital Course: 06/20/17 Agree with admission to [facility] for ongoing psychiatric evaluation and treatment under the care of Dr. Rizvi Persistent hypernatremia chronically, will encourage oral fluids, and monitor routine BMP. Blood pressure is elevated today. Recently patient was on Norvasc in addition to lisinopril. Will add Norvasc 5 mg daily and continue to monitor carefully Previously underwent pancytopenia and anemia workup in which iron and vitamin B12 were normal. Tylenol as needed for back pain. Check CBC and BMP tomorrow morning to follow blood counts, renal function and electrolytes Hospitalist services will continue to follow patient medically manage existing comorbidities. At time of discharge, care will return to primary care provider, Dr. Oquendo 06/20/17 20:07 Psych: Increase Seroquel to 50mg PO BID (AM, afternoon) and 100mg PO q HS as patient continues to exhibit paranoia - monitor for signs of worsening Parkinsonism, weigh risk of AE to clinical benefit with further dose increases. 06/21/17 18:32 Psych: Continue current care - monitor for any further signs of depression, may increase Seroquel dose further if paranoia continues. 06/22/17 20:35 Psych: Discuss depressive symptoms and need for antidepressant with staff, patient's family tomorrow. Paranoia is manageable and directable at this point. Would like to use lowest dose of Seroquel possible to control symptoms as to avoid exacerbating movement disorder. Continue current care otherwise; monitor patient's mood, behavior and response to treatment. 06/23/17 21:02 Psych: Start mirtazapine 7.5mg PO q HS to target mood, may increase to 15mg fairly quickly if well tolerated. Believe that paranoia is mild in nature when present and she is redirectable and current dose of Seroquel - would like to minimize dose to avoid exacerbating movement disorder. 06/24/17 16:36 Patient is slowly improving. Diarrhea stools have resolved. Still confused, it appears from nurses notes that behavior is improving. BP is variable, but overall well controlled. Plan to repeat labs in AM for stability. Chart, documentation, imaging is reviewed during the course of this visit. 06/24/17 19:46 Psych: Patient doing well overall - will receive first dose of mirtazapine tonight, monitor to ensure patient tolerates it well and plan to increase to 15mg soon. Continue current care otherwise. 06/26/17 13:43 Psych: Continues to complain of depression - will increase mirtazapine to 15mg PO q HS and monitor behavior/response. 06/26/17 Overall, Cristina is doing well and slowly improving. Continue psychiatric care per team. Diarrhea stools have resolved. Hypernatremia noted on labs on 06/25 with sodium at 147. Encourage fluid intake. Hypokalemia noted with potassium at 3.5. Will give KCl 20 mEq po now and and will recheck BMP on 06/29. Continue to provide safe and supportive environment. Anticipate discharge in near future. 06/26/17 20:56 Psych: Discontinue mirtazapine as patient has become agitated more frequently since starting it - monitor response. Continue current dose of Seroquel. Monitor response. 06/27/17 21:28 Pt remains irritable at times but is redirectable. Continue current care 06/28/17 20:46 No behaviors today. Continue current care 06/29/17 18:35 Pt was more agitated and paranoid today with some physical aggression. Will restart Ativan PRN and increased BID dose of Seroquel to 75mg 06/30/17 21:04 Pt had some agitation last night and required PRN's. Continue current care 07/01/17 0815: Cristina complained of chest pain this morning which has since resolved and now complains of epigastric and upper abdominal pain. Exam reveals + Saleh's sign. She states her gall bladder "doesn't work". In light of her chest pain, will obtain EKG, portable chest x-ray, CBC, CMP and serial troponins stat - results pending. She was given ASA 324. No nitro was administer as she was chest pain free on exam. Vital signs have remained stable with blood pressure slightly elevated at 153/76. She has not received her morning medications. CXR was reviewed by myself and appeared unchanged from prior imaging in May 2017. As her clinical exam is concerning for gall bladder issues, will discuss with the family their wishes on additional imaging, labs, treatments, etc as Cristina is a DNR. 0930: Review of the labs revealed new leukopenia with WBC at 3.5 and stable thrombopenia with platelets at 120. CMP revealed stable hypernatremia with sodium at 147 and otherwise unremarkable. AST and ALT were unremarkable at 17 and 37 respectively. Troponin was <0.012. Lipase was within normal limits at 38. EKG showed sinus bradycardia at rate of 59 with 1st degree AV block. No STEMI noted. Will continue to encourage oral fluid intake and monitor closely. 07/01/17 12:25 No behaviors noted today. medical team working up RUQ abdominal pain. Continue current care 07/02/17 14:48 Review vital signs, nurse's notes, psychiatry note, and laboratory. Patient is without fever and chills, has no elevated white count, no suprapubic pain, no urinary symptoms, thus, antibiotic treatment is not indicated with the presence of ESBL on urine culture. Patient still has mild hypernatremia, she has been encouraged to push fluids 07/02/17 21:05 Some agitation but short lived. Continue current care 07/03/17 22:17 PT remains paranoid at times. Continue current care 07/04/17 09:15 Add routine senna for bowel motivation. 07/04/17 18:19 PT will start IV antibiotics for UTI 07/05/17 18:39 Agitation and paranoia this evening. Continue current care 07/06/17 16:54 Improving. Continue current care 07/07/17 11:29 Cristina continues to c/o constipation. She is frequently requiring Salem for chronic pain. Increase Senna to 2 tabs PO BID. Continue PRN laxatives as indicated. Add lowest dose Movantik for constipation assoc w/ narcotics x 3 days. If significant improvement, can consider termite exterminator. Due to ongoing behavioural changes, decision to treat ESBL was made. Started Meropenem to run through 07/11. If the TID dosing is distressing to pt, could change to daily Ertapenem. Continue remainder of supportive meds. Repeat labs in AM. If she remains dry, we could consider augmenting with IVF while IV is in, but will try to avoid if possible. Mental health management per primary team. 07/07/17 12:24 Some agitation at times. Continue current care 07/08/17 11:41 Better today. Continue current care 07/09/17 Psych: Continue current care. Important for nursing staff and LTC facility to note that restlessness may be due to pain at times and PRN Salem may be helpful in calming her in addition to scheduled antipsychotics. Plan to have meeting with [facility] tomorrow to discuss care and risks/benefits of increasing antipsychotic given AE on movement.
[2017-07-10] MEDS: MEROPENEM 500 MG in NS 50 ML IV SCH ×3 (01:35→17:17)
[2017-07-10] MEDS: SALINE FLUSH 10ml SYRINGE IV PRN ×4 (01:36→17:25)
[2017-07-10] MEDS: NALOXEGOL 12.5 MG TABLET PO SCH (05:54)
[2017-07-10] MEDS: COENZYME Q10 200 MG PO SCH (08:01)
[2017-07-10] MEDS: LIDOCAINE 5% PATCH TOP SCH (08:01)
[2017-07-10] MEDS: FAMOTIDINE 20 MG TABLET PO SCH (08:01)
[2017-07-10] MEDS: ASPIRIN *EC* 81 MG TABLET PO SCH (08:01)
[2017-07-10] MEDS: CYANOCOBALAMIN (B-12) 500mcg TABLET PO SCH ×2 (08:02→20:02)
[2017-07-10] MEDS: ALLOPURINOL 100 MG TABLET PO SCH (08:02)
[2017-07-10] MEDS: MULTI-VITAMIN PLAIN TABLET PO SCH (08:02)
[2017-07-10] MEDS: QUETIAPINE 50 MG TABLET PO SCH ×2 (08:02→14:06)
[2017-07-10] MEDS: AMLODIPINE 5 MG TABLET PO SCH (08:04)
[2017-07-10] MEDS: LISINOPRIL 10 MG TABLET PO SCH (08:04)
[2017-07-10] MEDS: LORazepam 1 MG TABLET PO PRN ×2 (08:33→16:21)
[2017-07-10] MEDS: HYDROCODONE/APAP 5mg/325mg TABLET PO PRN (08:33)
--- NOTE | 2017-07-10 18:02 | Neuropsych Progress Note ---
[facility] Subjective Date: 07/10/17 - Sujective/Severity of Illness Medications: Acetaminophen (Tylenol) 325 - 650 mg PO Q5H PRN PRN Reason: Discomfort Last Admin: 07/01/17 06:57 Dose: 650 mg Acetaminophen/Hydrocodone Bitart ([place] 5/325) 1 tab PO Q6H PRN PRN Reason: Pain Last Admin: 07/10/17 08:33 Dose: 1 tab Al Hydroxide/Mg Hydroxide (Maalox Plus) 30 ml PO Q4H PRN PRN Reason: Indigestion Last Admin: 06/29/17 20:36 Dose: 30 ml Allopurinol (Zyloprim) 100 mg PO DAILY [facility] Last Admin: 07/10/17 08:02 Dose: 100 mg Amlodipine Besylate (Norvasc) 5 mg PO DAILY [facility] Last Admin: 07/10/17 08:04 Dose: 5 mg Aspirin (Ecotrin) 81 mg PO DAILY [facility] Last Admin: 07/10/17 08:01 Dose: 81 mg Atorvastatin Calcium (Lipitor) 10 mg PO HS [facility] Last Admin: 07/09/17 22:03 Dose: Not Given Bisacodyl (Dulcolax) 10 mg RECTALLY DAILY PRN PRN Reason: Constipation Cholecalciferol (Vit. D-3) 1,000 unit PO 2100 [facility] Last Admin: 07/09/17 22:03 Dose: Not Given Cholecalciferol (Vit. D-3) 2,000 unit PO DAILY [facility] Last Admin: 07/10/17 08:02 Dose: 2,000 unit Coenzyme Q10 (Co Q-10) 100 mg PO DAILY [facility] Last Admin: 07/10/17 08:01 Dose: 100 mg Cyanocobalamin (Vit. B-12) 500 mcg PO BID [facility] Last Admin: 07/10/17 08:02 Dose: 500 mcg Famotidine (Pepcid) 20 mg PO DAILY [facility] Last Admin: 07/10/17 08:01 Dose: 20 mg Haloperidol (Haldol) 0.5 mg PO Q6H PRN PRN Reason: Extreme agitation Haloperidol (Haldol) 0.5 mg PO Q6HR PRN PRN Reason: Anxiety/Agitation Haloperidol Lactate (Haldol) 0.5 mg IM Q6H PRN PRN Reason: Extreme agitation Last Admin: 07/03/17 17:00 Dose: 0.5 mg Meropenem 500 mg/ Sodium (Chloride) 50 mls @ 100 mls/hr IV Q8HR [facility] Stop: 07/11/17 16:00 Last Admin: 07/10/17 17:17 Dose: 100 mls/hr Lidocaine (Lidoderm) 1 patch TOP DAILY [facility] Last Admin: 07/10/17 08:01 Dose: 1 patch Lidocaine HCl/Dextrose (Lidoderm Patch Removal) 1 removal TOP HS [facility] Last Admin: 07/09/17 22:03 Dose: 1 removal Lisinopril (Prinivil) 20 mg PO DAILY [facility] Last Admin: 07/10/17 08:04 Dose: 20 mg Loperamide HCl (Imodium) 2 mg PO PRN PRN; Protocol PRN Reason: Diarrhea Lorazepam (Ativan) 0.5 mg PO TID PRN PRN Reason: Agitation Last Admin: 07/10/17 08:33 Dose: 0.5 mg Lorazepam (Ativan Inj) 0.5 mg IM Q6H PRN Last Admin: 07/05/17 18:38 Dose: 0.5 mg Multivitamins (Theragran) 1 tab PO DAILY [facility] Last Admin: 07/10/17 08:02 Dose: 1 tab Ondansetron HCl (Zofran Po) 4 mg PO Q6H PRN PRN Reason: Nausea &/or vomiting Quetiapine Fumarate (Seroquel) 50 mg PO BID PRN PRN Reason: Agitation Last Admin: 07/09/17 19:21 Dose: 50 mg Quetiapine Fumarate (Seroquel) 100 mg PO HS [facility] Last Admin: 07/09/17 22:03 Dose: Not Given Quetiapine Fumarate (Seroquel) 75 mg PO 09,14 [facility] Last Admin: 07/10/17 14:06 Dose: 75 mg Senna (Senna Lax) 17.2 mg PO BID PRN Sodium Chloride (Normal Saline) 500 ml IV PRN PRN Last Admin: 07/06/17 00:56 Dose: 500 ml Sodium Chloride (Normal Saline) 500 ml IV PRN PRN Last Admin: 07/10/17 01:44 Dose: 500 ml Sodium Chloride (Iv Flush) 10 ml IV PRN PRN PRN Reason: Flushing Last Admin: 07/10/17 17:25 Dose: 10 ml Subjective: Patient seen and chart reviewed. Case discussed with treatment team. On interview, patient is anxious and reports feeling "shook up" because of people stealing things. She does not reorient with reality testing and feels it is different than when she has VH. She denies being in any pain or feeling bad physically today. Patient denies any SI or HI. VH seem to have decreased in frequency/intensity. Patient does have significant bilateral tremor, which is exacerbated by antipsychotics. Nursing staff report patient was fearful, anxious and tearful last evening and was given PRN [place] and Seroquel. Patient slept 6.5 hours overnight. VSS. Patient is eating well. SW met with family today re: treatment goals. They did not feel patient was truly stable when she left [facility] on Seroquel 100mg TID last time and that she continued to have anxious distress which was problematic after discharge. They are aware that increased dose of antipsychotics may decrease patient's quality of life but feel that it is necessary in order to manage behaviors and facilitate placement. Start Time: 16:00 Stop Time: 16:20 Mental Status Exam Vitals: Last Vital Signs Temp 98.0 F 07/10/17 16:00 Pulse 72 07/10/17 16:00 Resp 18 07/10/17 16:00 BP 127/62 07/10/17 16:00 Pulse Ox 95 07/10/17 16:00 Height: 1.68 m Weight: 76.4 kg - Mental Status Exam Muscle Strength/Tone: Normal Dressing: Casual Grooming: Good Attitude: Suspicious Motor Activity: Restless Eye Contact: Fair Speech: Slowed Volume: Soft Rhythm: Appropriate Rhythm Orientation: Disoriented to time, Disoriented to place, Disoriented to situation , Oriented to person Mood: Anxious, Fearful Affect: Anxious (Distressed) Rate of Thoughts: Delayed Thought Organization: [place] Associations: Illogical Abstract Reasoning: Poor abstract reasoning Thought Content: Delusions, Paranoia (improved - no evidence today) Perception/Psychotic: Other (Unclear whether patient is currently experiencing VH - not responding to internal stimuli during interview, she denies) Language: Naming Impaired Fund of Knowledge: Poor fund of knowledge Memory: Poor-immediate, Poor-recent Suicidal Ideation: Denies Homicidal Ideation: Denies Insight: Poor Judgement: Poor Impulse Control: Poor - Laboratory Result Diagrams: 07/09/17 06:48 07/09/17 06:48 Assessment and Plan (1) Lewy body dementia with behavioral disturbance Current visit: No Status: Acute (2) Major neurocognitive disorder Problem details: with behavioral disturbance (most likely Lewy Body Dementia) Current visit: No Status: Acute (3) Depressive disorder Current visit: Yes Status: Acute (4) CAD (coronary artery disease) Current visit: No Status: Chronic (5) HTN (hypertension) Current visit: No Status: Chronic (6) Parkinsons Current visit: No Status: Chronic Hospital Course Summary Disclaimer: The visit summary below is not to be considered part of the above Progress Note. Hospital Course: 06/20/17 Agree with admission to [facility] for ongoing psychiatric evaluation and treatment under the care of Dr. Rizvi Persistent hypernatremia chronically, will encourage oral fluids, and monitor routine BMP. Blood pressure is elevated today. Recently patient was on Norvasc in addition to lisinopril. Will add Norvasc 5 mg daily and continue to monitor carefully Previously underwent pancytopenia and anemia workup in which iron and vitamin B12 were normal. Tylenol as needed for back pain. Check CBC and BMP tomorrow morning to follow blood counts, renal function and electrolytes Hospitalist services will continue to follow patient medically manage existing comorbidities. At time of discharge, care will return to primary care provider, Dr. Oquendo 06/20/17 20:07 Psych: Increase Seroquel to 50mg PO BID (AM, afternoon) and 100mg PO q HS as patient continues to exhibit paranoia - monitor for signs of worsening Parkinsonism, weigh risk of AE to clinical benefit with further dose increases. 06/21/17 18:32 Psych: Continue current care - monitor for any further signs of depression, may increase Seroquel dose further if paranoia continues. 06/22/17 20:35 Psych: Discuss depressive symptoms and need for antidepressant with staff, patient's family tomorrow. Paranoia is manageable and directable at this point. Would like to use lowest dose of Seroquel possible to control symptoms as to avoid exacerbating movement disorder. Continue current care otherwise; monitor patient's mood, behavior and response to treatment. 06/23/17 21:02 Psych: Start mirtazapine 7.5mg PO q HS to target mood, may increase to 15mg fairly quickly if well tolerated. Believe that paranoia is mild in nature when present and she is redirectable and current dose of Seroquel - would like to minimize dose to avoid exacerbating movement disorder. 06/24/17 16:36 Patient is slowly improving. Diarrhea stools have resolved. Still confused, it appears from nurses notes that behavior is improving. BP is variable, but overall well controlled. Plan to repeat labs in AM for stability. Chart, documentation, imaging is reviewed during the course of this visit. 06/24/17 19:46 Psych: Patient doing well overall - will receive first dose of mirtazapine tonight, monitor to ensure patient tolerates it well and plan to increase to 15mg soon. Continue current care otherwise. 06/26/17 13:43 Psych: Continues to complain of depression - will increase mirtazapine to 15mg PO q HS and monitor behavior/response. 06/26/17 Overall, Cristina is doing well and slowly improving. Continue psychiatric care per team. Diarrhea stools have resolved. Hypernatremia noted on labs on 06/25 with sodium at 147. Encourage fluid intake. Hypokalemia noted with potassium at 3.5. Will give KCl 20 mEq po now and and will recheck BMP on 06/29. Continue to provide safe and supportive environment. Anticipate discharge in near future. 06/26/17 20:56 Psych: Discontinue mirtazapine as patient has become agitated more frequently since starting it - monitor response. Continue current dose of Seroquel. Monitor response. 06/27/17 21:28 Pt remains irritable at times but is redirectable. Continue current care 06/28/17 20:46 No behaviors today. Continue current care 06/29/17 18:35 Pt was more agitated and paranoid today with some physical aggression. Will restart Ativan PRN and increased BID dose of Seroquel to 75mg 06/30/17 21:04 Pt had some agitation last night and required PRN's. Continue current care 07/01/17 0815: Cristina complained of chest pain this morning which has since resolved and now complains of epigastric and upper abdominal pain. Exam reveals + Saleh's sign. She states her gall bladder "doesn't work". In light of her chest pain, will obtain EKG, portable chest x-ray, CBC, CMP and serial troponins stat - results pending. She was given ASA 324. No nitro was administer as she was chest pain free on exam. Vital signs have remained stable with blood pressure slightly elevated at 153/76. She has not received her morning medications. CXR was reviewed by myself and appeared unchanged from prior imaging in May 2017. As her clinical exam is concerning for gall bladder issues, will discuss with the family their wishes on additional imaging, labs, treatments, etc as Cristina is a DNR. 0930: Review of the labs revealed new leukopenia with WBC at 3.5 and stable thrombopenia with platelets at 120. CMP revealed stable hypernatremia with sodium at 147 and otherwise unremarkable. AST and ALT were unremarkable at 17 and 37 respectively. Troponin was <0.012. Lipase was within normal limits at 38. EKG showed sinus bradycardia at rate of 59 with 1st degree AV block. No STEMI noted. Will continue to encourage oral fluid intake and monitor closely. 07/01/17 12:25 No behaviors noted today. medical team working up RUQ abdominal pain. Continue current care 07/02/17 14:48 Review vital signs, nurse's notes, psychiatry note, and laboratory. Patient is without fever and chills, has no elevated white count, no suprapubic pain, no urinary symptoms, thus, antibiotic treatment is not indicated with the presence of ESBL on urine culture. Patient still has mild hypernatremia, she has been encouraged to push fluids 07/02/17 21:05 Some agitation but short lived. Continue current care 07/03/17 22:17 PT remains paranoid at times. Continue current care 07/04/17 09:15 Add routine senna for bowel motivation. 07/04/17 18:19 PT will start IV antibiotics for UTI 07/05/17 18:39 Agitation and paranoia this evening. Continue current care 07/06/17 16:54 Improving. Continue current care 07/07/17 11:29 Cristina continues to c/o constipation. She is frequently requiring [place] for chronic pain. Increase Senna to 2 tabs PO BID. Continue PRN laxatives as indicated. Add lowest dose Movantik for constipation assoc w/ narcotics x 3 days. If significant improvement, can consider prison. Due to ongoing behavioural changes, decision to treat ESBL was made. Started Meropenem to run through 07/11. If the TID dosing is distressing to pt, could change to daily Ertapenem. Continue remainder of supportive meds. Repeat labs in AM. If she remains dry, we could consider augmenting with IVF while IV is in, but will try to avoid if possible. Mental health management per primary team. 07/07/17 12:24 Some agitation at times. Continue current care 07/08/17 11:41 Better today. Continue current care 07/09/17 Psych: Continue current care. Important for nursing staff and LTC facility to note that restlessness may be due to pain at times and PRN [place] may be helpful in calming her in addition to scheduled antipsychotics. Plan to have meeting with [facility] tomorrow to discuss care and risks/benefits of increasing antipsychotic given AE on movement. 07/10/17 Psych: Increase Seroquel to 100mg PO TID; monitor response. Patient continues to be paranoid and distressed enough that management outside of the hospital setting would not be possible. Informed consent given by family; they are aware that increased antipsychotic could exacerbate movement disorder.
[2017-07-10] MEDS: LIDOCAINE PATCH REMOVAL TOP SCH (20:01)
[2017-07-10] MEDS: ATORVASTATIN 10 MG TABLET PO SCH (20:01)
[2017-07-10] MEDS: QUETIAPINE 100 MG TABLET PO SCH (20:02)
[2017-07-11] MEDS: MEROPENEM 500 MG in NS 50 ML IV SCH ×2 (01:42→10:19)
[2017-07-11] MEDS: HYDROCODONE/APAP 5mg/325mg TABLET PO PRN ×2 (06:59→13:09)
[2017-07-11] MEDS: LIDOCAINE 5% PATCH TOP SCH (08:20)
[2017-07-11] MEDS: MULTI-VITAMIN PLAIN TABLET PO SCH (08:21)
[2017-07-11] MEDS: COENZYME Q10 200 MG PO SCH (08:21)
[2017-07-11] MEDS: CYANOCOBALAMIN (B-12) 500mcg TABLET PO SCH ×2 (08:21→19:43)
[2017-07-11] MEDS: QUETIAPINE 100 MG TABLET PO SCH ×3 (08:21→19:43)
[2017-07-11] MEDS: AMLODIPINE 5 MG TABLET PO SCH (08:21)
[2017-07-11] MEDS: ALLOPURINOL 100 MG TABLET PO SCH (08:21)
[2017-07-11] MEDS: FAMOTIDINE 20 MG TABLET PO SCH (08:22)
[2017-07-11] MEDS: LISINOPRIL 10 MG TABLET PO SCH (08:22)
[2017-07-11] MEDS: ASPIRIN *EC* 81 MG TABLET PO SCH (08:22)
[2017-07-11] MEDS ORDERED: INFLUENZA VAC High Dose 2017-18 (Fluzone HD*) (>=65yo) 0.5ml IM ONE (17:50)
[2017-07-11] MEDS ORDERED: INFLUENZA VAC. INJ. ADMIN CHARGE INJ ONE (17:56)
[2017-07-11] MEDS: ATORVASTATIN 10 MG TABLET PO SCH (19:43)
[2017-07-11] MEDS: LIDOCAINE PATCH REMOVAL TOP SCH (19:44)
--- NOTE | 2017-07-11 21:07 | Neuropsych Progress Note ---
[facility] Subjective Date: 07/11/17 - Sujective/Severity of Illness Medications: Acetaminophen (Tylenol) 325 - 650 mg PO Q5H PRN PRN Reason: Discomfort Last Admin: 07/01/17 06:57 Dose: 650 mg Acetaminophen/Hydrocodone Bitart ([place] 5/325) 1 tab PO Q6H PRN PRN Reason: Pain Last Admin: 07/11/17 13:09 Dose: 1 tab Al Hydroxide/Mg Hydroxide (Maalox Plus) 30 ml PO Q4H PRN PRN Reason: Indigestion Last Admin: 06/29/17 20:36 Dose: 30 ml Allopurinol (Zyloprim) 100 mg PO DAILY [facility] Last Admin: 07/11/17 08:21 Dose: 100 mg Amlodipine Besylate (Norvasc) 5 mg PO DAILY [facility] Last Admin: 07/11/17 08:21 Dose: 5 mg Aspirin (Ecotrin) 81 mg PO DAILY [facility] Last Admin: 07/11/17 08:22 Dose: 81 mg Atorvastatin Calcium (Lipitor) 10 mg PO HS [facility] Last Admin: 07/11/17 19:43 Dose: 10 mg Bisacodyl (Dulcolax) 10 mg RECTALLY DAILY PRN PRN Reason: Constipation Cholecalciferol (Vit. D-3) 1,000 unit PO 2100 [facility] Last Admin: 07/11/17 19:43 Dose: 1,000 unit Cholecalciferol (Vit. D-3) 2,000 unit PO DAILY [facility] Last Admin: 07/11/17 08:23 Dose: 2,000 unit Coenzyme Q10 (Co Q-10) 100 mg PO DAILY [facility] Last Admin: 07/11/17 08:21 Dose: 100 mg Cyanocobalamin (Vit. B-12) 500 mcg PO BID [facility] Last Admin: 07/11/17 19:43 Dose: 500 mcg Famotidine (Pepcid) 20 mg PO DAILY [facility] Last Admin: 07/11/17 08:22 Dose: 20 mg Haloperidol (Haldol) 0.5 mg PO Q6H PRN PRN Reason: Extreme agitation Haloperidol (Haldol) 0.5 mg PO Q6HR PRN PRN Reason: Anxiety/Agitation Haloperidol Lactate (Haldol) 0.5 mg IM Q6H PRN PRN Reason: Extreme agitation Last Admin: 07/03/17 17:00 Dose: 0.5 mg Lidocaine (Lidoderm) 1 patch TOP DAILY [facility] Last Admin: 07/11/17 08:20 Dose: 1 patch Lidocaine HCl/Dextrose (Lidoderm Patch Removal) 1 removal TOP HS [facility] Last Admin: 07/11/17 19:44 Dose: 1 removal Lisinopril (Prinivil) 20 mg PO DAILY [facility] Last Admin: 07/11/17 08:22 Dose: 20 mg Loperamide HCl (Imodium) 2 mg PO PRN PRN; Protocol PRN Reason: Diarrhea Lorazepam (Ativan) 0.5 mg PO TID PRN PRN Reason: Agitation Last Admin: 07/10/17 08:33 Dose: 0.5 mg Lorazepam (Ativan Inj) 0.5 mg IM Q6H PRN Last Admin: 07/11/17 02:27 Dose: 0.5 mg Multivitamins (Theragran) 1 tab PO DAILY [facility] Last Admin: 07/11/17 08:21 Dose: 1 tab Ondansetron HCl (Zofran Po) 4 mg PO Q6H PRN PRN Reason: Nausea &/or vomiting Quetiapine Fumarate (Seroquel) 50 mg PO BID PRN PRN Reason: Agitation Last Admin: 07/09/17 19:21 Dose: 50 mg Quetiapine Fumarate (Seroquel) 100 mg PO TID [facility] Last Admin: 07/11/17 19:43 Dose: 100 mg Senna (Senna Lax) 17.2 mg PO BID PRN Sodium Chloride (Normal Saline) 500 ml IV PRN PRN Last Admin: 07/06/17 00:56 Dose: 500 ml Sodium Chloride (Normal Saline) 500 ml IV PRN PRN Last Admin: 07/10/17 01:44 Dose: 500 ml Sodium Chloride (Iv Flush) 10 ml IV PRN PRN PRN Reason: Flushing Last Admin: 07/10/17 17:25 Dose: 10 ml Subjective: Patient seen and chart reviewed. Case discussed with treatment team. On interview, patient is anxious and crying about getting a flu shot. Apparently she had wanted the flu shot earlier in the day but now wanted her family doctor to administer it and was crying because she believed she couldn't get ahold of him. She later appeared calmer after her niece came to visit her on the unit. She does not reorient easily with reality testing. She denies being in any pain or feeling bad physically today. Patient denies any SI or HI. VH seem to have decreased in frequency/intensity. Patient does have significant bilateral tremor, which is exacerbated by antipsychotics. Nursing staff report patient became more agitated last night, requiring PRN Ativan 0.5mg IM at 0227. She has intermittent crying spells during the day but has been more redirectable. Patient slept 7 hours overnight. VSS. Patient is eating well. Increased Seroquel dose yesterday but today will be first day where patient receives increased dose TID. Start Time: 17:20 Stop Time: 17:40 Mental Status Exam Vitals: Last Vital Signs Temp 98.8 F 07/11/17 16:00 Pulse 70 07/11/17 16:00 Resp 16 07/11/17 16:00 BP 140/71 H 07/11/17 16:00 Pulse Ox 96 07/11/17 16:00 Height: 1.68 m Weight: 76.4 kg - Mental Status Exam Muscle Strength/Tone: Normal Dressing: Casual Grooming: Good Attitude: Cooperative Motor Activity: Agitation Eye Contact: Poor Speech: Slowed Volume: Soft Rhythm: Appropriate Rhythm Orientation: Disoriented to time, Disoriented to place, Disoriented to situation , Oriented to person Mood: Anxious, Tearful Affect: Tearful Rate of Thoughts: Delayed Thought Organization: [place] Associations: Illogical Abstract Reasoning: Poor abstract reasoning Thought Content: Delusions, Paranoia (improved - no evidence today) Perception/Psychotic: Other (Unclear whether patient is currently experiencing VH - not responding to internal stimuli during interview, she denies) Language: Naming Impaired Fund of Knowledge: Poor fund of knowledge Memory: Poor-immediate, Poor-recent Suicidal Ideation: Denies Homicidal Ideation: Denies Insight: Poor Judgement: Poor Impulse Control: Poor - Laboratory Result Diagrams: 07/09/17 06:48 07/09/17 06:48 Assessment and Plan (1) Lewy body dementia with behavioral disturbance Current visit: No Status: Acute (2) Major neurocognitive disorder Problem details: with behavioral disturbance (most likely Lewy Body Dementia) Current visit: No Status: Acute (3) Depressive disorder Current visit: Yes Status: Acute (4) CAD (coronary artery disease) Current visit: No Status: Chronic (5) HTN (hypertension) Current visit: No Status: Chronic (6) Parkinsons Current visit: No Status: Chronic Hospital Course Summary Disclaimer: The visit summary below is not to be considered part of the above Progress Note. Hospital Course: 06/20/17 Agree with admission to [facility] for ongoing psychiatric evaluation and treatment under the care of Dr. Rizvi Persistent hypernatremia chronically, will encourage oral fluids, and monitor routine BMP. Blood pressure is elevated today. Recently patient was on Norvasc in addition to lisinopril. Will add Norvasc 5 mg daily and continue to monitor carefully Previously underwent pancytopenia and anemia workup in which iron and vitamin B12 were normal. Tylenol as needed for back pain. Check CBC and BMP tomorrow morning to follow blood counts, renal function and electrolytes Hospitalist services will continue to follow patient medically manage existing comorbidities. At time of discharge, care will return to primary care provider, Dr. Oquendo 06/20/17 20:07 Psych: Increase Seroquel to 50mg PO BID (AM, afternoon) and 100mg PO q HS as patient continues to exhibit paranoia - monitor for signs of worsening Parkinsonism, weigh risk of AE to clinical benefit with further dose increases. 06/21/17 18:32 Psych: Continue current care - monitor for any further signs of depression, may increase Seroquel dose further if paranoia continues. 06/22/17 20:35 Psych: Discuss depressive symptoms and need for antidepressant with staff, patient's family tomorrow. Paranoia is manageable and directable at this point. Would like to use lowest dose of Seroquel possible to control symptoms as to avoid exacerbating movement disorder. Continue current care otherwise; monitor patient's mood, behavior and response to treatment. 06/23/17 21:02 Psych: Start mirtazapine 7.5mg PO q HS to target mood, may increase to 15mg fairly quickly if well tolerated. Believe that paranoia is mild in nature when present and she is redirectable and current dose of Seroquel - would like to minimize dose to avoid exacerbating movement disorder. 06/24/17 16:36 Patient is slowly improving. Diarrhea stools have resolved. Still confused, it appears from nurses notes that behavior is improving. BP is variable, but overall well controlled. Plan to repeat labs in AM for stability. Chart, documentation, imaging is reviewed during the course of this visit. 06/24/17 19:46 Psych: Patient doing well overall - will receive first dose of mirtazapine tonight, monitor to ensure patient tolerates it well and plan to increase to 15mg soon. Continue current care otherwise. 06/26/17 13:43 Psych: Continues to complain of depression - will increase mirtazapine to 15mg PO q HS and monitor behavior/response. 06/26/17 Overall, Cristina is doing well and slowly improving. Continue psychiatric care per team. Diarrhea stools have resolved. Hypernatremia noted on labs on 06/25 with sodium at 147. Encourage fluid intake. Hypokalemia noted with potassium at 3.5. Will give KCl 20 mEq po now and and will recheck BMP on 06/29. Continue to provide safe and supportive environment. Anticipate discharge in near future. 06/26/17 20:56 Psych: Discontinue mirtazapine as patient has become agitated more frequently since starting it - monitor response. Continue current dose of Seroquel. Monitor response. 06/27/17 21:28 Pt remains irritable at times but is redirectable. Continue current care 06/28/17 20:46 No behaviors today. Continue current care 06/29/17 18:35 Pt was more agitated and paranoid today with some physical aggression. Will restart Ativan PRN and increased BID dose of Seroquel to 75mg 06/30/17 21:04 Pt had some agitation last night and required PRN's. Continue current care 07/01/17 0815: Cristina complained of chest pain this morning which has since resolved and now complains of epigastric and upper abdominal pain. Exam reveals + Saleh's sign. She states her gall bladder "doesn't work". In light of her chest pain, will obtain EKG, portable chest x-ray, CBC, CMP and serial troponins stat - results pending. She was given ASA 324. No nitro was administer as she was chest pain free on exam. Vital signs have remained stable with blood pressure slightly elevated at 153/76. She has not received her morning medications. CXR was reviewed by myself and appeared unchanged from prior imaging in May 2017. As her clinical exam is concerning for gall bladder issues, will discuss with the family their wishes on additional imaging, labs, treatments, etc as Cristina is a DNR. 0930: Review of the labs revealed new leukopenia with WBC at 3.5 and stable thrombopenia with platelets at 120. CMP revealed stable hypernatremia with sodium at 147 and otherwise unremarkable. AST and ALT were unremarkable at 17 and 37 respectively. Troponin was <0.012. Lipase was within normal limits at 38. EKG showed sinus bradycardia at rate of 59 with 1st degree AV block. No STEMI noted. Will continue to encourage oral fluid intake and monitor closely. 07/01/17 12:25 No behaviors noted today. medical team working up RUQ abdominal pain. Continue current care 07/02/17 14:48 Review vital signs, nurse's notes, psychiatry note, and laboratory. Patient is without fever and chills, has no elevated white count, no suprapubic pain, no urinary symptoms, thus, antibiotic treatment is not indicated with the presence of ESBL on urine culture. Patient still has mild hypernatremia, she has been encouraged to push fluids 07/02/17 21:05 Some agitation but short lived. Continue current care 07/03/17 22:17 PT remains paranoid at times. Continue current care 07/04/17 09:15 Add routine senna for bowel motivation. 07/04/17 18:19 PT will start IV antibiotics for UTI 07/05/17 18:39 Agitation and paranoia this evening. Continue current care 07/06/17 16:54 Improving. Continue current care 07/07/17 11:29 Cristina continues to c/o constipation. She is frequently requiring [place] for chronic pain. Increase Senna to 2 tabs PO BID. Continue PRN laxatives as indicated. Add lowest dose Movantik for constipation assoc w/ narcotics x 3 days. If significant improvement, can consider [employer]. Due to ongoing behavioural changes, decision to treat ESBL was made. Started Meropenem to run through 07/11. If the TID dosing is distressing to pt, could change to daily Ertapenem. Continue remainder of supportive meds. Repeat labs in AM. If she remains dry, we could consider augmenting with IVF while IV is in, but will try to avoid if possible. Mental health management per primary team. 07/07/17 12:24 Some agitation at times. Continue current care 07/08/17 11:41 Better today. Continue current care 07/09/17 Psych: Continue current care. Important for nursing staff and LTC facility to note that restlessness may be due to pain at times and PRN [place] may be helpful in calming her in addition to scheduled antipsychotics. Plan to have meeting with [facility] tomorrow to discuss care and risks/benefits of increasing antipsychotic given AE on movement. 07/10/17 Psych: Increase Seroquel to 100mg PO TID; monitor response. Patient continues to be paranoid and distressed enough that management outside of the hospital setting would not be possible. Informed consent given by family; they are aware that increased antipsychotic could exacerbate movement disorder. 07/11/17 Psych: Patient continues to be intermittently tearful/anxious but is reportedly more redirectable today, nighttime seems to be worse. Today is first full day of increased dose of Seroquel from yesterday so will continue current care for the time being and monitor response as well as any more AE.
[2017-07-12] MEDS: QUETIAPINE 100 MG TABLET PO SCH ×3 (08:08→20:18)
[2017-07-12] MEDS: LISINOPRIL 10 MG TABLET PO SCH (08:08)
[2017-07-12] MEDS: MULTI-VITAMIN PLAIN TABLET PO SCH (08:08)
[2017-07-12] MEDS: FAMOTIDINE 20 MG TABLET PO SCH (08:08)
[2017-07-12] MEDS: ASPIRIN *EC* 81 MG TABLET PO SCH (08:09)
[2017-07-12] MEDS: CYANOCOBALAMIN (B-12) 500mcg TABLET PO SCH ×2 (08:09→20:17)
[2017-07-12] MEDS: COENZYME Q10 200 MG PO SCH (08:09)
[2017-07-12] MEDS: AMLODIPINE 5 MG TABLET PO SCH (08:09)
[2017-07-12] MEDS: ALLOPURINOL 100 MG TABLET PO SCH (08:09)
[2017-07-12] MEDS: LIDOCAINE 5% PATCH TOP SCH (08:10)
[2017-07-12] MEDS: HALOPERIDOL 5 MG/ML INJECTION IM PRN ×2 (11:33→19:42)
[2017-07-12] MEDS: HYDROCODONE/APAP 5mg/325mg TABLET PO PRN ×2 (13:24→20:18)
[2017-07-12] MEDS: ATORVASTATIN 10 MG TABLET PO SCH (20:17)
[2017-07-12] MEDS: LIDOCAINE PATCH REMOVAL TOP SCH (20:17)
--- NOTE | 2017-07-12 20:36 | Neuropsych Progress Note ---
[facility] Subjective Date: 07/12/17 - Sujective/Severity of Illness Medications: Acetaminophen (Tylenol) 325 - 650 mg PO Q5H PRN PRN Reason: Discomfort Last Admin: 07/01/17 06:57 Dose: 650 mg Acetaminophen/Hydrocodone Bitart ([place] 5/325) 1 tab PO Q6H PRN PRN Reason: Pain Last Admin: 07/12/17 20:18 Dose: 1 tab Al Hydroxide/Mg Hydroxide (Maalox Plus) 30 ml PO Q4H PRN PRN Reason: Indigestion Last Admin: 06/29/17 20:36 Dose: 30 ml Allopurinol (Zyloprim) 100 mg PO DAILY [facility] Last Admin: 07/12/17 08:09 Dose: 100 mg Amlodipine Besylate (Norvasc) 5 mg PO DAILY [facility] Last Admin: 07/12/17 08:09 Dose: 5 mg Aspirin (Ecotrin) 81 mg PO DAILY [facility] Last Admin: 07/12/17 08:09 Dose: 81 mg Atorvastatin Calcium (Lipitor) 10 mg PO HS [facility] Last Admin: 07/12/17 20:17 Dose: 10 mg Bisacodyl (Dulcolax) 10 mg RECTALLY DAILY PRN PRN Reason: Constipation Cholecalciferol (Vit. D-3) 1,000 unit PO 2100 [facility] Last Admin: 07/12/17 20:17 Dose: 1,000 unit Cholecalciferol (Vit. D-3) 2,000 unit PO DAILY [facility] Last Admin: 07/12/17 08:08 Dose: 2,000 unit Coenzyme Q10 (Co Q-10) 100 mg PO DAILY [facility] Last Admin: 07/12/17 08:09 Dose: 100 mg Cyanocobalamin (Vit. B-12) 500 mcg PO BID [facility] Last Admin: 07/12/17 20:17 Dose: 500 mcg Famotidine (Pepcid) 20 mg PO DAILY [facility] Last Admin: 07/12/17 08:08 Dose: 20 mg Haloperidol (Haldol) 0.5 mg PO Q6H PRN PRN Reason: Extreme agitation Haloperidol (Haldol) 0.5 mg PO Q6HR PRN PRN Reason: Anxiety/Agitation Haloperidol Lactate (Haldol) 0.5 mg IM Q6H PRN PRN Reason: Extreme agitation Last Admin: 07/12/17 19:42 Dose: 0.5 mg Lidocaine (Lidoderm) 1 patch TOP DAILY [facility] Last Admin: 07/12/17 08:10 Dose: 1 patch Lidocaine HCl/Dextrose (Lidoderm Patch Removal) 1 removal TOP HS [facility] Last Admin: 07/12/17 20:17 Dose: 1 removal Lisinopril (Prinivil) 20 mg PO DAILY [facility] Last Admin: 07/12/17 08:08 Dose: 20 mg Loperamide HCl (Imodium) 2 mg PO PRN PRN; Protocol PRN Reason: Diarrhea Lorazepam (Ativan) 0.5 mg PO TID PRN PRN Reason: Agitation Last Admin: 07/10/17 08:33 Dose: 0.5 mg Lorazepam (Ativan Inj) 0.5 mg IM Q6H PRN Last Admin: 07/12/17 19:43 Dose: 0.5 mg Lorazepam (Ativan) 0.5 mg PO 09,13 [facility] Multivitamins (Theragran) 1 tab PO DAILY [facility] Last Admin: 07/12/17 08:08 Dose: 1 tab Ondansetron HCl (Zofran Po) 4 mg PO Q6H PRN PRN Reason: Nausea &/or vomiting Quetiapine Fumarate (Seroquel) 100 mg PO HS [facility] Last Admin: 07/12/17 20:18 Dose: 100 mg Quetiapine Fumarate (Seroquel) 50 mg PO ,13 [facility] Senna (Senna Lax) 17.2 mg PO BID PRN Sodium Chloride (Normal Saline) 500 ml IV PRN PRN Last Admin: 07/06/17 00:56 Dose: 500 ml Sodium Chloride (Normal Saline) 500 ml IV PRN PRN Last Admin: 07/10/17 01:44 Dose: 500 ml Sodium Chloride (Iv Flush) 10 ml IV PRN PRN PRN Reason: Flushing Last Admin: 07/10/17 17:25 Dose: 10 ml Subjective: Patient seen and chart reviewed. Case discussed with treatment team. On interview, patient is calm and cooperative. She reports that she feels "fabulous" around this time of day (dinnertime) but got very emotional while listening to music earlier. SW reported that during group she became emotional and stated that she felt like she didn't have much time left in her life. She was tearful for a time before calming. Nursing staff report that patient has had some anxiety/agitation this shift and threatened to hit staff at one point. She was given IM Haldol and Ativan at 1132 this morning. She denies being in any pain or feeling bad physically today. Patient denies any SI or HI. VH seem to have decreased in frequency/intensity. Patient does have significant bilateral tremor, which is exacerbated by antipsychotics. Patient slept 10 hours overnight. VSS. Patient is eating well. Start Time: 17:20 Stop Time: 17:40 Mental Status Exam Vitals: Last Vital Signs Temp 98.6 F 07/12/17 16:00 Pulse 70 07/12/17 16:00 Resp 20 07/12/17 16:00 BP 132/66 07/12/17 16:00 Pulse Ox 94 07/12/17 16:00 Height: 1.68 m Weight: 76.4 kg - Mental Status Exam Muscle Strength/Tone: Normal Dressing: Casual Grooming: Good Attitude: Cooperative, Uncooperative (at times) Motor Activity: Agitation (at times), Tremors Eye Contact: Fair Speech: Slowed Volume: Soft Rhythm: Appropriate Rhythm Orientation: Disoriented to time, Disoriented to place, Disoriented to situation , Oriented to person Mood: Anxious (at times), Tearful (at times) Rate of Thoughts: Delayed Thought Organization: [place] Associations: Illogical Abstract Reasoning: Poor abstract reasoning Thought Content: Ruminations, Helplessness, Paranoia (improved - no evidence today) Perception/Psychotic: Other (Believed to have intermittent VH, improved from previous) Language: Naming Impaired Fund of Knowledge: Poor fund of knowledge Memory: Poor-immediate, Poor-recent Suicidal Ideation: Denies Homicidal Ideation: Denies Insight: Poor Judgement: Poor Impulse Control: Poor - Laboratory Result Diagrams: 07/09/17 06:48 07/09/17 06:48 Assessment and Plan (1) Lewy body dementia with behavioral disturbance Current visit: No Status: Acute (2) Major neurocognitive disorder Problem details: with behavioral disturbance (most likely Lewy Body Dementia) Current visit: No Status: Acute (3) Depressive disorder Current visit: Yes Status: Acute (4) CAD (coronary artery disease) Current visit: No Status: Chronic (5) HTN (hypertension) Current visit: No Status: Chronic (6) Parkinsons Current visit: No Status: Chronic Hospital Course Summary Disclaimer: The visit summary below is not to be considered part of the above Progress Note. Hospital Course: 06/20/17 [facility] ongoing psychiatric evaluation and treatment under the care of Dr. Rizvi Persistent hypernatremia chronically, will encourage oral fluids, and monitor routine BMP. Blood pressure is elevated today. Recently patient was on Norvasc in addition to lisinopril. Will add Norvasc 5 mg daily and continue to monitor carefully Previously underwent pancytopenia and anemia workup in which iron and vitamin B12 were normal. Tylenol as needed for back pain. Check CBC and BMP tomorrow morning to follow blood counts, renal function and electrolytes Hospitalist services will continue to follow patient medically manage existing comorbidities. At time of discharge, care will return to primary care provider, Dr. Oquendo 06/20/17 20:07 Psych: Increase Seroquel to 50mg PO BID (AM, afternoon) and 100mg PO q HS as patient continues to exhibit paranoia - monitor for signs of worsening Parkinsonism, weigh risk of AE to clinical benefit with further dose increases. 06/21/17 18:32 Psych: Continue current care - monitor for any further signs of depression, may increase Seroquel dose further if paranoia continues. 06/22/17 20:35 Psych: Discuss depressive symptoms and need for antidepressant with staff, patient's family tomorrow. Paranoia is manageable and directable at this point. Would like to use lowest dose of Seroquel possible to control symptoms as to avoid exacerbating movement disorder. Continue current care otherwise; monitor patient's mood, behavior and response to treatment. 06/23/17 21:02 Psych: Start mirtazapine 7.5mg PO q HS to target mood, may increase to 15mg fairly quickly if well tolerated. Believe that paranoia is mild in nature when present and she is redirectable and current dose of Seroquel - would like to minimize dose to avoid exacerbating movement disorder. 06/24/17 16:36 Patient is slowly improving. Diarrhea stools have resolved. Still confused, it appears from nurses notes that behavior is improving. BP is variable, but overall well controlled. Plan to repeat labs in AM for stability. Chart, documentation, imaging is reviewed during the course of this visit. 06/24/17 19:46 Psych: Patient doing well overall - will receive first dose of mirtazapine tonight, monitor to ensure patient tolerates it well and plan to increase to 15mg soon. Continue current care otherwise. 06/26/17 13:43 Psych: Continues to complain of depression - will increase mirtazapine to 15mg PO q HS and monitor behavior/response. 06/26/17 Overall, Cristina is doing well and slowly improving. Continue psychiatric care per team. Diarrhea stools have resolved. Hypernatremia noted on labs on 06/25 with sodium at 147. Encourage fluid intake. Hypokalemia noted with potassium at 3.5. Will give KCl 20 mEq po now and and will recheck BMP on 06/29. Continue to provide safe and supportive environment. Anticipate discharge in near future. 06/26/17 20:56 Psych: Discontinue mirtazapine as patient has become agitated more frequently since starting it - monitor response. Continue current dose of Seroquel. Monitor response. 06/27/17 21:28 Pt remains irritable at times but is redirectable. Continue current care 06/28/17 20:46 No behaviors today. Continue current care 06/29/17 18:35 Pt was more agitated and paranoid today with some physical aggression. Will restart Ativan PRN and increased BID dose of Seroquel to 75mg 06/30/17 21:04 Pt had some agitation last night and required PRN's. Continue current care 07/01/17 0815: Cristina complained of chest pain this morning which has since resolved and now complains of epigastric and upper abdominal pain. Exam reveals + Saleh's sign. She states her gall bladder "doesn't work". In light of her chest pain, will obtain EKG, portable chest x-ray, CBC, CMP and serial troponins stat - results pending. She was given ASA 324. No nitro was administer as she was chest pain free on exam. Vital signs have remained stable with blood pressure slightly elevated at 153/76. She has not received her morning medications. CXR was reviewed by myself and appeared unchanged from prior imaging in May 2017. As her clinical exam is concerning for gall bladder issues, will discuss with the family their wishes on additional imaging, labs, treatments, etc as Cristina is a DNR. 0930: Review of the labs revealed new leukopenia with WBC at 3.5 and stable thrombopenia with platelets at 120. CMP revealed stable hypernatremia with sodium at 147 and otherwise unremarkable. AST and ALT were unremarkable at 17 and 37 respectively. Troponin was <0.012. Lipase was within normal limits at 38. EKG showed sinus bradycardia at rate of 59 with 1st degree AV block. No STEMI noted. Will continue to encourage oral fluid intake and monitor closely. 07/01/17 12:25 No behaviors noted today. medical team working up RUQ abdominal pain. Continue current care 07/02/17 14:48 Review vital signs, nurse's notes, psychiatry note, and laboratory. Patient is without fever and chills, has no elevated white count, no suprapubic pain, no urinary symptoms, thus, antibiotic treatment is not indicated with the presence of ESBL on urine culture. Patient still has mild hypernatremia, she has been encouraged to push fluids 07/02/17 21:05 Some agitation but short lived. Continue current care 07/03/17 22:17 PT remains paranoid at times. Continue current care 07/04/17 09:15 Add routine senna for bowel motivation. 07/04/17 18:19 PT will start IV antibiotics for UTI 07/05/17 18:39 Agitation and paranoia this evening. Continue current care 07/06/17 16:54 Improving. Continue current care 07/07/17 11:29 Cristina continues to c/o constipation. She is frequently requiring [place] for chronic pain. Increase Senna to 2 tabs PO BID. Continue PRN laxatives as indicated. Add lowest dose Movantik for constipation assoc w/ narcotics x 3 days. If significant improvement, can consider alf. Due to ongoing behavioural changes, decision to treat ESBL was made. Started Meropenem to run through 07/11. If the TID dosing is distressing to pt, could change to daily Ertapenem. Continue remainder of supportive meds. Repeat labs in AM. If she remains dry, we could consider augmenting with IVF while IV is in, but will try to avoid if possible. Mental health management per primary team. 07/07/17 12:24 Some agitation at times. Continue current care 07/08/17 11:41 Better today. Continue current care 07/09/17 Psych: Continue current care. Important for nursing staff and LTC facility to note that restlessness may be due to pain at times and PRN [place] may be helpful in calming her in addition to scheduled antipsychotics. Plan to have meeting with [facility] tomorrow to discuss care and risks/benefits of increasing antipsychotic given AE on movement. 07/10/17 Psych: Increase Seroquel to 100mg PO TID; monitor response. Patient continues to be paranoid and distressed enough that management outside of the hospital setting would not be possible. Informed consent given by family; they are aware that increased antipsychotic could exacerbate movement disorder. 07/11/17 Psych: Patient continues to be intermittently tearful/anxious but is reportedly more redirectable today, nighttime seems to be worse. Today is first full day of increased dose of Seroquel from yesterday so will continue current care for the time being and monitor response as well as any more AE. 07/12/17 Psych: Patient's behavior has not improved with increased dose of Seroquel. Will change Seroquel to 50mg PO at 0900 and 1300, and 100mg at bedtime. Will also schedule Ativan 0.5mg PO at 0900 and 1300 as this seems to calm patient more. Monitor mood, behavior and response to treatment.
[2017-07-13] MEDS: LISINOPRIL 10 MG TABLET PO SCH (08:51)
[2017-07-13] MEDS: ALLOPURINOL 100 MG TABLET PO SCH (08:52)
[2017-07-13] MEDS: COENZYME Q10 200 MG PO SCH (08:52)
[2017-07-13] MEDS: AMLODIPINE 5 MG TABLET PO SCH (08:53)
[2017-07-13] MEDS: FAMOTIDINE 20 MG TABLET PO SCH (08:53)
[2017-07-13] MEDS: CYANOCOBALAMIN (B-12) 500mcg TABLET PO SCH ×2 (08:54→21:23)
[2017-07-13] MEDS: HYDROCODONE/APAP 5mg/325mg TABLET PO PRN ×2 (08:54→18:10)
[2017-07-13] MEDS: MULTI-VITAMIN PLAIN TABLET PO SCH (08:54)
[2017-07-13] MEDS: QUETIAPINE 50 MG TABLET PO SCH ×2 (08:54→13:31)
[2017-07-13] MEDS: ASPIRIN *EC* 81 MG TABLET PO SCH (08:55)
[2017-07-13] MEDS: LIDOCAINE 5% PATCH TOP SCH (08:55)
[2017-07-13] MEDS: LORazepam 0.5 MG TABLET PO SCH ×2 (08:55→13:31)
--- NOTE | 2017-07-13 19:27 | Neuropsych Progress Note ---
[facility] Subjective Date: 07/13/17 - Sujective/Severity of Illness Medications: Acetaminophen (Tylenol) 325 - 650 mg PO Q5H PRN PRN Reason: Discomfort Last Admin: 07/01/17 06:57 Dose: 650 mg Acetaminophen/Hydrocodone Bitart ([place] 5/325) 1 tab PO Q6H PRN PRN Reason: Pain Last Admin: 07/13/17 18:10 Dose: 1 tab Al Hydroxide/Mg Hydroxide (Maalox Plus) 30 ml PO Q4H PRN PRN Reason: Indigestion Last Admin: 06/29/17 20:36 Dose: 30 ml Allopurinol (Zyloprim) 100 mg PO DAILY [facility] Last Admin: 07/13/17 08:52 Dose: 100 mg Amlodipine Besylate (Norvasc) 5 mg PO DAILY [facility] Last Admin: 07/13/17 08:53 Dose: 5 mg Aspirin (Ecotrin) 81 mg PO DAILY [facility] Last Admin: 07/13/17 08:55 Dose: 81 mg Atorvastatin Calcium (Lipitor) 10 mg PO HS [facility] Last Admin: 07/12/17 20:17 Dose: 10 mg Bisacodyl (Dulcolax) 10 mg RECTALLY DAILY PRN PRN Reason: Constipation Cholecalciferol (Vit. D-3) 1,000 unit PO 2100 [facility] Last Admin: 07/12/17 20:17 Dose: 1,000 unit Cholecalciferol (Vit. D-3) 2,000 unit PO DAILY [facility] Last Admin: 07/13/17 08:53 Dose: 2,000 unit Coenzyme Q10 (Co Q-10) 100 mg PO DAILY [facility] Last Admin: 07/13/17 08:52 Dose: 100 mg Cyanocobalamin (Vit. B-12) 500 mcg PO BID [facility] Last Admin: 07/13/17 08:54 Dose: 500 mcg Famotidine (Pepcid) 20 mg PO DAILY [facility] Last Admin: 07/13/17 08:53 Dose: 20 mg Haloperidol (Haldol) 0.5 mg PO Q6H PRN PRN Reason: Extreme agitation Haloperidol (Haldol) 0.5 mg PO Q6HR PRN PRN Reason: Anxiety/Agitation Haloperidol Lactate (Haldol) 0.5 mg IM Q6H PRN PRN Reason: Extreme agitation Last Admin: 07/12/17 19:42 Dose: 0.5 mg Lidocaine (Lidoderm) 1 patch TOP DAILY [facility] Last Admin: 07/13/17 08:55 Dose: 1 patch Lidocaine HCl/Dextrose (Lidoderm Patch Removal) 1 removal TOP HS [facility] Last Admin: 07/12/17 20:17 Dose: 1 removal Lisinopril (Prinivil) 20 mg PO DAILY [facility] Last Admin: 07/13/17 08:51 Dose: 20 mg Loperamide HCl (Imodium) 2 mg PO PRN PRN; Protocol PRN Reason: Diarrhea Lorazepam (Ativan) 0.5 mg PO TID PRN PRN Reason: Agitation Last Admin: 07/10/17 08:33 Dose: 0.5 mg Lorazepam (Ativan Inj) 0.5 mg IM Q6H PRN Last Admin: 07/12/17 19:43 Dose: 0.5 mg Lorazepam (Ativan) 0.5 mg PO [facility] Last Admin: 07/13/17 13:31 Dose: 0.5 mg Multivitamins (Theragran) 1 tab PO DAILY [facility] Last Admin: 07/13/17 08:54 Dose: 1 tab Ondansetron HCl (Zofran Po) 4 mg PO Q6H PRN PRN Reason: Nausea &/or vomiting Quetiapine Fumarate (Seroquel) 100 mg PO HS [facility] Last Admin: 07/12/17 20:18 Dose: 100 mg Quetiapine Fumarate (Seroquel) 50 mg PO [facility] Last Admin: 07/13/17 13:31 Dose: 50 mg Senna (Senna Lax) 17.2 mg PO BID PRN Sodium Chloride (Normal Saline) 500 ml IV PRN PRN Last Admin: 07/06/17 00:56 Dose: 500 ml Sodium Chloride (Normal Saline) 500 ml IV PRN PRN Last Admin: 07/10/17 01:44 Dose: 500 ml Sodium Chloride (Iv Flush) 10 ml IV PRN PRN PRN Reason: Flushing Last Admin: 07/10/17 17:25 Dose: 10 ml Subjective: Patient seen and chart reviewed. Case discussed with treatment team. On interview, patient is sleeping soundly and is not woken up as she has been anxious/tearful through much of day. She has been very ruminative and hopeless per SW and staff, complaining of feeling poorly and poor quality of life (which is likely an accurate assessment given symptoms and movement disorder). In order to adequately control psychosis, medications exacerbate movement disorder to the point of discomfort. Multiple hospitalizations with multiple med regimens have been attempted. Patient slept 10 hours overnight. VSS. Patient is eating well. Will hold Ativan and leave current dose of Seroquel, monitor symptoms over the weekend and consider whether Hospice referral would be appropriate. Start Time: 16:20 Stop Time: 16:40 Mental Status Exam Vitals: Last Vital Signs Temp 98.2 F 07/13/17 08:00 Pulse 73 07/13/17 08:00 Resp 16 07/13/17 08:00 BP 145/70 H 07/13/17 08:00 Pulse Ox 95 07/13/17 08:00 Height: 1.68 m Weight: 76.4 kg - Mental Status Exam Muscle Strength/Tone: Normal Dressing: Casual Grooming: Good Attitude: Other (Asleep at time of rounds) Motor Activity: Agitation (frequent), Tremors Speech: Slowed Volume: Soft Rhythm: Appropriate Rhythm Orientation: Disoriented to time, Disoriented to place, Disoriented to situation , Oriented to person Mood: Anxious (frequently), Tearful (frequently) Rate of Thoughts: Delayed Thought Organization: [place] Associations: Illogical Abstract Reasoning: Poor abstract reasoning Thought Content: Ruminations, Helplessness, Paranoia (improved - no evidence today) Perception/Psychotic: Psychotic Current Hallucinations: Visual (today per staff) Language: Naming Impaired Fund of Knowledge: Poor fund of knowledge Memory: Poor-immediate, Poor-recent Suicidal Ideation: Other (Cannot currently assess) Homicidal Ideation: None Insight: Poor Judgement: Poor Impulse Control: Poor - Laboratory Result Diagrams: 07/09/17 06:48 07/09/17 06:48 Assessment and Plan (1) Lewy body dementia with behavioral disturbance Current visit: No Status: Acute (2) Major neurocognitive disorder Problem details: with behavioral disturbance (most likely Lewy Body Dementia) Current visit: No Status: Acute (3) Depressive disorder Current visit: Yes Status: Acute (4) CAD (coronary artery disease) Current visit: No Status: Chronic (5) HTN (hypertension) Current visit: No Status: Chronic (6) Parkinsons Current visit: No Status: Chronic Hospital Course Summary Disclaimer: The visit summary below is not to be considered part of the above Progress Note. Hospital Course: 06/20/17 Agree with admission to [facility] for ongoing psychiatric evaluation and treatment under the care of Dr. Rizvi Persistent hypernatremia chronically, will encourage oral fluids, and monitor routine BMP. Blood pressure is elevated today. Recently patient was on Norvasc in addition to lisinopril. Will add Norvasc 5 mg daily and continue to monitor carefully Previously underwent pancytopenia and anemia workup in which iron and vitamin B12 were normal. Tylenol as needed for back pain. Check CBC and BMP tomorrow morning to follow blood counts, renal function and electrolytes Hospitalist services will continue to follow patient medically manage existing comorbidities. At time of discharge, care will return to primary care provider, Dr. Oquedno 06/20/17 20:07 Psych: Increase Seroquel to 50mg PO BID (AM, afternoon) and 100mg PO q HS as patient continues to exhibit paranoia - monitor for signs of worsening Parkinsonism, weigh risk of AE to clinical benefit with further dose increases. 06/21/17 18:32 Psych: Continue current care - monitor for any further signs of depression, may increase Seroquel dose further if paranoia continues. 06/22/17 20:35 Psych: Discuss depressive symptoms and need for antidepressant with staff, patient's family tomorrow. Paranoia is manageable and directable at this point. Would like to use lowest dose of Seroquel possible to control symptoms as to avoid exacerbating movement disorder. Continue current care otherwise; monitor patient's mood, behavior and response to treatment. 06/23/17 21:02 Psych: Start mirtazapine 7.5mg PO q HS to target mood, may increase to 15mg fairly quickly if well tolerated. Believe that paranoia is mild in nature when present and she is redirectable and current dose of Seroquel - would like to minimize dose to avoid exacerbating movement disorder. 06/24/17 16:36 Patient is slowly improving. Diarrhea stools have resolved. Still confused, it appears from nurses notes that behavior is improving. BP is variable, but overall well controlled. Plan to repeat labs in AM for stability. Chart, documentation, imaging is reviewed during the course of this visit. 06/24/17 19:46 Psych: Patient doing well overall - will receive first dose of mirtazapine tonight, monitor to ensure patient tolerates it well and plan to increase to 15mg soon. Continue current care otherwise. 06/26/17 13:43 Psych: Continues to complain of depression - will increase mirtazapine to 15mg PO q HS and monitor behavior/response. 06/26/17 Overall, Cristina is doing well and slowly improving. Continue psychiatric care per team. Diarrhea stools have resolved. Hypernatremia noted on labs on 06/25 with sodium at 147. Encourage fluid intake. Hypokalemia noted with potassium at 3.5. Will give KCl 20 mEq po now and and will recheck BMP on 06/29. Continue to provide safe and supportive environment. Anticipate discharge in near future. 06/26/17 20:56 Psych: Discontinue mirtazapine as patient has become agitated more frequently since starting it - monitor response. Continue current dose of Seroquel. Monitor response. 06/27/17 21:28 Pt remains irritable at times but is redirectable. Continue current care 06/28/17 20:46 No behaviors today. Continue current care 06/29/17 18:35 Pt was more agitated and paranoid today with some physical aggression. Will restart Ativan PRN and increased BID dose of Seroquel to 75mg 06/30/17 21:04 Pt had some agitation last night and required PRN's. Continue current care 07/01/17 0815: Cristina complained of chest pain this morning which has since resolved and now complains of epigastric and upper abdominal pain. Exam reveals + Saleh's sign. She states her gall bladder "doesn't work". In light of her chest pain, will obtain EKG, portable chest x-ray, CBC, CMP and serial troponins stat - results pending. She was given ASA 324. No nitro was administer as she was chest pain free on exam. Vital signs have remained stable with blood pressure slightly elevated at 153/76. She has not received her morning medications. CXR was reviewed by myself and appeared unchanged from prior imaging in May 2017. As her clinical exam is concerning for gall bladder issues, will discuss with the family their wishes on additional imaging, labs, treatments, etc as Cristina is a DNR. 0930: Review of the labs revealed new leukopenia with WBC at 3.5 and stable thrombopenia with platelets at 120. CMP revealed stable hypernatremia with sodium at 147 and otherwise unremarkable. AST and ALT were unremarkable at 17 and 37 respectively. Troponin was <0.012. Lipase was within normal limits at 38. EKG showed sinus bradycardia at rate of 59 with 1st degree AV block. No STEMI noted. Will continue to encourage oral fluid intake and monitor closely. 07/01/17 12:25 No behaviors noted today. medical team working up RUQ abdominal pain. Continue current care 07/02/17 14:48 Review vital signs, nurse's notes, psychiatry note, and laboratory. Patient is without fever and chills, has no elevated white count, no suprapubic pain, no urinary symptoms, thus, antibiotic treatment is not indicated with the presence of ESBL on urine culture. Patient still has mild hypernatremia, she has been encouraged to push fluids 07/02/17 21:05 Some agitation but short lived. Continue current care 07/03/17 22:17 PT remains paranoid at times. Continue current care 07/04/17 09:15 Add routine senna for bowel motivation. 07/04/17 18:19 PT will start IV antibiotics for UTI 07/05/17 18:39 Agitation and paranoia this evening. Continue current care 07/06/17 16:54 Improving. Continue current care 07/07/17 11:29 Cristina continues to c/o constipation. She is frequently requiring [place] for chronic pain. Increase Senna to 2 tabs PO BID. Continue PRN laxatives as indicated. Add lowest dose Movantik for constipation assoc w/ narcotics x 3 days. If significant improvement, can consider snf. Due to ongoing behavioural changes, decision to treat ESBL was made. Started Meropenem to run through 07/11. If the TID dosing is distressing to pt, could change to daily Ertapenem. Continue remainder of supportive meds. Repeat labs in AM. If she remains dry, we could consider augmenting with IVF while IV is in, but will try to avoid if possible. Mental health management per primary team. 07/07/17 12:24 Some agitation at times. Continue current care 07/08/17 11:41 Better today. Continue current care 07/09/17 Psych: Continue current care. Important for nursing staff and LTC facility to note that restlessness may be due to pain at times and PRN Abing[place] may be helpful in calming her in addition to scheduled antipsychotics. Plan to have meeting with [facility] tomorrow to discuss care and risks/benefits of increasing antipsychotic given AE on movement. 07/10/17 Psych: Increase Seroquel to 100mg PO TID; monitor response. Patient continues to be paranoid and distressed enough that management outside of the hospital setting would not be possible. Informed consent given by family; they are aware that increased antipsychotic could exacerbate movement disorder. 07/11/17 Psych: Patient continues to be intermittently tearful/anxious but is reportedly more redirectable today, nighttime seems to be worse. Today is first full day of increased dose of Seroquel from yesterday so will continue current care for the time being and monitor response as well as any more AE. 07/12/17 Psych: Patient's behavior has not improved with increased dose of Seroquel. Will change Seroquel to 50mg PO at 0900 and 1300, and 100mg at bedtime. Will also schedule Ativan 0.5mg PO at 0900 and 1300 as this seems to calm patient more. Monitor mood, behavior and response to treatment. 07/13/17 Psych: Patient continues to be in distress frequently despite multiple medication changes and even repeated hospitalizations. Will discontinue Ativan and see if emotional lability improves. May consider Hospice referral due to limited quality of life with continued increase in antipsychotics.
[2017-07-13] MEDS: ATORVASTATIN 10 MG TABLET PO SCH (21:22)
[2017-07-13] MEDS: QUETIAPINE 100 MG TABLET PO SCH (21:24)
[2017-07-13] MEDS: LIDOCAINE PATCH REMOVAL TOP SCH (21:24)
[2017-07-14] MEDS: ACETAMINOPHEN 325 MG TABLET PO PRN (04:33)
[2017-07-14] MEDS: COENZYME Q10 200 MG PO SCH (08:58)
[2017-07-14] MEDS: LIDOCAINE 5% PATCH TOP SCH (08:58)
[2017-07-14] MEDS: MULTI-VITAMIN PLAIN TABLET PO SCH (08:58)
[2017-07-14] MEDS: AMLODIPINE 5 MG TABLET PO SCH (08:59)
[2017-07-14] MEDS: LORazepam 0.5 MG TABLET PO SCH ×2 (08:59→12:35)
[2017-07-14] MEDS: LISINOPRIL 10 MG TABLET PO SCH (08:59)
[2017-07-14] MEDS: FAMOTIDINE 20 MG TABLET PO SCH (08:59)
[2017-07-14] MEDS: QUETIAPINE 50 MG TABLET PO SCH ×2 (09:00→12:35)
[2017-07-14] MEDS: ASPIRIN *EC* 81 MG TABLET PO SCH (09:00)
[2017-07-14] MEDS: ALLOPURINOL 100 MG TABLET PO SCH (09:00)
[2017-07-14] MEDS: CYANOCOBALAMIN (B-12) 500mcg TABLET PO SCH ×2 (09:00→19:41)
--- NOTE | 2017-07-14 10:40 | Neuropsych Progress Note ---
[facility] Subjective Date: 07/15/17 - Sujective/Severity of Illness Medications: Acetaminophen (Tylenol) 325 - 650 mg PO Q5H PRN PRN Reason: Discomfort Last Admin: 07/14/17 04:33 Dose: 650 mg Acetaminophen/Hydrocodone Bitart ([place] 5/325) 1 tab PO Q6H PRN PRN Reason: Pain Last Admin: 07/13/17 18:10 Dose: 1 tab Al Hydroxide/Mg Hydroxide (Maalox Plus) 30 ml PO Q4H PRN PRN Reason: Indigestion Last Admin: 06/29/17 20:36 Dose: 30 ml Allopurinol (Zyloprim) 100 mg PO DAILY [facility] Last Admin: 07/14/17 09:00 Dose: 100 mg Amlodipine Besylate (Norvasc) 5 mg PO DAILY [facility] Last Admin: 07/14/17 08:59 Dose: 5 mg Aspirin (Ecotrin) 81 mg PO DAILY [facility] Last Admin: 07/14/17 09:00 Dose: 81 mg Atorvastatin Calcium (Lipitor) 10 mg PO HS [facility] Last Admin: 07/13/17 21:22 Dose: 10 mg Bisacodyl (Dulcolax) 10 mg RECTALLY DAILY PRN PRN Reason: Constipation Cholecalciferol (Vit. D-3) 1,000 unit PO 2100 [facility] Last Admin: 07/13/17 21:23 Dose: 1,000 unit Cholecalciferol (Vit. D-3) 2,000 unit PO DAILY [facility] Last Admin: 07/14/17 08:59 Dose: 2,000 unit Coenzyme Q10 (Co Q-10) 100 mg PO DAILY [facility] Last Admin: 07/14/17 08:58 Dose: 100 mg Cyanocobalamin (Vit. B-12) 500 mcg PO BID [facility] Last Admin: 07/14/17 09:00 Dose: 500 mcg Famotidine (Pepcid) 20 mg PO DAILY [facility] Last Admin: 07/14/17 08:59 Dose: 20 mg Haloperidol (Haldol) 0.5 mg PO Q6H PRN PRN Reason: Extreme agitation Haloperidol (Haldol) 0.5 mg PO Q6HR PRN PRN Reason: Anxiety/Agitation Haloperidol Lactate (Haldol) 0.5 mg IM Q6H PRN PRN Reason: Extreme agitation Last Admin: 07/12/17 19:42 Dose: 0.5 mg Lidocaine (Lidoderm) 1 patch TOP DAILY [facility] Last Admin: 07/14/17 08:58 Dose: 1 patch Lidocaine HCl/Dextrose (Lidoderm Patch Removal) 1 removal TOP [facility] Last Admin: 07/13/17 21:24 Dose: Not Given Lisinopril (Prinivil) 20 mg PO DAILY [facility] Last Admin: 07/14/17 08:59 Dose: 20 mg Loperamide HCl (Imodium) 2 mg PO PRN PRN; Protocol PRN Reason: Diarrhea Lorazepam (Ativan Inj) 0.5 mg IM Q6H PRN Last Admin: 07/12/17 19:43 Dose: 0.5 mg Lorazepam (Ativan) 0.5 mg PO [facility] Last Admin: 07/14/17 08:59 Dose: 0.5 mg Multivitamins (Theragran) 1 tab PO DAILY [facility] Last Admin: 07/14/17 08:58 Dose: 1 tab Ondansetron HCl (Zofran Po) 4 mg PO Q6H PRN PRN Reason: Nausea &/or vomiting Quetiapine Fumarate (Seroquel) 100 mg PO HS [facility] Last Admin: 07/13/17 21:24 Dose: 100 mg Quetiapine Fumarate (Seroquel) 50 mg PO [facility] Last Admin: 07/14/17 09:00 Dose: 50 mg Senna (Senna Lax) 17.2 mg PO BID PRN Sodium Chloride (Normal Saline) 500 ml IV PRN PRN Last Admin: 07/06/17 00:56 Dose: 500 ml Sodium Chloride (Normal Saline) 500 ml IV PRN PRN Last Admin: 07/10/17 01:44 Dose: 500 ml Sodium Chloride (Iv Flush) 10 ml IV PRN PRN PRN Reason: Flushing Last Admin: 07/10/17 17:25 Dose: 10 ml Subjective: Patient seen and chart reviewed. Case discussed with treatment team. On interview, patient is sitting in dayroom and has reportedly been upset this morning, concerned that she is not sure whether she has been strong enough in her tha to make it to [place]. Patient was calmer and more confident in this by the time i saw her. I offered to have staff accompany her to chapel or have the automatic tire tester visit her and she declined. She was somewhat irritable and hopeless through interview. Patient admits she is in a poor mood but denies SI. She has been very ruminative and hopeless per SW and staff, complaining of feeling poorly and poor quality of life (which is likely an accurate assessment given symptoms and movement disorder). In order to adequately control psychosis , medications exacerbate movement disorder to the point of discomfort. Multiple hospitalizations with multiple med regimens have been attempted. Patient slept 5.25 hours overnight. VSS. Patient is eating well. Start Time: 10:30 Stop Time: 10:50 Mental Status Exam Vitals: Last Vital Signs Temp 97.1 F 07/14/17 10:15 Pulse 93 07/14/17 10:15 Resp 18 07/14/17 10:15 BP 148/71 H 07/14/17 10:15 Pulse Ox 95 07/14/17 10:15 Height: 1.68 m Weight: 76.4 kg - Mental Status Exam Muscle Strength/Tone: Normal Dressing: Casual Grooming: Good Attitude: Other (Asleep at time of rounds) Motor Activity: Tremors Eye Contact: Fair Speech: Slowed Volume: Soft Rhythm: Appropriate Rhythm Orientation: Disoriented to time, Disoriented to place, Disoriented to situation , Oriented to person Mood: Depressed (with congruent affect), Anxious (frequently) Rate of Thoughts: Delayed Thought Organization: [place] Associations: Illogical Abstract Reasoning: Poor abstract reasoning Thought Content: Ruminations, Helplessness, Paranoia (improved - no evidence today) Perception/Psychotic: Psychotic Current Hallucinations: Visual (today per staff) Language: Naming Impaired Fund of Knowledge: Poor fund of knowledge Memory: Poor-immediate, Poor-recent Suicidal Ideation: Other (Cannot currently assess) Homicidal Ideation: None Insight: Poor Judgement: Poor Impulse Control: Poor - Laboratory Result Diagrams: 07/09/17 06:48 07/09/17 06:48 Assessment and Plan (1) Lewy body dementia with behavioral disturbance Current visit: No Status: Acute (2) Major neurocognitive disorder Problem details: with behavioral disturbance (most likely Lewy Body Dementia) Current visit: No Status: Acute (3) Depressive disorder Current visit: Yes Status: Acute (4) CAD (coronary artery disease) Current visit: No Status: Chronic (5) HTN (hypertension) Current visit: No Status: Chronic (6) Parkinsons Current visit: No Status: Chronic Hospital Course Summary Disclaimer: The visit summary below is not to be considered part of the above Progress Note. Hospital Course: 06/20/17 Agree with admission to [facility] for ongoing psychiatric evaluation and treatment under the care of Dr. Rizvi Persistent hypernatremia chronically, will encourage oral fluids, and monitor routine BMP. Blood pressure is elevated today. Recently patient was on Norvasc in addition to lisinopril. Will add Norvasc 5 mg daily and continue to monitor carefully Previously underwent pancytopenia and anemia workup in which iron and vitamin B12 were normal. Tylenol as needed for back pain. Check CBC and BMP tomorrow morning to follow blood counts, renal function and electrolytes Hospitalist services will continue to follow patient medically manage existing comorbidities. At time of discharge, care will return to primary care provider, Dr. Oquendo 06/20/17 20:07 Psych: Increase Seroquel to 50mg PO BID (AM, afternoon) and 100mg PO q HS as patient continues to exhibit paranoia - monitor for signs of worsening Parkinsonism, weigh risk of AE to clinical benefit with further dose increases. 06/21/17 18:32 Psych: Continue current care - monitor for any further signs of depression, may increase Seroquel dose further if paranoia continues. 06/22/17 20:35 Psych: Discuss depressive symptoms and need for antidepressant with staff, patient's family tomorrow. Paranoia is manageable and directable at this point. Would like to use lowest dose of Seroquel possible to control symptoms as to avoid exacerbating movement disorder. Continue current care otherwise; monitor patient's mood, behavior and response to treatment. 06/23/17 21:02 Psych: Start mirtazapine 7.5mg PO q HS to target mood, may increase to 15mg fairly quickly if well tolerated. Believe that paranoia is mild in nature when present and she is redirectable and current dose of Seroquel - would like to minimize dose to avoid exacerbating movement disorder. 06/24/17 16:36 Patient is slowly improving. Diarrhea stools have resolved. Still confused, it appears from nurses notes that behavior is improving. BP is variable, but overall well controlled. Plan to repeat labs in AM for stability. Chart, documentation, imaging is reviewed during the course of this visit. 06/24/17 19:46 Psych: Patient doing well overall - will receive first dose of mirtazapine tonight, monitor to ensure patient tolerates it well and plan to increase to 15mg soon. Continue current care otherwise. 06/26/17 13:43 Psych: Continues to complain of depression - will increase mirtazapine to 15mg PO q HS and monitor behavior/response. 06/26/17 Overall, Cristina is doing well and slowly improving. Continue psychiatric care per team. Diarrhea stools have resolved. Hypernatremia noted on labs on 06/25 with sodium at 147. Encourage fluid intake. Hypokalemia noted with potassium at 3.5. Will give KCl 20 mEq po now and and will recheck BMP on 06/29. Continue to provide safe and supportive environment. Anticipate discharge in near future. 06/26/17 20:56 Psych: Discontinue mirtazapine as patient has become agitated more frequently since starting it - monitor response. Continue current dose of Seroquel. Monitor response. 06/27/17 21:28 Pt remains irritable at times but is redirectable. Continue current care 06/28/17 20:46 No behaviors today. Continue current care 06/29/17 18:35 Pt was more agitated and paranoid today with some physical aggression. Will restart Ativan PRN and increased BID dose of Seroquel to 75mg 06/30/17 21:04 Pt had some agitation last night and required PRN's. Continue current care 07/01/17 0815: Cristina complained of chest pain this morning which has since resolved and now complains of epigastric and upper abdominal pain. Exam reveals + Saleh's sign. She states her gall bladder "doesn't work". In light of her chest pain, will obtain EKG, portable chest x-ray, CBC, CMP and serial troponins stat - results pending. She was given ASA 324. No nitro was administer as she was chest pain free on exam. Vital signs have remained stable with blood pressure slightly elevated at 153/76. She has not received her morning medications. CXR was reviewed by myself and appeared unchanged from prior imaging in May 2017. As her clinical exam is concerning for gall bladder issues, will discuss with the family their wishes on additional imaging, labs, treatments, etc as Cristina is a DNR. 0930: Review of the labs revealed new leukopenia with WBC at 3.5 and stable thrombopenia with platelets at 120. CMP revealed stable hypernatremia with sodium at 147 and otherwise unremarkable. AST and ALT were unremarkable at 17 and 37 respectively. Troponin was <0.012. Lipase was within normal limits at 38. EKG showed sinus bradycardia at rate of 59 with 1st degree AV block. No STEMI noted. Will continue to encourage oral fluid intake and monitor closely. 07/01/17 12:25 No behaviors noted today. medical team working up RUQ abdominal pain. Continue current care 07/02/17 14:48 Review vital signs, nurse's notes, psychiatry note, and laboratory. Patient is without fever and chills, has no elevated white count, no suprapubic pain, no urinary symptoms, thus, antibiotic treatment is not indicated with the presence of ESBL on urine culture. Patient still has mild hypernatremia, she has been encouraged to push fluids 07/02/17 21:05 Some agitation but short lived. Continue current care 07/03/17 22:17 PT remains paranoid at times. Continue current care 07/04/17 09:15 Add routine senna for bowel motivation. 07/04/17 18:19 PT will start IV antibiotics for UTI 07/05/17 18:39 Agitation and paranoia this evening. Continue current care 07/06/17 16:54 Improving. Continue current care 07/07/17 11:29 Cristina continues to c/o constipation. She is frequently requiring [place] for chronic pain. Increase Senna to 2 tabs PO BID. Continue PRN laxatives as indicated. Add lowest dose Movantik for constipation assoc w/ narcotics x 3 days. If significant improvement, can consider mcc. Due to ongoing behavioural changes, decision to treat ESBL was made. Started Meropenem to run through 07/11. If the TID dosing is distressing to pt, could change to daily Ertapenem. Continue remainder of supportive meds. Repeat labs in AM. If she remains dry, we could consider augmenting with IVF while IV is in, but will try to avoid if possible. Mental health management per primary team. 07/07/17 12:24 Some agitation at times. Continue current care 07/08/17 11:41 Better today. Continue current care 07/09/17 Psych: Continue current care. Important for nursing staff and LTC facility to note that restlessness may be due to pain at times and PRN [place] may be helpful in calming her in addition to scheduled antipsychotics. Plan to have meeting with [facility] tomorrow to discuss care and risks/benefits of increasing antipsychotic given AE on movement. 07/10/17 Psych: Increase Seroquel to 100mg PO TID; monitor response. Patient continues to be paranoid and distressed enough that management outside of the hospital setting would not be possible. Informed consent given by family; they are aware that increased antipsychotic could exacerbate movement disorder. 07/11/17 Psych: Patient continues to be intermittently tearful/anxious but is reportedly more redirectable today, nighttime seems to be worse. Today is first full day of increased dose of Seroquel from yesterday so will continue current care for the time being and monitor response as well as any more AE. 07/12/17 Psych: Patient's behavior has not improved with increased dose of Seroquel. Will change Seroquel to 50mg PO at 0900 and 1300, and 100mg at bedtime. Will also schedule Ativan 0.5mg PO at 0900 and 1300 as this seems to calm patient more. Monitor mood, behavior and response to treatment. 07/13/17 Psych: Patient continues to be in distress frequently despite multiple medication changes and even repeated hospitalizations. Will discontinue Ativan and see if emotional lability improves. May consider Hospice referral due to limited quality of life with continued increase in antipsychotics. 07/14/17: Continue current care - family and patient considering Hospice consult , which I feel would be appropriate.
[2017-07-14] MEDS: HYDROCODONE/APAP 5mg/325mg TABLET PO PRN ×2 (14:48→19:43)
[2017-07-14] MEDS: QUETIAPINE 100 MG TABLET PO SCH (19:41)
[2017-07-14] MEDS: ATORVASTATIN 10 MG TABLET PO SCH (19:42)
[2017-07-14] MEDS: LIDOCAINE PATCH REMOVAL TOP SCH (19:42)
[2017-07-15] MEDS: HYDROCODONE/APAP 5mg/325mg TABLET PO PRN ×3 (04:56→14:26)
[2017-07-15] MEDS: ATORVASTATIN 10 MG TABLET PO SCH ×2 (04:56→21:33)
[2017-07-15] MEDS: LIDOCAINE PATCH REMOVAL TOP SCH ×2 (04:57→21:34)
[2017-07-15] MEDS: QUETIAPINE 100 MG TABLET PO SCH ×2 (04:57→21:34)
[2017-07-15] MEDS: CYANOCOBALAMIN (B-12) 500mcg TABLET PO SCH ×3 (04:57→21:33)
[2017-07-15] MEDS: AMLODIPINE 5 MG TABLET PO SCH (08:09)
[2017-07-15] MEDS: LORazepam 0.5 MG TABLET PO SCH ×2 (08:09→12:25)
[2017-07-15] MEDS: FAMOTIDINE 20 MG TABLET PO SCH (08:09)
[2017-07-15] MEDS: LISINOPRIL 10 MG TABLET PO SCH (08:09)
[2017-07-15] MEDS: ALLOPURINOL 100 MG TABLET PO SCH (08:09)
[2017-07-15] MEDS: QUETIAPINE 50 MG TABLET PO SCH ×2 (08:11→12:25)
[2017-07-15] MEDS: COENZYME Q10 200 MG PO SCH (08:11)
[2017-07-15] MEDS: ASPIRIN *EC* 81 MG TABLET PO SCH (08:11)
[2017-07-15] MEDS: MULTI-VITAMIN PLAIN TABLET PO SCH (08:11)
[2017-07-15] MEDS: LIDOCAINE 5% PATCH TOP SCH (08:12)
--- NOTE | 2017-07-15 15:28 | Neuropsych Progress Note ---
[facility] Subjective Date: 07/15/17 - Sujective/Severity of Illness Medications: Acetaminophen (Tylenol) 325 - 650 mg PO Q5H PRN PRN Reason: Discomfort Last Admin: 07/14/17 04:33 Dose: 650 mg Acetaminophen/Hydrocodone Bitart (Tappan 5/325) 1 tab PO Q6H PRN PRN Reason: Pain Last Admin: 07/15/17 14:26 Dose: 1 tab Al Hydroxide/Mg Hydroxide (Maalox Plus) 30 ml PO Q4H PRN PRN Reason: Indigestion Last Admin: 06/29/17 20:36 Dose: 30 ml Allopurinol (Zyloprim) 100 mg PO DAILY [facility] Last Admin: 07/15/17 08:09 Dose: 100 mg Amlodipine Besylate (Norvasc) 5 mg PO DAILY [facility] Last Admin: 07/15/17 08:09 Dose: 5 mg Aspirin (Ecotrin) 81 mg PO DAILY [facility] Last Admin: 07/15/17 08:11 Dose: 81 mg Atorvastatin Calcium (Lipitor) 10 mg PO HS [facility] Last Admin: 07/15/17 04:56 Dose: Not Given Bisacodyl (Dulcolax) 10 mg RECTALLY DAILY PRN PRN Reason: Constipation Cholecalciferol (Vit. D-3) 1,000 unit PO 2100 [facility] Last Admin: 07/15/17 04:57 Dose: Not Given Cholecalciferol (Vit. D-3) 2,000 unit PO DAILY [facility] Last Admin: 07/15/17 08:09 Dose: 2,000 unit Coenzyme Q10 (Co Q-10) 100 mg PO DAILY [facility] Last Admin: 07/15/17 08:11 Dose: 100 mg Cyanocobalamin (Vit. B-12) 500 mcg PO BID [facility] Last Admin: 07/15/17 08:09 Dose: 500 mcg Famotidine (Pepcid) 20 mg PO DAILY [facility] Last Admin: 07/15/17 08:09 Dose: 20 mg Haloperidol (Haldol) 0.5 mg PO Q6H PRN PRN Reason: Extreme agitation Haloperidol (Haldol) 0.5 mg PO Q6HR PRN PRN Reason: Anxiety/Agitation Haloperidol Lactate (Haldol) 0.5 mg IM Q6H PRN PRN Reason: Extreme agitation Last Admin: 07/12/17 19:42 Dose: 0.5 mg Lidocaine (Lidoderm) 1 patch TOP DAILY [facility] Last Admin: 07/15/17 08:12 Dose: 1 patch Lidocaine HCl/Dextrose (Lidoderm Patch Removal) 1 removal TOP [facility] Last Admin: 07/15/17 04:57 Dose: Not Given Lisinopril (Prinivil) 20 mg PO DAILY [facility] Last Admin: 07/15/17 08:09 Dose: 20 mg Loperamide HCl (Imodium) 2 mg PO PRN PRN; Protocol PRN Reason: Diarrhea Lorazepam (Ativan Inj) 0.5 mg IM Q6H PRN Last Admin: 07/14/17 15:10 Dose: 0.5 mg Lorazepam (Ativan) 0.5 mg PO [facility] Last Admin: 07/15/17 12:25 Dose: 0.5 mg Multivitamins (Theragran) 1 tab PO DAILY [facility] Last Admin: 07/15/17 08:11 Dose: 1 tab Ondansetron HCl (Zofran Po) 4 mg PO Q6H PRN PRN Reason: Nausea &/or vomiting Quetiapine Fumarate (Seroquel) 100 mg PO [facility] Last Admin: 07/15/17 04:57 Dose: Not Given Quetiapine Fumarate (Seroquel) 50 mg PO [facility] Last Admin: 07/15/17 12:25 Dose: 50 mg Senna (Senna Lax) 17.2 mg PO BID PRN Sodium Chloride (Normal Saline) 500 ml IV PRN PRN Last Admin: 07/06/17 00:56 Dose: 500 ml Sodium Chloride (Normal Saline) 500 ml IV PRN PRN Last Admin: 07/10/17 01:44 Dose: 500 ml Sodium Chloride (Iv Flush) 10 ml IV PRN PRN PRN Reason: Flushing Last Admin: 07/10/17 17:25 Dose: 10 ml Subjective: Patient seen and chart reviewed. Case discussed with treatment team. Patient is sleeping at time of rounds and was not woken as she has reportedly had a difficult morning, with more VH and reported pain. She reportedly has intermittent paranoia and frequently complains of pain as well. Hospice consult planned for this afternoon. Patient slept 8+ hours overnight. VSS. Patient is eating well. Psychotropic PRNs required in the past 24 hours: Ativan 0.5mg PO x1 yesterday. Start Time: 13:00 Stop Time: 13:20 Mental Status Exam Vitals: Last Vital Signs Temp 97.9 F 07/15/17 14:49 Pulse 77 07/15/17 14:49 Resp 17 07/15/17 14:49 BP 153/79 H 07/15/17 14:49 Pulse Ox 94 07/15/17 14:49 Height: 1.68 m Weight: 76.4 kg - Mental Status Exam Muscle Strength/Tone: Rigid Dressing: Casual Grooming: Good Attitude: Suspicious (intermittent), Other (Asleep at time of rounds) Motor Activity: Tremors Eye Contact: Fair Speech: Slowed Volume: Soft Rhythm: Appropriate Rhythm Orientation: Disoriented to time, Disoriented to place, Disoriented to situation , Oriented to person Mood: Depressed (with congruent affect), Anxious (frequently) Affect: Tearful (frequent) Rate of Thoughts: Delayed Thought Organization: [place] Associations: Illogical Abstract Reasoning: Poor abstract reasoning Thought Content: Ruminations, Helplessness, Paranoia Perception/Psychotic: Psychotic Current Hallucinations: Visual Language: Naming Impaired Fund of Knowledge: Poor fund of knowledge Memory: Poor-immediate, Poor-recent Suicidal Ideation: Other (Cannot currently assess but has denied) Homicidal Ideation: None Insight: Poor Judgement: Poor Impulse Control: Poor - Laboratory Result Diagrams: 07/09/17 06:48 07/09/17 06:48 Assessment and Plan (1) Lewy body dementia with behavioral disturbance Current visit: No Status: Acute (2) Major neurocognitive disorder Problem details: with behavioral disturbance (most likely Lewy Body Dementia) Current visit: No Status: Acute (3) Depressive disorder Current visit: Yes Status: Acute (4) CAD (coronary artery disease) Current visit: No Status: Chronic (5) HTN (hypertension) Current visit: No Status: Chronic (6) Parkinsons Current visit: No Status: Chronic Hospital Course Summary Disclaimer: The visit summary below is not to be considered part of the above Progress Note. Hospital Course: 06/20/[address] [facility] for ongoing psychiatric evaluation and treatment under the care of Dr. Rizvi Persistent hypernatremia chronically, will encourage oral fluids, and monitor routine BMP. Blood pressure is elevated today. Recently patient was on Norvasc in addition to lisinopril. Will add Norvasc 5 mg daily and continue to monitor carefully Previously underwent pancytopenia and anemia workup in which iron and vitamin B12 were normal. Tylenol as needed for back pain. Check CBC and BMP tomorrow morning to follow blood counts, renal function and electrolytes Hospitalist services will continue to follow patient medically manage existing comorbidities. At time of discharge, care will return to primary care provider, Dr. Oquendo 06/20/17 20:07 Psych: Increase Seroquel to 50mg PO BID (AM, afternoon) and 100mg PO q HS as patient continues to exhibit paranoia - monitor for signs of worsening Parkinsonism, weigh risk of AE to clinical benefit with further dose increases. 06/21/17 18:32 Psych: Continue current care - monitor for any further signs of depression, may increase Seroquel dose further if paranoia continues. 06/22/17 20:35 Psych: Discuss depressive symptoms and need for antidepressant with staff, patient's family tomorrow. Paranoia is manageable and directable at this point. Would like to use lowest dose of Seroquel possible to control symptoms as to avoid exacerbating movement disorder. Continue current care otherwise; monitor patient's mood, behavior and response to treatment. 06/23/17 21:02 Psych: Start mirtazapine 7.5mg PO q HS to target mood, may increase to 15mg fairly quickly if well tolerated. Believe that paranoia is mild in nature when present and she is redirectable and current dose of Seroquel - would like to minimize dose to avoid exacerbating movement disorder. 06/24/17 16:36 Patient is slowly improving. Diarrhea stools have resolved. Still confused, it appears from nurses notes that behavior is improving. BP is variable, but overall well controlled. Plan to repeat labs in AM for stability. Chart, documentation, imaging is reviewed during the course of this visit. 06/24/17 19:46 Psych: Patient doing well overall - will receive first dose of mirtazapine tonight, monitor to ensure patient tolerates it well and plan to increase to 15mg soon. Continue current care otherwise. 06/26/17 13:43 Psych: Continues to complain of depression - will increase mirtazapine to 15mg PO q HS and monitor behavior/response. 06/26/17 Overall, Cristina is doing well and slowly improving. Continue psychiatric care per team. Diarrhea stools have resolved. Hypernatremia noted on labs on 06/25 with sodium at 147. Encourage fluid intake. Hypokalemia noted with potassium at 3.5. Will give KCl 20 mEq po now and and will recheck BMP on 06/29. Continue to provide safe and supportive environment. Anticipate discharge in near future. 06/26/17 20:56 Psych: Discontinue mirtazapine as patient has become agitated more frequently since starting it - monitor response. Continue current dose of Seroquel. Monitor response. 06/27/17 21:28 Pt remains irritable at times but is redirectable. Continue current care 06/28/17 20:46 No behaviors today. Continue current care 06/29/17 18:35 Pt was more agitated and paranoid today with some physical aggression. Will restart Ativan PRN and increased BID dose of Seroquel to 75mg 06/30/17 21:04 Pt had some agitation last night and required PRN's. Continue current care 07/01/17 0815: Cristina complained of chest pain this morning which has since resolved and now complains of epigastric and upper abdominal pain. Exam reveals + Saleh's sign. She states her gall bladder "doesn't work". In light of her chest pain, will obtain EKG, portable chest x-ray, CBC, CMP and serial troponins stat - results pending. She was given ASA 324. No nitro was administer as she was chest pain free on exam. Vital signs have remained stable with blood pressure slightly elevated at 153/76. She has not received her morning medications. CXR was reviewed by myself and appeared unchanged from prior imaging in May 2017. As her clinical exam is concerning for gall bladder issues, will discuss with the family their wishes on additional imaging, labs, treatments, etc as Cristina is a DNR. 0930: Review of the labs revealed new leukopenia with WBC at 3.5 and stable thrombopenia with platelets at 120. CMP revealed stable hypernatremia with sodium at 147 and otherwise unremarkable. AST and ALT were unremarkable at 17 and 37 respectively. Troponin was <0.012. Lipase was within normal limits at 38. EKG showed sinus bradycardia at rate of 59 with 1st degree AV block. No STEMI noted. Will continue to encourage oral fluid intake and monitor closely. 07/01/17 12:25 No behaviors noted today. medical team working up RUQ abdominal pain. Continue current care 07/02/17 14:48 Review vital signs, nurse's notes, psychiatry note, and laboratory. Patient is without fever and chills, has no elevated white count, no suprapubic pain, no urinary symptoms, thus, antibiotic treatment is not indicated with the presence of ESBL on urine culture. Patient still has mild hypernatremia, she has been encouraged to push fluids 07/02/17 21:05 Some agitation but short lived. Continue current care 07/03/17 22:17 PT remains paranoid at times. Continue current care 07/04/17 09:15 Add routine senna for bowel motivation. 07/04/17 18:19 PT will start IV antibiotics for UTI 07/05/17 18:39 Agitation and paranoia this evening. Continue current care 07/06/17 16:54 Improving. Continue current care 07/07/17 11:29 Cristina continues to c/o constipation. She is frequently requiring Tappan for chronic pain. Increase Senna to 2 tabs PO BID. Continue PRN laxatives as indicated. Add lowest dose Movantik for constipation assoc w/ narcotics x 3 days. If significant improvement, can consider exterminator termite. Due to ongoing behavioural changes, decision to treat ESBL was made. Started Meropenem to run through 07/11. If the TID dosing is distressing to pt, could change to daily Ertapenem. Continue remainder of supportive meds. Repeat labs in AM. If she remains dry, we could consider augmenting with IVF while IV is in, but will try to avoid if possible. Mental health management per primary team. 07/07/17 12:24 Some agitation at times. Continue current care 07/08/17 11:41 Better today. Continue current care 07/09/17 Psych: Continue current care. Important for nursing staff and LTC facility to note that restlessness may be due to pain at times and PRN Tappan may be helpful in calming her in addition to scheduled antipsychotics. Plan to have meeting with [facility] tomorrow to discuss care and risks/benefits of increasing antipsychotic given AE on movement. 07/10/17 Psych: Increase Seroquel to 100mg PO TID; monitor response. Patient continues to be paranoid and distressed enough that management outside of the hospital setting would not be possible. Informed consent given by family; they are aware that increased antipsychotic could exacerbate movement disorder. 07/11/17 Psych: Patient continues to be intermittently tearful/anxious but is reportedly more redirectable today, nighttime seems to be worse. Today is first full day of increased dose of Seroquel from yesterday so will continue current care for the time being and monitor response as well as any more AE. 07/12/17 Psych: Patient's behavior has not improved with increased dose of Seroquel. Will change Seroquel to 50mg PO at 0900 and 1300, and 100mg at bedtime. Will also schedule Ativan 0.5mg PO at 0900 and 1300 as this seems to calm patient more. Monitor mood, behavior and response to treatment. 07/13/17 Psych: Patient continues to be in distress frequently despite multiple medication changes and even repeated hospitalizations. Will discontinue Ativan and see if emotional lability improves. May consider Hospice referral due to limited quality of life with continued increase in antipsychotics. 07/14/17 Psych: Continue current care - family and patient considering Hospice consult, which I feel would be appropriate. 07/15/17 Psych: Hospice to assess this afternoon - will make further determination re: treatment once this has occurred.
[2017-07-15] MEDS ORDERED: HYDROCODONE/APAP 5mg/325mg TABLET PO PRN (17:00)
--- NOTE | 2017-07-16 08:09 | Discharge Instructions ---
Discharge Plan - Med Rec/Dispo Referrals/Follow Up: Gage Oquendo DO [Family Provider] - (Dr. Jassi Oquendo will see patient on rounds at the facility for Hosp. follow-up. Patient will be seen on rounds at the facility for Mental Health follow-up. ) Additional Instructions: Discharge Diagnosis: Reasons for Admission: Irritable,agitated,paranoid, and aggressive with cares. IN CASE OF PSYCHIATRIC EMERGENCY, CONTACT [facility] AT [phone] ( available 24 hrs daily ). Discharging to hospice. Prescriptions: New Ondansetron Odt [Zofran Po] 4 mg PO Q6H PRN tablet PRN Reason: Nausea &/Or Vomiting Bisacodyl Supp [Dulcolax] 10 mg RECTALLY DAILY PRN supp PRN Reason: Constipation Loperamide [Imodium] 2 mg PO PRN PRN capsule PRN Reason: Diarrhea Continue Lidocaine 5% Patch [Lidoderm] 1 patch TOP DAILY #0 patch Tramadol [Ultram] 25 mg PO Q6H PRN #20 tab PRN Reason: Pain Lidocaine Patch Removal [Lidoderm Patch Removal] 1 removal TOP HS Acetaminophen [Tylenol] 325 - 650 mg PO Q5H PRN tablet PRN Reason: Discomfort Discontinued Atorvastatin [Lipitor] 10 mg PO HS Aspirin [Adult Low Dose Aspirin EC] 81 mg PO DAILY Lisinopril [Prinivil] 10 mg PO DAILY Famotidine [Pepcid AC] 20 mg PO DAILY Cholecalciferol [Vit. D-3] 1,000 unit PO DAILY Zyloprim (Allopurinol) 100 mg tablet 100 mg PO DAILY No Action Quetiapine [Seroquel] 50 mg PO TID Haloperidol [Haldol] 0.5 mg PO Q6HR PRN PRN Reason: Anxiety/Agitation Quetiapine [Seroquel] 50 mg PO BID PRN tablet PRN Reason: Agitation - Disposition 04 To [facility] Home/Facility
[2017-07-16] MEDS: ASPIRIN *EC* 81 MG TABLET PO SCH (08:43)
[2017-07-16] MEDS: AMLODIPINE 5 MG TABLET PO SCH (08:43)
[2017-07-16] MEDS: ALLOPURINOL 100 MG TABLET PO SCH (08:43)
[2017-07-16] MEDS: FAMOTIDINE 20 MG TABLET PO SCH (08:44)
[2017-07-16] MEDS: CYANOCOBALAMIN (B-12) 500mcg TABLET PO SCH (08:44)
[2017-07-16] MEDS: COENZYME Q10 200 MG PO SCH (08:44)
[2017-07-16] MEDS: QUETIAPINE 50 MG TABLET PO SCH ×2 (08:45→12:25)
[2017-07-16] MEDS: LORazepam 0.5 MG TABLET PO SCH ×2 (08:45→12:20)
[2017-07-16] MEDS: LIDOCAINE 5% PATCH TOP SCH (08:45)
[2017-07-16] MEDS: LISINOPRIL 10 MG TABLET PO SCH (08:45)
[2017-07-16] MEDS: MULTI-VITAMIN PLAIN TABLET PO SCH (08:45)
--- NOTE | 2017-07-16 12:23 | Discharge Instructions ---
Discharge Plan - Med Rec/Dispo Referrals/Follow Up: Gage Oquendo DO [Family Provider] - (Dr. Jassi Oquendo will see patient on rounds at the facility for Hosp. follow-up. No Mental Health appt. 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 IN CASE OF PSYCHIATRIC EMERGENCY, CONTACT [facility] AT [phone] ( available 24 hrs daily ). Discharging to hospice. Prescriptions: New Ondansetron Odt [Zofran Po] 4 mg PO Q6H PRN tablet PRN Reason: Nausea &/Or Vomiting Bisacodyl Supp [Dulcolax] 10 mg RECTALLY DAILY PRN supp PRN Reason: Constipation Quetiapine [Seroquel] 50 mg PO tablet Loperamide [Imodium] 2 mg PO PRN PRN capsule PRN Reason: Diarrhea Quetiapine [Seroquel] 100 mg PO HS tablet Continue Lidocaine 5% Patch [Lidoderm] 1 patch TOP DAILY #0 patch Tramadol [Ultram] 25 mg PO Q6H PRN #20 tab PRN Reason: Pain Lidocaine Patch Removal [Lidoderm Patch Removal] 1 removal TOP HS Acetaminophen [Tylenol] 325 - 650 mg PO Q5H PRN tablet PRN Reason: Discomfort Discontinued Atorvastatin [Lipitor] 10 mg PO HS Aspirin [Adult Low Dose Aspirin EC] 81 mg PO DAILY Lisinopril [Prinivil] 10 mg PO DAILY Quetiapine [Seroquel] 50 mg PO TID Famotidine [Pepcid AC] 20 mg PO DAILY Haloperidol [Haldol] 0.5 mg PO Q6HR PRN PRN Reason: Anxiety/Agitation Cholecalciferol [Vit. D-3] 1,000 unit PO DAILY Quetiapine [Seroquel] 50 mg PO BID PRN tablet PRN Reason: Agitation Zyloprim (Allopurinol) 100 mg tablet 100 mg PO DAILY Discharge Instructions/Outpatient Orders: Criteria for Antipsychotic Use Location: Determined By Patient - Disposition 04 To [facility] Home/Facility
[2017-07-16] MEDS ORDERED: LORazepam 0.5 MG TABLET PO ONE (13:50)
[2017-07-16 16:57] VITALS: BP 125/64; PULSE 69; RESP 22; TEMP 98.4; O2SAT 93
--- NOTE | 2017-08-11 12:16 | Neuropsychiatric Disch Summary ---
Discharge Information Date of admission: 06/19/17 17:05 Attending Physician: Speedy Rizvi MD Primary care physician: Gage Oquendo DO Consults: 06/19/17 18:04 Case Management Consult [CONS] Routine Reason For Exam: medical management Physician Consult [CONS] Routine Consulting Provider: Desirae Beatty Reason For Exam: medical management Ordering Provider has Notified Cloth Napping Supervisor: No - Discharge Diagnosis (1) CAD (coronary artery disease) Status: Chronic (2) HTN (hypertension) Status: Chronic (3) Major neurocognitive disorder Status: Acute (4) Parkinsons Status: Chronic (5) Lewy body dementia with behavioral disturbance Status: Acute (6) Depressive disorder Status: Acute - Laboratory Labs: 07/09/17 06:48 07/09/17 06:48 - Microbiology Microbiology 06/29/17 16:31 Urine, Voided (Cc/notcc) Urine Culture - Final Escherichia coli Gram Negative [place] Date of Admission: 06/19/17 17:05 History of Present Illness: HPI: 86 Y/O CF well known to our service. She has a hx of Lewy Body Dementia and was recently admitted to our unit from a [facility] for aggression. She was transferred to the med floor as she tested positive for Norovirus, was stabilized, and has now transferred back. On face to face the pt is pleasant but confused. She is only oriented to self. She believes that I am planning to operate on her. She states she is feeling better and voices no concerns at this time. PSYCH ROS: Pt has a hx of paranoia, VH, memory impairment, and Parkinsons symptoms. These symptoms seem to be some what improved. SHe reports her mood is stable. PAST PSYCH: Pt was recently on our unit and started on Seroquel which was titrated to 100mg PO TID. She was doing well and discharged back to the [facility]. She became aggressive there and so was sent back to our unit. She was started on Haldol and Risperdal while at the SD which seemed to make her tremors worse. Hospital Course This is a general summary of the patient's hospital course. For more details refer to the complete medical record. Hospital course: 06/20/17 [facility] and treatment under the care of Dr. Rizvi Persistent hypernatremia chronically, will encourage oral fluids, and monitor routine BMP. Blood pressure is elevated today. Recently patient was on Norvasc in addition to lisinopril. Will add Norvasc 5 mg daily and continue to monitor carefully Previously underwent pancytopenia and anemia workup in which iron and vitamin B12 were normal. Tylenol as needed for back pain. Check CBC and BMP tomorrow morning to follow blood counts, renal function and electrolytes Hospitalist services will continue to follow patient medically manage existing comorbidities. At time of discharge, care will return to primary care provider, Dr. Oquendo 06/20/17 20:07 Psych: Increase Seroquel to 50mg PO BID (AM, afternoon) and 100mg PO q HS as patient continues to exhibit paranoia - monitor for signs of worsening Parkinsonism, weigh risk of AE to clinical benefit with further dose increases. 06/21/17 18:32 Psych: Continue current care - monitor for any further signs of depression, may increase Seroquel dose further if paranoia continues. 06/22/17 20:35 Psych: Discuss depressive symptoms and need for antidepressant with staff, patient's family tomorrow. Paranoia is manageable and directable at this point. Would like to use lowest dose of Seroquel possible to control symptoms as to avoid exacerbating movement disorder. Continue current care otherwise; monitor patient's mood, behavior and response to treatment. 06/23/17 21:02 Psych: Start mirtazapine 7.5mg PO q HS to target mood, may increase to 15mg fairly quickly if well tolerated. Believe that paranoia is mild in nature when present and she is redirectable and current dose of Seroquel - would like to minimize dose to avoid exacerbating movement disorder. 06/24/17 16:36 Patient is slowly improving. Diarrhea stools have resolved. Still confused, it appears from nurses notes that behavior is improving. BP is variable, but overall well controlled. Plan to repeat labs in AM for stability. Chart, documentation, imaging is reviewed during the course of this visit. 06/24/17 19:46 Psych: Patient doing well overall - will receive first dose of mirtazapine tonight, monitor to ensure patient tolerates it well and plan to increase to 15mg soon. Continue current care otherwise. 06/26/17 13:43 Psych: Continues to complain of depression - will increase mirtazapine to 15mg PO q HS and monitor behavior/response. 06/26/17 Overall, Cristina is doing well and slowly improving. Continue psychiatric care per team. Diarrhea stools have resolved. Hypernatremia noted on labs on 06/25 with sodium at 147. Encourage fluid intake. Hypokalemia noted with potassium at 3.5. Will give KCl 20 mEq po now and and will recheck BMP on 06/29. Continue to provide safe and supportive environment. Anticipate discharge in near future. 06/26/17 20:56 Psych: Discontinue mirtazapine as patient has become agitated more frequently since starting it - monitor response. Continue current dose of Seroquel. Monitor response. 06/27/17 21:28 Pt remains irritable at times but is redirectable. Continue current care 06/28/17 20:46 No behaviors today. Continue current care 06/29/17 18:35 Pt was more agitated and paranoid today with some physical aggression. Will restart Ativan PRN and increased BID dose of Seroquel to 75mg 06/30/17 21:04 Pt had some agitation last night and required PRN's. Continue current care 07/01/17 0815: Cristina complained of chest pain this morning which has since resolved and now complains of epigastric and upper abdominal pain. Exam reveals + Saleh's sign. She states her gall bladder "doesn't work". In light of her chest pain, will obtain EKG, portable chest x-ray, CBC, CMP and serial troponins stat - results pending. She was given ASA 324. No nitro was administer as she was chest pain free on exam. Vital signs have remained stable with blood pressure slightly elevated at 153/76. She has not received her morning medications. CXR was reviewed by myself and appeared unchanged from prior imaging in May 2017. As her clinical exam is concerning for gall bladder issues, will discuss with the family their wishes on additional imaging, labs, treatments, etc as Cristina is a DNR. 0930: Review of the labs revealed new leukopenia with WBC at 3.5 and stable thrombopenia with platelets at 120. CMP revealed stable hypernatremia with sodium at 147 and otherwise unremarkable. AST and ALT were unremarkable at 17 and 37 respectively. Troponin was <0.012. Lipase was within normal limits at 38. EKG showed sinus bradycardia at rate of 59 with 1st degree AV block. No STEMI noted. Will continue to encourage oral fluid intake and monitor closely. 07/01/17 12:25 No behaviors noted today. medical team working up RUQ abdominal pain. Continue current care 07/02/17 14:48 Review vital signs, nurse's notes, psychiatry note, and laboratory. Patient is without fever and chills, has no elevated white count, no suprapubic pain, no urinary symptoms, thus, antibiotic treatment is not indicated with the presence of ESBL on urine culture. Patient still has mild hypernatremia, she has been encouraged to push fluids 07/02/17 21:05 Some agitation but short lived. Continue current care 07/03/17 22:17 PT remains paranoid at times. Continue current care 07/04/17 09:15 Add routine senna for bowel motivation. 07/04/17 18:19 PT will start IV antibiotics for UTI 07/05/17 18:39 Agitation and paranoia this evening. Continue current care 07/06/17 16:54 Improving. Continue current care 07/07/17 11:29 Cristina continues to c/o constipation. She is frequently requiring Brimhall for chronic pain. Increase Senna to 2 tabs PO BID. Continue PRN laxatives as indicated. Add lowest dose Movantik for constipation assoc w/ narcotics x 3 days. If significant improvement, can consider intermission coordinator. Due to ongoing behavioural changes, decision to treat ESBL was made. Started Meropenem to run through 07/11. If the TID dosing is distressing to pt, could change to daily Ertapenem. Continue remainder of supportive meds. Repeat labs in AM. If she remains dry, we could consider augmenting with IVF while IV is in, but will try to avoid if possible. Mental health management per primary team. 07/07/17 12:24 Some agitation at times. Continue current care 07/08/17 11:41 Better today. Continue current care 07/09/17 Psych: Continue current care. Important for nursing staff and LTC facility to note that restlessness may be due to pain at times and PRN Brimhall may be helpful in calming her in addition to scheduled antipsychotics. Plan to have meeting with [facility] tomorrow to discuss care and risks/benefits of increasing antipsychotic given AE on movement. 07/10/17 Psych: Increase Seroquel to 100mg PO TID; monitor response. Patient continues to be paranoid and distressed enough that management outside of the hospital setting would not be possible. Informed consent given by family; they are aware that increased antipsychotic could exacerbate movement disorder. 07/11/17 Psych: Patient continues to be intermittently tearful/anxious but is reportedly more redirectable today, nighttime seems to be worse. Today is first full day of increased dose of Seroquel from yesterday so will continue current care for the time being and monitor response as well as any more AE. 07/12/17 Psych: Patient's behavior has not improved with increased dose of Seroquel. Will change Seroquel to 50mg PO at 0900 and 1300, and 100mg at bedtime. Will also schedule Ativan 0.5mg PO at 0900 and 1300 as this seems to calm patient more. Monitor mood, behavior and response to treatment. 07/13/17 Psych: Patient continues to be in distress frequently despite multiple medication changes and even repeated hospitalizations. Will discontinue Ativan and see if emotional lability improves. May consider Hospice referral due to limited quality of life with continued increase in antipsychotics. 07/14/17 Psych: Continue current care - family and patient considering Hospice consult, which I feel would be appropriate. 07/15/17 Psych: Hospice to assess this afternoon - will make further determination re: treatment once this has occurred. Time spent with patient: less than 15 minutes Discharge Plan - Med Rec/Dispo Referrals/Follow Up: Gage Oquendo, [Family Provider] - (Dr. Jassi Oquendo will see patient on rounds at the facility for Hosp. follow-up. [phone] No Mental Health appt. 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 IN CASE OF PSYCHIATRIC EMERGENCY, CONTACT GENERATIONS STAFF AT [phone] ( available 24 hrs daily ). Discharging to hospice. Prescriptions: New Ondansetron Odt [Zofran Po] 4 mg PO Q6H PRN tablet PRN Reason: Nausea &/Or Vomiting Bisacodyl Supp [Dulcolax] 10 mg RECTALLY DAILY PRN supp PRN Reason: Constipation Quetiapine [Seroquel] 50 mg PO , tablet Loperamide [Imodium] 2 mg PO PRN PRN capsule PRN Reason: Diarrhea Quetiapine [Seroquel] 100 mg PO HS tablet Continue Lidocaine 5% Patch [Lidoderm] 1 patch TOP DAILY #0 patch Tramadol [Ultram] 25 mg PO Q6H PRN #20 tab PRN Reason: Pain Lidocaine Patch Removal [Lidoderm Patch Removal] 1 removal TOP HS Acetaminophen [Tylenol] 325 - 650 mg PO Q5H PRN tablet PRN Reason: Discomfort Discontinued Atorvastatin [Lipitor] 10 mg PO HS Aspirin [Adult Low Dose Aspirin EC] 81 mg PO DAILY Lisinopril [Prinivil] 10 mg PO DAILY Quetiapine [Seroquel] 50 mg PO TID Famotidine [Pepcid AC] 20 mg PO DAILY Haloperidol [Haldol] 0.5 mg PO Q6HR PRN PRN Reason: Anxiety/Agitation Cholecalciferol [Vit. D-3] 1,000 unit PO DAILY Quetiapine [Seroquel] 50 mg PO BID PRN tablet PRN Reason: Agitation Zyloprim (Allopurinol) 100 mg tablet 100 mg PO DAILY Discharge Instructions/Outpatient Orders: Criteria for Antipsychotic Use Location: Determined By Patient - Disposition 04 To [facility] Home/Facility
== END 2017-07-16 15:45 | DRG 57 ==
LOC: GEN 17:05
PROVIDERS: ADMIT Psychiatry & Neurology Psychiatry; ATTEND Psychiatry & Neurology Psychiatry